=== PATIENT | male | born 1955 | race Caucasian/White ===

== ENCOUNTER 2016-11-08 10:03 | Day surgery (SDC) | payer OTHER ==
[2016-11-06 11:10] VITALS: BMI 35.6
[~2016-11-08 10:03] MED LIST: LACTATED RINGERS 1,000 ML IV SCH
[2016-11-08 10:36] VITALS: RESP 16; TEMP 98.4
[2016-11-08] MEDS ORDERED: LIDOCAINE 1% INJ 10MG/ML (20 ML MDV) ONE (10:43)
[2016-11-08] MEDS ORDERED: PROPOFOL 10 MG/ML 20 ML VIAL IV ONE (10:43)
[2016-11-08] MEDS ORDERED: LIDOCAINE 1% 20 ML VIAL (10MG/ML) FOR IV START INTRADERMA ONE (10:44)
--- NOTE | 2016-11-08 10:46 | P.GSHP ---
History of Present Illness H&P Date: 11/08/16 Chief Complaint: Colon cancer screening Patient here today for colonoscopy. Last colonoscopy 8 years ago. Family history of colon cancer in his mother. No bowel related complaints. Past Medical History Past Medical History: Asthma, Diabetes Mellitus, GERD/Reflux, Hypertension, Musculoskeletal Disorder, Osteoarthritis (OA), Sleep Apnea/CPAP/BIPAP Additional Past Medical History / Comment(s): uses CPAP, spinal stenosis, sciatic pain History of Any Multi-Drug Resistant Organisms: None Reported Past Surgical History: Orthopedic Surgery Additional Past Surgical History / Comment(s): carpal tunnel surg., knee surg. Past Anesthesia/Blood Transfusion Reactions: No Reported Reaction Past Psychological History: Anxiety Smoking Status: Former smoker Past Alcohol Use History: Rare Additional Past Alcohol Use History / Comment(s): quit smoking cigars 10 yrs. ago, only smoked on & off couple yrs. Past Drug Use History: None Reported - Past Family History Sister(s) Family Medical History: Deep Vein Thrombosis (DVT) Medications and Allergies Home Medications Medication Instructions Recorded Confirmed Type ALPRAZolam [Xanax] 0.25 mg PO BID PRN 11/06/16 11/06/16 History Baclofen 10 mg PO HS 11/06/16 11/06/16 History Cholecalciferol [Vitamin D3] 5,000 unit PO DAILY 11/06/16 11/06/16 History Cyanocobalamin (Vitamin B-12) 1,000 mcg PO DAILY 11/06/16 11/06/16 History [Vitamin B-12] DULoxetine HCL [Cymbalta] 60 mg PO DAILY 11/06/16 11/06/16 History HYDROcodone/APAP 10-325MG [[place] 1 tab PO Q6H PRN 11/06/16 11/06/16 History 10-325] Lisinopril [Zestril] 20 mg PO DAILY 11/06/16 11/06/16 History Magnesium 400 mg PO DAILY 11/06/16 11/06/16 History Multivitamin [Men's Multi-Vitamin] 1 each PO DAILY 11/06/16 11/06/16 History Omeprazole 40 mg PO DAILY 11/06/16 11/06/16 History Sertraline [Zoloft] 100 mg PO DAILY 11/06/16 11/06/16 History Vitamin B Complex 1 each PO DAILY 11/06/16 11/06/16 History glipiZIDE/METFORMIN HCL 1 each PO BID 11/06/16 11/06/16 History [glipiZIDE/METFORMIN HCL 5-500 mg] Allergies Allergy/AdvReac Type Severity Reaction Status Date / Time No Known Allergies Allergy Verified 11/08/16 10:36 Surgical - Exam Vital Signs Temp Pulse Resp BP Pulse Ox 98.4 F 109 H 16 212/111 95 11/08/16 10:34 11/08/16 10:34 11/08/16 10:34 11/08/16 10:34 11/08/16 10:34 Physical exam: General: Well-developed, well-nourished HEENT: Normocephalic, sclerae nonicteric Abdomen: Nontender, nondistended Extremities: No edema Neuro: Alert and oriented Assessment and Plan (1) Colon cancer screening Narrative/Plan: Will proceed with colonoscopy at this time. Status: Acute
[2016-11-08 10:59] LABS: Glucose,Whole Blood 245 mg/dL (75-99)
--- NOTE | 2016-11-08 11:02 | P.PCN ---
Date of Procedure: 11/08/16 Procedure(s) Performed: PREOPERATIVE DIAGNOSIS: Colon cancer screening, family history of colon cancer POSTOPERATIVE DIAGNOSIS: Rectal polyp, diverticulosis PROCEDURE: Colonoscopy with snare polypectomy ANESTHESIA: MAC SURGEON: Lopez Maria M.D. SPECIMENS: Rectal polyp ENDOSCOPIC PROCEDURE: The patient was placed on the endoscopy table in the left decubitus position. The Olympus colonoscope was inserted into the anus and passed under direct visualization to the base of the cecum. The appendiceal orifice was visualized. From that point the scope was slowly withdrawn inspecting all surfaces carefully. There were no neoplastic inflammatory or polypoid lesions throughout the cecum, ascending, transverse, descending, and sigmoid colon. In the rectum a small polyp was removed using the snare with cautery technique. There was mild diverticulosis noted in the left colon. Digital rectal examination was normal. The patient was taken to the recovery room in stable condition per anesthesia guidelines. RECOMMENDATIONS: Await biopsy results. Colonoscopy 5 years.
[2016-11-08 11:18] LABS: Glucose,Whole Blood 271 mg/dL (75-99)
[2016-11-08 11:27] VITALS: BP 115/69; PULSE 103
== END 2016-11-08 11:54 | disposition home or self-care (01) ==
LOC: ORWHC2ENDO 10:03
PROVIDERS: ATTEND Surgery
DX: Z12.11 Encounter for screening for malignant neoplasm of colon (principal); Z80.0 Family history of malignant neoplasm of digestive organs; D12.8 Benign neoplasm of rectum; K57.30 Diverticulosis of large intestine without perforation or abscess without bleeding; K21.9 Gastro-esophageal reflux disease without esophagitis; Z87.891 Personal history of nicotine dependence; E11.9 Type 2 diabetes mellitus without complications; Z79.84 Long term (current) use of oral hypoglycemic drugs; I10 Essential (primary) hypertension; J44.9 Chronic obstructive pulmonary disease, unspecified; G47.33 Obstructive sleep apnea (adult) (pediatric); Z99.89 Dependence on other enabling machines and devices; M19.90 Unspecified osteoarthritis, unspecified site; G89.29 Other chronic pain; M54.5 Low back pain; F41.9 Anxiety disorder, unspecified; Z79.899 Other long term (current) drug therapy
CPT/HCPCS: 88305; 45385; J2001; J2704

== ENCOUNTER 2017-04-03 10:30 | Inpatient (IN) | payer OTHER ==
[2017-04-03] MEDS ORDERED: MIDAZOLAM 2 MG/2 ML VIAL ONE (11:42)
[2017-04-03] MEDS ORDERED: SODIUM CHLORIDE 0.9% 1,000 ML IV ONE ×2 (11:51)
[2017-04-03] MEDS ORDERED: MIDAZOLAM 2 MG/2 ML VIAL IVP ONE (11:51)
[2017-04-03] MEDS ORDERED: fentaNYL (PF) 50 MCG/ML 2 ML AMP ONE (11:51)
[2017-04-03] MEDS ORDERED: fentaNYL (PF) 50 MCG/ML 2 ML AMP IVP ONE (11:51)
[2017-04-03] MEDS ORDERED: LIDOCAINE 2% INJ 20 MG/ML SQ ONE (11:55)
[2017-04-03] MEDS ORDERED: BIVALIRUDIN BOLUS 250 MG/50 ML IV ONE (12:07)
[2017-04-03] MEDS ORDERED: niCARdipine 25 MG/10 ML VIAL ONE (12:07)
[2017-04-03] MEDS ORDERED: BIVALIRUDIN 250 MG in SODIUM CHLORIDE 0.9% 50 ML IV ONE (12:08)
[2017-04-03] MEDS ORDERED: NITROGLYCERIN 1000MCG/10ML SYRINGE INTRACORON ONE (12:12)
--- NOTE | 2017-04-03 12:19 | P.PCN ---
Date of Procedure: 04/03/17 Preoperative Diagnosis: Subacute inferior wall CA Postoperative Diagnosis: The same Procedure(s) Performed: Left heart catheterization Description of Procedure: HISTORY: This is a 61-year-old gentleman with history of vuo-ioqgwwh-[id number] diabetes mellitus, obesity who has started having chest pains yesterday around 1 :00 while mowing the lawn. Pain was intermittent and then patient had an episode of syncope. Subsequently patient continued to have pain for about 2-3 hours and then gradually pain is off. Patient could not sleep well last night. He also had mild discomfort this morning. [facility] and EKG confirmed presence of acute inferior wall myocardial infarction. Patient went to [facility] emergency room and subsequently transferred to [facility] for cardiac catheterization and further intervention as needed. CONSENT:I have discussed the risks, benefits and alternative therapies for the above-mentioned procedure and for both sedation/analgesia as well as necessary blood product administration, if indicated, as they pertain to this patient. The patient has indicated understanding and acceptance of the risks and procedures discussed. PROCEDURE: Patient was brought to the lab in a fasting state. Patient was given some IV sedation. The right groin is infiltrated with lidocaine and right femoral artery was entered using Seldinger technique. A 6-Barbadian catheter was left in place and selective coronary arteriography was performed. Patient tolerated the procedure well. . No immediate complications were noted . Patient was found to have total occlusion of RCA and went on to have stent placement by Dr. Pepe Conscious Sedation: Versed: 1 mg Fentanyl :50 mics Duration :15 minutes HEMODYNAMICS: The aortic pressure is 130/70. Left with an end-diastolic pressure was not measured SELECTIVE CORONARY ARTERIOGRAPHY: . LEFT MAIN: long and patent THE LEFT ANTERIOR DESCENDING CORONARY ARTERY: This is a fairly caliber vessel giving rise to diagonal and septal branches. The LAD has mild irregularities with the mild to moderate disease in midportion. No critical lesions are noted and THE INTERMEDIATE CORONARY ARTERY: This is a moderate caliber vessel with mild diffuse disease THE LEFT CIRCUMFLEX AND IS CORONARY ARTERY: This is a moderate caliber vessel giving rise to 2 OM branches. Mild diffuse plaque noted without any critical focal lesions. THE RIGHT CORONARY ARTERY: Good caliber vessel which is totally occluded in the distal portion LEFT VENTRICULOGRAPHY: not performed FINAL IMPRESSION: Total occlusion of the right coronary artery. Mild diffuse disease involving the left system PLAN: Pt is having stent placement by Dr. Pepe PROGNOSIS: Guarded
[2017-04-03] MEDS ORDERED: CLOPIDOGREL 75 MG TAB ONE (12:20)
[2017-04-03] MEDS ORDERED: CLOPIDOGREL 75 MG TAB PO ONE (12:22)
[2017-04-03] MEDS ORDERED: IODIXANOL 320 MG/ML 100 ML INTRAARTER ONE (12:22)
[2017-04-03] MEDS ORDERED: ZOLPIDEM 5 MG TAB PO PRN (12:28)
[2017-04-03] MEDS ORDERED: MAG HYDROX/AL HYDROX/SIMETH 30 ML CUP PO PRN (12:28)
[2017-04-03] MEDS ORDERED: ATROPINE SULFATE 0.1 MG/ML 10ML SYRINGE IV PRN (12:28)
[2017-04-03] MEDS ORDERED: NITROGLYCERIN SL TABS 0.4 MG TAB SUBLINGUAL PRN (12:28)
[2017-04-03] MEDS ORDERED: RX INFO: IV CONTRAST WAS GIVEN 1 EACH MISC MISCELLANE PRN (12:28)
[2017-04-03] MEDS ORDERED: SODIUM CHLORIDE 0.9% 1,000 ML IV SCH (12:30)
[2017-04-03 13:09] LABS: Glucose,Whole Blood 182 mg/dL (75-99)
--- NOTE | 2017-04-03 13:18 | PTCA ---
PERCUTANEOUSTRANS CORORONARY ANGIOGRAPHY DATE OF SERVICE: 04/03/2017 PERFORMING PHYSICIAN: Ernesto Barreto M.D., [employer] Temp. PROCEDURE PERFORMED: Successful stenting of the distal RCA using 2.75 x 33 mm Xience KYRA with good angiographic results. INDICATION: This is a pleasant 61-year-old gentleman who presented to [facility] with chest discomfort and was diagnosed with acute inferior ST-elevation myocardial infarction, so he was brought emergently to [facility] where he underwent heart catheterization by Dr. Whittington and was found to have acute total occlusion of distal RCA. APPROACH: Right common femoral artery. COMPLICATION: None. LEVEL OF SEDATION: Moderate sedation for 40 minutes. PROCEDURE DESCRIPTION: After diagnostic heart catheterization was performed by Dr. Whittington and after reviewing the angiogram, we decided to pursue with intervention on the RCA. Anticoagulation was initiated using Angiomax. We subsequently engaged the RCA using JR4 guide catheter. A whisper wire was used to cross the acute total occlusion. After that, I did PTCA ballooning using 2.5 x 15 x 12 mm balloon and after that I deployed 2.75 x 33 mm Xience KYRA where the stent was positioned under fluoroscopy guidance and deployed under 18 atmospheres for 20 seconds with the following angiogram showed good angiographic results and the procedure was completed without any complication. POSTPROCEDURE MANAGEMENT: 1. Dual anti-platelet therapy. 2. Risk factor modifications. 3. Will follow up with the patient. MMODL / IJN: [id number] /
[2017-04-03] MEDS: FAMOTIDINE 20 MG TAB PO SCH (15:19)
[2017-04-03] MEDS: DULoxetine HCL 60 MG CAPSULE.DR PO SCH (15:19)
[2017-04-03] MEDS: SERTRALINE 100 MG TAB PO SCH (15:19)
[2017-04-03] MEDS: ALPRAZolam 0.25 MG TAB PO PRN (15:57)
[2017-04-03 17:47] LABS: Glucose,Whole Blood 199 mg/dL (75-99)
[2017-04-03] MEDS: INSULIN LISPRO (humaLOG) 300 UNIT/3 ML VIAL SQ SCH ×2 (18:19→19:59)
--- NOTE | 2017-04-03 18:57 | P.HPIM ---
History of Present Illness H&P Date: 04/03/17 Chief Complaint: Chest pain 61 years old gentleman with past medical history of asthma or exercise-induced, diabetes mellitus, GERD, hypertension, osteoarthritis, sleep apnea on CPAP presents with chest pain that started yesterday while patient was working in the garden. Patient states that he was feeling unfelt for the past 2 days but was able to do 15 miles on his bike day before yesterday. He was gardening when he felt chest discomfort and heartburn in the substernal area with no radiation. Patient went inside the house and had some tums with no improvement. He took 6-8 step and walk 30 feet when he passed out. He went to the [facility] and underwent an EKG which confirmed acute inferior wall HI. Patient was transferred to [facility] for cardiac catheterization and underwent stenting of the RCA by Dr. Pepe. Patient was seen post catheterization and was resting comfortably in bed with no chest discomfort or shortness of breath. Review of Systems Constitutional: Reports lethargy, Denies anorexia, Denies chills, Denies chronic headaches, Denies chronic pain, Denies fever, Denies night sweats, Denies poor appetite, Denies weakness, Denies weight gain Eyes: denies decreased vision, denies diplopia, denies irritation Ears: deny: decreased hearing Ears, nose, mouth and throat: Denies ant. neck pain, Denies dysphagia, Denies headache, Denies nasal congestion, Denies neck lump, Denies nose pain Cardiovascular: Reports chest pain, Reports decreased exercise tolerance, Reports dyspnea on exertion, Reports high blood pressure, Denies irregular heart beat, Denies leg edema, Denies lightheadedness, Denies orthopnea, Denies paroxysmal nocturnal dyspnea, Denies syncope Respiratory: Denies cough, Denies cough with sputum, Denies home oxygen, Denies pleurisy, Denies wheezing Gastrointestinal: Denies abdominal pain, Denies belching, Denies bloating, Denies BRBPR, Denies change in bowel habits, Denies coffee ground emesis, Denies early satiety, Denies hematemesis, Denies hematochezia, Denies melena, Denies nausea, Denies vomiting Genitourinary: Denies nocturia, Denies polyuria, Denies urinary frequency, Denies urinary hesitancy Musculoskeletal: Denies leg numbness/tingling, Denies loss of height, Denies low back pain, Denies morning stiffness, Denies muscle cramps Integumentary: Denies rash, Denies striae, Denies wounds Neurological: Denies lack of coordination, Denies loss of vision, Denies memory loss, Denies migraines, Denies motor disturbance, Denies numbness, Denies paralysis, Denies seizures Psychiatric: Reports anxiety (patient has lost his job and he is dealing with daily expenses) Endocrine: Denies excessive sweating, Denies fatigue, Denies high blood sugars, Denies palpitations, Denies polydipsia, Denies polyphagia Past Medical History Past Medical History: Asthma, Diabetes Mellitus, GERD/Reflux, Hypertension, Musculoskeletal Disorder, Osteoarthritis (OA), Sleep Apnea/CPAP/BIPAP Additional Past Medical History / Comment(s): uses CPAP, spinal stenosis, sciatic pain History of Any Multi-Drug Resistant Organisms: None Reported Past Surgical History: Orthopedic Surgery Additional Past Surgical History / Comment(s): carpal tunnel surg., knee surg. Past Anesthesia/Blood Transfusion Reactions: No Reported Reaction Past Psychological History: Anxiety Smoking Status: Former smoker Past Alcohol Use History: Rare Additional Past Alcohol Use History / Comment(s): quit smoking cigars 10 yrs. ago, only smoked on & off couple yrs. Past Drug Use History: None Reported - Past Family History Sister(s) Family Medical History: Deep Vein Thrombosis (DVT), Skin Disorder (rosacea) Mother Family Medical History: Cancer (colon and thyroid cancer) Additional Family Medical History / Comment(s): Mother of colon cancer at the age of 59yrs. Father Family Medical History: Congestive Heart Failure (CHF) Brother(s) Family Medical History: Diabetes Mellitus Medications and Allergies Home Medications Medication Instructions Recorded Confirmed Type ALPRAZolam [Xanax] 0.25 mg PO BID PRN 11/06/16 04/03/17 History Baclofen 10 mg PO DAILY PRN 11/06/16 04/03/17 History Cholecalciferol [Vitamin D3] 5,000 unit PO DAILY 11/06/16 04/03/17 History Cyanocobalamin (Vitamin B-12) 1,000 mcg PO DAILY 11/06/16 04/03/17 History [Vitamin B-12] DULoxetine HCL [Cymbalta] 60 mg PO DAILY 11/06/16 04/03/17 History HYDROcodone/APAP 10-325MG [[place] 1 tab PO Q6H PRN 11/06/16 04/03/17 History 10-325] Magnesium 400 mg PO DAILY 11/06/16 04/03/17 History Multivitamin [Men's Multi-Vitamin] 1 tab PO DAILY 11/06/16 04/03/17 History Omeprazole 40 mg PO DAILY 11/06/16 04/03/17 History Sertraline [Zoloft] 100 mg PO DAILY 11/06/16 04/03/17 History Vitamin B Complex 1 cap PO DAILY 11/06/16 04/03/17 History glipiZIDE/METFORMIN HCL 2 tab PO BID 11/06/16 04/03/17 History [glipiZIDE/METFORMIN HCL 5-500 mg] Albuterol Inhaler [Ventolin Hfa 1 - 2 puff INHALATION RT-Q6H PRN 04/03/17 History Inhaler] Allergies Allergy/AdvReac Type Severity Reaction Status Date / Time No Known Allergies Allergy Verified 04/03/17 15:53 Physical Exam Vitals: Intake and Output 04/02/17 04/03/17 04/03/17 22:59 06:59 14:59 Intake Total 395 Balance 395 Intake: IV 395 Other: Weight 128.82 kg Patient Weight 04/04/17 06:59 Weight 128.82 kg - Constitutional General appearance: average body habitus - EENT Eyes: anicteric sclerae, EOMI, PERRLA ENT: normal oropharynx Ears: bilateral: normal - Neck Neck: no lymphadenopathy, no normal ROM, no stridor Carotids: bilateral: upstroke normal - Respiratory Respiratory: bilateral: CTA, wheezing - Cardiovascular Rhythm: regular Heart sounds: normal: S1, S2 Abnormal Heart Sounds: no systolic murmur, no diastolic murmur - Gastrointestinal General gastrointestinal: normal bowel sounds, soft, no tenderness - Integumentary Integumentary: normal - Neurologic Neurologic: CNII-XII intact - Musculoskeletal Musculoskeletal: strength equal bilaterally - Psychiatric Psychiatric: A&O x's 3 Results Labs: Abnormal Lab Results - Last 24 Hours (Table) 04/03/17 Range/Units 13:07 POC Glucose (mg/dL) 182 H (75-99) mg/dL Assessment and Plan Plan: 1 STEMI status post stenting of RCA - continue aspirin, Plavix, atorvastatin, lisinopril and metoprolol. #2 diabetes patient on glipizide and metformin at home, hold. Continue insulin sliding scale #3 depression. Patient left his job secondary to depression and is also suffering with no insurance. 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
[2017-04-03] MEDS: FLUTICASONE 50MCG/SPRAY NASAL 16GM EA NOSTRIL PRN (19:58)
[2017-04-03] MEDS: ATORVASTATIN 80 MG TAB PO SCH (19:59)
[2017-04-03] MEDS: METOPROLOL TARTRATE 25 MG TAB PO SCH (19:59)
[2017-04-03] MEDS: HEPARIN SODIUM,PORCINE 5,000 UNIT/ML 1 ML VIAL SQ SCH (19:59)
[2017-04-03 20:00] LABS: Glucose,Whole Blood 225 mg/dL (75-99)
[2017-04-03] MEDS ORDERED: ONDANSETRON 4 MG/2 ML VIAL IVP PRN (20:44)
[2017-04-03] MEDS ORDERED: ONDANSETRON 4 MG/2 ML VIAL ONE (20:46)
[2017-04-03 21:18] LABS: Hemoglobin A1C 7.5 % (4.2-6.1)
[2017-04-04 03:38] LABS: Basophils % (A) 0 %; CH 31.2; CHCM 33.5; Eosinophils % (A) 0 %; HCT 41.7 % (39.0-53.0); HDW 2.56; HGB 14.2 gm/dL (13.0-17.5); Luc # (Auto) 0.21; Luc % (Auto) 2; Lymphocytes # (A) 1.2 k/uL (1.0-4.8); Lymphocytes % (A) 9 %; MCH 31.8 pg (25.0-35.0); MCV 93.7 fL (80.0-100.0); Mean Platelet Volume 7.3; Monocytes # (A) 0.9 k/uL (0-1.0); Monocytes % (A) 7 %; Neutrophils # (A) 10.3 k/uL (1.3-7.7); Neutrophils % (A) 82 %; RBC 4.45 m/uL (4.30-5.90); RDW 13.3 % (11.5-15.5); WBC 12.7 k/uL (3.8-10.6); WBC (Perox) 13.47
[2017-04-04 04:05] LABS: ALT 80 U/L (21-72); AST 358 U/L (17-59); Alkaline Phosphatase 67 U/L (38-126); Anion Gap 13 mmol/L; Blood Urea Nitrogen 16 mg/dL (9-20); Carbon Dioxide 20 mmol/L (22-30); Chloride 100 mmol/L (98-107); Cholesterol 131 mg/dL (<200); Glucose 199 mg/dL (74-99); HDL Cholesterol 36 mg/dL (40-60); Non-African American GFR(MDRD) >60 (>60 ml/min/1.73 sqM); Potassium 4.4 mmol/L (3.5-5.1); Sodium 133 mmol/L (137-145); Total Protein 6.6 g/dL (6.3-8.2)
[2017-04-04 07:17] LABS: Glucose,Whole Blood 218 mg/dL (75-99)
--- NOTE | 2017-04-04 08:32 | P.PN ---
Subjective Principal diagnosis: Acute inferior ST elevation DE This is a pleasant 61-year-old gentleman who presented to [facility] with chest discomfort for and was seen and evaluated by Dr. Whittington was diagnosed the patient was acute inferior ST elevation myocardial infarction and transferred the patient to [facility] where he underwent a heart catheterization and was found to have occluded mid to distal RCA. The patient underwent successful stenting of the mid to distal RCA with good results. Beside that the patient was found to have an intermediate to severe disease involving the ramus intermedius coronary artery. On follow-up with the patient today, he is doing good and he is asymptomatic from the cardiovascular standpoint overview. He denies having any chest pain or discomfort or difficulty breathing. He has been maintaining normal sinus mechanism with a normal heart rate and blood pressure. He continues to be on dual antiplatelet therapy along with a statin as well as metoprolol and lisinopril. An echocardiogram was ordered and was done but we don't have the results yet. Objective - Vital Signs Vital signs: Vital Signs Temp 98.2 F 04/04/17 04:00 Pulse 60 04/04/17 07:00 Resp 20 04/04/17 07:00 BP 135/80 04/04/17 07:00 Pulse Ox 94 L 04/04/17 07:00 Intake & Output 04/03/17 04/04/17 04/04/17 18:59 06:59 18:59 Intake Total 1245 525 Output Total 225 450 Balance 1020 75 Weight 129.5 kg 129.3 kg Intake: IV 995 400 Sodium Chloride 0.9% 1, 600 400 000 ml @ 100 mls/hr IV . Q10H CODY Rx#:[id number] Oral 250 125 Output: Urine 225 350 Emesis 100 Other: Voiding Method Urinal Urinal # Voids 0 # Emeses 1 ABP, PAP, CO, CI - Last Documented Arterial Blood Pressure 116/58 - Constitutional General appearance: Present: no acute distress - Respiratory Respiratory: bilateral: CTA - Cardiovascular Rhythm: regular Heart sounds: normal: S1, S2 - Labs CBC & Chem 7: 04/04/17 01:57 04/04/17 01:57 Labs: Abnormal Lab Results - Last 24 Hours (Table) 04/03/17 04/03/17 04/03/17 Range/Units 13:07 15:08 15:08 WBC (3.8-10.6) k/uL Neutrophils # (1.3-7.7) k/uL Sodium (137-145) mmol/L Carbon Dioxide (22-30) mmol/L Glucose (74-99) mg/dL POC Glucose (mg/dL) 182 H (75-99) mg/dL Hemoglobin A1c 7.5 H (4.2-6.1) % AST (17-59) U/L ALT (21-72) U/L Troponin I 155.000 H* (0.000-0.034) ng/mL Triglycerides (<150) mg/dL HDL Cholesterol (40-60) mg/dL 04/03/17 04/03/17 04/03/17 Range/Units 17:45 19:57 20:36 WBC (3.8-10.6) k/uL Neutrophils # (1.3-7.7) k/uL Sodium (137-145) mmol/L Carbon Dioxide (22-30) mmol/L Glucose (74-99) mg/dL POC Glucose (mg/dL) 199 H 225 H (75-99) mg/dL Hemoglobin A1c (4.2-6.1) % AST (17-59) U/L ALT (21-72) U/L Troponin I 117.000 H* (0.000-0.034) ng/mL Triglycerides (<150) mg/dL HDL Cholesterol (40-60) mg/dL 04/04/17 04/04/17 04/04/17 Range/Units 01:57 01:57 01:57 WBC 12.7 H (3.8-10.6) k/uL Neutrophils # 10.3 H (1.3-7.7) k/uL Sodium 133 L (137-145) mmol/L Carbon Dioxide 20 L (22-30) mmol/L Glucose 199 H (74-99) mg/dL POC Glucose (mg/dL) (75-99) mg/dL Hemoglobin A1c (4.2-6.1) % AST 358 H (17-59) U/L ALT 80 H (21-72) U/L Troponin I 66.900 H* (0.000-0.034) ng/mL Triglycerides 154 H (<150) mg/dL HDL Cholesterol 36 L (40-60) mg/dL 04/04/17 Range/Units 07:15 WBC (3.8-10.6) k/uL Neutrophils # (1.3-7.7) k/uL Sodium (137-145) mmol/L Carbon Dioxide (22-30) mmol/L Glucose (74-99) mg/dL POC Glucose (mg/dL) 218 H (75-99) mg/dL Hemoglobin A1c (4.2-6.1) % AST (17-59) U/L ALT (21-72) U/L Troponin I (0.000-0.034) ng/mL Triglycerides (<150) mg/dL HDL Cholesterol (40-60) mg/dL Assessment and Plan Plan: This is a pleasant 61-year-old gentleman who is status post RCA stenting in the setting of acute inferior ST elevation myocardial infarction. The patient continues to be asymptomatic. He continues to be in normal sinus mechanism. He is hemodynamically stable as well. I will continue the current medical treatment which included dual antiplatelet therapy as well as a statin. Follow-up on the echocardiogram. Transfer the patient to 6 E.
[2017-04-04] MEDS: INSULIN LISPRO (humaLOG) 300 UNIT/3 ML VIAL SQ SCH ×4 (08:44→21:10)
[2017-04-04 08:45] LABS: Glucose,Whole Blood 262 mg/dL (75-99)
[2017-04-04] MEDS: SERTRALINE 100 MG TAB PO SCH (08:45)
[2017-04-04] MEDS: ASPIRIN 325 MG TAB PO SCH (08:45)
[2017-04-04] MEDS: METOPROLOL TARTRATE 25 MG TAB PO SCH ×2 (08:45→21:07)
[2017-04-04] MEDS: HEPARIN SODIUM,PORCINE 5,000 UNIT/ML 1 ML VIAL SQ SCH ×2 (08:45→21:07)
[2017-04-04] MEDS: DULoxetine HCL 60 MG CAPSULE.DR PO SCH (08:46)
[2017-04-04] MEDS: FAMOTIDINE 20 MG TAB PO SCH (08:46)
[2017-04-04] MEDS: LISINOPRIL 10 MG TAB PO SCH (08:46)
[2017-04-04] MEDS: ALBUTEROL NEBULIZED 2.5 MG/3 ML INHALATION PRN (11:46)
--- NOTE | 2017-04-04 12:25 | ECHOF ---
Referral Reason:stemi MEASUREMENTS -------- HEIGHT: 180.3 cm WEIGHT: 128.8 kg BP: 105/67 IVSd: 1.3 cm (0.6 - 1.1) LVIDd: 4.5 cm (3.9 - 5.3) LVPWd: 1.4 cm (0.6 - 1.1) IVSs: 2.3 cm LVIDs: 2.8 cm LVPWs: 2.1 cm Ao Diam: 3.1 cm (2.0 - 3.7) AV Cusp: 2.2 cm (1.5 - 2.6) LA Diam: 3.9 cm (2.7 - 3.8) MV EXCURSION: 16.790 mm (> 18.000) MV EF SLOPE: 122 mm/s (70 - 150) EPSS: 0.3 cm MV E Nabil: 0.87 m/s MV DecT: 183 ms MV A Nabil: 0.66 m/s MV E/A Ratio: 1.32 RAP: 5.00 mmHg RVSP: 27.32 mmHg FINDINGS -------- Sinus rhythm. This was a technically good study. The left ventricular size is normal. There is mild concentric left ventricular hypertrophy. Overall left ventricular systolic function is mildly impaired with, an EF between 45 - 50 %. Basal inferolateral hypokinesis. The right ventricle is normal in size and function. The left atrium is normal in size. The right atrium is normal in size. The aortic valve is trileaflet, and appears structurally normal. No aortic stenosis or regurgitation. The mitral valve leaflets are mildly thickened. There is trace mitral regurgitation. Trace tricuspid regurgitation present. The right ventricular systolic pressure, as measured by Doppler, is 27.32mmHg. Pulmonic valve appears structurally normal. The aortic root size is normal. The pericardium is normal. CONCLUSIONS -------- 1. Sinus rhythm. 2. The aortic valve is trileaflet, and appears structurally normal. No aortic stenosis or regurgitation. 3. The mitral valve leaflets are mildly thickened. 4. There is trace mitral regurgitation. 5. Trace tricuspid regurgitation present. 6. The right ventricular systolic pressure, as measured by Doppler, is 27.32mmHg. 7. Pulmonic valve appears structurally normal. 8. The aortic root size is normal. 9. The pericardium is normal. 10. This was a technically good study. 11. The left ventricular size is normal. 12. There is mild concentric left ventricular hypertrophy. 13. Overall left ventricular systolic function is mildly impaired with, an EF between 45 - 50 %. 14. Basal inferolateral hypokinesis. 15. The right ventricle is normal in size and function. 16. The left atrium is normal in size. 17. The right atrium is normal in size. POOL MANAGER: Lori Dia RDCS
[2017-04-04 12:27] LABS: Glucose,Whole Blood 295 mg/dL (75-99)
[2017-04-04] MEDS: CLOPIDOGREL 75 MG TAB PO SCH (13:23)
--- NOTE | 2017-04-04 15:42 | P.PN ---
Subjective 61 years old gentleman with past medical history of asthma or exercise-induced, diabetes mellitus, GERD, hypertension, osteoarthritis, sleep apnea on CPAP presents with chest pain that started yesterday while patient was working in the garden. Patient states that he was feeling unfelt for the past 2 days but was able to do 15 miles on his bike day before yesterday. He was gardening when he felt chest discomfort and heartburn in the substernal area with no radiation. Patient went inside the house and had some tums with no improvement. He took 6-8 step and walk 30 feet when he passed out. He went to the [facility] and underwent an EKG which confirmed acute inferior wall [place]. Patient was transferred to [facility] for cardiac catheterization and underwent stenting of the RCA by Dr. Pepe. Patient was seen post catheterization and was resting comfortably in bed with no chest discomfort or shortness of breath. 04/04: Patient is in ICU as a selective care overflow. Patient did have some nausea and vomited once last evening and continues to have some nausea this morning for which she has received Zofran. Apparently patient was quite confused during the weight shifter possibly related to the combination of Xanax and Ambien. Ambien will be discontinued. Echo has been done and report is pending. Repeat troponins are elevated and CK-MB has been ordered 1 Objective - Vital Signs Vital signs: Vital Signs Temp 98.0 F 04/04/17 09:00 Pulse 62 04/04/17 11:54 Resp 31 H 04/04/17 11:00 BP 106/70 04/04/17 11:00 Pulse Ox 97 04/04/17 11:00 Intake & Output 04/03/17 04/04/17 04/04/17 18:59 06:59 18:59 Intake Total 1245 525 720 Output Total 225 450 325 Balance 1020 75 395 Weight 129.5 kg 129.3 kg 129.3 kg Intake: IV 995 400 Sodium Chloride 0.9% 1, 600 400 000 ml @ 100 mls/hr IV . Q10H CODY Rx#:[id number] Oral 250 125 720 Output: Urine 225 350 325 Emesis 100 Other: Voiding Method Urinal Urinal Urinal # Voids 0 0 # Emeses 1 ABP, PAP, CO, CI - Last Documented Arterial Blood Pressure 116/58 - Exam General appearance: average body habitus - EENT Eyes: anicteric sclerae, EOMI, PERRLA ENT: normal oropharynx Ears: bilateral: normal - Neck Neck: no lymphadenopathy, no normal ROM, no stridor Carotids: bilateral: upstroke normal - Respiratory Respiratory: bilateral: CTA, wheezing - Cardiovascular Rhythm: regular Heart sounds: normal: S1, S2 Abnormal Heart Sounds: no systolic murmur, no diastolic murmur - Gastrointestinal General gastrointestinal: normal bowel sounds, soft, no tenderness - Integumentary Integumentary: normal - Neurologic Neurologic: CNII-XII intact - Musculoskeletal Musculoskeletal: strength equal bilaterally - Psychiatric Psychiatric: A&O x's 3 - Labs CBC & Chem 7: 04/04/17 01:57 04/04/17 01:57 Labs: Abnormal Lab Results - Last 24 Hours (Table) 04/03/17 04/03/17 04/03/17 Range/Units 13:07 15:08 15:08 WBC (3.8-10.6) k/uL Neutrophils # (1.3-7.7) k/uL Sodium (137-145) mmol/L Carbon Dioxide (22-30) mmol/L Glucose (74-99) mg/dL POC Glucose (mg/dL) 182 H (75-99) mg/dL Hemoglobin A1c 7.5 H (4.2-6.1) % AST (17-59) U/L ALT (21-72) U/L Troponin I 155.000 H* (0.000-0.034) ng/mL Triglycerides (<150) mg/dL HDL Cholesterol (40-60) mg/dL 04/03/17 04/03/17 04/03/17 Range/Units 17:45 19:57 20:36 WBC (3.8-10.6) k/uL Neutrophils # (1.3-7.7) k/uL Sodium (137-145) mmol/L Carbon Dioxide (22-30) mmol/L Glucose (74-99) mg/dL POC Glucose (mg/dL) 199 H 225 H (75-99) mg/dL Hemoglobin A1c (4.2-6.1) % AST (17-59) U/L ALT (21-72) U/L Troponin I 117.000 H* (0.000-0.034) ng/mL Triglycerides (<150) mg/dL HDL Cholesterol (40-60) mg/dL 04/04/17 04/04/17 04/04/17 Range/Units 01:57 01:57 01:57 WBC 12.7 H (3.8-10.6) k/uL Neutrophils # 10.3 H (1.3-7.7) k/uL Sodium 133 L (137-145) mmol/L Carbon Dioxide 20 L (22-30) mmol/L Glucose 199 H (74-99) mg/dL POC Glucose (mg/dL) (75-99) mg/dL Hemoglobin A1c (4.2-6.1) % AST 358 H (17-59) U/L ALT 80 H (21-72) U/L Troponin I 66.900 H* (0.000-0.034) ng/mL Triglycerides 154 H (<150) mg/dL HDL Cholesterol 36 L (40-60) mg/dL 04/04/17 04/04/17 Range/Units 07:15 08:43 WBC (3.8-10.6) k/uL Neutrophils # (1.3-7.7) k/uL Sodium (137-145) mmol/L Carbon Dioxide (22-30) mmol/L Glucose (74-99) mg/dL POC Glucose (mg/dL) 218 H 262 H (75-99) mg/dL Hemoglobin A1c (4.2-6.1) % AST (17-59) U/L ALT (21-72) U/L Troponin I (0.000-0.034) ng/mL Triglycerides (<150) mg/dL HDL Cholesterol (40-60) mg/dL Assessment and Plan Plan: 1 STEMI status post stenting of RCA - continue aspirin, Plavix, atorvastatin, lisinopril and metoprolol. #2 diabetes patient on glipizide and metformin at home, hold. Continue insulin sliding scale #3 depression. Patient left his job secondary to depression and is also suffering with no insurance. 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 Ambien will be discontinued. Discharge plan: Home Impression and plan of care have been directed as dictated by the signing physician. Reema An nurse practitioner acting as scribe for signing physician.
[2017-04-04 17:31] LABS: Glucose,Whole Blood 248 mg/dL (75-99)
[2017-04-04] MEDS: ATORVASTATIN 80 MG TAB PO SCH (21:07)
[2017-04-04 21:12] LABS: Glucose,Whole Blood 240 mg/dL (75-99)
[2017-04-05] MEDS: INSULIN LISPRO (humaLOG) 300 UNIT/3 ML VIAL SQ SCH ×4 (06:40→21:36)
[2017-04-05 06:41] LABS: Glucose,Whole Blood 147 mg/dL (75-99)
[2017-04-05] MEDS: METOPROLOL TARTRATE 25 MG TAB PO SCH ×2 (08:19→21:35)
[2017-04-05] MEDS: ASPIRIN 325 MG TAB PO SCH (08:19)
[2017-04-05] MEDS: DULoxetine HCL 60 MG CAPSULE.DR PO SCH (08:19)
[2017-04-05] MEDS: SERTRALINE 100 MG TAB PO SCH (08:19)
[2017-04-05] MEDS: CLOPIDOGREL 75 MG TAB PO SCH (08:20)
[2017-04-05] MEDS: FAMOTIDINE 20 MG TAB PO SCH (08:20)
[2017-04-05] MEDS: LISINOPRIL 10 MG TAB PO SCH (08:20)
[2017-04-05] MEDS: HEPARIN SODIUM,PORCINE 5,000 UNIT/ML 1 ML VIAL SQ SCH ×2 (08:20→21:36)
[2017-04-05 11:37] LABS: Glucose,Whole Blood 207 mg/dL (75-99)
--- NOTE | 2017-04-05 12:00 | P.PN ---
Subjective 61 years old gentleman with past medical history of asthma or exercise-induced, diabetes mellitus, GERD, hypertension, osteoarthritis, sleep apnea on CPAP presents with chest pain that started yesterday while patient was working in the garden. Patient states that he was feeling unfelt for the past 2 days but was able to do 15 miles on his bike day before yesterday. He was gardening when he felt chest discomfort and heartburn in the substernal area with no radiation. Patient went inside the house and had some tums with no improvement. He took 6-8 step and walk 30 feet when he passed out. He [facility] and underwent an E[facility] which confirmed acute inferior wall [place]. Patient was transferred to [facility] for cardiac catheterization and underwent stenting of the RCA by Dr. Pepe. Patient was seen post catheterization and was resting comfortably in bed with no chest discomfort or shortness of breath. 04/04: Patient is in ICU as a selective care overflow. Patient did have some nausea and vomited once last evening and continues to have some nausea this morning for which she has received Zofran. Apparently patient was quite confused during the machine installer possibly related to the combination of Xanax and Ambien. Ambien will be discontinued. Echo has been done and report is pending. Repeat troponins are elevated and CK-MB has been ordered 1 04/05: Patient was seen and evaluated today. He reports he is feeling well, denies any chest pain, shortness of breath, nausea or vomiting today. He did have a echo done, shows an ejection fraction between 45 and 50%. CK-MB elevated at 17. Plan is for discharge tomorrow. Objective - Vital Signs Vital signs: Vital Signs Temp 97.5 F L 04/05/17 04:00 Pulse 89 04/05/17 04:00 Resp 17 04/05/17 04:00 BP 110/56 04/05/17 04:00 Pulse Ox 95 04/05/17 04:00 Intake & Output 04/04/17 04/05/17 04/05/17 18:59 06:59 18:59 Intake Total 1540 480 Output Total 1025 Balance 515 480 Weight 129.3 kg 128.5 kg Intake: Oral 1540 480 Output: Urine 1025 Other: Voiding Method Urinal Urinal # Voids 0 # Bowel Movements 1 ABP, PAP, CO, CI - Last Documented Arterial Blood Pressure 116/58 - Exam - Exam General appearance: average body habitus - EENT Eyes: anicteric sclerae, EOMI, PERRLA ENT: normal oropharynx Ears: bilateral: normal - Neck Neck: no lymphadenopathy, no normal ROM, no stridor Carotids: bilateral: upstroke normal - Respiratory Respiratory: bilateral: CTA, wheezing - Cardiovascular Rhythm: regular Heart sounds: normal: S1, S2 Abnormal Heart Sounds: no systolic murmur, no diastolic murmur - Gastrointestinal General gastrointestinal: normal bowel sounds, soft, no tenderness - Integumentary Integumentary: normal - Neurologic Neurologic: CNII-XII intact - Musculoskeletal Musculoskeletal: strength equal bilaterally - Psychiatric Psychiatric: A&O x's 3 - Labs CBC & Chem 7: 04/04/17 01:57 04/04/17 01:57 Labs: Abnormal Lab Results - Last 24 Hours (Table) 04/04/17 04/04/17 04/04/17 Range/Units 08:43 12:25 12:38 POC Glucose (mg/dL) 262 H 295 H (75-99) mg/dL CK-MB (CK-2) 17.0 H* (0.0-2.4) ng/mL 04/04/17 04/04/17 04/05/17 Range/Units 17:30 21:10 06:39 POC Glucose (mg/dL) 248 H 240 H 147 H (75-99) mg/dL CK-MB (CK-2) (0.0-2.4) ng/mL Assessment and Plan Plan: 1 STEMI status post stenting of RCA - continue aspirin, Plavix, atorvastatin, lisinopril and metoprolol. #2 diabetes patient on glipizide and metformin at home, hold. Continue insulin sliding scale #3 depression. Patient left his job secondary to depression and is also suffering with no insurance. 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 Ambien was discontinued, symptoms have resolved. The above impression and plan of care have been discussed and directed by signing physician. Breana Bhandari nurse practitioner acting as scribe for signing physician.
--- NOTE | 2017-04-05 13:15 | PN ---
PROGRESS NOTE Mr. Ray is a 61-year-old male who presented with myocardial infarction, underwent cardiac catheterization and stenting of the right coronary artery. He is doing well this morning. His breathing has been stable. He has been ambulating without much difficulty. His echocardiogram that was performed on 03 of April has shown an ejection fraction of 45% to 50%. He underwent stenting of the right coronary artery by Dr. Barreto. He continues to be at this time on aspirin once a day, Lipitor 80 mg daily, Plavix 75 mg daily, lisinopril 10 mg daily, metoprolol tartrate 25 mg twice a day, in addition to insulin. PHYSICAL EXAMINATION: Blood pressure 116/60 with the heart rate in the 90s. LUNGS: Clear. HEART: Regular rate and rhythm S1, S2. No S3. No rub. ABDOMEN: Soft, nontender. EXTREMITIES: No edema. Right groin hematoma. IMPRESSION: 1. Status post myocardial infarction with stenting of the right coronary artery. 2. Hypertension. 3. Hyperlipidemia. 4. Diabetes mellitus. RECOMMENDATION: His activity will be increased and if remains stable, I would expect he should be able to be discharged home tomorrow. MMODL / IJN: [id number] /
[2017-04-05 16:44] LABS: Glucose,Whole Blood 196 mg/dL (75-99)
[2017-04-05] MEDS: ALBUTEROL NEBULIZED 2.5 MG/3 ML INHALATION PRN ×2 (17:30→20:55)
[2017-04-05 21:03] LABS: Glucose,Whole Blood 238 mg/dL (75-99)
[2017-04-05] MEDS: ATORVASTATIN 80 MG TAB PO SCH (21:35)
[2017-04-06] MEDS: ALBUTEROL NEBULIZED 2.5 MG/3 ML INHALATION PRN ×5 (05:24→20:00)
[2017-04-06] MEDS: INSULIN LISPRO (humaLOG) 300 UNIT/3 ML VIAL SQ SCH ×4 (06:45→21:21)
[2017-04-06 07:05] LABS: Glucose,Whole Blood 200 mg/dL (75-99)
[2017-04-06] MEDS: DULoxetine HCL 60 MG CAPSULE.DR PO SCH (07:49)
[2017-04-06] MEDS: SERTRALINE 100 MG TAB PO SCH (07:49)
[2017-04-06] MEDS: FAMOTIDINE 20 MG TAB PO SCH (07:49)
[2017-04-06] MEDS: HEPARIN SODIUM,PORCINE 5,000 UNIT/ML 1 ML VIAL SQ SCH ×2 (07:49→20:39)
[2017-04-06] MEDS: LISINOPRIL 10 MG TAB PO SCH (07:49)
[2017-04-06] MEDS: METOPROLOL TARTRATE 25 MG TAB PO SCH ×2 (07:49→20:40)
[2017-04-06] MEDS: ASPIRIN 325 MG TAB PO SCH (07:49)
[2017-04-06] MEDS: CLOPIDOGREL 75 MG TAB PO SCH (07:49)
[2017-04-06] MEDS ORDERED: ALBUTEROL INHALER 60 PUFF/8 GM INHALER INHALATION PRN (08:48)
--- NOTE | 2017-04-06 09:21 | XR ---
EXAMINATION TYPE: XR chest 1V DATE OF EXAM: 04/06/2017 HISTORY: shortness of breath . REFERENCE: NONE. FINDINGS: Heart size upper limits of normal. There is vascular congestion and pulmonary edema. Pleural spaces are clear. IMPRESSION: FINDINGS MOST CONSISTENT WITH CONGESTIVE HEART FAILURE.
[2017-04-06 09:49] LABS: ABG HCO3 22 mmol/L (21-25); ABG PCO2 34 mmHg (35-45); ABG PH 7.43 (7.35-7.45); ABG PO2 52 mmHg (83-108); ABG TCO2 23 mmol/L (19-24)
[2017-04-06 09:50] LABS: ABG Base Excess -1.3 mmol/L; ABG Oxygen Saturation 87.5 % (94-97)
[2017-04-06] MEDS ORDERED: FUROSEMIDE 10 MG/ML 2 ML VIAL IV STA (10:06)
--- NOTE | 2017-04-06 11:04 | P.PN ---
Subjective 61 years old gentleman with past medical history of asthma or exercise-induced, diabetes mellitus, GERD, hypertension, osteoarthritis, sleep apnea on CPAP presents with chest pain that started yesterday while patient was working in the garden. Patient states that he was feeling unfelt for the past 2 days but was able to do 15 miles on his bike day before yesterday. He was gardening when he felt chest discomfort and heartburn in the substernal area with no radiation. Patient went inside the house and had some tums with no improvement. He took 6-8 step and walk 30 feet when he passed out. He went to the [facility] and underwent an EKG which confirmed acute inferior wall [place]. Patient was transferred to [facility] for cardiac catheterization and underwent stenting of the RCA by Dr. Pepe. Patient was seen post catheterization and was resting comfortably in bed with no chest discomfort or shortness of breath. 04/04: Patient is in ICU as a selective care overflow. Patient did have some nausea and vomited once last evening and continues to have some nausea this morning for which she has received Zofran. Apparently patient was quite confused during the lidar technician possibly related to the combination of Xanax and Ambien. Ambien will be discontinued. Echo has been done and report is pending. Repeat troponins are elevated and CK-MB has been ordered 1 04/05: Patient was seen and evaluated today. He reports he is feeling well, denies any chest pain, shortness of breath, nausea or vomiting today. He did have a echo done, shows an ejection fraction between 45 and 50%. CK-MB elevated at 17. Plan is for discharge tomorrow. 04/06: Patient was noted to be resting in bed today. On exam he was noted to be very short of breath, pulse oximetry was 87% on 4 L. Arterial blood gas was ordered pH 7.43, pCO2 34, pO2 52, O2 saturation 87.5. His repeat chest x-ray showed vascular congestion and pulmonary edema. 20 mg IV Lasix given for flash pulmonary edema. 2-D echo will be repeated discharge will be held. Objective - Vital Signs Vital signs: Vital Signs Temp 98.0 F 04/06/17 08:00 Pulse 92 04/06/17 09:10 Resp 18 04/06/17 08:00 BP 126/59 04/06/17 08:00 Pulse Ox 92 L 04/06/17 09:00 Intake & Output 04/05/17 04/06/17 04/06/17 18:59 06:59 18:59 Intake Total 1060 600 200 Output Total 500 150 Balance 560 600 50 Weight 128.3 kg Intake: Oral 1060 600 200 Output: Urine 500 150 Other: # Voids 2 1 ABP, PAP, CO, CI - Last Documented Arterial Blood Pressure 116/58 - Exam - Exam General appearance: average body habitus - EENT Eyes: anicteric sclerae, EOMI, PERRLA ENT: normal oropharynx Ears: bilateral: normal - Neck Neck: no lymphadenopathy, no normal ROM, no stridor Carotids: bilateral: upstroke normal - Respiratory Respiratory: bilateral: CTA, wheezing - Cardiovascular Rhythm: regular Heart sounds: normal: S1, S2 Abnormal Heart Sounds: no systolic murmur, no diastolic murmur - Gastrointestinal General gastrointestinal: normal bowel sounds, soft, no tenderness - Integumentary Integumentary: normal - Neurologic Neurologic: CNII-XII intact - Musculoskeletal Musculoskeletal: strength equal bilaterally - Psychiatric Psychiatric: A&O x's 3 - Labs CBC & Chem 7: 04/04/17 01:57 04/04/17 01:57 Labs: Abnormal Lab Results - Last 24 Hours (Table) 04/05/17 04/05/17 04/05/17 Range/Units 11:35 16:37 21:01 ABG pCO2 (35-45) mmHg ABG pO2 (83-108) mmHg ABG O2 Saturation (94-97) % POC Glucose (mg/dL) 207 H 196 H 238 H (75-99) mg/dL 04/06/17 04/06/17 Range/Units 06:34 09:30 ABG pCO2 34 L (35-45) mmHg ABG pO2 52 L (83-108) mmHg ABG O2 Saturation 87.5 L (94-97) % POC Glucose (mg/dL) 200 H (75-99) mg/dL Assessment and Plan Plan: 1 STEMI status post stenting of RCA - continue aspirin, Plavix, atorvastatin, lisinopril and metoprolol. #2 diabetes patient on glipizide and metformin at home, hold. Continue insulin sliding scale #3 depression. Patient left his job secondary to depression and is also suffering with no insurance. 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 Ambien was discontinued, symptoms have resolved. #12 pulmonary edema-IV Lasix 20 mg given, will repeat echocardiogram, discharge held. The above impression and plan of care have been discussed and directed by signing physician. Breana Bhandari nurse practitioner acting as scribe for signing physician.
--- NOTE | 2017-04-06 12:01 | PN ---
PROGRESS NOTE Mr. Ray is a 61-year-old male who presented with an acute myocardial infarction, underwent cardiac catheterization and stenting of the right coronary artery. He had mild dyspnea this morning. He is feeling better today. He denies any chest pain, yet he was dyspneic during the night. He denies any dizziness or palpitation. He denies any nausea. MEDICATIONS: Include aspirin, Lipitor 80 mg daily, Plavix 75 mg daily, lisinopril 10 mg daily, metoprolol tartrate 25 mg twice a day. PHYSICAL EXAMINATION: Blood pressure 126/59 with a heart in 90s. LUNGS: With mild decrease in breath sounds. No wheezes. HEART: Regular rate and rhythm. S1, S2. No S3. No rub. ABDOMEN: Soft, obese, nontender. EXTREMITIES: No edema. LAB DATA: Revealed a pH of 7.43, pCO2 of 34, PO2 of 52. His chest x-ray is consistent with his CHF. IMPRESSION: 1. Status post myocardial infarction with stenting of the right coronary artery. 2. Symptoms of dyspnea with mild element of congestive heart failure. Patient ejection fraction was 45-50%. 3. History of hypertension. 4. Hyperlipidemia. RECOMMENDATION: The patient received a dose of IV Lasix. I am going to start him on oral diuretics. If he is stable by the afternoon, he may be able to go home and follow up as an outpatient with Dr. Whittington. VANE / MELISSA: [id number] /
[2017-04-06 12:22] LABS: Glucose,Whole Blood 264 mg/dL (75-99)
[2017-04-06] MEDS ORDERED: FUROSEMIDE 10 MG/ML 4 ML VIAL IV STA (12:36)
[2017-04-06 16:54] LABS: Glucose,Whole Blood 245 mg/dL (75-99)
[2017-04-06] MEDS: ATORVASTATIN 80 MG TAB PO SCH (20:39)
[2017-04-06] MEDS: ALPRAZolam 0.25 MG TAB PO PRN (20:40)
[2017-04-06] MEDS: FLUTICASONE 50MCG/SPRAY NASAL 16GM EA NOSTRIL PRN (20:40)
[2017-04-06 21:20] LABS: Glucose,Whole Blood 241 mg/dL (75-99)
[2017-04-07 06:35] LABS: Glucose,Whole Blood 206 mg/dL (75-99)
[2017-04-07] MEDS: INSULIN LISPRO (humaLOG) 300 UNIT/3 ML VIAL SQ SCH ×5 (06:59→21:44)
[2017-04-07] MEDS: ALBUTEROL NEBULIZED 2.5 MG/3 ML INHALATION PRN ×4 (07:30→20:02)
[2017-04-07] MEDS: ASPIRIN 325 MG TAB PO SCH (08:56)
[2017-04-07] MEDS: FAMOTIDINE 20 MG TAB PO SCH (08:56)
[2017-04-07] MEDS: METOPROLOL TARTRATE 25 MG TAB PO SCH ×2 (08:56→21:43)
[2017-04-07] MEDS: HEPARIN SODIUM,PORCINE 5,000 UNIT/ML 1 ML VIAL SQ SCH ×2 (08:56→21:43)
[2017-04-07] MEDS: SERTRALINE 100 MG TAB PO SCH (08:56)
[2017-04-07] MEDS: CLOPIDOGREL 75 MG TAB PO SCH (08:56)
[2017-04-07] MEDS: DULoxetine HCL 60 MG CAPSULE.DR PO SCH (08:57)
[2017-04-07] MEDS: FUROSEMIDE 40 MG TAB PO SCH (08:59)
[2017-04-07] MEDS ORDERED: FUROSEMIDE 20 MG TAB PO SCH (09:00)
[2017-04-07] MEDS: HYDROcodone/APAP 10-325MG 1 EACH TAB PO PRN ×2 (11:08→21:50)
--- NOTE | 2017-04-07 11:55 | ECHOF ---
Referral Reason:r/o CHF MEASUREMENTS -------- HEIGHT: 185.4 cm WEIGHT: 126.1 kg BP: 127/61 RVIDd: 3.4 cm (< 3.3) IVSd: 1.8 cm (0.6 - 1.1) LVIDd: 4.8 cm (3.9 - 5.3) LVPWd: 1.8 cm (0.6 - 1.1) IVSs: 2.0 cm LVIDs: 4.1 cm LVPWs: 2.2 cm LAESV Index (A-L): 25.51 ml/m Ao Diam: 3.2 cm (2.0 - 3.7) AV Cusp: 1.9 cm (1.5 - 2.6) LA Diam: 4.6 cm (2.7 - 3.8) MV EXCURSION: 19.913 mm (> 18.000) MV EF SLOPE: 140 mm/s (70 - 150) EPSS: 1.1 cm MV E Nabil: 1.06 m/s MV DecT: 211 ms MV A Nabil: 0.35 m/s MV E/A Ratio: 3.05 RAP: 5.00 mmHg RVSP: 40.65 mmHg FINDINGS -------- Sinus rhythm. This was a technically adequate study. The left ventricular size is normal. There is moderate concentric left ventricular hypertrophy. Overall left ventricular systolic function is moderately impaired with, an EF between 35 - 40 %. Inferiorlateral Hypokinesis Inferior Hypokinesis The right ventricle is severely enlarged. The right ventricular systolic function is normal. The right ventricular free wall is hypokinetic. Normal LA size by volume 22+/-6 ml/m2. RA appears enlarged. Aortic valve is trileaflet and is mildly thickened. There is no evidence of aortic regurgitation. There is no evidence of aortic stenosis. The mitral valve leaflets are mildly thickened. There is trace to mild mitral regurgitation. Trace tricuspid regurgitation present. There is mild pulmonary hypertension. The right ventricular systolic pressure, as measured by Doppler, is 40.65mmHg. The pulmonic valve was not well visualized. The aortic root size is normal. The inferior vena cava is dilated with poor inspiratory collapse which is consistent with estimated right atrial pressure of 20 mmHg. The pericardium is normal. There is no pericardial effusion. CONCLUSIONS -------- 1. Sinus rhythm. 2. Normal LA size by volume 22+/-6 ml/m2. 3. RA appears enlarged. 4. Aortic valve is trileaflet and is mildly thickened. 5. The mitral valve leaflets are mildly thickened. 6. There is trace to mild mitral regurgitation. 7. Trace tricuspid regurgitation present. 8. There is mild pulmonary hypertension. 9. The right ventricular systolic pressure, as measured by Doppler, is 40.65mmHg. 10. The pulmonic valve was not well visualized. 11. The aortic root size is normal. 12. This was a technically adequate study. 13. The inferior vena cava is dilated with poor inspiratory collapse which is consistent with estimated right atrial pressure of 20 mmHg. 14. There is no pericardial effusion. 15. The left ventricular size is normal. 16. There is moderate concentric left ventricular hypertrophy. 17. Overall left ventricular systolic function is moderately impaired with, an EF between 35 - 40 %. 18. Inferiorlateral Hypokinesis 19. Inferior Hypokinesis 20. The right ventricle is severely enlarged. 21. The right ventricular free wall is hypokinetic. MANAGER PHILOSOPHY: Suhas Matthews RDCS
[2017-04-07 12:01] LABS: Glucose,Whole Blood 283 mg/dL (75-99)
[2017-04-07] MEDS: LISINOPRIL 10 MG TAB PO SCH (12:07)
--- NOTE | 2017-04-07 13:11 | P.PN ---
Subjective 61 years old gentleman with past medical history of asthma or exercise-induced, diabetes mellitus, GERD, hypertension, osteoarthritis, sleep apnea on CPAP presents with chest pain that started yesterday while patient was working in the garden. Patient states that he was feeling unfelt for the past 2 days but was able to do 15 miles on his bike day before yesterday. He was gardening when he felt chest discomfort and heartburn in the substernal area with no radiation. Patient went inside the house and had some tums with no improvement. He took 6-8 step and walk 30 feet when he passed out. He went to the [facility] and underwent an EKG which confirmed acute inferior wall [place]. Patient was transferred to [facility] for cardiac catheterization and underwent stenting of the RCA by Dr. Pepe. Patient was seen post catheterization and was resting comfortably in bed with no chest discomfort or shortness of breath. 04/04: Patient is in ICU as a selective care overflow. Patient did have some nausea and vomited once last evening and continues to have some nausea this morning for which she has received Zofran. Apparently patient was quite confused during the ct mri technologist possibly related to the combination of Xanax and Ambien. Ambien will be discontinued. Echo has been done and report is pending. Repeat troponins are elevated and CK-MB has been ordered 1 04/05: Patient was seen and evaluated today. He reports he is feeling well, denies any chest pain, shortness of breath, nausea or vomiting today. He did have a echo done, shows an ejection fraction between 45 and 50%. CK-MB elevated at 17. Plan is for discharge tomorrow. 04/06: Patient was noted to be resting in bed today. On exam he was noted to be very short of breath, pulse oximetry was 87% on 4 L. Arterial blood gas was ordered pH 7.43, pCO2 34, pO2 52, O2 saturation 87.5. His repeat chest x-ray showed vascular congestion and pulmonary edema. 20 mg IV Lasix given for flash pulmonary edema. 2-D echo will be repeated discharge will be held. 04/07: Initial echocardiogram reveals race mitral regurgitation, trace tricuspid regurgitation, mild concentric left ventricular hypertrophy, EF 45-50%, basal inferior lateral hypokinesia. Repeat echocardiogram reveals EF of 35-40%. Patient has been requiring more oxygen and was on 5 L this morning. Nursing is trying to wean him down as he was not O2 dependent on admission. Lasix will be changed to 40 mg orally daily. We are also adding insulin to his regime with Lantus 15 units at bedtime along with Humalog scheduled 3 units with meals and scale. Case management is planning to cover the cost of his prescriptions through the indigent fund. We will plan to send his prescriptions to [facility] pharmacy when he is ready for discharge. Most likely patient will be ready for tomorrow. Objective - Vital Signs Vital signs: Vital Signs Temp 98.1 F 04/07/17 00:00 Pulse 84 04/07/17 07:42 Resp 16 04/07/17 04:00 BP 127/67 04/07/17 04:00 Pulse Ox 94 L 04/07/17 04:00 Intake & Output 04/06/17 04/07/17 04/07/17 18:59 06:59 18:59 Intake Total 200 360 Output Total 1400 800 Balance -1200 -440 Weight 126.4 kg Intake: Oral 200 360 Output: Urine 1400 800 Other: Voiding Method Urinal ABP, PAP, CO, CI - Last Documented Arterial Blood Pressure 116/58 - Exam General appearance: average body habitus - EENT Eyes: anicteric sclerae, EOMI, PERRLA ENT: normal oropharynx Ears: bilateral: normal - Neck Neck: no lymphadenopathy, no normal ROM, no stridor Carotids: bilateral: upstroke normal - Respiratory Respiratory: bilateral: CTA, wheezing - Cardiovascular Rhythm: regular Heart sounds: normal: S1, S2 Abnormal Heart Sounds: no systolic murmur, no diastolic murmur - Gastrointestinal General gastrointestinal: normal bowel sounds, soft, no tenderness - Integumentary Integumentary: normal - Neurologic Neurologic: CNII-XII intact - Musculoskeletal Musculoskeletal: strength equal bilaterally - Psychiatric Psychiatric: A&O x's 3 - Labs CBC & Chem 7: 04/04/17 01:57 04/04/17 01:57 Labs: Abnormal Lab Results - Last 24 Hours (Table) 04/06/17 04/06/17 04/06/17 Range/Units 09:30 11:58 16:30 ABG pCO2 34 L (35-45) mmHg ABG pO2 52 L (83-108) mmHg ABG O2 Saturation 87.5 L (94-97) % POC Glucose (mg/dL) 264 H 245 H (75-99) mg/dL 04/06/17 04/07/17 Range/Units 21:16 06:33 ABG pCO2 (35-45) mmHg ABG pO2 (83-108) mmHg ABG O2 Saturation (94-97) % POC Glucose (mg/dL) 241 H 206 H (75-99) mg/dL Assessment and Plan Plan: 1 STEMI status post stenting of RCA - continue aspirin, Plavix, atorvastatin, lisinopril and metoprolol. #2 diabetes patient on glipizide and metformin at home, hold. Continue insulin sliding scale and and Lantus 15 units at bedtime and Humalog scheduled 3 units with meals. #3 depression. Patient left his job secondary to depression and is also suffering with no insurance. 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 Ambien was discontinued, symptoms have resolved. #12 pulmonary edema, acute systolic heart failure-IV Lasix 20 mg given and subsequently changed to oral, repeat echocardiogram as above, discharge held. Discharge plan: Home tomorrow Impression and plan of care have been directed as dictated by the signing physician. Reema An nurse practitioner acting as scribe for signing physician.
--- NOTE | 2017-04-07 16:28 | P.PN ---
Subjective Principal diagnosis: STEMI This is a pleasant 61-year-old gentleman who presented to the emergency department with acute myocardial infarction, underwent cardiac catheterization and stenting of the right coronary artery. He subsequently developed some mild dyspnea and was put on diuretics. He is feeling a bit better today. He is currently not on oxygen which she had been on 3 L since yesterday. Denies any complaints of chest discomfort, dizziness, palpitations or nausea. He is currently on aspirin 325 mg by mouth daily, atorvastatin 80 mg by mouth daily at bedtime, Plavix 75 mg by mouth daily, Lasix 40 mg by mouth daily, lisinopril 10 mg by mouth daily and metoprolol tartrate 25 mg by mouth twice a day. He underwent repeat echocardiogram which showed an ejection fraction between 35-40% with previous echo showing an ejection fraction between 45-50%. Objective - Vital Signs Vital signs: Vital Signs Temp 97.3 F L 04/07/17 11:42 Pulse 92 04/07/17 15:23 Resp 20 04/07/17 12:33 BP 127/70 04/07/17 11:42 Pulse Ox 91 L 04/07/17 12:33 Intake & Output 04/06/17 04/07/17 04/07/17 18:59 06:59 18:59 Intake Total 200 360 550 Output Total 1400 800 700 Balance -1200 -440 -150 Weight 126.4 kg Intake: Oral 200 360 550 Output: Urine 1400 800 700 Other: Voiding Method Urinal ABP, PAP, CO, CI - Last Documented Arterial Blood Pressure 116/58 - Exam PHYSICAL EXAMINATION: HEENT: Head is atraumatic, normocephalic. Pupils equal, round. Neck is supple. There is no elevated jugular venous pressure. HEART EXAMINATION: Heart sounds regular, S1 and S2 normal. No murmur or gallop heard. CHEST EXAMINATION: Lungs are clear to auscultation and precussion. No chest wall tenderness is noted on palpation or with deep breathing. ABDOMEN: Soft, obese, nontender. Bowel sounds are heard. No organomegaly noted. EXTREMITIES: 2+ peripheral pulses with no evidence of peripheral edema and no calf tenderness noted. NEUROLOGIC patient is awake, alert and oriented x3. . - Labs CBC & Chem 7: 04/04/17 01:57 04/04/17 01:57 Labs: Abnormal Lab Results - Last 24 Hours (Table) 04/06/17 04/06/17 04/07/17 Range/Units 16:30 21:16 06:33 POC Glucose (mg/dL) 245 H 241 H 206 H (75-99) mg/dL 04/07/17 Range/Units 11:52 POC Glucose (mg/dL) 283 H (75-99) mg/dL Assessment and Plan Plan: Assessment and plan #1 STEMI #2 status post stenting of the right coronary artery #3 acute systolic congestive heart failure #4 history of hypertension #5 hyperlipidemia From cardiology's perspective, we will add Aldactone. We will monitor the patient's renal function. We anticipate discharge within the next 24-48 hours. We'll continue to follow the patient provide further recommendations accordingly. ROTARY KILN OPERATOR note has been reviewed, I agree with a documented findings and plan of care. Patient was seen and examined.
[2017-04-07 16:36] VITALS: RESP 18
[2017-04-07 17:25] LABS: Glucose,Whole Blood 243 mg/dL (75-99)
[2017-04-07] MEDS: SPIRONOLACTONE 25 MG TAB PO SCH (17:33)
[2017-04-07 20:50] LABS: Glucose,Whole Blood 269 mg/dL (75-99)
[2017-04-07] MEDS ORDERED: INSULIN GLARGINE 100 UNIT/ML 10 ML VIAL SQ SCH (21:00)
[2017-04-07] MEDS: ATORVASTATIN 80 MG TAB PO SCH (21:43)
[2017-04-07] MEDS: ALPRAZolam 0.25 MG TAB PO PRN (21:51)
[2017-04-08 06:21] LABS: CH 30.8; CHCM 33.1; HCT 38.9 % (39.0-53.0); HDW 2.95; MCH 31.3 pg (25.0-35.0); MCHC 33.5 g/dL (31.0-37.0); MCV 93.5 fL (80.0-100.0); Mean Platelet Volume 7.1; RBC 4.16 m/uL (4.30-5.90); RDW 13.4 % (11.5-15.5)
[2017-04-08 06:28] LABS: ALT 52 U/L (21-72); AST 43 U/L (17-59); Alkaline Phosphatase 77 U/L (38-126); Anion Gap 9 mmol/L; Blood Urea Nitrogen 23 mg/dL (9-20); Carbon Dioxide 27 mmol/L (22-30); Chloride 96 mmol/L (98-107); Glucose 210 mg/dL (74-99); Non-African American GFR(MDRD) >60 (>60 ml/min/1.73 sqM); Potassium 4.4 mmol/L (3.5-5.1); Sodium 132 mmol/L (137-145); Total Bilirubin 0.8 mg/dL (0.2-1.3); Total Protein 5.9 g/dL (6.3-8.2)
[2017-04-08 07:07] LABS: Glucose,Whole Blood 203 mg/dL (75-99)
[2017-04-08] MEDS: INSULIN LISPRO (humaLOG) 300 UNIT/3 ML VIAL SQ SCH ×2 (07:14)
[2017-04-08] MEDS: LISINOPRIL 10 MG TAB PO SCH (08:41)
[2017-04-08] MEDS: HEPARIN SODIUM,PORCINE 5,000 UNIT/ML 1 ML VIAL SQ SCH (08:41)
[2017-04-08] MEDS: ASPIRIN 325 MG TAB PO SCH (08:41)
[2017-04-08] MEDS: METOPROLOL TARTRATE 25 MG TAB PO SCH (08:41)
[2017-04-08] MEDS: CLOPIDOGREL 75 MG TAB PO SCH (08:42)
[2017-04-08] MEDS: DULoxetine HCL 60 MG CAPSULE.DR PO SCH (08:42)
[2017-04-08] MEDS: SERTRALINE 100 MG TAB PO SCH (08:42)
[2017-04-08] MEDS: FUROSEMIDE 40 MG TAB PO SCH (08:42)
[2017-04-08] MEDS: FAMOTIDINE 20 MG TAB PO SCH (08:42)
[2017-04-08] MEDS: SPIRONOLACTONE 25 MG TAB PO SCH (08:43)
[2017-04-08 10:30] VITALS: BP 131/69; PULSE 84; TEMP 97.6
--- NOTE | 2017-04-08 10:39 | PN ---
PROGRESS NOTE Mr. Ray is a 61-year-old male who presented with an acute inferior myocardial infarction, underwent stenting of the right coronary artery. He had an episode of dyspnea with congestive heart failure. He is feeling better this morning. He is off oxygen, ambulating without difficulty. Denying any dizziness or palpitation. Denies any nausea. No cough or fever. He continues to be on aspirin once a day, Lipitor 80 mg daily, Plavix 75 mg daily, furosemide 40 mg daily, lisinopril 10 mg daily, metoprolol tartrate 25 mg twice a day, and spironolactone 25 mg daily. PHYSICAL EXAMINATION: Blood pressure 102/60 with the heart rate in the 80s. LUNGS: Clear. HEART: Regular rate and rhythm. S1, S2. No S3. No rub. ABDOMEN: Soft, obese, nontender. EXTREMITIES: No edema. LAB DATA: Lab data revealed BUN and creatinine 23 and 1.1. Potassium 4.4. IMPRESSION: 1. Status post inferior myocardial infarction with stenting of the right coronary artery. 2. Ischemic cardiomyopathy with episode of heart failure, resolved. 3. Prior history of smoking. 4. Hyperlipidemia. RECOMMENDATION: Patient should be able to be discharged home today and follow as an outpatient with Dr. Whittington. MMODL / IJN: [id number] /
--- NOTE | 2017-04-08 14:35 | P.DS ---
Providers Date of admission: 04/03/17 11:44 Expected date of discharge: 04/08/17 Attending physician: Vianey Carlos MD Consults: 04/03/17 12:28 Consult Physician Routine Consulting Provider: [facility] Consult Reason/Comments: Post Interventional patient Do you want consulting provider notified?: Already Contacted Primary care physician: [facility] Course: 61 years old gentleman with past medical history of asthma or exercise-induced, diabetes mellitus, GERD, hypertension, osteoarthritis, sleep apnea on CPAP presents with chest pain that started yesterday while patient was working in the garden. Patient states that he was feeling unfelt for the past 2 days but was able to do 15 miles on his bike day before yesterday. He was gardening when he felt chest discomfort and heartburn in the substernal area with no radiation. Patient went inside the house and had some tums with no improvement. He took 6-8 step and walk 30 feet when he passed out. He went to the [facility] and underwent an EKG which confirmed acute inferior wall [place]. Patient was transferred to [facility] for cardiac catheterization and underwent stenting of the RCA by Dr. Pepe. Patient was seen post catheterization and was resting comfortably in bed with no chest discomfort or shortness of breath. 04/04: Patient is in ICU as a selective care overflow. Patient did have some nausea and vomited once last evening and continues to have some nausea this morning for which she has received Zofran. Apparently patient was quite confused during the venetian blind worker possibly related to the combination of Xanax and Ambien. Ambien will be discontinued. Echo has been done and report is pending. Repeat troponins are elevated and CK-MB has been ordered 1 04/05: Patient was seen and evaluated today. He reports he is feeling well, denies any chest pain, shortness of breath, nausea or vomiting today. He did have a echo done, shows an ejection fraction between 45 and 50%. CK-MB elevated at 17. Plan is for discharge tomorrow. 04/06: Patient was noted to be resting in bed today. On exam he was noted to be very short of breath, pulse oximetry was 87% on 4 L. Arterial blood gas was ordered pH 7.43, pCO2 34, pO2 52, O2 saturation 87.5. His repeat chest x-ray showed vascular congestion and pulmonary edema. 20 mg IV Lasix given for flash pulmonary edema. 2-D echo will be repeated discharge will be held. 04/07: Initial echocardiogram reveals race mitral regurgitation, trace tricuspid regurgitation, mild concentric left ventricular hypertrophy, EF 45-50%, basal inferior lateral hypokinesia. Repeat echocardiogram reveals EF of 35-40%. Patient has been requiring more oxygen and was on 5 L this morning. Nursing is trying to wean him down as he was not O2 dependent on admission. Lasix will be changed to 40 mg orally daily. We are also adding insulin to his regime with Lantus 15 units at bedtime along with Humalog scheduled 3 units with meals and scale. Case management is planning to cover the cost of his prescriptions through the [employer]. We will plan to send his prescriptions to [facility] pharmacy when he is ready for discharge. Most likely patient will be ready for tomorrow. 04/08: Patient is now off oxygen and appears to not require oxygen at home. [facility], patient's prescriptions will be filled. Patient will be discharged home today in stable condition. Discharge diagnoses: 1 STEMI status post stenting of RCA #2 diabetes mellitus type II #3 depression, recurrent. 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 Reema An nurse practitioner acting as scribe for signing physician. Patient Condition at Discharge: Good Plan - Discharge Summary New Discharge Prescriptions: New Atorvastatin Calcium [Lipitor] 80 mg PO HS #30 tablet Clopidogrel [Plavix] 75 mg PO DAILY #30 tablet Furosemide [Lasix] 40 mg PO DAILY #30 tab Insulin NPH [humuLIN N] 10 unit SQ BID #1 vial Lisinopril [Prinivil] 10 mg PO DAILY #30 tab Metoprolol Tartrate 25 mg PO BID #60 tab Nitroglycerin Sl Tabs [Nitrostat] 0.4 mg SUBLINGUAL Q5M PRN #25 tab PRN Reason: Chest Pain Spironolactone [Aldactone] 25 mg PO DAILY #30 tab Famotidine [Pepcid] 20 mg PO DAILY #30 tablet Continue Cholecalciferol [Vitamin D3] 5,000 unit PO DAILY Vitamin B Complex 1 cap PO DAILY Multivitamin [Men's Multi-Vitamin] 1 tab PO DAILY Magnesium 400 mg PO DAILY Cyanocobalamin (Vitamin B-12) [Vitamin B-12] 1,000 mcg PO DAILY ALPRAZolam [Xanax] 0.25 mg PO BID PRN #60 tab PRN Reason: Anxiety DULoxetine HCL [Cymbalta] 60 mg PO DAILY #30 tab glipiZIDE/METFORMIN HCL [glipiZIDE/METFORMIN HCL 5-500 mg] 2 tab PO BID #120 tab HYDROcodone/APAP 10-325MG [[place] 10-325] 1 tab PO Q6H PRN #20 tab PRN Reason: Pain Sertraline [Zoloft] 100 mg PO DAILY #30 tab Changed Albuterol Inhaler [Ventolin Hfa Inhaler] 2 puff INHALATION RT-Q6H PRN #1 inh PRN Reason: Shortness Of Breath Discontinued Baclofen 10 mg PO DAILY PRN PRN Reason: Muscle Pain Omeprazole 40 mg PO DAILY Discharge Medication List Cholecalciferol [Vitamin D3] 5,000 unit PO DAILY 11/06/16 [History] Cyanocobalamin (Vitamin B-12) [Vitamin B-12] 1,000 mcg PO DAILY 11/06/16 [ History] Magnesium 400 mg PO DAILY 11/06/16 [History] Multivitamin [Men's Multi-Vitamin] 1 tab PO DAILY 11/06/16 [History] Vitamin B Complex 1 cap PO DAILY 11/06/16 [History] ALPRAZolam [Xanax] 0.25 mg PO BID PRN #60 tab 04/08/17 [Rx] Albuterol Inhaler [Ventolin Hfa Inhaler] 2 puff INHALATION RT-Q6H PRN #1 inh 09/20 [Rx] Atorvastatin Calcium [Lipitor] 80 mg PO HS #30 tablet 04/08/17 [Rx] Clopidogrel [Plavix] 75 mg PO DAILY #30 tablet 04/08/17 [Rx] DULoxetine HCL [Cymbalta] 60 mg PO DAILY #30 tab 04/08/17 [Rx] Famotidine [Pepcid] 20 mg PO DAILY #30 tablet 04/08/17 [Rx] Furosemide [Lasix] 40 mg PO DAILY #30 tab 04/08/17 [Rx] HYDROcodone/APAP 10-325MG [[place] 10-325] 1 tab PO Q6H PRN #20 tab 04/08/17 [Rx] Insulin NPH [humuLIN N] 10 unit SQ BID #1 vial 04/08/17 [Rx] Lisinopril [Prinivil] 10 mg PO DAILY #30 tab 04/08/17 [Rx] Metoprolol Tartrate 25 mg PO BID #60 tab 04/08/17 [Rx] Nitroglycerin Sl Tabs [Nitrostat] 0.4 mg SUBLINGUAL Q5M PRN #25 tab 04/08/17 [Rx ] Sertraline [Zoloft] 100 mg PO DAILY #30 tab 04/08/17 [Rx] Spironolactone [Aldactone] 25 mg PO DAILY #30 tab 04/08/17 [Rx] glipiZIDE/METFORMIN HCL [glipiZIDE/METFORMIN HCL 5-500 mg] 2 tab PO BID #120 tab 04/08/17 [Rx] Follow up Appointment(s)/Referral(s): Andrew Pierce MD [Primary Care Provider] - 04/14/17 3:00 pm Virgen Whittington MD [STAFF PHYSICIAN] - 04/15/17 3:45 pm Patient Instructions/Handouts: *Surgery [facility] - After Heart Catheterization - Dental Mold [employer] Instructions, Left Heart Catheterization (DC) Activity/Diet/Wound Care/Special Instructions: Appointment with Dr. Orozco at [facility] scheduled for Apr at 10 a.m. - [phone] Discharge Disposition: HOME SELF-CARE
== END 2017-04-08 11:03 | disposition home or self-care (01) | DRG 246 ==
LOC: EDSTATUS 10:30 → 6ICU 11:44 → 6SEL 04-04 18:33
PROVIDERS: ADMIT Internal Medicine Cardiovascular Disease; ATTEND Internal Medicine
PROC: 4A023N7 Measurement of Cardiac Sampling and Pressure, Left Heart, Percutaneous Approach (ICD-10-PCS; principal; 2017-04-03 11:45)
PROC: B2111ZZ Fluoroscopy of Multiple Coronary Arteries using Low Osmolar Contrast (ICD-10-PCS; principal; 2017-04-03 11:45)
PROC: 027034Z Dilation of Coronary Artery, One Artery with Drug-eluting Intraluminal Device, Percutaneous Approach (ICD-10-PCS; 2017-04-03 11:45)
DX: I21.19 ST elevation (STEMI) myocardial infarction involving other coronary artery of inferior wall (principal); I50.21 Acute systolic (congestive) heart failure; I25.82 Chronic total occlusion of coronary artery; L40.50 Arthropathic psoriasis, unspecified; E11.9 Type 2 diabetes mellitus without complications; I11.0 Hypertensive heart disease with heart failure; F32.9 Major depressive disorder, single episode, unspecified; E78.5 Hyperlipidemia, unspecified; F41.9 Anxiety disorder, unspecified; G47.00 Insomnia, unspecified; G47.33 Obstructive sleep apnea (adult) (pediatric); Z79.899 Other long term (current) drug therapy; I25.10 Atherosclerotic heart disease of native coronary artery without angina pectoris; I25.5 Ischemic cardiomyopathy; J45.20 Mild intermittent asthma, uncomplicated; K21.9 Gastro-esophageal reflux disease without esophagitis; M19.90 Unspecified osteoarthritis, unspecified site; Z79.02 Long term (current) use of antithrombotics/antiplatelets; Z79.4 Long term (current) use of insulin; Z79.82 Long term (current) use of aspirin; Z80.0 Family history of malignant neoplasm of digestive organs; Z80.8 Family history of malignant neoplasm of other organs or systems; Z82.49 Family history of ischemic heart disease and other diseases of the circulatory system; Z87.891 Personal history of nicotine dependence
CPT/HCPCS: 36600; 71010; 80053; 80061; 82553; 82805; 83036; 84484; 85025; 85027; 93306; 93454; 94640; 94660; 94760

== ENCOUNTER → 2018-07-15 | Outpatient (CLI) | payer OTHER | END | disposition home or self-care (01) | LOC: RADUSWWP 13:53 | PROVIDERS: ATTEND Thoracic Surgery (Cardiothoracic Vascular Surgery) | DX: M79.604 Pain in right leg (principal); M79.605 Pain in left leg; E63.8 Other specified nutritional deficiencies; E13.621 Other specified diabetes mellitus with foot ulcer | CPT/HCPCS: 93923 ==

== ENCOUNTER → 2018-09-30 | Outpatient (CLI) | payer OTHER | END | disposition home or self-care (01) | LOC: LABWHC1 12:20 | PROVIDERS: ATTEND Thoracic Surgery (Cardiothoracic Vascular Surgery) | DX: E63.8 Other specified nutritional deficiencies (principal) | CPT/HCPCS: 36415; 84134 ==

== ENCOUNTER → 2019-04-14 | Outpatient (CLI) | payer OTHER ==
--- NOTE | 2019-04-21 15:37 | P.ARTDOP ---
Arterial Doppler LOWER EXTREMITY ARTERIAL DOPPLER: DATE OF SERVICE: 04/14/2019 Reason for study: Right foot ulcer. Doppler waveforms: Multiphasic bilaterally throughout. Pulse volume recording: Greater than 1 bilaterally. Pressure gradients: Toe waveforms are normal. Ankle-brachial indices: Greater than 1 bilaterally. Toe pressures: 116 on the right, 104 on the left Impression: Normal study.
== END | disposition home or self-care (01) ==
LOC: RADUSWWP 14:04
PROVIDERS: ATTEND Thoracic Surgery (Cardiothoracic Vascular Surgery)
DX: L97.512 Non-pressure chronic ulcer of other part of right foot with fat layer exposed (principal)
CPT/HCPCS: 93922

== ENCOUNTER 2021-04-18 09:47 | Inpatient (IN) | payer OTHER ==
[2021-04-18] MEDS ORDERED: VANCOMYCIN IV PER PHARMACY 1 EACH MISC MISCELLANE PRN (10:07)
[2021-04-18] MEDS ORDERED: VANCOMYCIN 1,750 MG in SODIUM CHLORIDE 0.9% 500 ML 500 ML IVPB STA (10:10)
--- NOTE | 2021-04-18 11:00 | XR ---
EXAMINATION TYPE: XR foot complete LT DATE OF EXAM: 04/18/2021 COMPARISON: NONE HISTORY: Infection TECHNIQUE: Three views are submitted. FINDINGS: The osseous structures are intact. There is a nonunion fracture base fifth metatarsal. There is ankyl osis of the tarsal and third metatarsal. Soft tissue emphysema is soft tissue swelling adjacent to th e second digit. There is absence of the distal phalanx. Arthropathy of the first MTP. Calcaneal spur noted. IMPRESSION: 1. Soft tissue edema and emphysema correlate for cellulitis. There is absence of the distal phalanx s econd digit correlate for previous surgery. Recommend triple phase bone scan to assess for osteomyeli tis. 2. Nonunion fifth metatarsal fracture appears chronic.
--- NOTE | 2021-04-18 11:11 | ED ---
Wound/Laceration HPI - General Chief Complaint: Wound/Laceration Stated Complaint: Lt Foot Inflammation Time Seen by Provider: 04/18/21 09:54 Source: patient, RN notes reviewed Mode of arrival: wheelchair Limitations: no limitations - History of Present Illness Initial Comments: Patient is a 65-year-old male that presents to the emergency department com plaining of a left second toe wound/infection. He notes that he was seen at the wound care by Dr. Collado today and was sent to the ER for IV antibiotics. Patient notes that he is diabetic and has neuropathy in bilateral lower extremities.. He notes that over the last week his toe has become black in color and his foot has become red and warm to the touch and painful. Patient notes he does not have much feeling in his feet. Patient denied any other issues or complaints at this time. He denied chest pain shortness of breath headache nausea vomiting diarrhea constipation fever fatigue chills. - Related Data Home Medications Medication Instructions Recorded Confirmed Cholecalciferol [Vitamin D3 (25 5,000 unit PO DAILY 11/06/16 10/07/18 Mcg = 1000 Iu)] Cyanocobalamin (Vitamin B-12) 1,000 mcg PO DAILY 11/06/16 10/07/18 [Vitamin B-12] Magnesium 400 mg PO DAILY 11/06/16 10/07/18 Multivitamin [Men's Multi-Vitamin] 1 tab PO DAILY 11/06/16 10/07/18 Rosuvastatin [Crestor] 10 mg PO DAILY 06/24/18 10/07/18 Sertraline [Zoloft] 50 mg PO DAILY 06/24/18 10/07/18 glipiZIDE [Glucotrol] 10 mg PO AC-BID 06/24/18 10/07/18 metFORMIN HCL [Glucophage] 1,000 mg PO BID 06/24/18 10/07/18 Previous Rx's Medication Instructions Recorded ALPRAZolam [Xanax] 0.25 mg PO BID PRN #60 tab 04/08/17 Albuterol Inhaler (Mhu) [Ventolin 2 puff INHALATION RT-Q6H PRN #1 inh 04/08/17 Hfa Inhaler (Mhu)] DULoxetine HCL [Cymbalta] 60 mg PO DAILY #30 tab 04/08/17 Famotidine [Pepcid] 20 mg PO DAILY #30 tablet 04/08/17 HYDROcodone/APAP 10-325MG [[place] 1 tab PO Q6H PRN #20 tab 04/08/17 10-325] Lisinopril [Prinivil] 10 mg PO DAILY #30 tab 04/08/17 Metoprolol Tartrate 25 mg PO BID #60 tab 04/08/17 Nitroglycerin Sl Tabs [Nitrostat] 0.4 mg SUBLINGUAL Q5M PRN #25 tab 04/08/17 Allergies Allergy/AdvReac Type Severity Reaction Status Date / Time No Known Allergies Allergy Verified 04/18/21 09:48 Review of Systems ROS Statement: Those systems with pertinent positive or pertinent negative responses have been documented in the HPI. ROS Other: All systems not noted in ROS Statement are negative. Past Medical History Past Medical History: Asthma, Diabetes Mellitus, GERD/Reflux, Hypertension, Musculoskeletal Disorder, Osteoarthritis (OA), Sleep Apnea/CPAP/BIPAP Additional Past Medical History / Comment(s): uses CPAP, spinal stenosis, sciatic pain,rt. gt. toe wound History of Any Multi-Drug Resistant Organisms: None Reported Past Surgical History: Orthopedic Surgery Additional Past Surgical History / Comment(s): carpal tunnel surg., knee surg. Past Anesthesia/Blood Transfusion Reactions: No Reported Reaction Date of Last Stent Placement:: 04/03/17 Past Psychological History: Anxiety Smoking Status: Never smoker Past Alcohol Use History: Rare Past Drug Use History: None Reported - Past Family History Sister(s) Family Medical History: Deep Vein Thrombosis (DVT), Skin Disorder Additional Family Medical History / Comment(s): Sister had a PE after surgery. She also has celiac's dx. Pt's nephew thru this sister has had DVTs and PEs and celiac disease. Mother Family Medical History: Cancer Additional Family Medical History / Comment(s): Mother of colon cancer at the age of 59yrs. Father Family Medical History: Congestive Heart Failure (CHF) Brother(s) Family Medical History: Diabetes Mellitus General Exam Limitations: no limitations General appearance: alert, in no apparent distress, obese Head exam: Present: atraumatic, normocephalic, normal inspection Eye exam: Present: normal appearance, PERRL, EOMI. Absent: scleral icterus, conjunctival injection, periorbital swelling Neck exam: Present: normal inspection Respiratory exam: Present: normal lung sounds bilaterally. Absent: respiratory distress, wheezes, rales, rhonchi, stridor Cardiovascular Exam: Present: regular rate, normal rhythm, normal heart sounds. Absent: systolic murmur, diastolic murmur, rubs, gallop, clicks GI/Abdominal exam: Present: soft, normal bowel sounds. Absent: distended, tenderness, guarding, rebound, rigid Extremities exam: Present: normal inspection, full ROM, normal capillary refill. Absent: tenderness, pedal edema, joint swelling, calf tenderness Neurological exam: Present: alert, oriented X3 Psychiatric exam: Present: normal affect, normal mood Skin exam: Present: warm, dry, intact, normal color, other (Left second toe black, erythematous, obvious signs of infection. Left foot). Absent: rash Course Vital Signs 04/18/21 09:48 Temperature 98.1 F Pulse Rate 108 H Respiratory 16 Rate Blood Pressure 135/81 O2 Sat by Pulse 93 L Oximetry Medical Decision Making - Medical Decision Making 65-year-old male with a left second toe infection sent by wound care. Labs, blood cultures, foot x-ray, 2 g Rocephin, vancomycin per pharmacy ordered. labs: White blood cells 19.2, sodium 128, potassium 5.2 BUN 25, creatinine 1.[address] Guthrie, patient will be admitted. Dr. Kerr was consulted and will accept the admit with wound care and infecti ous disease on consult. - Lab Data Result diagrams: 04/18/21 10:47 04/18/21 10:47 Lab Results 04/18/21 04/18/21 04/18/21 Range/Units 10:47 10:47 10:47 WBC 19.2 H (3.8-10.6) k/uL RBC 4.85 (4.30-5.90) m/uL Hgb 14.4 (13.0-17.5) gm/dL Hct 41.4 (39.0-53.0) % MCV 85.3 (80.0-100.0) fL MCH 29.6 (25.0-35.0) pg MCHC 34.7 (31.0-37.0) g/dL RDW 14.0 (11.5-15.5) % Plt Count 382 (150-450) k/uL MPV 7.5 Neutrophils % 88 % Lymphocytes % 4 % Monocytes % 7 % Eosinophils % 0 % Basophils % 0 % Neutrophils # 16.8 H (1.3-7.7) k/uL Lymphocytes # 0.7 L (1.0-4.8) k/uL Monocytes # 1.3 H (0-1.0) k/uL Eosinophils # 0.0 (0-0.7) k/uL Basophils # 0.0 (0-0.2) k/uL Sodium 128 L (137-145) mmol/L Potassium 5.2 H (3.5-5.1) mmol/L Chloride 95 L (98-107) mmol/L Carbon Dioxide 18 L (22-30) mmol/L Anion Gap 15 mmol/L BUN 25 H (9-20) mg/dL Creatinine 1.40 H (0.66-1.25) mg/dL Est GFR (CKD-EPI)AfAm 62 (>60 ml/min/1.73 sqM) Est GFR (CKD-EPI)NonAf 53 (>60 ml/min/1.73 sqM) Glucose 201 H (74-99) mg/dL Plasma Lactic Acid Sukhwinder 1.2 (0.7-2.0) mmol/L Calcium 8.8 (8.4-10.2) mg/dL Total Bilirubin 1.2 (0.2-1.3) mg/dL AST 36 (17-59) U/L ALT 22 (4-49) U/L Alkaline Phosphatase 101 (38-126) U/L Total Protein 6.7 (6.3-8.2) g/dL Albumin 3.4 L (3.5-5.0) g/dL - Radiology Data Radiology results: report reviewed, image reviewed X-ray left foot: Soft tissue edema and emphysema correlate for cellulitis. There is absence of the distal phalanx second digit: From previous surgery. Recommend triple phase bone scan to assess for osteomyelitis. Nonunion fifth metatarsal fracture appears chronic Disposition Clinical Impression: Cellulitis of toe of left foot Disposition: ADMITTED IP TO THIS [facility] Condition: Stable Is patient prescribed a controlled substance at d/c from ED?: No Referrals: Andrew Pierce MD [Primary Care Provider] - 1-2 days Time of Disposition: 12:14
[2021-04-18 11:20] LABS: Basophils % (A) 0 %; Eosinophils % (A) 0 %; HCT 41.4 % (39.0-53.0); HGB 14.4 gm/dL (13.0-17.5); Lymphocytes # (A) 0.7 k/uL (1.0-4.8); Lymphocytes % (A) 4 %; MCH 29.6 pg (25.0-35.0); MCHC 34.7 g/dL (31.0-37.0); MCV 85.3 fL (80.0-100.0); Mean Platelet Volume 7.5; Monocytes # (A) 1.3 k/uL (0-1.0); Monocytes % (A) 7 %; Neutrophils # (A) 16.8 k/uL (1.3-7.7); Neutrophils % (A) 88 %; Platelet Count 382 k/uL (150-450); RBC 4.85 m/uL (4.30-5.90); WBC 19.2 k/uL (3.8-10.6)
[2021-04-18 11:44] LABS: Albumin 3.4 g/dL (3.5-5.0); Calcium 8.8 mg/dL (8.4-10.2); Potassium 5.2 mmol/L (3.5-5.1); Total Bilirubin 1.2 mg/dL (0.2-1.3); Total Protein 6.7 g/dL (6.3-8.2)
[2021-04-18] MEDS ORDERED: NALOXONE 0.4 MG/ML 1 ML VIAL IV PRN (12:14)
[2021-04-18] MEDS: SODIUM CHLORIDE 0.9% 1,000 ML IV SCH ×2 (12:26→21:53)
[2021-04-18] MEDS ORDERED: ALPRAZolam 0.25 MG TAB PO PRN (12:48)
[2021-04-18] MEDS ORDERED: NITROGLYCERIN SL TABS 0.4 MG TAB SUBLINGUAL PRN (12:48)
[2021-04-18] MEDS ORDERED: ALBUTEROL NEBULIZED 2.5 MG/3 ML INHALATION PRN (12:48)
[2021-04-18] MEDS ORDERED: HYDROcodone/APAP 10-325MG 1 EACH TAB PO PRN (12:48)
--- NOTE | 2021-04-18 13:03 | P.HPIM ---
History of Present Illness H&P Date: 04/18/21 Chief Complaint: Severe cellulitis of the left second toe and foot area, ben grenous left sec HISTORY OF PRESENT ILLNESS 65-year-old male one of my office patient of known for over 20 years with past medical history of CAD post CABG, history of chronic kidney disease, history of type 2 diabetes, history of hyperlipidemia and COPD who apparently developed to have much worsening sign and symptom of hammertoe left second toe with slight pain and discomfort and worsening curvature discomfort apparently had mild blister ulcer nonhealed for the last few weeks did not seek any attention for it. He was in to see Dr. Villalpando for vascular and wound When he was seen found to have severe cellulitis and gangrenous of the left second toe was sent to the emergency department where was seen and evaluated for possible osteomyelitis might require IV antibiotic and possible intervention for amputation or I@D, his white blood cell running 19,200 kidney function has not changed compared to before blood sugar still mildly elevated, x-ray of the foot shows soft tissue edema and emphysema correlate for cellulitis there is an absent of the distal phalanx second digit correlate for possible previous surgery recommending triple phase bone scan to assess osteomyelitis also showed fifth metatarsal fracture which looked like chronic. Patient was seen and assessed by Dr. Nicolas allen with the severity of the infection and reactive or stimuli this patient most likely will be going for intervention to remove the second toe, the meanwhile continue IV vancomycin and will be seen infectious disease along with topical care. REVIEW OF SYSTEMS Constitutional: No fever, no chills, no night sweats. No weight change. No weakness, fatigue or lethargy. No daytime sleepiness. EENT: No headache. No blurred vision or double vision, no loss of vision. No loss of Hearing, no ringing in the ears, no dizziness. No nasal drainage or congestion. No epistaxis. No sore throat. Lungs: Decreased breaths on bilaterally with mild shortness of breath with exertion no cough or wheezes. Cardiovascular: No chest pain, no lower extremity edema. No palpitations. Positive PND orthopnea with no angina no lightheadedness or dizzinesssyncope. Abdominal: No abdominal pain. No nausea, vomiting. No diarrhea. No constipation. No bloody or tarry stools.. No loss of appetite. Genitourinary: No dysuria, increased frequency, urgency. No urinary retention. Musculoskeletal: No myalgias. No muscle weakness, no gait dysfunction, no frequent falls. Generalized back and muscle pain. Integumentary: No wounds, no lesions. No rash or pruritus. No unusual bruising. No change in hair or nails. Neurologic: No aphasia. No facial droop. No change in mentation. No head injury. No headache. No paralysis. No paresthesia. Psychiatric: No depression. No anxiety. No mood swings. Endocrine: No abnormal blood sugars. No weight change. No excessive sweating or thirst. No cold intolerance. SOCIAL HISTORY He quit smoking 15 years ago used to smoke a pack a day for over 30 years. He drinks alcohol socially he is single and lives alone. FAMILY HISTORY His mother from colon cancer at age 59, father dying from congestive heart failure the 70s, patient had 1 sister with DVT and one brother who is diabetic. PHYSICAL EXAMINATION Gen: This is a 65-year-old mildly obese does not look in any respiratory distress. HEENT: Head is atraumatic, normocephalic. Pupils equal, round. Sclerae is anicteric. NECK: Supple. No JVD. No lymphadenopathy. No thyromegaly. LUNGS: Decreased breaths on bilaterally with rhonchi no crackles or wheezes. HEART: Regular the spinous to positive S3 positive systolic murmur. ABDOMEN: Soft. Bowel sounds are present. No masses. No tenderness. EXTREMITIES: Slight edema both side much worsening in the left and the right dona e left foot had severe cellulitis swelling tenderness redness from the tip part of the second toe all the way to the third of the foot up. There is a slight gangrenous change of the to part of the second toe with significant swelling hammertoe severely painful and pressing of the soft tissue there is a Pus drainage from it. NEUROLOGICAL: Patient is awake, alert and oriented x3. Cranial nerves 2 through 12 are grossly intact. ASSESSMENT AND PLAN 1. Severe osteomyelitis of the left second toe: Patient will be seen vascular, patient most likely will need second toe amputation. Continue IV antibiotic, topical care and wound care as well. 2. Severe cellulitis of the left foot: Continue vancomycin, will consult infectious disease waiting for final culture. 3. Advanced first to the cardiac disease: Patient is seen cardiology regular basis no chest pain or angina has been doing well on metoprolol, lisinopril and diuretics. 4. Mild COPD: Still on Ventolin HFA on demand mostly on steroid inhaler has not use the last year. 5. Chronic pain syndrome: With chronic degenerative disc disease, patient has been on hydrocodone along with the Loxitane. 6. Type 2 diabetes: Has not been well controlled remain on metformin 1000 mg twice a day, Glucotrol 10 mg twice a day can't Accu-Chek with sliding scales coverage patient to my knowledge was longer acting insulin like Lantus once a day. Resume Accu-Chek with sliding scales coverage watch blood sugar in the next few days. 7. Stage III chronic kidney disease: No change keep watching for any change in urine AT this point. 8. Hypertension: Remain on metoprolol titrate 25 g twice a day, Prinivil 10 mg daily. 9. Hyperlipidemia: Continue Crestor 10 mg a day. 10. Chronic neuropathy: Was on gabapentin previously or Lyrica with slight side effect has been off both at this point remain only on hydrocodone, and still on Cymbalta 60 mg daily. 11 GI prophylaxis: Patient be started on Pepcid 20 mg daily. 12 DVT prophylaxis: Was start heparin subcutaneous after surgery. 13. COVID-19 testing was negative Patient will be admitted to the hospital for a minimum of 2 night stay. Past Medical History Past Medical History: Asthma, Diabetes Mellitus, GERD/Reflux, Hypertension, Musculoskeletal Disorder, Osteoarthritis (OA), Sleep Apnea/CPAP/BIPAP Additional Past Medical History / Comment(s): uses CPAP, spinal stenosis, sciatic pain,rt. gt. toe wound History of Any Multi-Drug Resistant Organisms: None Reported Past Surgical History: Orthopedic Surgery Additional Past Surgical History / Comment(s): carpal tunnel surg., knee surg. Past Anesthesia/Blood Transfusion Reactions: No Reported Reaction Date of Last Stent Placement:: 04/03/17 Past Psychological History: Anxiety Smoking Status: Never smoker Past Alcohol Use History: Rare Past Drug Use History: None Reported - Past Family History Sister(s) Family Medical History: Deep Vein Thrombosis (DVT), Skin Disorder Additional Family Medical History / Comment(s): Sister had a PE after surgery. She also has celiac's dx. Pt's nephew thru this sister has had DVTs and PEs and celiac disease. Mother Family Medical History: Cancer Additional Family Medical History / Comment(s): Mother of colon cancer at the age of 59yrs. Father Family Medical History: Congestive Heart Failure (CHF) Brother(s) Family Medical History: Diabetes Mellitus Medications and Allergies Home Medications Medication Instructions Recorded Confirmed Type Cholecalciferol [Vitamin D3 (25 5,000 unit PO DAILY 11/06/16 10/07/18 History Mcg = 1000 Iu)] Cyanocobalamin (Vitamin B-12) 1,000 mcg PO DAILY 11/06/16 10/07/18 History [Vitamin B-12] Magnesium 400 mg PO DAILY 11/06/16 10/07/18 History Multivitamin [Men's Multi-Vitamin] 1 tab PO DAILY 11/06/16 10/07/18 History ALPRAZolam [Xanax] 0.25 mg PO BID PRN #60 tab 04/08/17 10/07/18 Rx Albuterol Inhaler (Mhu) [Ventolin 2 puff INHALATION RT-Q6H PRN #1 inh 04/08/17 10/07/18 Rx Hfa Inhaler (Mhu)] DULoxetine HCL [Cymbalta] 60 mg PO DAILY #30 tab 04/08/17 10/07/18 Rx Famotidine [Pepcid] 20 mg PO DAILY #30 tablet 04/08/17 10/07/18 Rx HYDROcodone/APAP 10-325MG [[place] 1 tab PO Q6H PRN #20 tab 04/08/17 10/07/18 Rx 10-325] Lisinopril [Prinivil] 10 mg PO DAILY #30 tab 04/08/17 10/07/18 Rx Metoprolol Tartrate 25 mg PO BID #60 tab 04/08/17 10/07/18 Rx Nitroglycerin Sl Tabs [Nitrostat] 0.4 mg SUBLINGUAL Q5M PRN #25 tab 04/08/17 10/07/18 Rx Rosuvastatin [Crestor] 10 mg PO DAILY 06/24/18 10/07/18 History Sertraline [Zoloft] 50 mg PO DAILY 06/24/18 10/07/18 History glipiZIDE [Glucotrol] 10 mg PO AC-BID 06/24/18 10/07/18 History metFORMIN HCL [Glucophage] 1,000 mg PO BID 06/24/18 10/07/18 History Allergies Allergy/AdvReac Type Severity Reaction Status Date / Time No Known Allergies Allergy Verified 04/18/21 09:48 Physical Exam Vitals: Vital Signs Temp Pulse Resp BP Pulse Ox 04/18/21 09:48 98.1 F 108 H 16 135/81 93 L Intake and Output 04/17/21 04/18/21 04/18/21 22:59 06:59 14:59 Other: Weight 115.666 kg Results CBC & Chem 7: 04/18/21 10:47 04/18/21 10:47 Labs: Abnormal Lab Results - Last 24 Hours (Table) 04/18/21 04/18/21 Range/Units 10:47 10:47 WBC 19.2 H (3.8-10.6) k/uL Neutrophils # 16.8 H (1.3-7.7) k/uL Lymphocytes # 0.7 L (1.0-4.8) k/uL Monocytes # 1.3 H (0-1.0) k/uL Sodium 128 L (137-145) mmol/L Potassium 5.2 H (3.5-5.1) mmol/L Chloride 95 L (98-107) mmol/L Carbon Dioxide 18 L (22-30) mmol/L BUN 25 H (9-20) mg/dL Creatinine 1.40 H (0.66-1.25) mg/dL Glucose 201 H (74-99) mg/dL Albumin 3.4 L (3.5-5.0) g/dL
[2021-04-18] MEDS ORDERED: glipiZIDE 10 MG TAB PO SCH (17:30)
[2021-04-18 21:51] LABS: Glucose,Whole Blood 166 mg/dL (75-99)
[2021-04-18] MEDS: metFORMIN 500 MG TAB PO SCH (21:53)
[2021-04-18] MEDS: METOPROLOL TARTRATE 25 MG TAB PO SCH (21:54)
[2021-04-18] MEDS ORDERED: ACETAMINOPHEN TAB 500 MG TAB PO PRN (23:01)
[2021-04-18] MEDS: FAMOTIDINE 20 MG TAB PO SCH (23:41)
[2021-04-18] MEDS: VANCOMYCIN 1,750 MG in SODIUM CHLORIDE 0.9% 500 ML 500 ML IVPB SCH (23:41)
[2021-04-19 06:58] LABS: Glucose,Whole Blood 169 mg/dL (75-99)
[2021-04-19] MEDS: FAMOTIDINE 20 MG TAB PO SCH ×3 (07:38→20:34)
[2021-04-19] MEDS ORDERED: DULoxetine HCL 60 MG CAPSULE.DR PO SCH (09:00)
[2021-04-19] MEDS: CYANOCOBALAMIN 500 MCG TAB PO SCH (09:06)
[2021-04-19] MEDS: ATORVASTATIN 20 MG TAB PO SCH (09:06)
[2021-04-19] MEDS: CHOLECALCIFEROL 25 MCG (1000 IU) TABLET PO SCH (09:06)
[2021-04-19] MEDS: MAGNESIUM OXIDE 400 MG TAB PO SCH (09:06)
[2021-04-19] MEDS: SERTRALINE 50 MG TAB PO SCH (09:09)
[2021-04-19] MEDS: metFORMIN 500 MG TAB PO SCH ×2 (09:14→20:32)
[2021-04-19] MEDS: METOPROLOL TARTRATE 25 MG TAB PO SCH ×2 (09:14→20:34)
[2021-04-19] MEDS: lisinopriL 10 MG TAB PO SCH (09:14)
[2021-04-19 10:50] LABS: African American GFR (CKD) 65 (>60 ml/min/1.73 sqM); Anion Gap 12 mmol/L; Blood Urea Nitrogen 22 mg/dL (9-20); Calcium 8.5 mg/dL (8.4-10.2); Carbon Dioxide 20 mmol/L (22-30); Chloride 101 mmol/L (98-107); Glucose 210 mg/dL (74-99); Non-African American GFR(CKD) 56 (>60 ml/min/1.73 sqM); Potassium 4.5 mmol/L (3.5-5.1); Sodium 133 mmol/L (137-145)
[2021-04-19 11:11] LABS: Basophils # (A) 0.1 k/uL (0-0.2); Basophils % (A) 0 %; Eosinophils % (A) 0 %; HCT 43.9 % (39.0-53.0); Lymphocytes # (A) 1.1 k/uL (1.0-4.8); Lymphocytes % (A) 7 %; MCH 28.8 pg (25.0-35.0); MCHC 31.9 g/dL (31.0-37.0); MCV 90.2 fL (80.0-100.0); Mean Platelet Volume 7.9; Monocytes % (A) 6 %; Neutrophils # (A) 14.4 k/uL (1.3-7.7); Neutrophils % (A) 85 %; Platelet Count 374 k/uL (150-450); RBC 4.87 m/uL (4.30-5.90); RDW 14.2 % (11.5-15.5); WBC 16.9 k/uL (3.8-10.6)
[2021-04-19 11:11] LABS: Glucose,Whole Blood 193 mg/dL (75-99)
[2021-04-19] MEDS: SODIUM CHLORIDE 0.9% 1,000 ML IV SCH ×3 (12:36→20:35)
--- NOTE | 2021-04-19 12:37 | P.CONS ---
History of Present Illness - Reason for Consult Consult date: 04/18/21 left diabetic foot infection Requesting physician: Andrew Pierce - Chief Complaint left 2nd toe black discoloration x 1 week - History of Present Illness History of Present Illness : Patient is a 65-year-old male presenting to the ER this morning concerning for his left second toe wound and infection apparently the patient was seen at the wound care center by Dr. Collado and has sent the patient to the hospital for IV antibiotics, patient noticed over the last week that his last toe becoming black in color his foot becoming more swollen and red and is painful to touch patient did have significant feeling in the foot as long it is not as this not painful patient denies high-grade fevers or chills no chest pain shortness of breath or cough no vomiting or diarrhea on presentation the hospital the patient was afebrile subsequent have low-grade fever of 99.9 patient did have white count of 19.2 with a left shift creatinine was evaluated 1.40 liver exams are normal carotid PCR was negative patient did have x-ray of the foot which show soft tissue edema and emphysema currently for cellulitis abscess of the distal phalanx second toe correlate for previous surgery blood culture has been done which are currently pending patient missed one dose of Rocephin and was started on vancomycin pharmacy to dose infection disease was consulted for further management of antibiotic therapy, vascular surgery has been consulted for possible amputation or debridement Review of system: CONSTITUTIONAL: Positive for weakness low-grade fever. EYES: No complaint. ENT: No complaint. RESPIRATORY: No complaint. CARDIOVASCULAR: No complaint. GENITOURINARY: No complaint. GASTROINTESTINAL: No complaint. MUSCULOSKELETAL: As per history of present illness. INTEGUMENTARY : No complaint. PSYCHOLOGIC: No complaint. ENDOCRINE: No complaint. NEUROLOGIC: No complaint. Past medical history : Reviewed, documented below Past surgical history : Reviewed, documented below Social history: Reviewed, documented below Medications: Reviewed, as documented below EXAMINATION: Vital sigans= Reviewed and documented below GENERAL DESCRIPTION: Middle-aged male lying in bed, no distress. No tachypnea or accessory muscle of respiration use. HEENT: Shows Pallor , no scleral icterus. Oral mucous membrane is dry. NECK: Trachea central, no thyromegaly. LUNGS: Unlabored breathing. Clear to auscultation anteriorly. No wheeze or crackle. HEART: S1, S2, regular rate and rhythm. ABDOMEN: Soft, no tenderness , guarding or rigidity EXTREMITIES: Left second toe is swollen red and did have blackish discoloration with associated swelling and redness of the dorsal aspect of the left foot warm and tender to touch SKIN: No rash, no masses palpable. NEUROLOGICAL: The patient is awake, alert, oriented x3, mood and affect normal. LABS AND RADIOLOGY: Reviewed results see below Assessment : Patient presented to hospital with extensive left diabetic foot infection involving his left second toe which is gangrenous likely presenting with wet gangrene and will need to cover for the polymicrobial raul usually associated with this infection Plan: 1-await surgical evaluation possible amputation and deep culture 2-vancomycin pharmacy to dose target trough of 15 while watching kidney function and vancomycin trough closely 3-Unasyn 3 g every 6 hours We will follow on clinical condition and cultures to further adjust medication if needed Thank you for this consultation we will follow the patient along with you Past Medical History Past Medical History: Asthma, Diabetes Mellitus, GERD/Reflux, Hypertension, Musculoskeletal Disorder, Osteoarthritis (OA), Sleep Apnea/CPAP/BIPAP Additional Past Medical History / Comment(s): uses CPAP, spinal stenosis, sciatic pain,rt. gt. toe wound History of Any Multi-Drug Resistant Organisms: None Reported Past Surgical History: Orthopedic Surgery Additional Past Surgical History / Comment(s): carpal tunnel surg., knee surg. Past Anesthesia/Blood Transfusion Reactions: No Reported Reaction Date of Last Stent Placement:: 04/03/17 Past Psychological History: Anxiety Smoking Status: Never smoker Past Alcohol Use History: Rare Past Drug Use History: None Reported - Past Family History Sister(s) Family Medical History: Deep Vein Thrombosis (DVT), Skin Disorder Additional Family Medical History / Comment(s): Sister had a PE after surgery. She also has celiac's dx. Pt's nephew thru this sister has had DVTs and PEs and celiac disease. Mother Family Medical History: Cancer Additional Family Medical History / Comment(s): Mother of colon cancer at the age of 59yrs. Father Family Medical History: Congestive Heart Failure (CHF) Brother(s) Family Medical History: Diabetes Mellitus Medications and Allergies Home Medications Medication Instructions Recorded Confirmed Type Metoprolol Tartrate 25 mg PO BID #60 tab 04/08/17 04/18/21 Rx Nitroglycerin Sl Tabs [Nitrostat] 0.4 mg SUBLINGUAL Q5M PRN #25 tab 04/08/17 04/18/21 Rx Rosuvastatin [Crestor] 10 mg PO Q48H 06/24/18 04/18/21 History metFORMIN HCL [Glucophage] 1,000 mg PO BID 06/24/18 04/18/21 History Allopurinol [Zyloprim] 100 mg PO DAILY 04/18/21 04/18/21 History Aspirin 81 mg PO DAILY 04/18/21 04/18/21 History DULoxetine HCL [Cymbalta] 60 mg PO HS 04/18/21 04/18/21 History Famotidine [Pepcid] 20 mg PO BID PRN 04/18/21 04/18/21 History Fluticasone Nasal [place] [Flonase 1 spray EA NOSTRIL DAILY 04/18/21 04/18/21 History Nasal [place]] Linagliptin [Tradjenta] 5 mg PO BID 04/18/21 04/18/21 History Magnesium Oxide [Mag-Ox] 400 mg PO DAILY 04/18/21 04/18/21 History Meloxicam [Mobic] 7.5 mg PO DAILY 04/18/21 04/18/21 History Pregabalin [Lyrica] 150 mg PO BID 04/18/21 04/18/21 History traMADol HCL [Ultram] 50 - 100 mg PO BID 04/18/21 04/18/21 History Allergies Allergy/AdvReac Type Severity Reaction Status Date / Time No Known Allergies Allergy Verified 04/18/21 13:17 Physical Exam Vitals: Vital Signs Temp Pulse Resp BP Pulse Ox 04/18/21 09:48 98.1 F 108 H 16 135/81 93 L Intake and Output 04/18/21 04/18/21 04/18/21 06:59 14:59 22:59 Other: Weight 115.666 kg Results CBC & Chem 7: 04/19/21 06:44 04/19/21 06:44 Labs: Abnormal Lab Results - Last 24 Hours (Table) 04/18/21 04/18/21 Range/Units 10:47 10:47 WBC 19.2 H (3.8-10.6) k/uL Neutrophils # 16.8 H (1.3-7.7) k/uL Lymphocytes # 0.7 L (1.0-4.8) k/uL Monocytes # 1.3 H (0-1.0) k/uL Sodium 128 L (137-145) mmol/L Potassium 5.2 H (3.5-5.1) mmol/L Chloride 95 L (98-107) mmol/L Carbon Dioxide 18 L (22-30) mmol/L BUN 25 H (9-20) mg/dL Creatinine 1.40 H (0.66-1.25) mg/dL Glucose 201 H (74-99) mg/dL Albumin 3.4 L (3.5-5.0) g/dL
--- NOTE | 2021-04-19 13:46 | P.GSCN ---
History of Present Illness Consult date: 04/18/21 History of present illness: The patient is a 65-year-old male with a past medical history of CAD, history of CABG, chronic kidney disease, type 2 diabetes, hyperlipidemia and COPD who was initially seen earlier today by Dr. Collado in wound care. The patient states he had seen Dr. Collado 2 years previously for wound of his left second toe and hammertoe area that has had a wound off and on. The patient states that very recently the wound had a blister on it over the past few weeks and subsequently he did present to the wound care clinic. He was sent into the ER. We are asked to see him for evaluation of his left second toe. He denies any fevers, chills, nausea or vomiting. Overall he feels slightly malaise but essentially his normal self. He does have some pain in his foot Review of Systems 14 point review of systems performed. Pertinent positives and negatives per the HPI Past Medical History Past Medical History: Asthma, Diabetes Mellitus, GERD/Reflux, Hypertension, Musculoskeletal Disorder, Osteoarthritis (OA), Sleep Apnea/CPAP/BIPAP Additional Past Medical History / Comment(s): uses CPAP, spinal stenosis, sciatic pain,rt. gt. toe wound History of Any Multi-Drug Resistant Organisms: None Reported Past Surgical History: Orthopedic Surgery Additional Past Surgical History / Comment(s): carpal tunnel surg., knee surg. Past Anesthesia/Blood Transfusion Reactions: No Reported Reaction Date of Last Stent Placement:: 04/03/17 Past Psychological History: Anxiety Smoking Status: Never smoker Past Alcohol Use History: Rare Past Drug Use History: None Reported - Past Family History Sister(s) Family Medical History: Deep Vein Thrombosis (DVT), Skin Disorder Additional Family Medical History / Comment(s): Sister had a PE after surgery. She also has celiac's dx. Pt's nephew thru this sister has had DVTs and PEs and celiac disease. Mother Family Medical History: Cancer Additional Family Medical History / Comment(s): Mother of colon cancer at the age of 59yrs. Father Family Medical History: Congestive Heart Failure (CHF) Brother(s) Family Medical History: Diabetes Mellitus Medications and Allergies Home Medications Medication Instructions Recorded Confirmed Type Metoprolol Tartrate 25 mg PO BID #60 tab 04/08/17 04/18/21 Rx Nitroglycerin Sl Tabs [Nitrostat] 0.4 mg SUBLINGUAL Q5M PRN #25 tab 04/08/17 04/18/21 Rx Rosuvastatin [Crestor] 10 mg PO Q48H 06/24/18 04/18/21 History metFORMIN HCL [Glucophage] 1,000 mg PO BID 06/24/18 04/18/21 History Allopurinol [Zyloprim] 100 mg PO DAILY 04/18/21 04/18/21 History Aspirin 81 mg PO DAILY 04/18/21 04/18/21 History DULoxetine HCL [Cymbalta] 60 mg PO HS 04/18/21 04/18/21 History Famotidine [Pepcid] 20 mg PO BID PRN 04/18/21 04/18/21 History Fluticasone Nasal [place] [Flonase 1 spray EA NOSTRIL DAILY 04/18/21 04/18/21 History Nasal [place]] Linagliptin [Tradjenta] 5 mg PO BID 04/18/21 04/18/21 History Magnesium Oxide [Mag-Ox] 400 mg PO DAILY 04/18/21 04/18/21 History Meloxicam [Mobic] 7.5 mg PO DAILY 04/18/21 04/18/21 History Pregabalin [Lyrica] 150 mg PO BID 04/18/21 04/18/21 History traMADol HCL [Ultram] 50 - 100 mg PO BID 04/18/21 04/18/21 History Allergies Allergy/AdvReac Type Severity Reaction Status Date / Time No Known Allergies Allergy Verified 04/18/21 13:17 Surgical - Exam Vital Signs Temp Pulse Resp BP Pulse Ox 98.1 F 108 H 16 135/81 93 L 04/18/21 09:48 04/18/21 09:48 04/18/21 09:48 04/18/21 09:48 04/18/21 09:48 Gen. a pleasant and cooperative male in no acute distress. HEENT is normocephalic, atraumatic, extraocular motion intact. Heart appears regular in rate and rhythm at this time. Lungs are clear bilaterally. Abdomen is soft, nontender nondistended. Obese. Extremities show no clubbing. The left lower extremity there is a bulbous second toe with eschar and areas of fluctuance. There is erythema on the top portion of the foot with edema. Difficult to palpate but soft pedal pulses present Results - Labs 04/19/21 06:44 04/19/21 06:44 Abnormal Lab Results - Last 24 Hours (Table) 04/18/21 04/19/21 04/19/21 Range/Units 21:50 06:44 06:44 WBC 16.9 H (3.8-10.6) k/uL Neutrophils # 14.4 H (1.3-7.7) k/uL Sodium 133 L (137-145) mmol/L Carbon Dioxide 20 L (22-30) mmol/L BUN 22 H (9-20) mg/dL Creatinine 1.34 H (0.66-1.25) mg/dL Glucose 210 H (74-99) mg/dL POC Glucose (mg/dL) 166 H (75-99) mg/dL 04/19/21 04/19/21 Range/Units 06:56 11:10 WBC (3.8-10.6) k/uL Neutrophils # (1.3-7.7) k/uL Sodium (137-145) mmol/L Carbon Dioxide (22-30) mmol/L BUN (9-20) mg/dL Creatinine (0.66-1.25) mg/dL Glucose (74-99) mg/dL POC Glucose (mg/dL) 169 H 193 H (75-99) mg/dL Microbiology - Last 24 Hours (Table) 04/18/21 10:47 Blood Culture - Preliminary Blood No Growth after 24 hours 04/18/21 10:47 Blood Culture - Preliminary Blood No Growth after 24 hours Diabetes panel 04/19/21 Range/Units 06:44 Sodium 133 L (137-145) mmol/L Potassium 4.5 (3.5-5.1) mmol/L Chloride 101 (98-107) mmol/L Carbon Dioxide 20 L (22-30) mmol/L BUN 22 H (9-20) mg/dL Creatinine 1.34 H (0.66-1.25) mg/dL Glucose 210 H (74-99) mg/dL Calcium 8.5 (8.4-10.2) mg/dL Calcium panel 04/19/21 Range/Units 06:44 Calcium 8.5 (8.4-10.2) mg/dL Pituitary panel 04/19/21 Range/Units 06:44 Sodium 133 L (137-145) mmol/L Potassium 4.5 (3.5-5.1) mmol/L Chloride 101 (98-107) mmol/L Carbon Dioxide 20 L (22-30) mmol/L BUN 22 H (9-20) mg/dL Creatinine 1.34 H (0.66-1.25) mg/dL Glucose 210 H (74-99) mg/dL Calcium 8.5 (8.4-10.2) mg/dL Adrenal panel 04/19/21 Range/Units 06:44 Sodium 133 L (137-145) mmol/L Potassium 4.5 (3.5-5.1) mmol/L Chloride 101 (98-107) mmol/L Carbon Dioxide 20 L (22-30) mmol/L BUN 22 H (9-20) mg/dL Creatinine 1.34 H (0.66-1.25) mg/dL Glucose 210 H (74-99) mg/dL Calcium 8.5 (8.4-10.2) mg/dL Assessment and Plan Assessment: Diabetic foot infection, second toe Diabetes type 2 COPD Coronary artery disease Plan: Given the extent of the clinical appearance, it is likely the patient will need a second toe amputation. We'll plan taken tomorrow for an incision and drainage and likely a second toe and palpitation. This is all discussed with the patient is seemingly understands and is willing to proceed as such.
[2021-04-19] MEDS ORDERED: LACTATED RINGERS 1,000 ML IV ONE (13:58)
[2021-04-19] MEDS ORDERED: ONDANSETRON 4 MG/2 ML VIAL ONE (14:02)
[2021-04-19] MEDS ORDERED: ONDANSETRON 4 MG/2 ML VIAL IVP ONE (14:03)
[2021-04-19 14:09] LABS: Glucose,Whole Blood 179 mg/dL (75-99)
[2021-04-19] MEDS: AMPICILLIN-SULBACTAM 3 GM in SODIUM CHLORIDE 0.9% 100 ML IVPB SCH ×3 (14:27→23:02)
[2021-04-19] MEDS ORDERED: KETAMINE 10 MG/ML 20 ML VIAL ONE (14:49)
[2021-04-19] MEDS ORDERED: PROPOFOL 10 MG/ML 20 ML VIAL IV ONE (14:49)
[2021-04-19] MEDS ORDERED: fentaNYL (PF) 50 MCG/ML 2 ML AMP ONE (14:49)
[2021-04-19] MEDS ORDERED: MIDAZOLAM 2 MG/2 ML VIAL ONE (14:49)
[2021-04-19] MEDS ORDERED: LIDOCAINE 1% INJ 10MG/ML (20 ML MDV) SQ ONE ×2 (15:12)
--- NOTE | 2021-04-19 15:54 | P.OP ---
Date of Procedure: 04/19/21 Description of Procedure: DATE OF SERVICE: SURGEON: Lillie Valenzuela DO PASSENGER SCREENER: None PREOPERATIVE DIAGNOSIS: [Infected left second toe, diabetes, foot swelling]. POSTOPERATIVE DIAGNOSIS: [Same, extensive midfoot abscess]. OPERATION: Left second toe amputation. ANESTHESIA: Monitored anesthesia care ESTIMATED BLOOD LOSS: Less than 10 mL SPECIMENS REMOVED: Left second toe COMPLICATIONS: None immediately apparent OPERATIVE FINDINGS: At the time of the operation the second toe was excised there was significant purulent drainage expressed from the midfoot therefore the dorsal and plantar incisions were extended along the course of the bone until no further purulent pockets were identified. There was a wound on the plantar portion of the foot that had been covered over with callus. DESCRIPTION OF PROCEDURE: The patient was taken to the operating room and placed in supine position. left lower extremity is prepped and draped in usual sterile fashion and a preprocedure timeout was performed, all parties were in agreement. An incision was made at the base of the proximal phalanx, deepened through the skin, fat, and tendons. Tendons were divided prior to plantar and dorsal aspect of the second toe. After that, proximal phalanx was dislocated from the metatarsal joint, and we took deep culture from the midfoot It was sent for culture and sensitivity. The incision was extended and the dorsal and plantar portions following tracking of the purulent drainage. The metatarsal head was transected using a Daquan. The area was then copiously irrigated and irrigated with Dakin solution. Hemostasis was well controlled. A wet-to-dry dressing with Dakin's was placed. The patient will need extensive wound care. He currently maintains palpable pedal pulses therefore no vascular compromise is identified
[2021-04-19] MEDS: VANCOMYCIN 1,750 MG in SODIUM CHLORIDE 0.9% 500 ML 500 ML IVPB SCH (16:19)
[2021-04-19 17:09] LABS: Glucose,Whole Blood 171 mg/dL (75-99)
[2021-04-19 19:54] LABS: Glucose,Whole Blood 178 mg/dL (75-99)
[2021-04-19] MEDS: DULoxetine HCL 60 MG CAPSULE.DR PO SCH ×2 (20:04→20:35)
[2021-04-19] MEDS: PREGABALIN 75 MG CAP PO SCH (20:32)
[2021-04-19] MEDS: traMADol 50 MG TAB PO SCH (20:33)
[2021-04-19] MEDS: LINAGLIPTIN 5 MG TABLET PO SCH (20:34)
[2021-04-20] MEDS: SODIUM CHLORIDE 0.9% 1,000 ML IV SCH ×3 (04:14→18:19)
[2021-04-20] MEDS: AMPICILLIN-SULBACTAM 3 GM in SODIUM CHLORIDE 0.9% 100 ML IVPB SCH ×3 (04:57→18:17)
[2021-04-20 07:10] LABS: Glucose,Whole Blood 155 mg/dL (75-99)
[2021-04-20] MEDS: metFORMIN 500 MG TAB PO SCH ×2 (07:46→22:15)
[2021-04-20] MEDS: VANCOMYCIN 1,750 MG in SODIUM CHLORIDE 0.9% 500 ML 500 ML IVPB SCH (07:46)
[2021-04-20] MEDS: FAMOTIDINE 20 MG TAB PO SCH ×3 (07:47→22:14)
[2021-04-20] MEDS: METOPROLOL TARTRATE 25 MG TAB PO SCH ×2 (07:47→22:15)
[2021-04-20] MEDS: lisinopriL 10 MG TAB PO SCH (07:47)
[2021-04-20] MEDS: CHOLECALCIFEROL 25 MCG (1000 IU) TABLET PO SCH (07:47)
[2021-04-20] MEDS: CYANOCOBALAMIN 500 MCG TAB PO SCH (07:47)
[2021-04-20] MEDS: PREGABALIN 75 MG CAP PO SCH ×2 (07:47→22:15)
[2021-04-20] MEDS: ATORVASTATIN 20 MG TAB PO SCH (07:47)
[2021-04-20] MEDS: MAGNESIUM OXIDE 400 MG TAB PO SCH (07:48)
[2021-04-20] MEDS: SERTRALINE 50 MG TAB PO SCH (07:48)
[2021-04-20] MEDS: traMADol 50 MG TAB PO SCH ×2 (07:48→22:16)
[2021-04-20] MEDS: allopurinoL 100 MG TAB PO SCH (07:48)
[2021-04-20] MEDS: FLUTICASONE 50MCG/SPRAY NASAL 16GM EA NOSTRIL SCH (07:49)
[2021-04-20] MEDS: LINAGLIPTIN 5 MG TABLET PO SCH ×2 (07:49→22:16)
--- NOTE | 2021-04-20 09:22 | P.PN ---
Subjective Progress Note Date: 04/19/21 HISTORY OF PRESENT ILLNESS 65-year-old male one of my office patient of known for over 20 years with past medical history of CAD post CABG, history of chronic kidney disease, history of type 2 diabetes, history of hyperlipidemia and COPD who apparently developed to have much worsening sign and symptom of hammertoe left second toe with slight pain and discomfort and worsening curvature discomfort apparently had mild blister ulcer nonhealed for the last few weeks did not seek any attention for it. He was in to see Dr. Villalpando for vascular and wound When he was seen found to have severe cellulitis and gangrenous of the left second toe was sent to the emergency department where was seen and evaluated for possible osteomyelitis might require IV antibiotic and possible intervention for amputation or I@D, his white blood cell running 19,200 kidney function has not changed compared to before blood sugar still mildly elevated, x-ray of the foot shows soft tissue edema and emphysema correlate for cellulitis there is an absent of the distal phalanx second digit correlate for possible previous surgery recommending triple phase bone scan to assess osteomyelitis also showed fifth metatarsal fracture which looked like chronic. Patient was seen and assessed by Dr. Nicolas allen with the severity of the infection and reactive or stimuli this patient most likely will be going for intervention to remove the second toe, the meanwhile continue IV vancomycin and will be seen infectious disease along with topical care. 04/20: Patient is NPO for surgery today: Left foot, second toe debridement with likely amputation. Repeat WBC is 16.9, BUN 22 creatinine 1.34. Blood sugars are running 166-210. Dr. Becker is seeing the patient and placed him on Unasyn in addition to vancomycin. Home medications have been resumed. REVIEW OF SYSTEMS Constitutional: No fever, no chills, no night sweats. No weight change. No weakness, fatigue or lethargy. No daytime sleepiness. EENT: No headache. No blurred vision or double vision, no loss of vision. No loss of Hearing, no ringing in the ears, no dizziness. No nasal drainage or congestion. No epistaxis. No sore throat. Lungs: Decreased breaths on bilaterally with mild shortness of breath with e xertion no cough or wheezes. Cardiovascular: No chest pain, no lower extremity edema. No palpitations. Positive PND orthopnea with no angina no lightheadedness or dizzinesssyncope. Abdominal: No abdominal pain. No nausea, vomiting. No diarrhea. No constipation. No bloody or tarry stools.. No loss of appetite. Genitourinary: No dysuria, increased frequency, urgency. No urinary retention. Musculoskeletal: No myalgias. No muscle weakness, no gait dysfunction, no frequent falls. Generalized back and muscle pain. Integumentary: No wounds, no lesions. No rash or pruritus. No unusual br uising. No change in hair or nails. Neurologic: No aphasia. No facial droop. No change in mentation. No head injury. No headache. No paralysis. No paresthesia. Psychiatric: No depression. No anxiety. No mood swings. Endocrine: Noted abnormal blood sugars. No weight change. No excessive sweating or thirst. No cold intolerance. PHYSICAL EXAMINATION Gen: This is a 65-year-old mildly obese does not look in any respiratory distress. HEENT: Head is atraumatic, normocephalic. Pupils equal, round. Sclerae is anicteric. NECK: Supple. No JVD. No lymphadenopathy. No thyromegaly. LUNGS: Decreased breaths on bilaterally with rhonchi no crackles or wheezes. HEART: Regular the spinous to positive S3 positive systolic murmur. ABDOMEN: Soft. Bowel sounds are present. No masses. No tenderness. EXTREMITIES: Slight edema both lower extremities with left pain worse, severe cellulitis swelling tenderness redness from the tip part of the second toe all the way to the third of the foot up. There is a slight gangrenous change of the to part of the second toe with significant swelling hammertoe severely painful and pressing of the soft tissue with purulent drainage. NEUROLOGICAL: Patient is awake, alert and oriented x3. Cranial nerves 2 through 12 are grossly intact. ASSESSMENT AND PLAN 1. Severe osteomyelitis of the left second toe: Patient will be seen vascular, patient most likely will need second toe amputation. Continue IV antibiotic with Unasyn and vancomycin, infectious disease consult appreciated, topical care and wound care as well. 2. Severe cellulitis of the left foot: Continue vancomycin and Unasyn, will consult infectious disease waiting for final culture. 3. Advanced first to the cardiac disease: Patient is seen cardiology regular basis no chest pain or angina has been doing well on metoprolol, lisinopril and diuretics. 4. Mild COPD: Still on Ventolin HFA on demand mostly on steroid inhaler has not use the last year. 5. Chronic pain syndrome: With chronic degenerative disc disease, patient has been on hydrocodone along with the Loxitane. 6. Type 2 diabetes: Has not been well controlled remain on metformin 1000 mg twice a day, Glucotrol 10 mg twice a day can't Accu-Chek with sliding scales coverage patient to my knowledge was longer acting insulin like Lantus once a day. Resume Accu-Chek with sliding scales coverage watch blood sugar in the next few days. 7. Stage III chronic kidney disease: No change keep watching for any change in urine AT this point. 8. Hypertension: Remain on metoprolol titrate 25 g twice a day, Prinivil 10 mg daily. 9. Hyperlipidemia: Continue Crestor 10 mg a day. 10. Chronic neuropathy: Was on gabapentin previously or Lyrica with slight side effect has been off both at this point remain only on hydrocodone, and still on Cymbalta 60 mg daily. 11 GI prophylaxis: Patient be started on Pepcid 20 mg daily. 12 DVT prophylaxis: Was start heparin subcutaneous after surgery. 13. COVID-19 testing was negative DISCHARGE PLAN HOME Impression and plan of care have been directed as dictated by the signing physician. Reema An nurse practitioner acting as scribe for signing physician. Objective - Vital Signs Vital signs: Vital Signs Temp 98 F 04/19/21 04:50 Pulse 92 04/19/21 04:50 Resp 20 04/19/21 04:50 BP 123/77 04/19/21 04:50 Pulse Ox 96 04/19/21 04:50 Intake & Output 04/18/21 04/19/21 04/19/21 18:59 06:59 18:59 Intake Total 1150 Output Total 500 400 Balance 650 -400 Weight 115.666 kg 69 kg Intake: Intake, IV Titration 1150 Amount Sodium Chloride 0.9% 1, 650 000 ml @ 130 mls/hr IV . Q7H42M [facility] Rx#:[id number] Vancomycin 1,750 mg In 500 Sodium Chloride 0.9% 500 ml 500 ml @ 167 mls/hr IVPB Q16H [facility] Rx#: [id number] Output: Urine 500 400 Other: Voiding Method Urinal Urinal - Labs CBC & Chem 7: 04/19/21 06:44 04/20/21 06:24 Labs: Abnormal Lab Results - Last 24 Hours (Table) 04/18/21 04/18/21 04/19/21 Range/Units 10:47 21:50 06:44 WBC (3.8-10.6) k/uL Neutrophils # (1.3-7.7) k/uL Sodium 128 L 133 L (137-145) mmol/L Potassium 5.2 H (3.5-5.1) mmol/L Chloride 95 L (98-107) mmol/L Carbon Dioxide 18 L 20 L (22-30) mmol/L BUN 25 H 22 H (9-20) mg/dL Creatinine 1.40 H 1.34 H (0.66-1.25) mg/dL Glucose 201 H 210 H (74-99) mg/dL POC Glucose (mg/dL) 166 H (75-99) mg/dL Albumin 3.4 L (3.5-5.0) g/dL 04/19/21 04/19/21 04/19/21 Range/Units 06:44 06:56 11:10 WBC 16.9 H (3.8-10.6) k/uL Neutrophils # 14.4 H (1.3-7.7) k/uL Sodium (137-145) mmol/L Potassium (3.5-5.1) mmol/L Chloride (98-107) mmol/L Carbon Dioxide (22-30) mmol/L BUN (9-20) mg/dL Creatinine (0.66-1.25) mg/dL Glucose (74-99) mg/dL POC Glucose (mg/dL) 169 H 193 H (75-99) mg/dL Albumin (3.5-5.0) g/dL
--- NOTE | 2021-04-20 10:41 | P.PN ---
Subjective Progress Note Date: 04/20/21 HISTORY OF PRESENT ILLNESS 65-year-old male one of my office patient of known for over 20 years with past medical history of CAD post CABG, history of chronic kidney disease, history of type 2 diabetes, history of hyperlipidemia and COPD who apparently developed to have much worsening sign and symptom of hammertoe left second toe with slight pain and discomfort and worsening curvature discomfort apparently had mild blister ulcer nonhealed for the last few weeks did not seek any attention for it. He was in to see Dr. Villalpando for vascular and wound When he was seen found to have severe cellulitis and gangrenous of the left second toe was sent to the emergency department where was seen and evaluated for possible osteomyelitis might require IV antibiotic and possible intervention for amputation or I@D, his white blood cell running 19,200 kidney function has not changed compared to before blood sugar still mildly elevated, x-ray of the foot shows soft tissue edema and emphysema correlate for cellulitis there is an absent of the distal phalanx second digit correlate for possible previous surgery recommending triple phase bone scan to assess osteomyelitis also showed fifth metatarsal fracture which looked like chronic. Patient was seen and assessed by Dr. Valenzuela vascular with the severity of the infection and reactive or stimuli this patient most likely will be going for intervention to remove the second toe, the meanwhile continue IV vancomycin and will be seen infectious disease along with topical care. 04/19: Patient is NPO for surgery today: Left foot, second toe debridement with likely amputation. Repeat WBC is 16.9, BUN 22 creatinine 1.34. Blood sugars are running 166-210. Dr. Becker is seeing the patient and placed him on Unasyn in addition to vancomycin. Home medications have been resumed. 04/20: Yesterday, patient underwent left second toe amputation with Dr. Valenzuela. There was extensive purulent drainage up into the dorsum of the foot for which wound has been left open. Patient has been afebrile, heart rate 85, blood pressure 107/65, pulse ox 92% on room air. Blood sugars have been running between 169 and 193. Wound cultures are in progress. Blood culture is no growth at 24 hours 1 specimen. Patient is continued on Unasyn and vancomycin. Patient denies having any pain at the amputation site. REVIEW OF SYSTEMS Constitutional: No fever, no chills, no night sweats. No weight change. No weakness, fatigue or lethargy. No daytime sleepiness. EENT: No headache. No blurred vision or double vision, no loss of vision. No loss of Hearing, no ringing in the ears, no dizziness. No nasal drainage or congestion. No epistaxis. No sore throat. Lungs: Decreased breaths on bilaterally with mild shortness of breath with exertion no cough or wheezes. Cardiovascular: No chest pain, no lower extremity edema. No palpitations. Positive PND orthopnea with no angina no lightheadedness or dizzinesssyncope. Abdominal: No abdominal pain. No nausea, vomiting. No diarrhea. No constipation. No bloody or tarry stools.. No loss of appetite. Genitourinary: No dysuria, increased frequency, urgency. No urinary retention. Musculoskeletal: No myalgias. No muscle weakness, no gait dysfunction, no frequent falls. Generalized back and muscle pain. Amputation left second toe. Integumentary: No wounds, no lesions. No rash or pruritus. No unusual bruising. No change in hair or nails. Neurologic: No aphasia. No facial droop. No change in mentation. No head injury. No headache. No paralysis. No paresthesia. Psychiatric: No depression. No anxiety. No mood swings. Endocrine: Noted abnormal blood sugars. No weight change. PHYSICAL EXAMINATION Gen: This is a 65-year-old mildly obese does not look in any respiratory distress. HEENT: Head is atraumatic, normocephalic. Pupils equal, round. Sclerae is anicteric. NECK: Supple. No JVD. No lymphadenopathy. No thyromegaly. LUNGS: Decreased breaths on bilaterally with rhonchi no crackles or wheezes. HEART: Regular the spinous to positive S3 positive systolic murmur. ABDOMEN: Soft. Bowel sounds are present. No masses. No tenderness. EXTREMITIES: Slight edema both lower extremities with left pain worse, amputation second toe left. Dressing is in place with sanguineous drainage. NEUROLOGICAL: Patient is awake, alert and oriented x3. Cranial nerves 2 through 12 are grossly intact. ASSESSMENT AND PLAN 1. Severe osteomyelitis of the left second toe status post left second toe amputation 04/[address] Valenzuela. Continue IV antibiotic with Unasyn and vancomycin, infectious disease consult appreciated, topical care and wound care as well. 2. Severe cellulitis of the left foot: Continue vancomycin and Unasyn, will consult infectious disease waiting for final culture. 3. Advanced first to the cardiac disease: Patient is seen cardiology regular basis no chest pain or angina has been doing well on metoprolol, lisinopril and diuretics. 4. Mild COPD: Still on Ventolin HFA on demand mostly on steroid inhaler has not use the last year. 5. Chronic pain syndrome: With chronic degenerative disc disease, patient has been on hydrocodone along with the Loxitane. 6. Type 2 diabetes: Has not been well controlled remain on metformin 1000 mg twice a day, Glucotrol 10 mg twice a day, NovoLog scale before meals and at bedtime. 7. Stage III chronic kidney disease, stable. 8. Hypertension: Remain on metoprolol titrate 25 g twice a day, Prinivil 10 mg daily. 9. Hyperlipidemia: Continue Crestor 10 mg a day. 10. Chronic neuropathy: Was on gabapentin previously or Lyrica with slight side effect has been off both at this point remain only on hydrocodone, and still on Cymbalta 60 mg daily. 11. GI prophylaxis: Patient be started on Pepcid 20 mg daily. 12. DVT prophylaxis: Was start heparin subcutaneous after surgery. 13. COVID-19 testing was negative DISCHARGE PLAN HOME Impression and plan of care have been directed as dictated by the signing physician. Reema An nurse practitioner acting as scribe for signing physician. Objective - Vital Signs Vital signs: Vital Signs Temp 98.6 F 04/20/21 04:14 Pulse 85 04/20/21 04:14 Resp 18 04/20/21 04:14 BP 107/65 04/20/21 04:14 Pulse Ox 92 L 04/20/21 04:14 Intake & Output 04/19/21 04/20/21 04/20/21 18:59 06:59 18:59 Intake Total 1900 1177 Output Total 660 Balance 1240 1177 Intake: IV 600 Intake, IV Titration 1300 Amount Sodium Chloride 0.9% 1, 1300 000 ml @ 130 mls/hr IV . Q7H42M [facility] Rx#:[id number] Oral 1177 Output: Urine 650 Estimated Blood Loss 10 Other: Voiding Method Urinal Urinal # Voids 2 - Labs CBC & Chem 7: 04/19/21 06:44 04/20/21 06:24 Labs: Abnormal Lab Results - Last 24 Hours (Table) 04/19/21 04/19/21 04/19/21 Range/Units 06:44 06:44 06:44 WBC 16.9 H (3.8-10.6) k/uL Neutrophils # 14.4 H (1.3-7.7) k/uL Sodium 133 L (137-145) mmol/L Carbon Dioxide 20 L (22-30) mmol/L BUN 22 H (9-20) mg/dL Creatinine 1.34 H (0.66-1.25) mg/dL Glucose 210 H (74-99) mg/dL POC Glucose (mg/dL) (75-99) mg/dL Hemoglobin A1c 6.9 H (4.0-6.0) % 04/19/21 04/19/21 04/19/21 Range/Units 11:10 14:07 17:08 WBC (3.8-10.6) k/uL Neutrophils # (1.3-7.7) k/uL Sodium (137-145) mmol/L Carbon Dioxide (22-30) mmol/L BUN (9-20) mg/dL Creatinine (0.66-1.25) mg/dL Glucose (74-99) mg/dL POC Glucose (mg/dL) 193 H 179 H 171 H (75-99) mg/dL Hemoglobin A1c (4.0-6.0) % 04/19/21 04/20/21 Range/Units 19:45 06:57 WBC (3.8-10.6) k/uL Neutrophils # (1.3-7.7) k/uL Sodium (137-145) mmol/L Carbon Dioxide (22-30) mmol/L BUN (9-20) mg/dL Creatinine (0.66-1.25) mg/dL Glucose (74-99) mg/dL POC Glucose (mg/dL) 178 H 155 H (75-99) mg/dL Hemoglobin A1c (4.0-6.0) % Microbiology - Last 24 Hours (Table) 04/19/21 15:20 Gram Stain - Preliminary Foot - Left Wound Culture - Preliminary 04/19/21 15:20 Gram Stain - Preliminary Foot - Left Wound Culture - Preliminary 04/19/21 15:20 Anaerobic Culture - Preliminary Foot - Left 04/19/21 15:20 Anaerobic Culture - Preliminary Foot - Left 04/18/21 10:47 Blood Culture - Preliminary Blood No Growth after 24 hours 04/18/21 10:47 Blood Culture - Preliminary Blood No Growth after 24 hours
[2021-04-20 11:54] LABS: Glucose,Whole Blood 222 mg/dL (75-99)
--- NOTE | 2021-04-20 13:16 | P.CONS ---
History of Present Illness - Reason for Consult Consult date: 04/20/21 wound care - History of Present Illness This is a 65-year-old patient known to the wound care center being seen on 5 N. for post amputation. Patient presented to the wound care center with a nonhealing ulceration of the left foot second digit. He underwent a second toe amputation with Dr. Valenzuela. At this time there is a surgical dressing in place that is clean dry and intact. Patient's past medical history includes asthma, diabetes, hypertension, GERD, sleep apnea, arthritis. Patient quit smoking cigars 10 years ago. He now only smokes on and off. Review Of Systems: Constitutional: No fever, no chills, no night sweats. No weight change. No weakness, fatigue or lethargy. No daytime sleepiness. Integumentary:reports wounds, no lesions. No rash or pruritus. No unusual bruising. No change in hair or nails. Physical exam: General Appearance: Alert, cooperative, no distress, appears stated age. Skin: See HPI all other Skin color, texture, tugor normal, no rashes or lesions. Neurologic: Alert oriented x3 Assessment: 1. Nonhealing ulceration with muscle involvement without necrosis 2. Open surgical wound 3. Diabetic foot ulcer Plan: 1.Patient may leave surgical dressing in place until seen in the wound care center on Friday. However if the dressing is removed prior to discharge please apply absorptive silver, saline moistened gauze, dry gauze, rolled gauze and secure with paper tape. Patient will leave the dressing in place until seen in the wound care center. Thank for the consultation any questions please contact the wound care center DNP note has been reviewed and discussed with Dr. Collado and the impression and plan of care has been directed as dictated. Past Medical History Past Medical History: Asthma, Diabetes Mellitus, GERD/Reflux, Hypertension, Musculoskeletal Disorder, Osteoarthritis (OA), Sleep Apnea/CPAP/BIPAP Additional Past Medical History / Comment(s): uses CPAP, spinal stenosis, sciatic pain,rt. gt. toe wound History of Any Multi-Drug Resistant Organisms: None Reported Past Surgical History: Orthopedic Surgery Additional Past Surgical History / Comment(s): carpal tunnel surg., knee surg. Past Anesthesia/Blood Transfusion Reactions: No Reported Reaction Date of Last Stent Placement:: 04/03/17 Past Psychological History: Anxiety Smoking Status: Never smoker Past Alcohol Use History: Rare Past Drug Use History: None Reported - Past Family History Sister(s) Family Medical History: Deep Vein Thrombosis (DVT), Skin Disorder Additional Family Medical History / Comment(s): Sister had a PE after surgery. She also has celiac's dx. Pt's nephew thru this sister has had DVTs and PEs and celiac disease. Mother Family Medical History: Cancer Additional Family Medical History / Comment(s): Mother of colon cancer at the age of 59yrs. Father Family Medical History: Congestive Heart Failure (CHF) Brother(s) Family Medical History: Diabetes Mellitus Medications and Allergies Home Medications Medication Instructions Recorded Confirmed Type Metoprolol Tartrate 25 mg PO BID #60 tab 04/08/17 04/18/21 Rx Nitroglycerin Sl Tabs [Nitrostat] 0.4 mg SUBLINGUAL Q5M PRN #25 tab 04/08/17 04/18/21 Rx Rosuvastatin [Crestor] 10 mg PO Q48H 06/24/18 04/18/21 History metFORMIN HCL [Glucophage] 1,000 mg PO BID 06/24/18 04/18/21 History Allopurinol [Zyloprim] 100 mg PO DAILY 04/18/21 04/18/21 History Aspirin 81 mg PO DAILY 04/18/21 04/18/21 History DULoxetine HCL [Cymbalta] 60 mg PO HS 04/18/21 04/18/21 History Famotidine [Pepcid] 20 mg PO BID PRN 04/18/21 04/18/21 History Fluticasone Nasal [place] [Flonase 1 spray EA NOSTRIL DAILY 04/18/21 04/18/21 History Nasal [place]] Linagliptin [Tradjenta] 5 mg PO BID 04/18/21 04/18/21 History Magnesium Oxide [Mag-Ox] 400 mg PO DAILY 04/18/21 04/18/21 History Meloxicam [Mobic] 7.5 mg PO DAILY 04/18/21 04/18/21 History Pregabalin [Lyrica] 150 mg PO BID 04/18/21 04/18/21 History traMADol HCL [Ultram] 50 - 100 mg PO BID 04/18/21 04/18/21 History Allergies Allergy/AdvReac Type Severity Reaction Status Date / Time No Known Allergies Allergy Verified 04/19/21 14:01 Physical Exam Vitals: Vital Signs Temp Pulse Pulse Resp BP Pulse Ox 04/20/21 12:07 98.6 F 86 19 118/73 92 L 04/20/21 08:00 85 97 18 04/20/21 04:14 98.6 F 85 18 107/65 92 L 04/19/21 19:23 98.5 F 102 H 20 138/75 95 04/19/21 18:22 98.4 F 16 99 04/19/21 18:21 97 130/71 04/19/21 18:20 99 129/77 04/19/21 17:50 99 124/78 04/19/21 17:35 95 109/68 04/19/21 17:20 96 128/60 04/19/21 16:50 89 120/72 04/19/21 16:01 87 20 109/66 96 04/19/21 15:44 97.1 F L 90 20 105/62 96 04/19/21 13:58 98.7 F 93 16 124/68 96 Intake and Output 04/19/21 04/20/21 04/20/21 22:59 06:59 14:59 Intake Total 2077 400 Output Total 260 Balance 1817 400 Intake: Intake, IV Titration 1300 Amount Sodium Chloride 0.9% 1, 1300 000 ml @ 130 mls/hr IV . Q7H42M [facility] Rx#:[id number] Oral 777 400 Output: Urine 250 Estimated Blood Loss 10 Other: Voiding Method Urinal Urinal # Voids 2 Results CBC & Chem 7: 04/19/21 06:44 04/20/21 06:24 Labs: Abnormal Lab Results - Last 24 Hours (Table) 04/19/21 04/19/21 04/19/21 Range/Units 06:44 14:07 17:08 POC Glucose (mg/dL) 179 H 171 H (75-99) mg/dL Hemoglobin A1c 6.9 H (4.0-6.0) % 04/19/21 04/20/21 04/20/21 Range/Units 19:45 06:57 11:25 POC Glucose (mg/dL) 178 H 155 H 222 H (75-99) mg/dL Hemoglobin A1c (4.0-6.0) % Microbiology - Last 24 Hours (Table) 04/19/21 15:20 Gram Stain - Preliminary Foot - Left Wound Culture - Preliminary 04/19/21 15:20 Gram Stain - Preliminary Foot - Left Wound Culture - Preliminary 04/19/21 15:20 Anaerobic Culture - Preliminary Foot - Left 04/19/21 15:20 Anaerobic Culture - Preliminary Foot - Left 04/18/21 10:47 Blood Culture - Preliminary Blood No Growth after 24 hours 04/18/21 10:47 Blood Culture - Preliminary Blood No Growth after 24 hours Assessment and Plan (1) Non-healing ulcer of left foot with necrosis of muscle Current Visit: Yes Status: Acute Code(s): L97.523 - NON-PRS CHRONIC ULCER OTH PRT LEFT FOOT W NECROSIS OF MUSCLE SNOMED Code(s): 689629721 (2) Diabetic foot ulcer Current Visit: Yes Status: Acute Code(s): E11.621 - TYPE 2 DIABETES MELLITUS WITH FOOT ULCER; L97.509 - NON-PRESSURE CHRONIC ULCER OTH PRT UNSP FOOT W UNSP SEVERITY SNOMED Code(s): 203022431 (3) Disruption of external operation (surgical) wound Current Visit: Yes Status: Acute Code(s): T81.31XA - DISRUPTION OF EXTERNAL OPERATION (SURGICAL) WOUND, NEC, INIT SNOMED Code(s): 326469336161367
[2021-04-20] MEDS: INSULIN ASPART (NovoLOG) 100 UNIT/ML VIAL SQ SCH ×3 (13:22→22:22)
--- NOTE | 2021-04-20 13:46 | P.PN ---
Subjective Progress Note Date: 04/20/21 The patient was seen and examined lying in bed. He is status postop day #1 for left second toe amputation for infected left second toe, diabetes. Patient states her pain is well controlled. His been afebrile. Denies any fevers or chills. He remains on IV antibiotics Objective - Vital Signs Vital signs: Vital Signs Temp 98.6 F 04/20/21 12:07 Pulse 86 04/20/21 12:07 Resp 19 04/20/21 12:07 BP 118/73 04/20/21 12:07 Pulse Ox 92 L 04/20/21 12:07 Intake & Output 04/19/21 04/20/21 04/20/21 18:59 06:59 18:59 Intake Total 1900 1177 Output Total 660 Balance 1240 1177 Intake: IV 600 Intake, IV Titration 1300 Amount Sodium Chloride 0.9% 1, 1300 000 ml @ 130 mls/hr IV . Q7H42M [facility] Rx#:[id number] Oral 1177 Output: Urine 650 Estimated Blood Loss 10 Other: Voiding Method Urinal Urinal Urinal # Voids 2 - Exam General appearance: The patient is alert, oriented, in no acute distress. HET: Head is normocephalic and atraumatic. Neck: Supple without lymphadenopathy. Trachea midline. Extremities: Left lower extremity with edema, redness. Second toe amputation site with small amount of bleeding. Wet-to-dry dressing with Dakin solution reapplied. Sukhdev wrap to the left lower extremity to help improve the swelling. Neurological: No focal deficits. Strength and sensation are grossly intact. - Labs CBC & Chem 7: 04/19/21 06:44 04/20/21 06:24 Labs: Abnormal Lab Results - Last 24 Hours (Table) 04/19/21 04/19/21 04/19/21 Range/Units 06:44 14:07 17:08 POC Glucose (mg/dL) 179 H 171 H (75-99) mg/dL Hemoglobin A1c 6.9 H (4.0-6.0) % 04/19/21 04/20/21 04/20/21 Range/Units 19:45 06:57 11:25 POC Glucose (mg/dL) 178 H 155 H 222 H (75-99) mg/dL Hemoglobin A1c (4.0-6.0) % Microbiology - Last 24 Hours (Table) 04/18/21 10:47 Blood Culture - Preliminary Blood No Growth after 48 hours 04/18/21 10:47 Blood Culture - Preliminary Blood No Growth after 48 hours 04/19/21 15:20 Gram Stain - Preliminary Foot - Left Wound Culture - Preliminary 04/19/21 15:20 Gram Stain - Preliminary Foot - Left Wound Culture - Preliminary 04/19/21 15:20 Anaerobic Culture - Preliminary Foot - Left 04/19/21 15:20 Anaerobic Culture - Preliminary Foot - Left Assessment and Plan Assessment: 1. Postop day #1 left second toe amputation and debridement 2. Infected left second toe wound 3. Diabetes mellitus 4. History of coronary artery disease status post CABG 4. Chronic kidney disease Plan: 1. Continue current IV antibiotics 2. Wet-to-dry dressing with Dakin solution daily 3. Wound clinic, consulted for further wound care/outpatient management 4. Consult physical therapy. Offload weight on left lower extremity. The impression and plan of care has been dictated as directed. I performed a history and examination of this patient, discussed the same with the dictator. I agree with the dictator's note ,documented as a scribe. Any additional findings or plans will be noted.
--- NOTE | 2021-04-20 14:27 | IR ---
PICC LINE PLACEMENT: HISTORY: Infection requiring long-term antibiotic therapy PROCEDURE: Ultrasound and fluoroscopic guidance of PICC line placement. COMPLICATIONS: None ANESTHESIA: 1. 1% Lidocaine locally. FINDINGS/TECHNIQUE: The procedure was explained to the patient. The risks, complications, benefits and alternatives were discussed and any questions were answered. Informed consent was obtained. The patient was placed supine on the fluoroscopic table and prepped and draped in the usual sterile fash ion. Utilizing a 21 gauge needle and sonographic and fluoroscopic guidance, access in the left basi lic vein was achieved and there is placement of a 0.018 guidewire. The vein is patent. A 4-F sheath was placed over the guidewire. The guidewire and dilator were removed and a 4-F. PICC line was plac ed through the sheath with the tip at the level of the SVC. The sheath was removed, the catheter was flushed and sutured into position. The patient was stable throughout the procedure and remained sta ble upon discharge from the Department of Radiology. The vein puncture was patent under ultrasound. A wesley scale image was obtained to document patency of the vein punctured. All elements of the maximal barrier technique were utilized. FLUOROSCOPY TIME: 0.2 minutes and one image submitted IMPRESSION: Successful PICC line placement under ultrasound and fluoroscopic guidance.
[2021-04-20] MEDS ORDERED: INFLUENZA VACC (6 MOS-64 YRS) 60 MCG/0.5 ML SYRINGE IM ONE (16:30)
[2021-04-20 17:03] LABS: Glucose,Whole Blood 124 mg/dL (75-99)
--- NOTE | 2021-04-20 18:19 | PN ---
PROGRESS NOTE DATE OF SERVICE: 04/20/2021. REASON FOR FOLLOW: Left diabetic foot infection with left second toe wet gangrene. INTERVAL HISTORY: Patient was taken to the OR yesterday. The patient is status post left second toe amputation and debridement of the wound. Culture has been obtained which is currently pending. Patient tolerated the procedure. Pain is currently controlled. No chest pain, shortness of breath or cough. No abdominal pain or diarrhea. PHYSICAL EXAMINATION: Blood pressure 118/73 with a pulse of 83, temperature 98.6, 92% room air. The patient is a middle-aged male lying in bed in no distress. Respiratory system unlabored breathing, clear to auscultation anteriorly. Heart S1, S2. Regular rate and rhythm. Left foot is currently dressed. No obvious drainage on the dressing. LABS: Creatinine is 1.20. Cultures currently pending. DIAGNOSTIC IMPRESSION AND PLAN: Patient with extensive left diabetic foot infection with wet gangrene of the second toe status post amputation. Cultures pending. Patient to continue with the vancomycin and Unasyn, adjusting med on the basis of culture report. Continue supportive care. MMODL / IJN: [id number] /
[2021-04-20 22:14] LABS: Glucose,Whole Blood 184 mg/dL (75-99)
[2021-04-20] MEDS: DULoxetine HCL 60 MG CAPSULE.DR PO SCH ×2 (22:14→22:19)
[2021-04-20] MEDS ORDERED: VANCOMYCIN TROUGH DUE 1 EACH MISC MISCELLANE ONE (23:00)
[2021-04-21] MEDS: AMPICILLIN-SULBACTAM 3 GM in SODIUM CHLORIDE 0.9% 100 ML IVPB SCH ×5 (00:01→23:42)
[2021-04-21] MEDS: VANCOMYCIN 1,750 MG in SODIUM CHLORIDE 0.9% 500 ML 500 ML IVPB SCH ×2 (00:59→16:58)
[2021-04-21] MEDS: SODIUM CHLORIDE 0.9% 1,000 ML IV SCH ×4 (02:31→23:42)
[2021-04-21] MEDS: MAGNESIUM OXIDE 400 MG TAB PO SCH (07:39)
[2021-04-21] MEDS: SERTRALINE 50 MG TAB PO SCH (07:40)
[2021-04-21] MEDS: CYANOCOBALAMIN 500 MCG TAB PO SCH (07:40)
[2021-04-21] MEDS: traMADol 50 MG TAB PO SCH ×2 (07:40→20:46)
[2021-04-21] MEDS: PREGABALIN 75 MG CAP PO SCH ×2 (07:40→20:46)
[2021-04-21] MEDS: METOPROLOL TARTRATE 25 MG TAB PO SCH ×2 (07:41→20:46)
[2021-04-21] MEDS: metFORMIN 500 MG TAB PO SCH ×2 (07:41→20:46)
[2021-04-21] MEDS: FAMOTIDINE 20 MG TAB PO SCH ×3 (07:41→20:47)
[2021-04-21] MEDS: allopurinoL 100 MG TAB PO SCH (07:41)
[2021-04-21] MEDS: ATORVASTATIN 20 MG TAB PO SCH (07:41)
[2021-04-21] MEDS: lisinopriL 10 MG TAB PO SCH (07:41)
[2021-04-21] MEDS: CHOLECALCIFEROL 25 MCG (1000 IU) TABLET PO SCH (07:41)
[2021-04-21] MEDS: LINAGLIPTIN 5 MG TABLET PO SCH ×2 (07:42→20:49)
[2021-04-21] MEDS: FLUTICASONE 50MCG/SPRAY NASAL 16GM EA NOSTRIL SCH (07:43)
[2021-04-21 08:08] LABS: Glucose,Whole Blood 157 mg/dL (75-99)
[2021-04-21] MEDS: INSULIN ASPART (NovoLOG) 100 UNIT/ML VIAL SQ SCH ×4 (10:46→20:45)
[2021-04-21 12:27] LABS: Glucose,Whole Blood 171 mg/dL (75-99)
[2021-04-21 17:29] LABS: Glucose,Whole Blood 174 mg/dL (75-99)
--- NOTE | 2021-04-21 17:41 | P.PN ---
Subjective Progress Note Date: 04/21/21 HISTORY OF PRESENT ILLNESS 65-year-old male one of my office patient of known for over 20 years with past medical history of CAD post CABG, history of chronic kidney disease, history of type 2 diabetes, history of hyperlipidemia and COPD who apparently developed to have much worsening sign and symptom of hammertoe left second toe with slight pain and discomfort and worsening curvature discomfort apparently had mild blister ulcer nonhealed for the last few weeks did not seek any attention for it. He was in to see Dr. Villalpando for vascular and wound When he was seen found to have severe cellulitis and gangrenous of the left second toe was sent to the emergency department where was seen and evaluated for possible osteomyelitis might require IV antibiotic and possible intervention for amputation or I@D, his white blood cell running 19,200 kidney function has not changed compared to before blood sugar still mildly elevated, x-ray of the foot shows soft tissue edema and emphysema correlate for cellulitis there is an absent of the distal phalanx second digit correlate for possible previous surgery recommending triple phase bone scan to assess osteomyelitis also showed fifth metatarsal fracture which looked like chronic. Patient was seen and assessed by Dr. Valenzuela vascular with the severity of the infection and reactive or stimuli this patient most likely will be going for intervention to remove the second toe, the meanwhile continue IV vancomycin and will be seen infectious disease along with topical care. 04/19: Patient is NPO for surgery today: Left foot, second toe debridement with likely amputation. Repeat WBC is 16.9, BUN 22 creatinine 1.34. Blood sugars are running 166-210. Dr. Becker is seeing the patient and placed him on Unasyn in addition to vancomycin. Home medications have been resumed. 04/20: Yesterday, patient underwent left second toe amputation with Dr. Valenzuela. There was extensive purulent drainage up into the dorsum of the foot for which wound has been left open. Patient has been afebrile, heart rate 85, blood pressure 107/65, pulse ox 92% on room air. Blood sugars have been running between 169 and 193. Wound cultures are in progress. Blood culture is no growth at 24 hours 1 specimen. Patient is continued on Unasyn and vancomycin. Patient denies having any pain at the amputation site. 04/21: Patient's doing okay, still nonweightbearing on the leg, cultures are growing strep agalactiae, as well as gram-negative bacilli, identification and sensitivities are still pending, Dr. Preciado is following closely, no more fever at this time, and has defervesced ma no nausea no vomiting, T-max is 98 8, vitals are stable, blood sugars are between 150-174, creatinine of 1.15. REVIEW OF SYSTEMS Constitutional: No fever, no chills, no night sweats. No weight change. No weakness, fatigue or lethargy. No daytime sleepiness. EENT: No headache. No blurred vision or double vision, no loss of vision. No loss of Hearing, no ringing in the ears, no dizziness. No nasal drainage or congestion. No epistaxis. No sore throat. Lungs: Decreased breaths on bilaterally with mild shortness of breath with exertion no cough or wheezes. Cardiovascular: No chest pain, no lower extremity edema. No palpitations. Positive PND orthopnea with no angina no lightheadedness or dizzinesssyncope. Abdominal: No abdominal pain. No nausea, vomiting. No diarrhea. No constipation. No bloody or tarry stools.. No loss of appetite. Genitourinary: No dysuria, increased frequency, urgency. No urinary retention. Musculoskeletal: No myalgias. No muscle weakness, no gait dysfunction, no frequent falls. Generalized back and muscle pain. Amputation left second toe. Integumentary: No wounds, no lesions. No rash or pruritus. No unusual bruising. No change in hair or nails. Neurologic: No aphasia. No facial droop. No change in mentation. No head injury. No headache. No paralysis. No paresthesia. Psychiatric: No depression. No anxiety. No mood swings. Endocrine: Noted abnormal blood sugars. No weight change. Objective - Vital Signs Vital signs: Vital Signs Temp 98.1 F 04/21/21 11:34 Pulse 77 04/21/21 11:34 Resp 16 04/21/21 11:34 BP 128/78 04/21/21 11:34 Pulse Ox 93 L 04/21/21 11:34 Intake & Output 04/20/21 04/21/21 04/21/21 18:59 06:59 18:59 Intake Total 850 2700 Output Total 700 825 200 Balance 150 1875 -200 Intake: Intake, IV Titration 1740 Amount Ampicillin-Sulbactam 3 gm 200 In Sodium Chloride 0.9% 100 ml @ 200 mls/hr IVPB Q6HR [facility] Rx#:[id number] Sodium Chloride 0.9% 1, 1040 000 ml @ 130 mls/hr IV . Q7H42M [facility] Rx#:[id number] Vancomycin 1,750 mg In 500 Sodium Chloride 0.9% 500 ml 500 ml @ 167 mls/hr IVPB Q16H [facility] Rx#: [id number] Oral 850 960 Output: Urine 700 825 200 Other: Voiding Method Urinal Urinal # Voids 2 - Constitutional General appearance: Present: average body habitus, no acute distress - EENT Eyes: Present: EOMI, PERRLA, dentition normal, normal appearance ENT: Present: NA/AT - Neck Neck: Present: normal ROM - Respiratory Respiratory: bilateral: CTA, negative: diminished, dullness - Cardiovascular Rhythm: regular Heart sounds: normal: S1, S2 Abnormal Heart Sounds: Absent: systolic murmur, diastolic murmur, rub, S3 Gallop, S4 Gallop, click, other - Gastrointestinal General gastrointestinal: Present: normal bowel sounds, soft - Integumentary Integumentary Comment(s): Left toe amputation, second surgically dressed - Neurologic Neurologic: Present: CNII-XII intact - Musculoskeletal Musculoskeletal: Present: gait normal - Psychiatric Psychiatric: Present: A&O x's 3 - Labs CBC & Chem 7: 04/19/21 06:44 04/21/21 05:37 Labs: Abnormal Lab Results - Last 24 Hours (Table) 04/20/21 04/20/21 04/21/21 Range/Units 16:58 22:07 08:06 POC Glucose (mg/dL) 124 H 184 H 157 H (75-99) mg/dL 04/21/21 Range/Units 12:25 POC Glucose (mg/dL) 171 H (75-99) mg/dL Microbiology - Last 24 Hours (Table) 04/18/21 10:47 Blood Culture - Preliminary Blood No Growth after 72 hours 04/18/21 10:47 Blood Culture - Preliminary Blood No Growth after 72 hours 04/19/21 15:20 Gram Stain - Preliminary Foot - Left Wound Culture - Preliminary Strep agalactiae - (group b) 04/19/21 15:20 Gram Stain - Preliminary Foot - Left Wound Culture - Preliminary Strep agalactiae - (group b) Gram Neg Bacilli Assessment and Plan Plan: 1. Severe osteomyelitis of the left second toe status post left second toe amputation 04/[address] Valenzuela ,culture strep agalactae. Continue IV antibiotic with Unasyn and vancomycin, infectious disease consult appreciated, topical care and wound care as well. 2. Severe cellulitis of the left foot,strep agalactae Continue vancomycin and Unasyn, will consult infectious disease waiting for final culture. 3. Advanced first to the cardiac disease: Patient is seen cardiology regular basis no chest pain or angina has been doing well on metoprolol, lisinopril and diuretics. 4. Mild COPD: Still on Ventolin HFA on demand mostly on steroid inhaler has not use the last year. 5. Chronic pain syndrome: With chronic degenerative disc disease, patient has been on hydrocodone along with the Loxitane. 6. Type 2 diabetes: Has not been well controlled remain on metformin 1000 mg twice a day, Glucotrol 10 mg twice a day, NovoLog scale before meals and at bedtime. 7. Stage III chronic kidney disease, stable. 8. Hypertension: Remain on metoprolol titrate 25 g twice a day, Prinivil 10 mg daily. 9. Hyperlipidemia: Continue Crestor 10 mg a day. 10. Chronic neuropathy: Was on gabapentin previously or Lyrica with slight side effect has been off both at this point remain only on hydrocodone, and still on Cymbalta 60 mg daily. 11. GI prophylaxis: Patient be started on Pepcid 20 mg daily. 12. DVT prophylaxis: Was start heparin subcutaneous after surgery. 13. COVID-19 testing was negative DISCHARGE PLAN HOME
--- NOTE | 2021-04-21 18:24 | PN ---
PROGRESS NOTE DATE OF SERVICE: 04/21/2021 REASON FOR FOLLOWUP: Left diabetic foot infection. INTERVAL HISTORY: The patient is afebrile. He is currently breathing comfortably. Denies having any chest pain or shortness of breath or cough. No abdominal pain or worsening pain to the left foot. PHYSICAL EXAMINATION: Blood pressure 128/78 with a pulse of 77, temperature 98.1. He is 93% on room air. General description is a middle-aged male up in the bed in no distress. RESPIRATORY SYSTEM: Unlabored breathing. Clear to auscultation anteriorly. HEART: S1, S2. Regular rate and rhythm. ABDOMEN: Soft. No tenderness. Left foot is currently dressed. Minimal drainage on the dressing. LABS: Creatinine is 1.15. Vancomycin level was 13. . Local culture showing strep and Gram-negative bacilli. DIAGNOSTIC IMPRESSION AND PLAN: Patient with left second toe gangrene, status post amputation of left second toe. Culture with strep and Gram-negative with no MRSA. Vancomycin will be discontinued. Continue with Unasyn and monitor his clinical course closely. MMODL / IJN: [id number] /
[2021-04-21 20:09] LABS: Glucose,Whole Blood 204 mg/dL (75-99)
[2021-04-21] MEDS: DULoxetine HCL 60 MG CAPSULE.DR PO SCH ×2 (20:43→20:46)
[2021-04-22] MEDS: AMPICILLIN-SULBACTAM 3 GM in SODIUM CHLORIDE 0.9% 100 ML IVPB SCH ×4 (05:59→23:44)
[2021-04-22 07:30] LABS: Glucose,Whole Blood 159 mg/dL (75-99)
[2021-04-22] MEDS: LINAGLIPTIN 5 MG TABLET PO SCH ×2 (08:32→21:21)
[2021-04-22] MEDS: ATORVASTATIN 20 MG TAB PO SCH (08:32)
[2021-04-22] MEDS: PREGABALIN 75 MG CAP PO SCH ×2 (08:32→20:48)
[2021-04-22] MEDS: CYANOCOBALAMIN 500 MCG TAB PO SCH (08:32)
[2021-04-22] MEDS: metFORMIN 500 MG TAB PO SCH ×2 (08:32→20:48)
[2021-04-22] MEDS: traMADol 50 MG TAB PO SCH ×2 (08:33→20:49)
[2021-04-22] MEDS: MAGNESIUM OXIDE 400 MG TAB PO SCH (08:33)
[2021-04-22] MEDS: allopurinoL 100 MG TAB PO SCH (08:33)
[2021-04-22] MEDS: SERTRALINE 50 MG TAB PO SCH (08:33)
[2021-04-22] MEDS: FAMOTIDINE 20 MG TAB PO SCH ×3 (08:33→20:49)
[2021-04-22] MEDS: lisinopriL 10 MG TAB PO SCH (08:33)
[2021-04-22] MEDS: METOPROLOL TARTRATE 25 MG TAB PO SCH ×2 (08:33→20:49)
[2021-04-22] MEDS: CHOLECALCIFEROL 25 MCG (1000 IU) TABLET PO SCH (08:33)
[2021-04-22] MEDS: INSULIN ASPART (NovoLOG) 100 UNIT/ML VIAL SQ SCH ×4 (08:34→21:21)
[2021-04-22] MEDS: FLUTICASONE 50MCG/SPRAY NASAL 16GM EA NOSTRIL SCH (08:41)
--- NOTE | 2021-04-22 11:56 | P.PN ---
Subjective Progress Note Date: 04/22/21 HISTORY OF PRESENT ILLNESS 65-year-old male one of my office patient of known for over 20 years with past medical history of CAD post CABG, history of chronic kidney disease, history of type 2 diabetes, history of hyperlipidemia and COPD who apparently developed to have much worsening sign and symptom of hammertoe left second toe with slight pain and discomfort and worsening curvature discomfort apparently had mild blister ulcer nonhealed for the last few weeks did not seek any attention for it. He was in to see Dr. Villalpando for vascular and wound When he was seen found to have severe cellulitis and gangrenous of the left second toe was sent to the emergency department where was seen and evaluated for possible osteomyelitis might require IV antibiotic and possible intervention for amputation or I@D, his white blood cell running 19,200 kidney function has not changed compared to before blood sugar still mildly elevated, x-ray of the foot shows soft tissue edema and emphysema correlate for cellulitis there is an absent of the distal phalanx second digit correlate for possible previous surgery recommending triple phase bone scan to assess osteomyelitis also showed fifth metatarsal fracture which looked like chronic. Patient was seen and assessed by Dr. Valenzuela vascular with the severity of the infection and reactive or stimuli this patient most likely will be going for intervention to remove the second toe, the meanwhile continue IV vancomycin and will be seen infectious disease along with topical care. 04/19: Patient is NPO for surgery today: Left foot, second toe debridement with likely amputation. Repeat WBC is 16.9, BUN 22 creatinine 1.34. Blood sugars are running 166-210. Dr. Becker is seeing the patient and placed him on Unasyn in addition to vancomycin. Home medications have been resumed. 04/20: Yesterday, patient underwent left second toe amputation with Dr. Valenzuela. There was extensive purulent drainage up into the dorsum of the foot for which wound has been left open. Patient has been afebrile, heart rate 85, blood pressure 107/65, pulse ox 92% on room air. Blood sugars have been running between 169 and 193. Wound cultures are in progress. Blood culture is no growth at 24 hours 1 specimen. Patient is continued on Unasyn and vancomycin. Patient denies having any pain at the amputation site. 04/21: Patient's doing okay, still nonweightbearing on the leg, cultures are growing strep agalactiae, as well as gram-negative bacilli, identification and sensitivities are still pending, Dr. Preciado is following closely, no more fever at this time, and has defervesced ma no nausea no vomiting, T-max is 98 8, vitals are stable, blood sugars are between 150-174, creatinine of 1.15. 17: Patient is doing okay, 1 loose stools, not frequent, has no abdominal pain, cultures growing strep agalactiae, has resistance to tetracycline, cefazolin, and ampicillin, on IV Unasyn, IV to follow, to recommendations for amputation of the toe secondary to osteomyelitis. No lightheadedness no chest pain no dizziness, creatinine is around 1.16, Lasix is started 40 mg 4 foot edema, no potassium supplementation, as potassium chance high in the lab. Anticipate discharge in next 24 hour REVIEW OF SYSTEMS Constitutional: No fever, no chills, no night sweats. No weight change. No weakness, fatigue or lethargy. No daytime sleepiness. EENT: No headache. No blurred vision or double vision, no loss of vision. No l oss of Hearing, no ringing in the ears, no dizziness. No nasal drainage or congestion. No epistaxis. No sore throat. Lungs: Decreased breaths on bilaterally with mild shortness of breath with exert ion no cough or wheezes. Cardiovascular: No chest pain, no lower extremity edema. No palpitations. Positive PND orthopnea with no angina no lightheadedness or dizzinesssyncope. Abdominal: No abdominal pain. No nausea, vomiting. No diarrhea. No constipation. No bloody or tarry stools.. No loss of appetite. Genitourinary: No dysuria, increased frequency, urgency. No urinary retention. Musculoskeletal: No myalgias. No muscle weakness, no gait dysfunction, no frequent falls. Generalized back and muscle pain. Amputation left second toe. Integumentary: No wounds, no lesions. No rash or pruritus. No unusual bruising. No change in hair or nails. Neurologic: No aphasia. No facial droop. No change in mentation. No head injury. No headache. No paralysis. No paresthesia. Psychiatric: No depression. No anxiety. No mood swings. Endocrine: Noted abnormal blood sugars. No weight change. Objective - Vital Signs Vital signs: Vital Signs Temp 98.1 F 04/22/21 05:00 Pulse 84 04/22/21 08:00 Resp 16 04/22/21 08:00 BP 132/71 04/22/21 05:00 Pulse Ox 94 L 04/22/21 05:00 Intake & Output 04/21/21 04/22/21 04/22/21 18:59 06:59 18:59 Intake Total 830 1310 Output Total 900 800 800 Balance -70 510 -800 Intake: Oral 830 1310 Output: Urine 900 800 800 Other: Voiding Method Urinal Urinal Urinal # Voids 2 2 # Bowel Movements 1 1 - Constitutional General appearance: Present: cooperative, morbidly obese - EENT Eyes: Present: EOMI, PERRLA ENT: Present: hearing grossly normal, normal oropharynx - Respiratory Respiratory: bilateral: CTA, negative: rhonchi, wheezing - Cardiovascular Abnormal Heart Sounds: Present: systolic murmur. Absent: diastolic murmur, rub, S3 Gallop, S4 Gallop, click, other - Gastrointestinal General gastrointestinal: Present: normal bowel sounds, soft - Integumentary Integumentary Comment(s): edema foot Integumentary: Present: normal - Neurologic Neurologic: Present: CNII-XII intact - Musculoskeletal Musculoskeletal: Present: strength equal bilaterally - Psychiatric Psychiatric: Present: A&O x's 3, appropriate affect, intact judgment & insight - Labs CBC & Chem 7: 04/19/21 06:44 04/22/21 04:27 Labs: Abnormal Lab Results - Last 24 Hours (Table) 04/21/21 04/21/21 04/21/21 Range/Units 12:25 17:27 20:07 Creatinine (0.66-1.25) mg/dL POC Glucose (mg/dL) 171 H 174 H 204 H (75-99) mg/dL 04/22/21 04/22/21 Range/Units 04:27 07:26 Creatinine 1.26 H (0.66-1.25) mg/dL POC Glucose (mg/dL) 159 H (75-99) mg/dL Microbiology - Last 24 Hours (Table) 04/19/21 15:20 Gram Stain - Final Foot - Left Wound Culture - Final Strep agalactiae - (group b) Proteus vulgaris 04/18/21 10:47 Blood Culture - Preliminary Blood No Growth after 72 hours 04/18/21 10:47 Blood Culture - Preliminary Blood No Growth after 72 hours Assessment and Plan Plan: 1. Severe osteomyelitis of the left second toe status post left second toe amputation 04/[address] Valenzuela ,culture strep agalactae. Continue IV antibiotic with Unasyn and he had discontinued vancomycin, infectious disease consult appreciated, topical care and wound care as well. 2. Severe cellulitis of the left foot,strep agalactae Continue vancomycin and Unasyn, will consult infectious disease waiting for final culture. 3. Advanced first to the cardiac disease: Patient is seen cardiology regular basis no chest pain or angina has been doing well on metoprolol, lisinopril and diuretics. 4. Mild COPD: Still on Ventolin HFA on demand mostly on steroid inhaler has not use the last year. 5. Chronic pain syndrome: With chronic degenerative disc disease, patient has been on hydrocodone along with the Loxitane. 6. Type 2 diabetes: Has not been well controlled remain on metformin 1000 mg twice a day, Glucotrol 10 mg twice a day, NovoLog scale before meals and at bedtime. 7. Stage III chronic kidney disease, stable. 8. Hypertension: Remain on metoprolol titrate 25 g twice a day, Prinivil 10 mg daily. 9. Hyperlipidemia: Continue Crestor 10 mg a day. 10. Chronic neuropathy: Was on gabapentin previously or Lyrica with slight side effect has been off both at this point remain only on hydrocodone, and still on Cymbalta 60 mg daily. 11. GI prophylaxis: Patient be started on Pepcid 20 mg daily. 12. DVT prophylaxis: Was start heparin subcutaneous after surgery. 13. COVID-19 testing was negative 14. Foot edema, start Lasix 40 mg daily patient leg elevation DISCHARGE PLAN HOME in 24 hours
[2021-04-22 12:05] LABS: Glucose,Whole Blood 166 mg/dL (75-99)
[2021-04-22] MEDS: FUROSEMIDE 40 MG TAB PO SCH (13:27)
[2021-04-22 16:52] LABS: Glucose,Whole Blood 128 mg/dL (75-99)
[2021-04-22] MEDS: SODIUM CHLORIDE 0.9% 1,000 ML IV SCH ×3 (18:32→23:44)
[2021-04-22 20:31] LABS: Glucose,Whole Blood 146 mg/dL (75-99)
[2021-04-22] MEDS: DULoxetine HCL 60 MG CAPSULE.DR PO SCH ×2 (20:43→20:49)
[2021-04-22 21:55] VITALS: RESP 16
--- NOTE | 2021-04-23 00:17 | PN ---
PROGRESS NOTE DATE OF SERVICE: 04/22/2021 REASON FOR FOLLOWUP: Left diabetic foot infection. INTERVAL HISTORY: Patient is afebrile. The patient is currently breathing comfortably. Denies any chest pain, shortness of breath or cough. No abdominal pain or any worsening pain to the left foot. PHYSICAL EXAMINATION: Blood pressure 132/82 with a pulse of 89, temperature 98.6. He is 95% on room air. General description is a middle-aged male lying in bed in no distress. Respiratory system: Unlabored breathing. Clear to auscultation anteriorly. Heart S1, S2. Regular rate and rhythm. Abdomen soft, no tenderness. Left foot is currently dressed. No obvious drainage on the dressing. DIAGNOSTIC IMPRESSION AND PLAN: Patient with left diabetic foot infection with wet gangrene of the second toe status post amputation. Patient is covered with Unasyn. He will need a PICC line. Plan is for outpatient IV Rocephin and oral Flagyl and close outpatient followup. Continue supportive care. MMODL / IJN: [id number] /
[2021-04-23] MEDS: AMPICILLIN-SULBACTAM 3 GM in SODIUM CHLORIDE 0.9% 100 ML IVPB SCH ×2 (05:36→13:09)
[2021-04-23 07:31] LABS: Glucose,Whole Blood 154 mg/dL (75-99)
[2021-04-23 07:31] LABS: Basophils # (A) 0.1 k/uL (0-0.2); Basophils % (A) 1 %; Eosinophils # (A) 0.2 k/uL (0-0.7); Eosinophils % (A) 2 %; HCT 39.7 % (39.0-53.0); HGB 12.6 gm/dL (13.0-17.5); Lymphocytes # (A) 1.1 k/uL (1.0-4.8); Lymphocytes % (A) 11 %; MCH 28.7 pg (25.0-35.0); MCHC 31.6 g/dL (31.0-37.0); MCV 90.7 fL (80.0-100.0); Mean Platelet Volume 7.5; Monocytes # (A) 0.8 k/uL (0-1.0); Monocytes % (A) 8 %; Neutrophils # (A) 7.7 k/uL (1.3-7.7); Neutrophils % (A) 77 %; Platelet Count 353 k/uL (150-450); RBC 4.38 m/uL (4.30-5.90); RDW 13.8 % (11.5-15.5)
[2021-04-23 07:47] LABS: African American GFR (CKD) 63 (>60 ml/min/1.73 sqM); Anion Gap 8 mmol/L; Blood Urea Nitrogen 15 mg/dL (9-20); Calcium 8.8 mg/dL (8.4-10.2); Carbon Dioxide 26 mmol/L (22-30); Chloride 98 mmol/L (98-107); Glucose 157 mg/dL (74-99); Non-African American GFR(CKD) 55 (>60 ml/min/1.73 sqM); Potassium 4.3 mmol/L (3.5-5.1); Sodium 132 mmol/L (137-145)
[2021-04-23] MEDS: SODIUM CHLORIDE 0.9% 1,000 ML IV SCH (08:40)
[2021-04-23] MEDS: INSULIN ASPART (NovoLOG) 100 UNIT/ML VIAL SQ SCH ×2 (08:40→11:41)
[2021-04-23] MEDS: CHOLECALCIFEROL 25 MCG (1000 IU) TABLET PO SCH (08:41)
[2021-04-23] MEDS: SERTRALINE 50 MG TAB PO SCH (08:41)
[2021-04-23] MEDS: metFORMIN 500 MG TAB PO SCH (08:42)
[2021-04-23] MEDS: lisinopriL 10 MG TAB PO SCH (08:42)
[2021-04-23] MEDS: LINAGLIPTIN 5 MG TABLET PO SCH (08:42)
[2021-04-23] MEDS: FUROSEMIDE 40 MG TAB PO SCH (08:42)
[2021-04-23] MEDS: ATORVASTATIN 20 MG TAB PO SCH (08:42)
[2021-04-23] MEDS: MAGNESIUM OXIDE 400 MG TAB PO SCH (08:43)
[2021-04-23] MEDS: traMADol 50 MG TAB PO SCH (08:43)
[2021-04-23] MEDS: CYANOCOBALAMIN 500 MCG TAB PO SCH (08:43)
[2021-04-23] MEDS: METOPROLOL TARTRATE 25 MG TAB PO SCH (08:43)
[2021-04-23] MEDS: allopurinoL 100 MG TAB PO SCH (08:43)
[2021-04-23] MEDS: FAMOTIDINE 20 MG TAB PO SCH (08:43)
[2021-04-23] MEDS: PREGABALIN 75 MG CAP PO SCH (08:43)
[2021-04-23] MEDS: FLUTICASONE 50MCG/SPRAY NASAL 16GM EA NOSTRIL SCH (08:44)
--- NOTE | 2021-04-23 09:16 | P.DS ---
Providers Date of admission: 04/18/21 10:06 Expected date of discharge: 04/23/21 Attending physician: Andrew Pierce Consults: 04/18/21 12:15 Consult Physician Urgent Consulting Provider: Sherri Becker Consult Reason/Comments: cellulitis Do you want consulting provider notified?: Yes 04/18/21 12:19 Consult Physician Urgent Consulting Provider: Lillie Valenzuela Consult Reason/Comments: diabetic foot wound Do you want consulting provider notified?: Already Contacted Primary care physician: [facility] Course: HISTORY OF PRESENT ILLNESS 65-year-old male one of my office patient of known for over 20 years with past medical history of CAD post CABG, history of chronic kidney disease, history of type 2 diabetes, history of hyperlipidemia and COPD who apparently developed to have much worsening sign and symptom of hammertoe left second toe with slight pain and discomfort and worsening curvature discomfort apparently had mild blister ulcer nonhealed for the last few weeks did not seek any attention for it. He was in to see Dr. Villalpando for vascular and wound When he was seen found to have severe cellulitis and gangrenous of the left second toe was sent to the emergency department where was seen and evaluated for possible osteomyelitis might require IV antibiotic and possible intervention for amputation or I@D, his white blood cell running 19,200 kidney function has not changed compared to before blood sugar still mildly elevated, x-ray of the foot shows soft tissue edema and emphysema correlate for cellulitis there is an absent of the distal phalanx second digit correlate for possible previous surgery recommending triple phase bone scan to assess osteomyelitis also showed fifth metatarsal fracture which looked like chronic. Patient was seen and assessed by Dr. Valenzuela vascular with the severity of the infection and reactive or stimuli this patient most likely will be going for intervention to remove the second toe, the meanwhile continue IV vancomycin and will be seen infectious disease along with topical care. 04/19: Patient is NPO for surgery today: Left foot, second toe debridement with likely amputation. Repeat WBC is 16.9, BUN 22 creatinine 1.34. Blood sugars are running 166-210. Dr. Becker is seeing the patient and placed him on Unasyn in addition to vancomycin. Home medications have been resumed. 04/20: Yesterday, patient underwent left second toe amputation with Dr. Valenzuela. There was extensive purulent drainage up into the dorsum of the foot for which wound has been left open. Patient has been afebrile, heart rate 85, blood pressure 107/65, pulse ox 92% on room air. Blood sugars have been running between 169 and 193. Wound cultures are in progress. Blood culture is no growth at 24 hours 1 specimen. Patient is continued on Unasyn and vancomycin. Patient denies having any pain at the amputation site. 04/21: Patient's doing okay, still nonweightbearing on the leg, cultures are growing strep agalactiae, as well as gram-negative bacilli, identification and sensitivities are still pending, Dr. Preciado is following closely, no more fever at this time, and has defervesced ma no nausea no vomiting, T-max is 98 8, vitals are stable, blood sugars are between 150-174, creatinine of 1.15. 04/22: Patient is doing okay, 1 loose stools, not frequent, has no abdominal pain, cultures growing strep agalactiae, has resistance to tetracycline, cefazolin, and ampicillin, on IV Unasyn, IV to follow, to recommendations for amputation of the toe secondary to osteomyelitis. No lightheadedness no chest pain no dizziness, creatinine is around 1.16, Lasix is started 40 mg 4 foot edema, no potassium supplementation, as potassium chance high in the lab. Anticipate discharge in next 24 hour 04/23: Patient's discharge was delayed as MID see record required a prior off for antibiotics and we are waiting on insurance company. Dr. Becker is indicated Rocephin and Flagyl for home and patient has PICC line in place in the left upper arm. Vascular surgery is provided a prescription for knee scooter. Patient states pain is controlled. He has a good appetite, no nausea or vomiting, no diarrhea. He is anxious to go home. Patient will be discharged home in stable condition. DISCHARGE DIAGNSES 1. Severe osteomyelitis of the left second toe status post left second toe amputation 04/[address] Valenzuela ,culture strep agalactae. 2. Severe cellulitis of the left foot,strep agalactae. 3. Advanced cardiac disease. 4. Mild COPD. 5. Chronic pain syndrome. 6. Type 2 diabetes, A1c 6.9. 7. Stage III chronic kidney disease, stable. 8. Hypertension. 9. Hyperlipidemia. 10. Chronic neuropathy. 11. COVID-19 testing was negative 12. Foot edema. DISCHARGE PLAN HOME Greater than 35 minutes utilized in discharge process for this patient. Impression and plan of care have been directed as dictated by the signing physician. Reema An nurse practitioner acting as scribe for signing physician. Patient Condition at Discharge: Stable Plan - Discharge Summary Discharge Rx Participant: Yes New Discharge Prescriptions: New metroNIDAZOLE [Flagyl] 500 mg PO TID #126 tab Cholecalciferol [Vitamin D3 (25 Mcg = 1000 Iu)] 125 mcg PO DAILY tablet Furosemide [Lasix] 20 mg PO DAILY #30 tab Cyanocobalamin [Vitamin B-12] 1,000 mcg PO DAILY tab lisinopriL [Zestril] 10 mg PO DAILY #30 tab Continue Metoprolol Tartrate 25 mg PO BID #60 tab Nitroglycerin Sl Tabs [Nitrostat] 0.4 mg SUBLINGUAL Q5M PRN #25 tab PRN Reason: Chest Pain metFORMIN HCL [Glucophage] 1,000 mg PO BID Rosuvastatin [Crestor] 10 mg PO Q48H Meloxicam [Mobic] 7.5 mg PO DAILY Pregabalin [Lyrica] 150 mg PO BID Allopurinol [Zyloprim] 100 mg PO DAILY Aspirin 81 mg PO DAILY Fluticasone Nasal [place] [Flonase Nasal [place]] 1 spray EA NOSTRIL DAILY Linagliptin [Tradjenta] 5 mg PO BID Magnesium Oxide [Mag-Ox] 400 mg PO DAILY Famotidine [Pepcid] 20 mg PO BID PRN PRN Reason: Heartburn Changed DULoxetine HCL [Cymbalta] 60 mg PO BID #60 cap traMADol HCL [Ultram] 50 - 100 mg PO TID #0 Discontinued amLODIPine [Norvasc] 2.5 mg PO DAILY Discharge Medication List Metoprolol Tartrate 25 mg PO BID #60 tab 04/08/17 [Rx] Nitroglycerin Sl Tabs [Nitrostat] 0.4 mg SUBLINGUAL Q5M PRN #25 tab 04/08/17 [Rx] Rosuvastatin [Crestor] 10 mg PO Q48H 06/24/18 [History] metFORMIN HCL [Glucophage] 1,000 mg PO BID 06/24/18 [History] Allopurinol [Zyloprim] 100 mg PO DAILY 04/18/21 [History] Aspirin 81 mg PO DAILY 04/18/21 [History] Famotidine [Pepcid] 20 mg PO BID PRN 04/18/21 [History] Fluticasone Nasal [place] [Flonase Nasal [place]] 1 spray EA NOSTRIL DAILY 04/18/21 [History] Linagliptin [Tradjenta] 5 mg PO BID 04/18/21 [History] Magnesium Oxide [Mag-Ox] 400 mg PO DAILY 04/18/21 [History] Meloxicam [Mobic] 7.5 mg PO DAILY 04/18/21 [History] Pregabalin [Lyrica] 150 mg PO BID 04/18/21 [History] Cholecalciferol [Vitamin D3 (25 Mcg = 1000 Iu)] 125 mcg PO DAILY tablet 04/23/21 [Rx] Cyanocobalamin [Vitamin B-12] 1,000 mcg PO DAILY tab 04/23/21 [Rx] DULoxetine HCL [Cymbalta] 60 mg PO BID #60 cap 04/23/21 [Rx] Furosemide [Lasix] 20 mg PO DAILY #30 tab 04/23/21 [Rx] lisinopriL [Zestril] 10 mg PO DAILY #30 tab 04/23/21 [Rx] metroNIDAZOLE [Flagyl] 500 mg PO TID #126 tab 04/23/21 [Rx] traMADol HCL [Ultram] 50 - 100 mg PO TID #0 04/23/21 [Rx] Follow up Appointment(s)/Referral(s): Andrew Pierce MD [Primary Care Provider] - 04/25/21 10:45 am Lillie Valenzuela DO [STAFF PHYSICIAN] - 05/09/21 11:30 am Sherri Becker MD [STAFF PHYSICIAN] - 04/30/21 1:30 pm (APPOINTMENT IS AT [address] [place] [address].) Patient Instructions/Handouts: Lisinopril (By mouth), Furosemide (By mouth), Metronidazole (By mouth), Duloxetine (By mouth), Diabetic Foot Ulcers (DC), Peripherally Inserted Central Catheters and Midline Catheters (DC), Toe Amputation (DC) Activity/Diet/Wound Care/Special Instructions: leave dressing in place that Dr Valenzuela changed 04/20 till seen in wound care Friday Discharge Disposition: HOME WITH HOME HEALTH SERVICES
[2021-04-23 11:35] LABS: Glucose,Whole Blood 129 mg/dL (75-99)
--- NOTE | 2021-04-23 12:24 | P.PN ---
Subjective Patient seen and examined sitting up in bed. Plan is for discharge home today. The patient has PICC line present. Awaiting authorization on for home antibiotics. Physical therapy has been working with patient and are going to reevaluate today. Plan is to follow-up with Dr. Collado in the wound care clinic patient has appointment scheduled on Friday. Objective - Vital Signs Vital signs: Vital Signs Temp 97.9 F 04/23/21 05:00 Pulse 84 04/23/21 08:48 Resp 16 04/23/21 05:00 BP 146/83 04/23/21 08:48 Pulse Ox 93 L 04/23/21 05:00 Intake & Output 04/22/21 04/23/21 04/23/21 18:59 06:59 18:59 Intake Total 910 2650 Output Total 800 2800 Balance 110 -150 Intake: Intake, IV Titration 910 1700 Amount Ampicillin-Sulbactam 3 gm 200 In Sodium Chloride 0.9% 100 ml @ 200 mls/hr IVPB Q6HR [facility] Rx#:[id number] Sodium Chloride 0.9% 1, 910 1500 000 ml @ 130 mls/hr IV . Q7H42M [facility] Rx#:[id number] Oral 950 Output: Urine 800 2800 Other: Voiding Method Urinal Urinal # Voids 2 # Bowel Movements 1 - Exam General appearance: The patient is alert, oriented, in no acute distress. HET: Head is normocephalic and atraumatic. Neck: Supple without lymphadenopathy. Trachea midline. Extremities: Left ankle edema. Second toe amputation site with no bleeding or odor. Clean edges. No necrotic tissue. Wet-to-dry dressing with Dakin solution reapplied. Sukhdev wrap to the left lower extremity to help improve the swelling. Neurological: No focal deficits. Strength and sensation are grossly intact. - Labs CBC & Chem 7: 04/23/21 07:11 04/23/21 07:11 Labs: Abnormal Lab Results - Last 24 Hours (Table) 04/22/21 04/22/21 04/22/21 Range/Units 11:43 16:50 20:29 Hgb (13.0-17.5) gm/dL Sodium (137-145) mmol/L Creatinine (0.66-1.25) mg/dL Glucose (74-99) mg/dL POC Glucose (mg/dL) 166 H 128 H 146 H (75-99) mg/dL 04/23/21 04/23/21 04/23/21 Range/Units 07:11 07:11 07:26 Hgb 12.6 L (13.0-17.5) gm/dL Sodium 132 L (137-145) mmol/L Creatinine 1.37 H (0.66-1.25) mg/dL Glucose 157 H (74-99) mg/dL POC Glucose (mg/dL) 154 H (75-99) mg/dL Microbiology - Last 24 Hours (Table) 04/19/21 15:20 Gram Stain - Final Foot - Left Wound Culture - Final Strep agalactiae - (group b) 04/19/21 15:20 Anaerobic Culture - Final Foot - Left Anaerobic Gm Negative Bacilli 04/19/21 15:20 Anaerobic Culture - Final Foot - Left Anaerobic Gm Negative Bacilli 04/18/21 10:47 Blood Culture - Preliminary Blood No Growth after 96 hours 04/18/21 10:47 Blood Culture - Preliminary Blood No Growth after 96 hours Assessment and Plan Assessment: 1. Postop day #1 left second toe amputation and debridement 2. Infected left second toe wound 3. Diabetes mellitus 4. History of coronary artery disease status post CABG 4. Chronic kidney disease Plan: 1. Continue current IV antibiotics 2. Wet-to-dry dressing with Dakin solution. Changed today, patient to follow up in wound care clinic Friday for further local wound care 3. Physical therapy on consult, Offload weight on left lower extremity. 4. Cleared for discharge from vascular surgery The impression and plan of care has been dictated as directed. Dr. Rogers I performed a history and examination of this patient, discussed the same with the dictator. I agree with the dictator's note ,documented as a scribe. Any additional findings or plans will be noted.
[2021-04-23 12:50] VITALS: BP 108/67; PULSE 80; TEMP 97.5
== END 2021-04-23 14:44 | disposition home health service (06) | DRG 256 ==
LOC: EC 09:47 → 5NMEDONC 10:06
PROVIDERS: ADMIT Internal Medicine Geriatric Medicine; ATTEND Internal Medicine Geriatric Medicine
PROC: 0Y6S0Z0 Detachment at Left 2nd Toe, Complete, Open Approach (ICD-10-PCS; principal; 2021-04-19 13:30)
PROC: 02HV33Z Insertion of Infusion Device into Superior Vena Cava, Percutaneous Approach (ICD-10-PCS; 2021-04-20)
DX: E11.52 Type 2 diabetes mellitus with diabetic peripheral angiopathy with gangrene (principal); L03.116 Cellulitis of left lower limb; M86.9 Osteomyelitis, unspecified; M84.475A Pathological fracture, left foot, initial encounter for fracture; E11.22 Type 2 diabetes mellitus with diabetic chronic kidney disease; E11.40 Type 2 diabetes mellitus with diabetic neuropathy, unspecified; E11.621 Type 2 diabetes mellitus with foot ulcer; E11.628 Type 2 diabetes mellitus with other skin complications; E11.69 Type 2 diabetes mellitus with other specified complication; E78.5 Hyperlipidemia, unspecified; F41.9 Anxiety disorder, unspecified; G89.4 Chronic pain syndrome; I12.9 Hypertensive chronic kidney disease with stage 1 through stage 4 chronic kidney disease, or unspecified chronic kidney disease; I25.10 Atherosclerotic heart disease of native coronary artery without angina pectoris; J44.9 Chronic obstructive pulmonary disease, unspecified; L03.032 Cellulitis of left toe; M48.00 Spinal stenosis, site unspecified; L97.523 Non-pressure chronic ulcer of other part of left foot with necrosis of muscle; N18.30 Chronic kidney disease, stage 3 unspecified; Z20.822 Contact with and (suspected) exposure to COVID-19; G47.30 Sleep apnea, unspecified; M54.30 Sciatica, unspecified side; M19.90 Unspecified osteoarthritis, unspecified site; M20.42 Other hammer toe(s) (acquired), left foot; Z79.1 Long term (current) use of non-steroidal anti-inflammatories (NSAID); Z79.82 Long term (current) use of aspirin; Z79.84 Long term (current) use of oral hypoglycemic drugs; Z79.899 Other long term (current) drug therapy; Z80.0 Family history of malignant neoplasm of digestive organs; Z82.49 Family history of ischemic heart disease and other diseases of the circulatory system; Z83.3 Family history of diabetes mellitus; Z87.891 Personal history of nicotine dependence; Z95.1 Presence of aortocoronary bypass graft; Z83.2 Family history of diseases of the blood and blood-forming organs and certain disorders involving the immune mechanism; Z83.79 Family history of other diseases of the digestive system; Z84.0 Family history of diseases of the skin and subcutaneous tissue; Z98.890 Other specified postprocedural states; Z99.89 Dependence on other enabling machines and devices
CPT/HCPCS: 36415; 36573; 80048; 80053; 80202; 82565; 83036; 83605; 85025; 87040; 87070; 87075; 87077; 87186; 87205; 87635; 88305; 88311; 96365; 99284

== ENCOUNTER 2022-05-07 06:58 | Day surgery (SDC) | payer OTHER ==
[2022-05-07 07:40] LABS: Glucose,Whole Blood 183 mg/dL (70-110)
[2022-05-07 07:43] VITALS: RESP 16; TEMP 98
[2022-05-07] MEDS ORDERED: PROPOFOL 10 MG/ML 20 ML VIAL IV ONE (08:08)
--- NOTE | 2022-05-07 08:10 | P.GSHP ---
History of Present Illness H&P Date: 05/07/22 Chief Complaint: Colon cancer screening, history of polyps 66-year-old male with family history of colon cancer in his mother and grandfather. Patient's last colonoscopy 5 years ago had a rectal adenoma. He is asymptomatic. Past Medical History Past Medical History: Asthma, Diabetes Mellitus, GERD/Reflux, Hyperlipidemia, Hypertension, Musculoskeletal Disorder, Osteoarthritis (OA), Renal Disease, Skin Disorder, Sleep Apnea/CPAP/BIPAP Additional Past Medical History / Comment(s): uses CPAP, spinal stenosis, sciatic pain,current rt. 2nd toe wound-goes to wound center, chronic kidney disease-swathi Cui History of Any Multi-Drug Resistant Organisms: None Reported Past Surgical History: Heart Catheterization With Stent, Orthopedic Surgery Additional Past Surgical History / Comment(s): carpal tunnel surg., knee surg., colonoscopies, rhino-septoplasty, left 2nd toe amputated due to infection, cataracts removed w/lens implants Past Anesthesia/Blood Transfusion Reactions: No Reported Reaction Date of Last Stent Placement:: 2016 Smoking Status: Former smoker - Past Family History Sister(s) Family Medical History: Deep Vein Thrombosis (DVT), Skin Disorder Additional Family Medical History / Comment(s): Sister had a PE after surgery. She also has celiac's dx. Pt's nephew thru this sister has had DVTs and PEs and celiac disease. Mother Family Medical History: Cancer Additional Family Medical History / Comment(s): Mother of colon cancer at the age of 59yrs. Father Family Medical History: Congestive Heart Failure (CHF) Brother(s) Family Medical History: Diabetes Mellitus Medications and Allergies Home Medications Medication Instructions Recorded Confirmed Type Metoprolol Tartrate 25 mg PO BID #60 tab 04/08/17 05/02/22 Rx Nitroglycerin Sl Tabs [Nitrostat] 0.4 mg SUBLINGUAL Q5M PRN #25 tab 04/08/17 05/02/22 Rx Rosuvastatin [Crestor] 10 mg PO Q48H 06/24/18 05/02/22 History metFORMIN HCL [Glucophage] 1,000 mg PO BID 06/24/18 05/02/22 History Famotidine [Pepcid] 20 mg PO BID 04/18/21 05/02/22 History Fluticasone Nasal [place] [Flonase 2 spray EA NOSTRIL DAILY 04/18/21 05/02/22 History Nasal [place]] Linagliptin [Tradjenta] 5 mg PO BID 04/18/21 05/02/22 History Magnesium Oxide [Mag-Ox] 400 mg PO DAILY 04/18/21 05/02/22 History Meloxicam [Mobic] 7.5 mg PO BID 04/18/21 05/02/22 History Pregabalin [Lyrica] 150 mg PO BID 04/18/21 05/02/22 History allopurinoL [Zyloprim] 100 mg PO DAILY 04/18/21 05/02/22 History lisinopriL [Zestril] 10 mg PO DAILY #30 tab 04/23/21 05/02/22 Rx Amoxic-Pot Clav 875-125Mg 1 tab PO Q12HR 05/02/22 05/02/22 History [Augmentin 875-125] Repaglinide [Prandin] 2 mg PO BID 05/02/22 05/02/22 History calcitrioL [Calcitriol] 0.25 mcg PO OROPEZA 05/02/22 05/02/22 History Allergies Allergy/AdvReac Type Severity Reaction Status Date / Time No Known Allergies Allergy Verified 05/07/22 07:22 Surgical - Exam Vital Signs Temp Pulse Resp BP Pulse Ox 98.0 F 80 16 140/80 95 05/07/22 07:37 05/07/22 07:37 05/07/22 07:37 05/07/22 07:37 05/07/22 07:37 Physical exam: General: Well-developed, well-nourished HEENT: Normocephalic, sclerae nonicteric Abdomen: Nontender, nondistended Extremities: No edema Neuro: Alert and oriented Results - Labs Abnormal Lab Results - Last 24 Hours (Table) 05/07/22 Range/Units 07:39 POC Glucose (mg/dL) 183 H (70-110) mg/dL Assessment and Plan (1) Colon cancer screening Narrative/Plan: Will proceed with colonoscopy at this time. Current Visit: No Status: Acute Code(s): Z12.11 - ENCOUNTER FOR SCREENING FOR MALIGNANT NEOPLASM OF COLON SNOMED Code(s): 590022062
--- NOTE | 2022-05-07 08:24 | P.PCN ---
Date of Procedure: 05/07/22 Procedure(s) Performed: PREOPERATIVE DIAGNOSIS: Colon cancer screening, high risk, family history of colon cancer, personal history of adenoma POSTOPERATIVE DIAGNOSIS: Poor prep diverticulosis PROCEDURE: Colonoscopy to the transverse colon ANESTHESIA: MAC SURGEON: Lopez Maria M.D. SPECIMENS: None ENDOSCOPIC PROCEDURE: The patient was placed on the endoscopy table in the left decubitus position. The Olympus colonoscope was inserted into the anus and passed under direct visualization to the mid transverse colon. Patient's prep was very poor and I could not visualize the mucosal surfaces well at all. The scope was withdrawn. Other than diverticulosis no abnormalities were seen however we could not visualize most of the colon. The patient was taken to the recovery room in stable condition per anesthesia guidelines. RECOMMENDATIONS: Patient will require reprep and repeat colonoscopy
[2022-05-07 08:38] VITALS: BP 120/77; PULSE 74
== END 2022-05-07 08:55 | disposition home or self-care (01) ==
LOC: ORWHC2ENDO 06:58
PROVIDERS: ATTEND Surgery
DX: Z12.11 Encounter for screening for malignant neoplasm of colon (principal); K57.30 Diverticulosis of large intestine without perforation or abscess without bleeding; J45.909 Unspecified asthma, uncomplicated; K21.9 Gastro-esophageal reflux disease without esophagitis; E78.5 Hyperlipidemia, unspecified; M19.90 Unspecified osteoarthritis, unspecified site; G47.33 Obstructive sleep apnea (adult) (pediatric); I12.9 Hypertensive chronic kidney disease with stage 1 through stage 4 chronic kidney disease, or unspecified chronic kidney disease; E11.22 Type 2 diabetes mellitus with diabetic chronic kidney disease; N18.9 Chronic kidney disease, unspecified; M48.00 Spinal stenosis, site unspecified; Z86.010 Personal history of colon polyps; Z80.0 Family history of malignant neoplasm of digestive organs; Z98.890 Other specified postprocedural states; Z98.41 Cataract extraction status, right eye; Z98.42 Cataract extraction status, left eye; Z87.891 Personal history of nicotine dependence; Z83.2 Family history of diseases of the blood and blood-forming organs and certain disorders involving the immune mechanism; Z84.0 Family history of diseases of the skin and subcutaneous tissue; Z82.49 Family history of ischemic heart disease and other diseases of the circulatory system; Z83.3 Family history of diabetes mellitus; Z79.84 Long term (current) use of oral hypoglycemic drugs; Z79.899 Other long term (current) drug therapy; Z79.2 Long term (current) use of antibiotics
CPT/HCPCS: G0105; J2704; 45378

== ENCOUNTER → 2022-10-02 | Outpatient (CLI) | payer OTHER ==
[~2022-10-02] MED LIST changes: -LACTATED RINGERS 1,000 ML IV SCH; +REGADENOSON 0.4 MG/5 ML SYRINGE IV PRN
--- NOTE | 2022-10-02 11:24 | NM ---
EXAMINATION TYPE: NM stress lexiscan cardiolite DATE OF EXAM: 10/02/2022 COMPARISON: NONE HISTORY: Chest pain TECHNIQUE: After the intravenous administration of 10.1 mCi Tc 99m Sestamibi - Cardiolite resting SP ECT images acquired 50 minutes post injection. The patient received 0.4mg Lexiscan, 26.3 mCi Tc 99m Sestamibi - Stress images obtained [address] injection FINDINGS: Review of stress and rest SPECT images demonstrates large fixed defect involving the inferior wall wi th corresponding reduction in wall motion activity. Cannot exclude small area of stress-induced rever sible ischemia involving the apical lateral myocardium. Gated analysis shows an estimated left ventri cular ejection fraction of 57 %. IMPRESSION: 1. Large fixed defect involving the inferior wall myocardium correlate for previous myocardial infarc tion. 2. Findings suspicious for a small area of stress-induced reversible ischemia involving the apical la teral myocardium. A Yellow level critical message alert has been initiated for Ernesto Barreto MD via the [employer] Critical Results System on 10/02/2022 11:21 AM. This message alert has been sent to Ernesto Barreto MD vi a the preferences provided by the clinician for the receipt of Radiology Critical Findings. Message I D [id number].
--- NOTE | 2022-10-02 12:17 | CA ---
Lexiscan Nuclear Stress Test Report Name: Herve Ray Exam Date: 10/02/2022 09:06 Exam Location: [facility] Ht (in): 72 Wt (lb): 270 BSA: 2.42 Ordering Phys: Ernesto Barreto MD Referring Phys: CELE,, Technologist: Lenny Rojo Age: 66 Gender: M : 1955 Procedure CPT: Indications: I25.10 I25.5 I38 ICD-10 Codes: Patient History: HTN, DIABETES, ELEVATED CHOLESTEROL, FAMILY HX OF HEART DISEASE, PRIOR CARDIAC CATH WITH STENT, ASTHMA Medications: ALPRZAOLAM,,,,,, ISCHEMIC HEART DISEASE,,,,, Meds past 24 hrs: Pretest Chest Pain: STRESS TEST Lexiscan Protocol Exercise Duration (min:sec): 01:[address] Depressions (mm): Angina Score: Almendarez Score: Resting HR (bpm): 66 Peak HR (bpm): 87 Resting BP (mmHg): 132 / 84 Peak BP (mmHg): 136 / 84 MPHR: 156 Target HR: 133 % MPHR: 56 METS: 1.0 Total Dose: Peak Dose: Atropine: Double Product: 82394 BP Response: Stress Termination: Hypotension Stress Symptoms: NO SYMPTOMS Stress Summary: ECG ANALYSIS Resting ECG: Stress ECG: CONCLUSIONS At baseline EKG showed normal sinus rhythm, normal axis, no significant ST or T wave abnormalities. Patient recieved IV infusion of Lexiscan 0.4mg and at peak infusion EKG showed no significant change from baseline. Conclusions: 1. Normal EKG response to Lexiscan infusion 2. Nuclear imaging to be reported separately. Dr. Jermaine Granados DO (Electronically Signed) Final Date: 02 October 2022 12:16
== END | disposition home or self-care (01) ==
LOC: RADNMMAIN 07:37
PROVIDERS: ATTEND Internal Medicine Interventional Cardiology
DX: I25.10 Atherosclerotic heart disease of native coronary artery without angina pectoris (principal); I25.5 Ischemic cardiomyopathy; I38 Endocarditis, valve unspecified; I51.89 Other ill-defined heart diseases
CPT/HCPCS: 93017; 78452; A9500; J2785

== ENCOUNTER 2023-03-05 13:15 | Inpatient (IN) | payer OTHER ==
[2023-03-05] MEDS ORDERED: VANCOMYCIN IV PER PHARMACY 1 EACH MISC MISCELLANE PRN (13:49)
--- NOTE | 2023-03-05 14:00 | ED ---
General Adult HPI - General Chief complaint: Skin/Abscess/Foreign Body Stated complaint: Infection in toe Time Seen by Provider: 03/05/23 13:32 Source: patient, RN notes reviewed, old records reviewed Mode of arrival: ambulatory Limitations: no limitations - History of Present Illness Initial comments: 67-year-old male presenting for pain and swelling in the right foot. Patient has previous history of diabetic foot infections including an amputation on the left foot. He was seen by his primary care provider today and sent to the emergency department for admission for IV antibiotics for this infection which seems to initiate from the third toe. There is purulent drainage. There is erythema extending a bee on the ankle and pain into the right lower leg. No measured fever. Patient does have chills. History of diabetes. - Related Data Home Medications Medication Instructions Recorded Confirmed Rosuvastatin [Crestor] 10 mg PO Q48H 06/24/18 11/07/22 Famotidine [Pepcid] 20 mg PO BID 04/18/21 11/07/22 Fluticasone Nasal [place] [Flonase 2 spray EA NOSTRIL DAILY 04/18/21 11/05/22 Nasal [place]] Linagliptin [Tradjenta] 5 mg PO BID 04/18/21 11/07/22 Magnesium Oxide [Mag-Ox] 400 mg PO DAILY 04/18/21 11/07/22 Pregabalin [Lyrica] 150 mg PO BID 04/18/21 11/07/22 allopurinoL [Zyloprim] 100 mg PO DAILY 04/18/21 11/07/22 Repaglinide [Prandin] 2 mg PO BID 05/02/22 11/07/22 Aspirin EC [Ecotrin Low Dose] 81 mg PO DAILY 11/05/22 11/07/22 Baclofen 10 mg PO TID PRN 11/05/22 11/07/22 Buprenorphine [Butrans 10 MCG/HOUR] 1 each TRANSDERM OROPEZA 11/05/22 11/07/22 DULoxetine HCL [Cymbalta] 60 mg PO DAILY 11/05/22 11/07/22 Dapagliflozin Propanediol [Farxiga] 5 mg PO DAILY 11/05/22 11/07/22 Diclofenac Sodium [Voltaren 1 applic TOPICAL DAILY PRN 11/05/22 11/05/22 Arthritis Pain 1% Gel] Hydrocortisone Cream 1 applic TOPICAL BID PRN 11/05/22 11/05/22 [Hydrocortisone 2.5% Cream] Metoprolol Succinate (ER) [Toprol 50 mg PO DAILY 11/05/22 11/07/22 XL] Triamcinolone 0.5% Cream [Kenalog 1 applic TOPICAL BID PRN 11/05/22 11/05/22 0.5% Cream] metroNIDAZOLE [metroNIDAZOLE 0.75%] 1 applic TOPICAL DAILY PRN 11/05/22 11/05/22 Previous Rx's Medication Instructions Recorded Nitroglycerin Sl Tabs [Nitrostat] 0.4 mg SUBLINGUAL Q5M PRN #25 tab 04/08/17 Allergies Allergy/AdvReac Type Severity Reaction Status Date / Time No Known Allergies Allergy Verified 03/05/23 13:31 Review of Systems ROS Statement: Those systems with pertinent positive or pertinent negative responses have been documented in the HPI. ROS Other: All systems not noted in ROS Statement are negative. Past Medical History Past Medical History: Asthma, Diabetes Mellitus, GERD/Reflux, Hyperlipidemia, Hypertension, Musculoskeletal Disorder, Osteoarthritis (OA), Renal Disease, Skin Disorder, Sleep Apnea/CPAP/BIPAP Additional Past Medical History / Comment(s): uses CPAP, spinal stenosis, sciatic pain, chronic kidney disease-swathi Cui History of Any Multi-Drug Resistant Organisms: None Reported Past Surgical History: Heart Catheterization With Stent, Orthopedic Surgery Additional Past Surgical History / Comment(s): carpal tunnel surg., knee surg., colonoscopies, rhino-septoplasty, left 2nd toe amputated due to infection, cataracts removed w/lens implants Past Anesthesia/Blood Transfusion Reactions: No Reported Reaction Date of Last Stent Placement:: 2016 Past Psychological History: Anxiety Smoking Status: Former smoker Past Alcohol Use History: None Reported Past Drug Use History: None Reported - Past Family History Sister(s) Family Medical History: Pulmonary Embolus, Skin Disorder Additional Family Medical History / Comment(s): Sister had a PE after surgery. She also has celiac's dx. Pt's nephew thru this sister has had DVTs and PEs and celiac disease. Mother Family Medical History: Cancer Additional Family Medical History / Comment(s): Mother of colon cancer at the age of 59yrs. Father Family Medical History: Congestive Heart Failure (CHF), Myocardial Infarction (RI) Brother(s) Family Medical History: Diabetes Mellitus General Exam Limitations: no limitations General appearance: alert, in no apparent distress Head exam: Present: atraumatic, normocephalic Eye exam: Present: normal appearance, PERRL ENT exam: Present: normal exam Neck exam: Present: normal inspection. Absent: tenderness, meningismus Respiratory exam: Present: normal lung sounds bilaterally. Absent: respiratory distress, wheezes Cardiovascular Exam: Present: regular rate, normal rhythm GI/Abdominal exam: Present: soft. Absent: distended, tenderness Extremities exam: Present: other (Right lower extremity, erythema from the toes to the ankle, tenderness to palpation and soft tissue swelling to the knee. There is a wet gangrene of the third digit.) Neurological exam: Present: alert, oriented X3, CN II-XII intact. Absent: motor sensory deficit Psychiatric exam: Present: normal affect, normal mood Course Vital Signs 03/05/23 13:27 Temperature 98.1 F Pulse Rate 83 Respiratory 20 Rate Blood Pressure 125/61 O2 Sat by Pulse 95 Oximetry - Reevaluation(s) Reevaluation #1: 03/05/23 1400 Patient was sent in by Dr. Pierce's office for admission and evaluation by infectious disease and vascular surgery. Admission orders are written, laboratory studies, ultrasound, and x-ray of the foot are ordered and these results are pending. Antibiotics initiated. Medical Decision Making - Medical Decision Making Was pt. sent in by a medical professional or institution (, [facility], [facility], urgent care, hospital, or fdc...) When possible be specific @Sent in by primary care Did you speak to anyone other than the patient for history (EMS, parent, family, police, friend...)? What history was obtained from this source @ -[No] Did you review nursing and triage notes (agree or disagree)? Why? @ -[I reviewed and agree with nursing and triage notes] Were old charts reviewed (outside hosp., previous admission, EMS record, old EKG, old radiological studies, urgent care reports/EKG's, fdc records)? Report findings @ -[No old charts were reviewed] Differential Diagnosis (chest pain, altered mental status, abdominal pain women, abdominal pain men, vaginal bleeding, weakness, fever, dyspnea, syncope, headache, dizziness, GI bleed, back pain, seizure, CVA, palpatations, mental health, musculoskeletal)? @ -Osteomyelitis, cellulitis, gangrene EKG interpreted by me (3pts min.). @ -[As above] X-rays interpreted by me (1pt min.). @X-ray of the right foot does show osteomyelitis in the second and third digit. CT interpreted by me (1pt min.). @ -[None done] U/S interpreted by me (1pt. min.). @ -[None done] What testing was considered but not performed or refused? (CT, X-rays, U/S, labs)? Why? @ -[None] What meds were considered but not given or refused? Why? @ -[None] Did you discuss the management of the patient with other professionals (professionals i.e. , PA, [facility], lab, RT, psych nurse, social insurance analyst, rope cutter, teacher, chief compliance officer, community case manager)? Give summary @ -Case discussed with Dr. Mayes Was smoking cessation discussed for >3mins.? @ -[No] Was critical care preformed (if so, how long)? @ -[No] Were there social determinants of health that impacted care today? How? (Homelessness, low income, unemployed, alcoholism, drug addiction, transportation, low edu. Level, literacy, decrease access to med. care, long-term, rehab)? @ -[No] Was there de-escalation of care discussed even if they declined (Discuss DNR or withdrawal of care, Hospice)? DNR status @ -[No] What co-morbidities impacted this encounter? (DM, HTN, Smoking, COPD, CAD, Cancer, CVA, ARF, Chemo, Hep., AIDS, mental health diagnosis, sleep apnea, morbid obesity)? @ -Diabetes, Was patient admitted / discharged? Hospital course, mention meds given and route, prescriptions, significant lab abnormalities, going to OR and other pertinent info. @ -[67 yo male sent in for admission for diabetic foot infection. Patient has a wet gangrene of the right third digit with ascending cellulitis. He is afebrile with stable blood pressure. IV antibiotics are initiated, testing is ordered including laboratory testing, ultrasound of the lower extremity to rule out concurrent DVT and x-ray of the foot. Undiagnosed new problem with uncertain prognosis? @ -[No] Drug Therapy requiring intensive monitoring for toxicity (Heparin, Nitro, Insulin, Cardizem)? @ -[No] Were any procedures done? @ -[No] Diagnosis/symptom? @ -Wet gangrene, osteoarthritis, cellulitis Acute, or Chronic, or Acute on Chronic? @Acute Uncomplicated (without systemic symptoms) or Complicated (systemic symptoms)? @Complicated Side effects of treatment? @ -[No] Exacerbation, Progression, or Severe Exacerbation? @ -[No] Poses a threat to life or bodily function? How? (Chest pain, [place], [place], pneumonia, PE, COPD, DKA, ARF, appy, cholecystitis, CVA, Diverticulitis, Homicidal, Suicidal, threat to staff... and all critical care pts) @ -Yes, sepsis, possible amputation Disposition Clinical Impression: Diabetic foot ulcer, Diabetic wet gangrene of the foot, Cellulitis Disposition: ADMITTED IP TO THIS HOSP Condition: Stable Is patient prescribed a controlled substance at d/c from ED?: No Referrals: Andrew Pierce MD [Primary Care Provider] - 1-2 days Time of Disposition: 14:34
--- NOTE | 2023-03-05 14:20 | XR ---
EXAMINATION TYPE: XR foot complete RT DATE OF EXAM: 03/05/2023 COMPARISON: NONE HISTORY: Pain TECHNIQUE: Three views are submitted. FINDINGS: There is destructive change of the distal phalanx third digit with extensive soft tissue edema. Erosi ve change of the tuft of the second digit distal phalanx. Severe arthropathy with hallux valgus deformity first MTP. Hammertoe deformities noted. There is diff use soft tissue swelling. IMPRESSION: 1. Destructive change distal phalanx third digit compatible with osteomyelitis. Diffuse soft tissue e patrica suggests cellulitis. 2. A loss of the cortex of the tuft distal phalanx second digit also suspicious for osteomyelitis. Po ssibly chronic.
[2023-03-05] MEDS ORDERED: NALOXONE 0.4 MG/ML 1 ML VIAL IV PRN (14:27)
[2023-03-05] MEDS ORDERED: VANCOMYCIN 1,750 MG in SODIUM CHLORIDE 0.9% 500 ML 500 ML IVPB ONE (14:30)
[2023-03-05] MEDS ORDERED: DEXTROSE 50% SYRINGE 50 ML IVP PRN ×2 (14:55)
[2023-03-05] MEDS ORDERED: CALCIUM CARBONATE 500 MG CHEWABLE PO PRN (14:56)
[2023-03-05] MEDS ORDERED: HYDROcodone/APAP 5-325MG 1 EACH TAB PO PRN (14:56)
[2023-03-05] MEDS ORDERED: MELATONIN 5 MG TABLET PO PRN (14:56)
[2023-03-05 15:05] LABS: Basophils % (A) 0 %; Eosinophils # (A) 0.1 k/uL (0-0.7); Eosinophils % (A) 0 %; HCT 45.1 % (39.0-53.0); HGB 14.9 gm/dL (13.0-17.5); Lymphocytes # (A) 1.2 k/uL (1.0-4.8); Lymphocytes % (A) 8 %; MCH 28.4 pg (25.0-35.0); MCV 86.2 fL (80.0-100.0); Mean Platelet Volume 7.8; Monocytes # (A) 1.2 k/uL (0-1.0); Monocytes % (A) 7 %; Neutrophils % (A) 82 %; Platelet Count 246 k/uL (150-450); RBC 5.23 m/uL (4.30-5.90); RDW 15.8 % (11.5-15.5); WBC 15.9 k/uL (3.8-10.6)
[2023-03-05] MEDS: SODIUM CHLORIDE 0.9% 1,000 ML IV SCH ×2 (15:07→23:36)
[2023-03-05 15:18] LABS: Partial Thromboplastin Time 28.9 sec (22.0-30.0); Prothrombin Time 10.8 sec (9.0-12.0)
[2023-03-05 15:27] LABS: ALT 22 U/L (4-49); AST 30 U/L (17-59); African American GFR (CKD) 43 (>60 ml/min/1.73 sqM); Albumin 3.7 g/dL (3.5-5.0); Alkaline Phosphatase 93 U/L (38-126); Anion Gap 11 mmol/L; Blood Urea Nitrogen 27 mg/dL (9-20); Calcium 8.7 mg/dL (8.4-10.2); Carbon Dioxide 26 mmol/L (22-30); Chloride 96 mmol/L (98-107); Glucose 123 mg/dL (74-99); Non-African American GFR(CKD) 37 (>60 ml/min/1.73 sqM); Potassium 4.8 mmol/L (3.5-5.1); Sodium 133 mmol/L (137-145); Total Bilirubin 1.4 mg/dL (0.2-1.3); Total Protein 7.1 g/dL (6.3-8.2)
--- NOTE | 2023-03-05 15:43 | US ---
EXAMINATION TYPE: US venous doppler duplex LE RT DATE OF EXAM: 03/05/2023 3:28 PM COMPARISON: NONE CLINICAL INDICATION: Male, 67 years old with history of pain/swelling; Pain and swelling x 5 days. No hx of DVT. Patient takes baby aspirin. SIDE PERFORMED: Right TECHNIQUE: The lower extremity deep venous system is examined utilizing real time linear array sonog parvez with graded compression, doppler sonography and color-flow sonography. VESSELS IMAGED: Common Femoral Vein Deep Femoral Vein Greater Saphenous Vein * Femoral Vein Popliteal Vein Small Saphenous Vein * Proximal Calf Veins (* superficial vessels) Right Leg: Superficial vessel seen within right anterior popliteal area that does not appear to com press. Probable smaller saphenous vein- internal echoes seen along vessel wall- probable chronic sup erficial thrombus. No evidence of DVT. Two prominent lymph nodes seen within the right groin, larger node seen measures 3.2 x 2.5 x 1.4 cm . Cortex measures 0.5 cm. IMPRESSION: 1. No ultrasound evidence for deep venous thrombosis of the right lower extremity. 2. Superficial venous thrombosis within the right anterior popliteal region. 3. Mildly enlarged right groin lymph nodes, likely reactive.
[2023-03-05 16:23] LABS: Glucose,Whole Blood 96 mg/dL (70-110)
--- NOTE | 2023-03-05 17:55 | P.GSCN ---
History of Present Illness Consult date: 03/05/23 History of present illness: Patient is a 67-year-old male with past medical history of coronary artery disease, CABG, chronic kidney disease, COPD diabetes, previous diabetic foot wound with left second toe amputation who presented for evaluation of his right third toe wound/swelling/edema/drainage. He denies any fevers, chills. He has a hammertoe on the third left toe with a wound as well Past Medical History Past Medical History: Asthma, Diabetes Mellitus, GERD/Reflux, Hyperlipidemia, Hypertension, Musculoskeletal Disorder, Osteoarthritis (OA), Renal Disease, Skin Disorder, Sleep Apnea/CPAP/BIPAP Additional Past Medical History / Comment(s): uses CPAP, spinal stenosis, sciatic pain, chronic kidney disease-swathi Cui History of Any Multi-Drug Resistant Organisms: None Reported Past Surgical History: Heart Catheterization With Stent, Orthopedic Surgery Additional Past Surgical History / Comment(s): carpal tunnel surg., knee surg., colonoscopies, rhino-septoplasty, left 2nd toe amputated due to infection, cataracts removed w/lens implants Past Anesthesia/Blood Transfusion Reactions: No Reported Reaction Date of Last Stent Placement:: 2016 Past Psychological History: Anxiety Smoking Status: Former smoker Past Alcohol Use History: None Reported Past Drug Use History: None Reported - Past Family History Sister(s) Family Medical History: Pulmonary Embolus, Skin Disorder Additional Family Medical History / Comment(s): Sister had a PE after surgery. She also has celiac's dx. Pt's nephew thru this sister has had DVTs and PEs and celiac disease. Mother Family Medical History: Cancer Additional Family Medical History / Comment(s): Mother of colon cancer at the age of 59yrs. Father Family Medical History: Congestive Heart Failure (CHF), Myocardial Infarction ([place]) Brother(s) Family Medical History: Diabetes Mellitus Medications and Allergies Home Medications Medication Instructions Recorded Confirmed Type Fluticasone Nasal [place] [Flonase 2 spray EA NOSTRIL DAILY 04/18/21 03/05/23 History Nasal [place]] Linagliptin [Tradjenta] 5 mg PO DAILY 04/18/21 03/05/23 History Magnesium Oxide [Mag-Ox] 400 mg PO BID 04/18/21 03/05/23 History Pregabalin [Lyrica] 150 mg PO BID 04/18/21 03/05/23 History allopurinoL [Zyloprim] 100 mg PO DAILY 04/18/21 03/05/23 History Repaglinide [Prandin] 2 mg PO BID 05/02/22 03/05/23 History Buprenorphine [Butrans 10 MCG/HOUR] 1 patch TRANSDERM FR 11/05/22 03/05/23 History DULoxetine HCL [Cymbalta] 60 mg PO DAILY 11/05/22 03/05/23 History Diclofenac Sodium [Voltaren 1 applic TOPICAL DAILY PRN 11/05/22 03/05/23 History Arthritis Pain 1% Gel] metroNIDAZOLE [metroNIDAZOLE 0.75%] 1 applic TOPICAL DAILY PRN 11/05/22 03/05/23 History Albuterol Sulfate [Ventolin HFA] 1 - 2 puff INHALATION RT-Q6H PRN 03/05/23 03/05/23 History Dulaglutide [Trulicity] 0.75 mg SQ FR 03/05/23 03/05/23 History Ferrous Sulfate [Feosol] 325 mg PO DAILY 03/05/23 03/05/23 History Ketorolac 0.5% Ophth Soln [Acular 1 drops BOTH EYES QID 03/05/23 03/05/23 History 0.5%] Losartan [Cozaar] 25 mg PO DAILY 03/05/23 03/05/23 History Metoprolol Succinate (ER) [Toprol 100 mg PO DAILY 03/05/23 03/05/23 History Xl] Rosuvastatin Calcium [Crestor] 40 mg PO DAILY 03/05/23 03/05/23 History metFORMIN HCL [Glucophage] 1,000 mg PO BID 03/05/23 03/05/23 History Allergies Allergy/AdvReac Type Severity Reaction Status Date / Time No Known Allergies Allergy Verified 03/05/23 14:55 Surgical - Exam Vital Signs Temp Pulse Resp BP Pulse Ox 98.1 F 83 20 125/61 95 03/05/23 13:27 03/05/23 13:27 03/05/23 13:27 03/05/23 13:27 03/05/23 13:27 Gen. is a pleasant male in no acute distress. HEENT is no cephalic, atraumatic, excellent motion intact. Heart appears regular at this time. Lungs are clear. Abdomen is soft. Extremity show no clubbing. The left lower extremity wound is well-healed. The third toe has an approximately 1.5 cm pressure ulcer on the hammertoe of the third digit with some callus. On the right lower extremity there is significant erythema through the foot with significant edema. The third toe appears bolus. Some mild drainage. There is no obvious open wound noted, previously avulsed nail. Easily palpable posterior tibial pulses bilaterally Results - Labs 03/05/23 14:40 03/05/23 14:40 Abnormal Lab Results - Last 24 Hours (Table) 03/05/23 03/05/23 Range/Units 14:40 14:40 WBC 15.9 H (3.8-10.6) k/uL RDW 15.8 H (11.5-15.5) % Neutrophils # 13.0 H (1.3-7.7) k/uL Monocytes # 1.2 H (0-1.0) k/uL Sodium 133 L (137-145) mmol/L Chloride 96 L (98-107) mmol/L BUN 27 H (9-20) mg/dL Creatinine 1.88 H (0.66-1.25) mg/dL Glucose 123 H (74-99) mg/dL Total Bilirubin 1.4 H (0.2-1.3) mg/dL Diabetes panel 03/05/23 Range/Units 14:40 Sodium 133 L (137-145) mmol/L Potassium 4.8 (3.5-5.1) mmol/L Chloride 96 L (98-107) mmol/L Carbon Dioxide 26 (22-30) mmol/L BUN 27 H (9-20) mg/dL Creatinine 1.88 H (0.66-1.25) mg/dL Glucose 123 H (74-99) mg/dL Calcium 8.7 (8.4-10.2) mg/dL AST 30 (17-59) U/L ALT 22 (4-49) U/L Alkaline Phosphatase 93 (38-126) U/L Total Protein 7.1 (6.3-8.2) g/dL Albumin 3.7 (3.5-5.0) g/dL Calcium panel 03/05/23 Range/Units 14:40 Calcium 8.7 (8.4-10.2) mg/dL Albumin 3.7 (3.5-5.0) g/dL Pituitary panel 03/05/23 Range/Units 14:40 Sodium 133 L (137-145) mmol/L Potassium 4.8 (3.5-5.1) mmol/L Chloride 96 L (98-107) mmol/L Carbon Dioxide 26 (22-30) mmol/L BUN 27 H (9-20) mg/dL Creatinine 1.88 H (0.66-1.25) mg/dL Glucose 123 H (74-99) mg/dL Calcium 8.7 (8.4-10.2) mg/dL Adrenal panel 03/05/23 Range/Units 14:40 Sodium 133 L (137-145) mmol/L Potassium 4.8 (3.5-5.1) mmol/L Chloride 96 L (98-107) mmol/L Carbon Dioxide 26 (22-30) mmol/L BUN 27 H (9-20) mg/dL Creatinine 1.88 H (0.66-1.25) mg/dL Glucose 123 H (74-99) mg/dL Calcium 8.7 (8.4-10.2) mg/dL Total Bilirubin 1.4 H (0.2-1.3) mg/dL AST 30 (17-59) U/L ALT 22 (4-49) U/L Alkaline Phosphatase 93 (38-126) U/L Total Protein 7.1 (6.3-8.2) g/dL Albumin 3.7 (3.5-5.0) g/dL Assessment and Plan Assessment: Diabetic foot infection right third toe, likely deep abscess Diabetes Coronary artery disease Chronic kidney disease Plan: Long discussion had with the patient at this time it appears he will need a right third toe amputation likely with wound left open to heal by secondary intention and abscess drainage. We discussed that there may be potential for need for further amputation given the severity and location of the likely abscess, will plan for third toe amputation tomorrow and ongoing local wound care following with close monitoring for further need of debridement/amputation. The patient seemingly understands and is willing to proceed.
[2023-03-05] MEDS: INSULIN ASPART (NovoLOG) 100 UNIT/ML VIAL SQ SCH ×2 (18:42→20:33)
[2023-03-05] MEDS: AMPICILLIN-SULBACTAM 3 GM in SODIUM CHLORIDE 0.9% 100 ML IVPB SCH ×2 (20:20→23:33)
[2023-03-05 20:28] LABS: Glucose,Whole Blood 181 mg/dL (70-110)
[2023-03-06] MEDS: ACETAMINOPHEN TAB 325 MG TAB PO PRN ×2 (01:18→21:18)
[2023-03-06] MEDS: AMPICILLIN-SULBACTAM 3 GM in SODIUM CHLORIDE 0.9% 100 ML IVPB SCH ×3 (05:10→20:36)
--- NOTE | 2023-03-06 06:03 | P.CONS ---
History of Present Illness - Reason for Consult Consult date: 03/05/23 - History of Present Illness Patient is a 67-year-old male with a past medical history significant for diabetes mellitus hypertension hyperlipidemia renal insufficiency did have a previous history of diabetic foot infection requiring amputation of the left second toe patient is presenting to the ER concerning for the right foot swelling and redness patient mentioned having a problem with the right third toe that has been going on for about a week patient denies any history of any trauma noticed to have increasing swelling redness to the right third toe that has subsequently spread to the dorsal aspect of the right foot with worsening swelling and redness patient went to see the primary care physician today who sent the patient to the ER patient to have diabetic neuropathy denies significant pain to the right foot did have a diffuse swelling redness and some drainage patient did have some chills however no fever has been recorded on presentation to the hospital patient did have white count of 15.9 with a left shift BUN/creatinine has been mildly elevated liver enzymes are normal patient did have a x-ray of the foot destructive changes distal phalanx of the third digit compatible with osteomyelitis diffuse soft tissue edema suggest cellulitis loss of cortex of the tuft of the distal 5-second digit are suspicious for osteomyelitis possible chronic patient was started on vancomycin lizbeth hodgson was consulted for further management of antibiotic therapy Past Medical History Past Medical History: Asthma, Diabetes Mellitus, GERD/Reflux, Hyperlipidemia, Hypertension, Musculoskeletal Disorder, Osteoarthritis (OA), Renal Disease, Skin Disorder, Sleep Apnea/CPAP/BIPAP Additional Past Medical History / Comment(s): uses CPAP, spinal stenosis, sciatic pain, chronic kidney disease-seemelinda Cui History of Any Multi-Drug Resistant Organisms: None Reported Past Surgical History: Heart Catheterization With Stent, Orthopedic Surgery Additional Past Surgical History / Comment(s): carpal tunnel surg., knee surg., colonoscopies, rhino-septoplasty, left 2nd toe amputated due to infection, cataracts removed w/lens implants Past Anesthesia/Blood Transfusion Reactions: No Reported Reaction Date of Last Stent Placement:: 2016 Past Psychological History: Anxiety Smoking Status: Former smoker Past Alcohol Use History: None Reported Past Drug Use History: None Reported - Past Family History Sister(s) Family Medical History: Pulmonary Embolus, Skin Disorder Additional Family Medical History / Comment(s): Sister had a PE after surgery. She also has celiac's dx. Pt's nephew thru this sister has had DVTs and PEs and celiac disease. Mother Family Medical History: Cancer Additional Family Medical History / Comment(s): Mother of colon cancer at the age of 59yrs. Father Family Medical History: Congestive Heart Failure (CHF), Myocardial Infarction ([place]) Brother(s) Family Medical History: Diabetes Mellitus Medications and Allergies Home Medications Medication Instructions Recorded Confirmed Type Fluticasone Nasal [place] [Flonase 2 spray EA NOSTRIL DAILY 04/18/21 03/05/23 History Nasal [place]] Linagliptin [Tradjenta] 5 mg PO DAILY 04/18/21 03/05/23 History Magnesium Oxide [Mag-Ox] 400 mg PO BID 04/18/21 03/05/23 History Pregabalin [Lyrica] 150 mg PO BID 04/18/21 03/05/23 History allopurinoL [Zyloprim] 100 mg PO DAILY 04/18/21 03/05/23 History Repaglinide [Prandin] 2 mg PO BID 05/02/22 03/05/23 History Buprenorphine [Butrans 10 MCG/HOUR] 1 patch TRANSDERM FR 11/05/22 03/05/23 History DULoxetine HCL [Cymbalta] 60 mg PO DAILY 11/05/22 03/05/23 History Diclofenac Sodium [Voltaren 1 applic TOPICAL DAILY PRN 11/05/22 03/05/23 History Arthritis Pain 1% Gel] metroNIDAZOLE [metroNIDAZOLE 0.75%] 1 applic TOPICAL DAILY PRN 11/05/22 03/05/23 History Albuterol Sulfate [Ventolin HFA] 1 - 2 puff INHALATION RT-Q6H PRN 03/05/23 03/05/23 History Dulaglutide [Trulicity] 0.75 mg SQ FR 03/05/23 03/05/23 History Ferrous Sulfate [Feosol] 325 mg PO DAILY 03/05/23 03/05/23 History Ketorolac 0.5% Ophth Soln [Acular 1 drops BOTH EYES QID 03/05/23 03/05/23 History 0.5%] Losartan [Cozaar] 25 mg PO DAILY 03/05/23 03/05/23 History Metoprolol Succinate (ER) [Toprol 100 mg PO DAILY 03/05/23 03/05/23 History Xl] Rosuvastatin Calcium [Crestor] 40 mg PO DAILY 03/05/23 03/05/23 History metFORMIN HCL [Glucophage] 1,000 mg PO BID 03/05/23 03/05/23 History Allergies Allergy/AdvReac Type Severity Reaction Status Date / Time No Known Allergies Allergy Verified 03/05/23 14:55 Physical Exam Vitals: Vital Signs Temp Pulse Pulse Resp BP BP Pulse Ox 03/05/23 16:35 78 18 128/66 98 03/05/23 16:17 97.7 F 65 17 139/69 99 03/05/23 15:08 86 18 124/71 99 03/05/23 13:27 98.1 F 83 20 125/61 95 Intake and Output 03/05/23 03/05/23 03/05/23 06:59 14:59 22:59 Other: Weight 117.934 kg Results CBC & Chem 7: 03/05/23 14:40 03/05/23 14:40 Labs: Abnormal Lab Results - Last 24 Hours (Table) 03/05/23 03/05/23 Range/Units 14:40 14:40 WBC 15.9 H (3.8-10.6) k/uL RDW 15.8 H (11.5-15.5) % Neutrophils # 13.0 H (1.3-7.7) k/uL Monocytes # 1.2 H (0-1.0) k/uL Sodium 133 L (137-145) mmol/L Chloride 96 L (98-107) mmol/L BUN 27 H (9-20) mg/dL Creatinine 1.88 H (0.66-1.25) mg/dL Glucose 123 H (74-99) mg/dL Total Bilirubin 1.4 H (0.2-1.3) mg/dL Assessment and Plan Plan: 1patient was in the hospital with extensive right diabetic foot infection especially involving his right third toe and did have extensive swelling and redness of the right foot concerning for osteomyelitis involving the right third toe on the basis of the plain x-ray we will need to cover for the polymicrobial raul usually associated with diabetic foot infection. 2patient with renal insufficiency high risk of nephrotoxicity. 3continue with the vancomycin while watching his kidney function closely and will add Unasyn 3 g every 6 hours. 4vascular surgery evaluation and possible amputation of the right third toe and deep culture. 5we will likely need IV antibiotic on discharge. We will follow on clinical condition and cultures to further adjust medication if needed Thank you for this consultation we will follow the patient along with you Dictation was produced using [employer] dictation software. please excuse any grammatical, word or spelling errors. Time with Patient: Greater than 30
[2023-03-06 06:18] LABS: Glucose,Whole Blood 139 mg/dL (70-110)
[2023-03-06] MEDS: INSULIN ASPART (NovoLOG) 100 UNIT/ML VIAL SQ SCH ×4 (06:25→20:32)
[2023-03-06] MEDS: SODIUM CHLORIDE 0.9% 1,000 ML IV SCH (10:05)
--- NOTE | 2023-03-06 10:21 | P.HPIM ---
History of Present Illness H&P Date: 03/05/23 History of present illness; Patient is a 67-year-old male with past medical history of coronary artery disease, CABG, chronic kidney disease, COPD diabetes, previous diabetic foot wound with left second toe amputation who presented to the ER for right foot swelling and pain. Patient was all right 5 days back when he started noticing of wound on his right third toe, it was completed with swelling of his right fourth. Patient also has noticed that there was a lot of redness going up his foot to his blanco. Patient also noticed drainage from his right third toe. Because of this right foot swelling and redness, patient went to his PCP who told him to come to the ER immediately. Initial lab work done in the ER showed WBC 15.9 hemoglobin 14.9 platelet count 246, sodium 133, potassium 4.8, BUN 27, creatinine 1.88 X-ray foot done showed destructive changes of distal phalanx of third digit compatible with osteomyelitis Patient was admitted to medicine service REVIEW OF SYSTEMS: CONSTITUTIONAL: No fever, no malaise, no fatigue. HEENT: No recent visual problems or hearing problems. Denied any sore throat. CARDIOVASCULAR: No chest pain, orthopnea, PND, no palpitations, no syncope. PULMONARY: No shortness of breath, no cough, no hemoptysis. GASTROINTESTINAL: No diarrhea, no nausea, no vomiting, no abdominal pain. NEUROLOGICAL: No headaches, no weakness, no numbness. HEMATOLOGICAL: Denies any bleeding or petechiae. GENITOURINARY: Denies any burning micturition, frequency, or urgency. MUSCULOSKELETAL/RHEUMATOLOGICAL: As mentioned in HPI ENDOCRINE: Denies any polyuria or polydipsia. The rest of the 14-point review of systems is negative. PHYSICAL EXAMINATION: GENERAL: The patient is alert and oriented x3, not in any acute distress. Well developed, well nourished. HEENT: Pupils are round and equally reacting to light. EOMI. No scleral icterus. No conjunctival pallor. Normocephalic, atraumatic. No pharyngeal erythema. No thyromegaly. CARDIOVASCULAR: S1 and S2 present. No murmurs, rubs, or gallops. PULMONARY: Chest is clear to auscultation, no wheezing or crackles. ABDOMEN: Soft, nontender, nondistended, normoactive bowel sounds. No palpable organomegaly. MUSCULOSKELETAL: Right foot erythema noticeable, third toe ulcer seen. EXTREMITIES: No cyanosis, clubbing, or pedal edema. NEUROLOGICAL: Gross neurological examination did not reveal any focal deficits. SKIN: No rashes. Assessment and plan Right foot cellulitis Osteomyelitis of right foot Wet gangrene of right foot. Diabetes mellitus Hypertension Monitor vital signs Monitor CBC Monitor CMP Continue telemetry monitoring Ordered blood cultures Continue pharmacy dose vancomycin Monitor blood sugar levels, continue sliding scale insulin Continue wound care Consult ID Consult vascular surgery Labs and medication were reviewed.. Continue same treatment. Continue with symptomatic treatment. Resume home medication. Monitor labs and vitals. DVT and GI prophylaxis. Further recommendations as per clinical course of the patient Dictation was produced using [employer] dictation software. please excuse any grammatical, word or spelling errors. Past Medical History Past Medical History: Asthma, Diabetes Mellitus, GERD/Reflux, Hyperlipidemia, Hypertension, Musculoskeletal Disorder, Osteoarthritis (OA), Renal Disease, Skin Disorder, Sleep Apnea/CPAP/BIPAP Additional Past Medical History / Comment(s): uses CPAP, spinal stenosis, sciatic pain, chronic kidney disease-swathi Cui History of Any Multi-Drug Resistant Organisms: None Reported Past Surgical History: Heart Catheterization With Stent, Orthopedic Surgery Additional Past Surgical History / Comment(s): carpal tunnel surg., knee surg., colonoscopies, rhino-septoplasty, left 2nd toe amputated due to infection, cataracts removed w/lens implants Past Anesthesia/Blood Transfusion Reactions: No Reported Reaction Date of Last Stent Placement:: 2016 Past Psychological History: Anxiety Smoking Status: Former smoker Past Alcohol Use History: None Reported Past Drug Use History: None Reported - Past Family History Sister(s) Family Medical History: Pulmonary Embolus, Skin Disorder Additional Family Medical History / Comment(s): Sister had a PE after surgery. She also has celiac's dx. Pt's nephew thru this sister has had DVTs and PEs and celiac disease. Mother Family Medical History: Cancer Additional Family Medical History / Comment(s): Mother of colon cancer at the age of 59yrs. Father Family Medical History: Congestive Heart Failure (CHF), Myocardial Infarction ([place]) Brother(s) Family Medical History: Diabetes Mellitus Medications and Allergies Home Medications Medication Instructions Recorded Confirmed Type Fluticasone Nasal [place] [Flonase 2 spray EA NOSTRIL DAILY 04/18/21 03/05/23 History Nasal [place]] Linagliptin [Tradjenta] 5 mg PO DAILY 04/18/21 03/05/23 History Magnesium Oxide [Mag-Ox] 400 mg PO BID 04/18/21 03/05/23 History Pregabalin [Lyrica] 150 mg PO BID 04/18/21 03/05/23 History allopurinoL [Zyloprim] 100 mg PO DAILY 04/18/21 03/05/23 History Repaglinide [Prandin] 2 mg PO BID 05/02/22 03/05/23 History Buprenorphine [Butrans 10 MCG/HOUR] 1 patch TRANSDERM FR 11/05/22 03/05/23 History DULoxetine HCL [Cymbalta] 60 mg PO DAILY 11/05/22 03/05/23 History Diclofenac Sodium [Voltaren 1 applic TOPICAL DAILY PRN 11/05/22 03/05/23 History Arthritis Pain 1% Gel] metroNIDAZOLE [metroNIDAZOLE 0.75%] 1 applic TOPICAL DAILY PRN 11/05/22 03/05/23 History Albuterol Sulfate [Ventolin HFA] 1 - 2 puff INHALATION RT-Q6H PRN 03/05/23 03/05/23 History Dulaglutide [Trulicity] 0.75 mg SQ FR 03/05/23 03/05/23 History Ferrous Sulfate [Feosol] 325 mg PO DAILY 03/05/23 03/05/23 History Ketorolac 0.5% Ophth Soln [Acular 1 drops BOTH EYES QID 03/05/23 03/05/23 History 0.5%] Losartan [Cozaar] 25 mg PO DAILY 03/05/23 03/05/23 History Metoprolol Succinate (ER) [Toprol 100 mg PO DAILY 03/05/23 03/05/23 History Xl] Rosuvastatin Calcium [Crestor] 40 mg PO DAILY 03/05/23 03/05/23 History metFORMIN HCL [Glucophage] 1,000 mg PO BID 03/05/23 03/05/23 History Allergies Allergy/AdvReac Type Severity Reaction Status Date / Time No Known Allergies Allergy Verified 03/05/23 14:55 Physical Exam Vitals: Vital Signs Temp Pulse Resp BP Pulse Ox 03/05/23 13:27 98.1 F 83 20 125/61 95 Intake and Output 08/29/23 08/30/23 08/30/23 22:59 06:59 14:59 Other: Weight 117.934 kg Results CBC & Chem 7: 03/05/23 14:40 03/05/23 14:40
[2023-03-06 11:41] LABS: Glucose,Whole Blood 153 mg/dL (70-110)
[2023-03-06] MEDS: FERROUS SULFATE 325 MG TAB PO SCH (11:56)
[2023-03-06] MEDS ORDERED: ONDANSETRON 4 MG/2 ML VIAL IVP PRN (11:57)
[2023-03-06] MEDS: REPAGLINIDE 1 MG TAB PO SCH ×2 (11:59→20:36)
[2023-03-06] MEDS: PREGABALIN 75 MG CAP PO SCH ×2 (12:00→20:36)
[2023-03-06] MEDS: DULoxetine HCL 60 MG CAPSULE.DR PO SCH (12:00)
[2023-03-06] MEDS: METOPROLOL SUCCINATE (ER) 100 MG TAB.ER.24H PO SCH (12:01)
[2023-03-06] MEDS: VANCOMYCIN 1,750 MG in SODIUM CHLORIDE 0.9% 500 ML 500 ML IVPB SCH (13:06)
[2023-03-06 13:19] LABS: Basophils # (A) 0.04 X 10*3/uL (0.00-0.10); Basophils % (A) 0.3 %; Eosinophils # (A) 0.09 X 10*3/uL (0.04-0.35); Eosinophils % (A) 0.7 %; HCT 46.9 % (39.6-50.0); HGB 14.8 d/dL (13.0-17.0); Lymphocytes # (A) 1.17 X 10*3/uL (0.90-5.00); MCH 27.7 pg (27.0-32.0); MCHC 31.6 d/dL (32.0-37.0); MCV 87.8 FL (80.0-97.0); Mean Platelet Volume 9.7 FL (9.5-12.2); Monocytes # (A) 1.09 X 10*3/uL (0.20-1.00); Monocytes % (A) 8.4 %; NRBC Per 100 WBC 0 X 10*3/uL (0.00-0.01); Neutrophils % (A) 81.1 %; Platelet Count 204 X 10*3/uL (140-440); RBC 5.34 X 10*6/uL (4.40-5.60); RDW 16.4 % (11.5-14.5); WBC 12.95 X 10*3/uL (4.50-10.00)
--- NOTE | 2023-03-06 13:26 | P.PN ---
Subjective Progress Note Date: 03/06/23 Principal diagnosis: Right diabetic foot infection/cellulitis and gangrene of the toe Patient is a 67-year-old male with a past medical history significant for diabetes mellitus hypertension hyperlipidemia renal insufficiency did have a previous history of diabetic foot infection requiring amputation of the left second toe patient is presenting to the ER concerning for the right foot swelling and redness, symptom has been going on for about a week. On today's evaluation that is 03/06/2023, patient denies having any fever or any chills, patient is breathing comfortably on Coumadin with chest pain shortness of breath or cough no nausea no vomiting no abdominal pain or any worsening pain to the right foot. Patient white count started 12.95, creatinine was not done today blood cultures currently pending Objective - Vital Signs Vital signs: Vital Signs Temp 98.2 F 03/06/23 08:46 Pulse 80 03/06/23 08:00 Resp 17 03/06/23 08:00 BP 145/75 03/06/23 08:00 Pulse Ox 96 03/06/23 08:00 FiO2 Intake & Output 03/05/23 03/06/23 03/06/23 18:59 06:59 18:59 Output Total 300 Balance -300 Weight 117.934 kg Output: Urine 300 Other: # Voids 1 0 - Exam GENERAL DESCRIPTION: An elderly male lying in bed in no distress RESPIRATORY SYSTEM: Unlabored breathing , decreased breath sounds at bases HEART: S1 S2 regular rate and rhythm , ABDOMEN: Soft , no tenderness EXTREMITIES: Right third toe did have significant swelling also significant swelling redness of the right foot with minimal foul-smelling - Labs CBC & Chem 7: 03/06/23 07:01 03/05/23 14:40 Labs: Abnormal Lab Results - Last 24 Hours (Table) 03/05/23 03/05/23 03/05/23 Range/Units 14:40 14:40 20:27 WBC 15.9 H (3.8-10.6) k/uL RDW 15.8 H (11.5-15.5) % Neutrophils # 13.0 H (1.3-7.7) k/uL Monocytes # 1.2 H (0-1.0) k/uL Sodium 133 L (137-145) mmol/L Chloride 96 L (98-107) mmol/L BUN 27 H (9-20) mg/dL Creatinine 1.88 H (0.66-1.25) mg/dL Glucose 123 H (74-99) mg/dL POC Glucose (mg/dL) 181 H (70-110) mg/dL Total Bilirubin 1.4 H (0.2-1.3) mg/dL 03/06/23 Range/Units 06:17 WBC (3.8-10.6) k/uL RDW (11.5-15.5) % Neutrophils # (1.3-7.7) k/uL Monocytes # (0-1.0) k/uL Sodium (137-145) mmol/L Chloride (98-107) mmol/L BUN (9-20) mg/dL Creatinine (0.66-1.25) mg/dL Glucose (74-99) mg/dL POC Glucose (mg/dL) 139 H (70-110) mg/dL Total Bilirubin (0.2-1.3) mg/dL Assessment and Plan (1) Cellulitis of right foot Current Visit: Yes Status: Acute Code(s): L03.115 - CELLULITIS OF RIGHT LOWER LIMB SNOMED Code(s): 743917542 (2) Diabetic foot ulcer Current Visit: Yes Status: Acute Code(s): E11.621 - TYPE 2 DIABETES MELLITUS WITH FOOT ULCER; L97.509 - NON-PRESSURE CHRONIC ULCER OTH PRT UNSP FOOT W UNSP SEVERITY SNOMED Code(s): 810200219 (3) Diabetic wet gangrene of the foot Current Visit: Yes Status: Acute Code(s): E11.52 - TYPE 2 DIABETES W DIABETIC PERIPHERAL ANGIOPATHY W GANGRENE SNOMED Code(s): 974168427 Plan: 1patient was in the hospital with extensive right diabetic foot infection especially involving his right third toe and did have extensive swelling and redness of the right foot concerning for osteomyelitis involving the right third toe on the basis of the plain x-ray we will need to cover for the polymicrobial raul usually associated with diabetic foot infection. 2patient with renal insufficiency high risk of nephrotoxicity. 3patient has been evaluated by vascular surgery with possible amputation of the right third toe and deep culture scheduled for today 4-continue with the vancomycin while watching his kidney function closely and Unasyn 3 g every 6 hours and monitor clinical course closely. Dictation was produced using [employer] software. please excuse any grammatical, word or spelling errors.
--- NOTE | 2023-03-06 13:38 | P.PN ---
Subjective Progress Note Date: 03/06/23 Patient is a 67-year-old male with past medical history of coronary artery disease, CABG, chronic kidney disease, COPD diabetes, previous diabetic foot wound with left second toe amputation who presented to the ER for right foot swelling and pain. Patient was all right 5 days back when he started noticing of wound on his right third toe, it was completed with swelling of his right fourth. Patient also has noticed that there was a lot of redness going up his foot to his blanco. Patient also noticed drainage from his right third toe. Because of this right foot swelling and redness, patient went to his PCP who told him to come to the ER immediately. Initial lab work done in the ER showed WBC 15.9 hemoglobin 14.9 platelet count 246, sodium 133, potassium 4.8, BUN 27, creatinine 1.88 X-ray foot done showed destructive changes of distal phalanx of third digit compatible with osteomyelitis Patient was admitted to medicine service 03/06. Patient seen and examined. Denies any lethargy or weakness. No episode of any fevers. currently nothing by mouth going for surgery today REVIEW OF SYSTEMS: CONSTITUTIONAL: No fever, no malaise,. CARDIOVASCULAR: No chest pain, no palpitations, no syncope. PULMONARY: No shortness of breath, no cough, GASTROINTESTINAL: No diarrhea, no nausea, no vomiting, no abdominal pain. NEUROLOGICAL: No headaches, no weakness, PHYSICAL EXAMINATION: GENERAL: The patient is alert and oriented x3, not in any acute distress. Well developed, well nourished. HEENT: Pupils are round and equally reacting to light. EOMI. No scleral icterus. No conjunctival pallor. Normocephalic, atraumatic. No pharyngeal erythema. No thyromegaly. CARDIOVASCULAR: S1 and S2 present. No murmurs, rubs, or gallops. PULMONARY: Chest is clear to auscultation, no wheezing or crackles. ABDOMEN: Soft, nontender, nondistended, normoactive bowel sounds. No palpable organomegaly. MUSCULOSKELETAL: Right foot erythema noticeable, third toe ulcer seen. EXTREMITIES: No cyanosis, clubbing, or pedal edema. NEUROLOGICAL: Gross neurological examination did not reveal any focal deficits. SKIN: No rashes. Assessment and plan Right foot cellulitis Osteomyelitis of right foot Wet gangrene of right foot. Diabetes mellitus Hypertension Monitor vital signs Monitor CBC Monitor CMP Continue telemetry monitoring Follow-up on blood cultures Continue IV fluids Continue pharmacy dose vancomycin Monitor blood sugar levels, continue sliding scale insulin Continue wound care Follow-up in ID recommendations vascular surgery evaluated the patient, recommended third toe amputation today Labs and medication were reviewed.. Continue same treatment. Continue with symptomatic treatment. Resume home medication. Monitor labs and vitals. DVT and GI prophylaxis. Further recommendations as per clinical course of the patient Dictation was produced using [employer] dictation software. please excuse any grammatical, word or spelling errors. Objective - Vital Signs Vital signs: Vital Signs Temp 98.2 F 03/06/23 08:46 Pulse 80 03/06/23 08:00 Resp 17 03/06/23 08:00 BP 145/75 03/06/23 08:00 Pulse Ox 96 03/06/23 08:00 FiO2 Intake & Output 03/05/23 03/06/23 03/06/23 18:59 06:59 18:59 Output Total 300 Balance -300 Weight 117.934 kg Output: Urine 300 Other: # Voids 1 0 - Labs CBC & Chem 7: 03/06/23 07:01 03/05/23 14:40 Labs: Abnormal Lab Results - Last 24 Hours (Table) 03/05/23 03/05/23 03/05/23 Range/Units 14:40 14:40 20:27 WBC 15.9 H (3.8-10.6) k/uL RDW 15.8 H (11.5-15.5) % Neutrophils # 13.0 H (1.3-7.7) k/uL Monocytes # 1.2 H (0-1.0) k/uL Sodium 133 L (137-145) mmol/L Chloride 96 L (98-107) mmol/L BUN 27 H (9-20) mg/dL Creatinine 1.88 H (0.66-1.25) mg/dL Glucose 123 H (74-99) mg/dL POC Glucose (mg/dL) 181 H (70-110) mg/dL Total Bilirubin 1.4 H (0.2-1.3) mg/dL 03/06/23 Range/Units 06:17 WBC (3.8-10.6) k/uL RDW (11.5-15.5) % Neutrophils # (1.3-7.7) k/uL Monocytes # (0-1.0) k/uL Sodium (137-145) mmol/L Chloride (98-107) mmol/L BUN (9-20) mg/dL Creatinine (0.66-1.25) mg/dL Glucose (74-99) mg/dL POC Glucose (mg/dL) 139 H (70-110) mg/dL Total Bilirubin (0.2-1.3) mg/dL
[2023-03-06] MEDS ORDERED: ONDANSETRON 4 MG/2 ML VIAL IVP ONE (15:47)
[2023-03-06] MEDS ORDERED: PHENYLEPHRINE-0.9% NACL SYG 1,000 MCG/10 ML SYRINGE ONE (16:17)
[2023-03-06] MEDS ORDERED: SUCCINYLCHOLINE CHLORIDE 200 MG/10 ML VIAL IV ONE (16:17)
[2023-03-06] MEDS ORDERED: LIDOCAINE 2% INJ 20 MG/ML (2 ML VIAL) ONE (16:17)
[2023-03-06] MEDS ORDERED: PROPOFOL 10 MG/ML 20 ML VIAL IV ONE (16:17)
[2023-03-06] MEDS ORDERED: fentaNYL (PF) 50 MCG/ML 2 ML AMP ONE (16:17)
[2023-03-06] MEDS ORDERED: MIDAZOLAM 2 MG/2 ML VIAL ONE (16:17)
[2023-03-06] MEDS ORDERED: IV FLUID CONTINUATION 1,000 ML IV ONE (16:22)
[2023-03-06] MEDS ORDERED: ALBUTEROL NEBULIZED 2.5 MG/3 ML INHALATION ONE (17:22)
[2023-03-06] MEDS ORDERED: FUROSEMIDE 10 MG/ML 4 ML VIAL IV ONE (18:02)
--- NOTE | 2023-03-06 18:07 | XR ---
EXAMINATION TYPE: XR chest 1V portable DATE OF EXAM: 03/06/2023 5:59 PM COMPARISON: Chest radiographs from 04/06/2017 TECHNIQUE: XR chest 1V portable Portable AP radiograph of the chest. CLINICAL INDICATION:Male, 67 years old with history of post surgical sob.; FINDINGS: Lungs/Pleura: Low lung volumes are present. There is no evidence of pleural effusion, focal consolida tion, or pneumothorax. Pulmonary vascularity: Unremarkable. Heart/mediastinum: Cardiomediastinal silhouette is prominent in size. Musculoskeletal: No acute osseous pathology. IMPRESSION: Low lung volumes without acute process.
[2023-03-06 20:24] LABS: Glucose,Whole Blood 133 mg/dL (70-110)
[2023-03-06] MEDS: MAGNESIUM OXIDE 400 MG TAB PO SCH (20:36)
[2023-03-06] MEDS: ALBUTEROL NEBULIZED 2.5 MG/3 ML INHALATION PRN (21:21)
[2023-03-06] MEDS ORDERED: MORPHINE SULFATE 4 MG/ML SYRINGE IVP PRN (22:42)
[2023-03-07] MEDS: AMPICILLIN-SULBACTAM 3 GM in SODIUM CHLORIDE 0.9% 100 ML IVPB SCH ×4 (01:25→20:19)
[2023-03-07 05:57] LABS: Glucose,Whole Blood 142 mg/dL (70-110)
[2023-03-07] MEDS: INSULIN ASPART (NovoLOG) 100 UNIT/ML VIAL SQ SCH ×4 (06:21→20:19)
[2023-03-07 07:46] LABS: African American GFR (CKD) 39 (>60 ml/min/1.73 sqM); Non-African American GFR(CKD) 34 (>60 ml/min/1.73 sqM)
[2023-03-07] MEDS: ALBUTEROL NEBULIZED 2.5 MG/3 ML INHALATION PRN ×2 (08:05→12:03)
[2023-03-07] MEDS ORDERED: NON FORMULARY DRUG (Buprenorphine [Butrans 10 Mcg/Hour] 10 MCG/HOUR Patch) TRANSDERM SCH (09:00)
--- NOTE | 2023-03-07 09:16 | P.OP ---
Date of Procedure: 03/07/23 Description of Procedure: SURGEON: Lillie Valenzuela DO CIGAR BRANDER: none PREOPERATIVE DIAGNOSIS: diabetic foot infection right third toe POSTOPERATIVE DIAGNOSIS:same OPERATION: tight third toe amputation ANESTHESIA: Gen. ESTIMATED BLOOD LOSS: less than 10 mL SPECIMENS REMOVED: [id number] toe, culture COMPLICATIONS: none immediately apparent OPERATIVE FINDINGS: patient is a 67-year-old male with diabetic foot infection and severe edema of the right third toe. Given the appearance of the toes discussed going forward with amputation. He seemingly understands and is willing to proceed. DESCRIPTION OF PROCEDURE: patient was brought to the operative suite and placed in supine position. The right lower extremity was prepped and draped in usual sterile fashion. A preprocedure timeout was performed, all parties were in agreement.An eliptical incision was made at the base of the proximal phalanx , deepened through the skin, fat, and tendons. Tendons were divided prior to plantar and dorsal aspect of the third toe. After that, proximal phalanx was dislocated from the metatarsal joint, and we took deep culture from the toe. It was sent for culture and sensitivity.Rongeur was used to avuls the joint capsule of the metatarsal. Attempts to express purulent drainage from the midfoot were attempted without significant appearing drainage.Hemostasis was well controlled and incision on thedorsal and plantar aspect was approximated with 3-0 nylon interrupted suture .a wet-to-dry Dressing applied. The patient tolerated the procedure well.
[2023-03-07] MEDS: allopurinoL 100 MG TAB PO SCH (09:22)
[2023-03-07] MEDS: ATORVASTATIN 80 MG TAB PO SCH (09:22)
[2023-03-07] MEDS: DULoxetine HCL 60 MG CAPSULE.DR PO SCH (09:22)
[2023-03-07] MEDS: METOPROLOL SUCCINATE (ER) 100 MG TAB.ER.24H PO SCH (09:23)
[2023-03-07] MEDS: PREGABALIN 75 MG CAP PO SCH ×2 (09:23→20:20)
[2023-03-07] MEDS: MAGNESIUM OXIDE 400 MG TAB PO SCH ×2 (09:23→20:20)
[2023-03-07] MEDS: REPAGLINIDE 1 MG TAB PO SCH ×2 (09:23→20:20)
[2023-03-07] MEDS: FERROUS SULFATE 325 MG TAB PO SCH (09:23)
[2023-03-07 11:47] LABS: Glucose,Whole Blood 153 mg/dL (70-110)
--- NOTE | 2023-03-07 12:54 | P.PN ---
Subjective Progress Note Date: 03/07/23 Patient is a 67-year-old male with past medical history of coronary artery disease, CABG, chronic kidney disease, COPD diabetes, previous diabetic foot wound with left second toe amputation who presented to the ER for right foot swelling and pain. Patient was all right 5 days back when he started noticing of wound on his right third toe, it was completed with swelling of his right fourth. Patient also has noticed that there was a lot of redness going up his foot to his blanco. Patient also noticed drainage from his right third toe. Because of this right foot swelling and redness, patient went to his PCP who told him to come to the ER immediately. Initial lab work done in the ER showed WBC 15.9 hemoglobin 14.9 platelet count 246, sodium 133, potassium 4.8, BUN 27, creatinine 1.88 X-ray foot done showed destructive changes of distal phalanx of third digit compatible with osteomyelitis Patient was admitted to medicine service 03/06. Patient seen and examined. Denies any lethargy or weakness. No episode of any fevers. currently nothing by mouth going for surgery today 03/07. Patient seen and examined. Patient mental status pretty stressed after surgery, had to be placed on BiPAP. Currently saturating well on 4 L of oxygen. States he feels much better. Denies any shortness of breath right now REVIEW OF SYSTEMS: CONSTITUTIONAL: No fever, no malaise,. CARDIOVASCULAR: No chest pain, no palpitations, no syncope. PULMONARY: No shortness of breath, no cough, GASTROINTESTINAL: No diarrhea, no nausea, no vomiting, no abdominal pain. NEUROLOGICAL: No headaches, no weakness, PHYSICAL EXAMINATION: GENERAL: The patient is alert and oriented x3, not in any acute distress. Well developed, well nourished. HEENT: Pupils are round and equally reacting to light. EOMI. No scleral icterus. No conjunctival pallor. Normocephalic, atraumatic. No pharyngeal erythema. No thyromegaly. CARDIOVASCULAR: S1 and S2 present. No murmurs, rubs, or gallops. PULMONARY: Diminished breath sounds at the bases bilaterally ABDOMEN: Soft, nontender, nondistended, normoactive bowel sounds. No palpable organomegaly. MUSCULOSKELETAL: Right foot bandaged seen EXTREMITIES: No cyanosis, clubbing, or pedal edema. NEUROLOGICAL: Gross neurological examination did not reveal any focal deficits. SKIN: No rashes. Assessment and plan Right foot cellulitis Acute hypoxic respiratory failure Osteomyelitis of right foot Wet gangrene of right foot. Diabetes mellitus Hypertension Monitor vital signs Monitor CBC Monitor CMP Continue telemetry monitoring Aggressive bronchopulmonary hygiene Continue BiPAP as needed Follow-up on blood cultures DC fluids Continue pharmacy dose vancomycin and Unasyn Monitor blood sugar levels, continue sliding scale insulin Continue wound care Follow-up in ID recommendations vascular surgery evaluated the patient, status post right third toe amputation, continue wound care Pulmonology consulted Labs and medication were reviewed.. Continue same treatment. Continue with symptomatic treatment. Resume home medication. Monitor labs and vitals. DVT and GI prophylaxis. Further recommendations as per clinical course of the patient Dictation was produced using [employer] dictation software. please excuse any grammatical, word or spelling errors. Objective - Vital Signs Vital signs: Vital Signs Temp 97.3 F L 03/07/23 09:29 Pulse 80 03/07/23 09:29 Resp 18 03/07/23 09:29 BP 119/70 03/07/23 09:29 Pulse Ox 97 03/07/23 09:29 FiO2 36 03/07/23 05:18 Intake & Output 03/06/23 03/07/23 03/07/23 18:59 06:59 18:59 Intake Total 550 600 Output Total 1025 Balance -475 600 Weight 117.934 kg Intake: IV 550 Oral 600 Output: Urine 1020 Estimated Blood Loss 5 Other: Voiding Method Urinal Urinal # Voids 5 1 - Labs CBC & Chem 7: 03/06/23 07:01 03/07/23 06:30 Labs: Abnormal Lab Results - Last 24 Hours (Table) 03/06/23 03/06/23 03/06/23 Range/Units 07:01 07:01 11:40 WBC 12.95 H (4.50-10.00) X 10*3/uL MCHC 31.6 L (32.0-37.0) d/dL RDW 16.4 H (11.5-14.5) % Neutrophils # 10.50 H (1.80-7.70) X 10*3/uL Monocytes # 1.09 H (0.20-1.00) X 10*3/uL Creatinine (0.66-1.25) mg/dL POC Glucose (mg/dL) 153 H (70-110) mg/dL Hemoglobin A1c 6.4 H (<=6.0) % 03/06/23 03/07/23 03/07/23 Range/Units 20:23 05:55 06:30 WBC (4.50-10.00) X 10*3/uL MCHC (32.0-37.0) d/dL RDW (11.5-14.5) % Neutrophils # (1.80-7.70) X 10*3/uL Monocytes # (0.20-1.00) X 10*3/uL Creatinine 2.01 H (0.66-1.25) mg/dL POC Glucose (mg/dL) 133 H 142 H (70-110) mg/dL Hemoglobin A1c (<=6.0) % Microbiology - Last 24 Hours (Table) 03/05/23 14:45 Blood Culture Gram Stain - Preliminary Blood Blood Culture - Preliminary 03/05/23 14:30 Blood Culture - Preliminary Blood
[2023-03-07] MEDS: VANCOMYCIN 1,750 MG in SODIUM CHLORIDE 0.9% 500 ML 500 ML IVPB SCH (14:08)
--- NOTE | 2023-03-07 14:37 | P.CNPUL ---
History of Present Illness Consult date: 03/07/23 Requesting physician: Rocky Mayes Reason for consult: dyspnea, hypoxemia, abnormal CXR/CT Chief complaint: Right foot pain History of present illness: This is a pleasant 67-year-old male patient with a known history of coronary artery disease with previous coronary artery bypass grafting, chronic kidney disease, chronic obstructive pulmonary disease, diabetes mellitus, previous left foot wound with a history of second toe amputation. He presented here back on 03/05/2023 with right foot pain and swelling. He noticed a wound on his right third toe over the previous week without much improvement. On 03/06/2023 he had undergone amputation of the right third toe. After the procedure he became short of breath and was thought to have possibly aspirated though the chest x- ray reveals low lung volumes without acute process. He did require BiPAP support through the evening and he is seen today in consultation on the regular medical floor. He is resting comfortably in bed. Awake and alert in no acute distress. He states he felt the room was hot and he was having anxiety that was possibly causing some of his shortness of breath. He is currently maintaining good O2 saturations up to 99% on 3 L/m per nasal cannula. He's been afebrile. Hemodynamically stable. He is continued on albuterol as needed. Antibiotics in the form of Unasyn and vancomycin. Review of Systems REVIEW OF SYSTEMS: CONSTITUTIONAL: Denies any recent significant weight loss or weight gain. EYES: Denies change in vision. EARS, NOSE, MOUTH, THROAT: Denies headaches, denies sore throat. CARDIOVASCULAR: Denies chest pain, palpitations or syncopal episodes. RESPIRATORY: Positive for shortness of breath, no cough, congestion or hemoptysis. GASTROINTESTINAL: Denies change in appetite, denies abdominal pain GENITOURINARY: Denies hematuria, denies infections. MUSKULOSKELETAL: Positive for right foot pain and swelling. INTEGUMENTARY: Denies rash, denies eczema. NEUROLOGICAL: Denies recent memory loss, no recent seizure activity. PSYCHIATRIC: Positive for anxiety, denies depression. HEMATOLOGIC/LYMPHATIC: Denies anemia, denies enlarged lymph nodes. Past Medical History Past Medical History: Asthma, Diabetes Mellitus, GERD/Reflux, Hyperlipidemia, Hypertension, Musculoskeletal Disorder, Osteoarthritis (OA), Renal Disease, Skin Disorder, Sleep Apnea/CPAP/BIPAP Additional Past Medical History / Comment(s): uses CPAP, spinal stenosis, sciatic pain, chronic kidney disease-swathi Cui History of Any Multi-Drug Resistant Organisms: None Reported Past Surgical History: Heart Catheterization With Stent, Orthopedic Surgery Additional Past Surgical History / Comment(s): carpal tunnel surg., knee surg., colonoscopies, rhino-septoplasty, left 2nd toe amputated due to infection, cataracts removed w/lens implants Past Anesthesia/Blood Transfusion Reactions: No Reported Reaction Date of Last Stent Placement:: 2016 Past Psychological History: Anxiety Smoking Status: Former smoker Past Alcohol Use History: None Reported Past Drug Use History: None Reported - Past Family History Sister(s) Family Medical History: Pulmonary Embolus, Skin Disorder Additional Family Medical History / Comment(s): Sister had a PE after surgery. She also has celiac's dx. Pt's nephew thru this sister has had DVTs and PEs and celiac disease. Mother Family Medical History: Cancer Additional Family Medical History / Comment(s): Mother of colon cancer at the age of 59yrs. Father Family Medical History: Congestive Heart Failure (CHF), Myocardial Infarction (ID) Brother(s) Family Medical History: Diabetes Mellitus Medications and Allergies Home Medications Medication Instructions Recorded Confirmed Type Fluticasone Nasal [place] [Flonase 2 spray EA NOSTRIL DAILY 04/18/21 03/05/23 History Nasal [place]] Linagliptin [Tradjenta] 5 mg PO DAILY 04/18/21 03/05/23 History Magnesium Oxide [Mag-Ox] 400 mg PO BID 04/18/21 03/05/23 History Pregabalin [Lyrica] 150 mg PO BID 04/18/21 03/05/23 History allopurinoL [Zyloprim] 100 mg PO DAILY 04/18/21 03/05/23 History Repaglinide [Prandin] 2 mg PO BID 05/02/22 03/05/23 History Buprenorphine [Butrans 10 MCG/HOUR] 1 patch TRANSDERM FR 11/05/22 03/05/23 History DULoxetine HCL [Cymbalta] 60 mg PO DAILY 11/05/22 03/05/23 History Diclofenac Sodium [Voltaren 1 applic TOPICAL DAILY PRN 11/05/22 03/05/23 History Arthritis Pain 1% Gel] metroNIDAZOLE [metroNIDAZOLE 0.75%] 1 applic TOPICAL DAILY PRN 11/05/22 03/05/23 History Albuterol Sulfate [Ventolin HFA] 1 - 2 puff INHALATION RT-Q6H PRN 03/05/23 03/05/23 History Dulaglutide [Trulicity] 0.75 mg SQ FR 03/05/23 03/05/23 History Ferrous Sulfate [Feosol] 325 mg PO DAILY 03/05/23 03/05/23 History Ketorolac 0.5% Ophth Soln [Acular 1 drops BOTH EYES QID 03/05/23 03/05/23 History 0.5%] Losartan [Cozaar] 25 mg PO DAILY 03/05/23 03/05/23 History Metoprolol Succinate (ER) [Toprol 100 mg PO DAILY 03/05/23 03/05/23 History Xl] Rosuvastatin Calcium [Crestor] 40 mg PO DAILY 03/05/23 03/05/23 History metFORMIN HCL [Glucophage] 1,000 mg PO BID 03/05/23 03/05/23 History Allergies Allergy/AdvReac Type Severity Reaction Status Date / Time No Known Allergies Allergy Verified 03/05/23 14:55 Physical Exam Vitals: Vital Signs Temp Pulse Pulse Resp BP BP Pulse Ox 03/07/23 12:15 80 03/07/23 12:03 76 03/07/23 11:26 98.0 F 77 18 122/75 99 03/07/23 09:29 97.3 F L 80 18 119/70 97 03/07/23 09:27 80 18 03/07/23 08:21 88 03/07/23 08:05 84 03/07/23 05:18 03/07/23 04:45 98.3 F 71 21 96/59 98 03/07/23 02:00 77 24 03/07/23 00:36 03/07/23 00:30 98.2 F 77 24 105/55 96 03/06/23 23:12 97.4 F L 03/06/23 22:10 98.7 F 105 H 32 H 121/76 99 03/06/23 21:58 03/06/23 21:48 110 H 125/67 92 L 03/06/23 21:41 108 H 03/06/23 21:34 106 H 141/80 93 L 03/06/23 21:23 104 H 32 H 03/06/23 21:18 103 H 170/135 96 03/06/23 21:15 100.7 F H 107 H 38 H 142/76 95 03/06/23 21:03 66 142/88 85 L 03/06/23 21:02 152/65 03/06/23 20:32 103 H 180/78 03/06/23 20:19 102 H 175/116 95 03/06/23 20:03 98 176/51 96 03/06/23 19:48 91 155/92 95 03/06/23 19:34 88 148/87 96 03/06/23 19:18 97 158/83 91 L 03/06/23 19:00 97.7 F 99 18 94/39 90 L 03/06/23 18:30 97 20 116/58 96 03/06/23 18:15 98 22 118/69 97 03/06/23 18:00 97 24 124/73 95 03/06/23 17:50 03/06/23 17:45 116 H 28 H 121/67 94 L 03/06/23 17:30 32 H 91 L 03/06/23 17:20 118 H 26 H 117/58 93 L FiO2 03/07/23 12:15 03/07/23 12:03 03/07/23 11:26 03/07/23 09:29 03/07/23 09:27 03/07/23 08:21 03/07/23 08:05 03/07/23 05:18 36 03/07/23 04:45 36 03/07/23 02:00 03/07/23 00:36 36 03/07/23 00:30 36 03/06/23 23:12 03/06/23 22:10 50 03/06/23 21:58 50 03/06/23 21:48 03/06/23 21:41 03/06/23 21:34 03/06/23 21:23 03/06/23 21:18 03/06/23 21:15 03/06/23 21:03 03/06/23 21:02 03/06/23 20:32 03/06/23 20:19 03/06/23 20:03 03/06/23 19:48 03/06/23 19:34 03/06/23 19:18 03/06/23 19:00 03/06/23 18:30 03/06/23 18:15 40 03/06/23 18:00 40 03/06/23 17:50 40 03/06/23 17:45 40 03/06/23 17:30 40 03/06/23 17:20 Intake and Output 03/06/23 03/07/23 03/07/23 22:59 06:59 14:59 Intake Total 550 600 Output Total 305 625 Balance 245 -25 Intake: IV 550 Oral 600 Output: Urine 300 625 Estimated Blood Loss 5 Other: Voiding Method Urinal Urinal Urinal # Voids 5 1 Weight 117.934 kg GENERAL EXAM: Alert, pleasant 67-year-old male, on 3 L nasal cannula, comfortable in no apparent distress. HEAD: Normocephalic. EYES: Normal reaction of pupils, equal size. NOSE: Clear with pink turbinates. THROAT: No erythema or exudates. NECK: No masses, no JVD. CHEST: No chest wall deformity. LUNGS: Equal air entry with no crackles, wheeze, rhonchi or dullness. CVS: S1 and S2 normal with no audible murmur, regular rhythm. ABDOMEN: No hepatosplenomegaly, normal bowel sounds, no guarding or rigidity. SPINE: No scoliosis or deformity SKIN: No rashes CENTRAL NERVOUS SYSTEM: No focal deficits, tone is normal in all 4 extremities. EXTREMITIES: Dressing to the right foot dry and intact. There is 1+ peripheral edema. No clubbing, no cyanosis. Peripheral pulses are intact. Results - Laboratory Findings CBC and BMP: 03/06/23 07:01 03/07/23 06:30 PT/INR, D-dimer PT 10.8 sec (9.0-12.0) 03/05/23 14:40 INR 1.0 (<1.2) 03/05/23 14:40 Abnormal lab findings: Abnormal Labs 03/05/23 03/05/23 03/05/23 14:40 14:40 20:27 WBC 15.9 H MCHC RDW 15.8 H Neutrophils # 13.0 H Monocytes # 1.2 H Sodium 133 L Chloride 96 L BUN 27 H Creatinine 1.88 H Glucose 123 H POC Glucose (mg/dL) 181 H Hemoglobin A1c Total Bilirubin 1.4 H 03/06/23 03/06/23 03/06/23 06:17 07:01 07:01 WBC 12.95 H MCHC 31.6 L RDW 16.4 H Neutrophils # 10.50 H Monocytes # 1.09 H Sodium Chloride BUN Creatinine Glucose POC Glucose (mg/dL) 139 H Hemoglobin A1c 6.4 H Total Bilirubin 03/06/23 03/06/23 03/07/23 11:40 20:23 05:55 WBC MCHC RDW Neutrophils # Monocytes # Sodium Chloride BUN Creatinine Glucose POC Glucose (mg/dL) 153 H 133 H 142 H Hemoglobin A1c Total Bilirubin 03/07/23 03/07/23 06:30 11:36 WBC MCHC RDW Neutrophils # Monocytes # Sodium Chloride BUN Creatinine 2.01 H Glucose POC Glucose (mg/dL) 153 H Hemoglobin A1c Total Bilirubin - Diagnostic Findings Chest x-ray: image reviewed Assessment and Plan Assessment: Right foot pain and swelling, status post amputation of the right third toe. Postoperative day #1. Currently on vancomycin and Unasyn Acute hypoxemic respiratory failure requiring BiPAP support, currently on 3 L nasal cannula. Possible aspiration. Chest x-ray shows no acute process Diabetes mellitus Diabetic neuropathy History of diabetic wound nonhealing status post amputation of the left second toe Hypertension Hyperlipidemia Coronary artery disease with previous stent placement Former smoker Anxiety Plan: The patient was seen and evaluated Chest x-ray, labs and medications reviewed Improved and currently on 3 L nasal cannula Continue bronchodilators as needed Follow-up chest x-ray in a.m. We will continue to follow and make further recommendations based on his clinical status I have personally seen and examined the patient, performed the documentation and the assessment and plan as written. Number of minutes spent on the visit: 20.
--- NOTE | 2023-03-07 15:39 | P.PN ---
Subjective Progress Note Date: 03/07/23 Patient seen and examined. No complaints. Breathing fine at this time Right lower extremity third toe amputation site dressing is removed. Appears clean. Swelling is are improved Diabetic right foot ulceration status post third toe amp Continue daily wet-to-dry dressing changes. Heel touch weightbearing. Utilize walker when ambulating. Postoperative shoe. Objective - Vital Signs Vital signs: Vital Signs Temp 98.0 F 03/07/23 11:26 Pulse 77 03/07/23 14:00 Resp 18 03/07/23 14:00 BP 122/75 03/07/23 11:26 Pulse Ox 99 03/07/23 11:26 FiO2 36 03/07/23 05:18 Intake & Output 03/06/23 03/07/23 03/07/23 18:59 06:59 18:59 Intake Total 550 600 Output Total 1025 625 Balance -475 -25 Weight 117.934 kg Intake: IV 550 Oral 600 Output: Urine 1020 625 Estimated Blood Loss 5 Other: Voiding Method Urinal Urinal Urinal # Voids 5 1 - Labs CBC & Chem 7: 03/06/23 07:01 03/07/23 06:30 Labs: Abnormal Lab Results - Last 24 Hours (Table) 03/06/23 03/07/23 03/07/23 Range/Units 20:23 05:55 06:30 Creatinine 2.01 H (0.66-1.25) mg/dL POC Glucose (mg/dL) 133 H 142 H (70-110) mg/dL 03/07/23 Range/Units 11:36 Creatinine (0.66-1.25) mg/dL POC Glucose (mg/dL) 153 H (70-110) mg/dL Microbiology - Last 24 Hours (Table) 03/06/23 16:50 Gram Stain - Preliminary Toe - Right Third 03/05/23 14:45 Blood Culture Gram Stain - Preliminary Blood Blood Culture - Preliminary 03/05/23 14:30 Blood Culture - Preliminary Blood
[2023-03-07 17:01] LABS: Glucose,Whole Blood 134 mg/dL (70-110)
[2023-03-07 20:11] LABS: Glucose,Whole Blood 192 mg/dL (70-110)
[2023-03-08] MEDS: AMPICILLIN-SULBACTAM 3 GM in SODIUM CHLORIDE 0.9% 100 ML IVPB SCH ×4 (03:13→23:14)
[2023-03-08 06:14] LABS: Glucose,Whole Blood 135 mg/dL (70-110)
[2023-03-08] MEDS: INSULIN ASPART (NovoLOG) 100 UNIT/ML VIAL SQ SCH ×4 (06:39→19:52)
[2023-03-08 07:55] LABS: HCT 43.2 % (39.0-53.0); HGB 13.7 gm/dL (13.0-17.5); Hypochromasia Slight; MCH 27.8 pg (25.0-35.0); MCHC 31.7 g/dL (31.0-37.0); MCV 87.6 fL (80.0-100.0); Mean Platelet Volume 7.5; Platelet Count 266 k/uL (150-450); RBC 4.93 m/uL (4.30-5.90); RDW 15.7 % (11.5-15.5); WBC 10.8 k/uL (3.8-10.6)
[2023-03-08 08:06] LABS: ALT 74 U/L (4-49); AST 108 U/L (17-59); African American GFR (CKD) 60 (>60 ml/min/1.73 sqM); Albumin 2.8 g/dL (3.5-5.0); Alkaline Phosphatase 90 U/L (38-126); Anion Gap 8 mmol/L; Blood Urea Nitrogen 24 mg/dL (9-20); Calcium 8.1 mg/dL (8.4-10.2); Carbon Dioxide 24 mmol/L (22-30); Chloride 102 mmol/L (98-107); Glucose 170 mg/dL (74-99); Non-African American GFR(CKD) 52 (>60 ml/min/1.73 sqM); Potassium 4.4 mmol/L (3.5-5.1); Sodium 134 mmol/L (137-145); Total Bilirubin 0.9 mg/dL (0.2-1.3); Total Protein 5.8 g/dL (6.3-8.2)
[2023-03-08] MEDS: METOPROLOL SUCCINATE (ER) 100 MG TAB.ER.24H PO SCH (08:21)
[2023-03-08] MEDS: DULoxetine HCL 60 MG CAPSULE.DR PO SCH (08:21)
[2023-03-08] MEDS: MAGNESIUM OXIDE 400 MG TAB PO SCH ×2 (08:21→19:52)
[2023-03-08] MEDS: ATORVASTATIN 80 MG TAB PO SCH (08:21)
[2023-03-08] MEDS: allopurinoL 100 MG TAB PO SCH (08:21)
[2023-03-08] MEDS: PREGABALIN 75 MG CAP PO SCH ×2 (08:21→19:52)
[2023-03-08] MEDS: REPAGLINIDE 1 MG TAB PO SCH ×2 (08:21→19:52)
[2023-03-08] MEDS: FERROUS SULFATE 325 MG TAB PO SCH (08:22)
[2023-03-08 11:33] LABS: Glucose,Whole Blood 167 mg/dL (70-110)
--- NOTE | 2023-03-08 12:03 | P.PN ---
Subjective Progress Note Date: 03/08/23 This is a pleasant 67-year-old male patient with a known history of coronary artery disease with previous coronary artery bypass grafting, chronic kidney disease, chronic obstructive pulmonary disease, diabetes mellitus, previous left foot wound with a history of second toe amputation. He presented here back on 03/05/2023 with right foot pain and swelling. He noticed a wound on his right third toe over the previous week without much improvement. On 03/06/2023 he had undergone amputation of the right third toe. After the procedure he became short of breath and was thought to have possibly aspirated though the chest x- ray reveals low lung volumes without acute process. He did require BiPAP supp ort through the evening and he is seen today in consultation on the regular medical floor. He is resting comfortably in bed. Awake and alert in no acute distress. He states he felt the room was hot and he was having anxiety that was possibly causing some of his shortness of breath. He is currently maintaining good O2 saturations up to 99% on 3 L/m per nasal cannula. He's been afebrile. Hemodynamically stable. He is continued on albuterol as needed. Antibiotics in the form of Unasyn and vancomycin. The patient is seen today 03/08/2023 in follow-up on the selective care unit. He is currently sitting up in a chair at the bedside. Awake and alert in no acute distress. He denies any shortness of breath, cough or congestion. No chest pain. He is maintaining good O2 saturations in the 90s on room air. Afebrile. Hemodynamically stable. Right third toe was showing presumptive sta ph aureus. White count 10.8. Hemoglobin 13.7. Platelets 266. Sodium 134. Potassium 4.4. Bicarb 24. BUN 24. Creatinine 1.40. Glucose 170. AST 108. ALT 74. He is continued on Unasyn and vancomycin. Albuterol as needed. Objective - Vital Signs Vital signs: Vital Signs Temp 98.4 F 03/08/23 08:00 Pulse 87 03/08/23 08:00 Resp 16 03/08/23 08:00 BP 130/78 03/08/23 08:00 Pulse Ox 97 03/08/23 08:08 FiO2 36 03/07/23 05:18 Intake & Output 03/07/23 03/08/23 03/08/23 18:59 06:59 18:59 Intake Total 718 480 120 Output Total 900 600 475 Balance -182 -120 -355 Intake: Oral 718 480 120 Output: Urine 900 600 475 Other: Voiding Method Urinal Urinal Urinal # Bowel Movements 1 - Exam GENERAL EXAM: Alert, 67-year-old male, on room air, up in a chair, comfortable in no apparent distress. HEAD: Normocephalic. EYES: Normal reaction of pupils, equal size. NOSE: Clear with pink turbinates. THROAT: No erythema or exudates. NECK: No masses, no JVD. CHEST: No chest wall deformity. LUNGS: Equal air entry with no crackles, wheeze, rhonchi or dullness. CVS: S1 and S2 normal with no audible murmur, regular rhythm. ABDOMEN: No hepatosplenomegaly, normal bowel sounds, no guarding or rigidity. SPINE: No scoliosis or deformity SKIN: No rashes CENTRAL NERVOUS SYSTEM: No focal deficits, tone is normal in all 4 extremities. EXTREMITIES: Dressing to the right foot dry and intact. There is 1+ peripheral edema. No clubbing, no cyanosis. Peripheral pulses are intact. - Labs CBC & Chem 7: 03/08/23 07:25 03/08/23 07:25 Labs: Abnormal Lab Results - Last 24 Hours (Table) 03/07/23 03/07/23 03/08/23 Range/Units 16:36 20:08 06:12 WBC (3.8-10.6) k/uL RDW (11.5-15.5) % Sodium (137-145) mmol/L BUN (9-20) mg/dL Creatinine (0.66-1.25) mg/dL Glucose (74-99) mg/dL POC Glucose (mg/dL) 134 H 192 H 135 H (70-110) mg/dL Calcium (8.4-10.2) mg/dL AST (17-59) U/L ALT (4-49) U/L Total Protein (6.3-8.2) g/dL Albumin (3.5-5.0) g/dL 03/08/23 03/08/23 03/08/23 Range/Units 07:25 07:25 11:31 WBC 10.8 H (3.8-10.6) k/uL RDW 15.7 H (11.5-15.5) % Sodium 134 L (137-145) mmol/L BUN 24 H (9-20) mg/dL Creatinine 1.41 H (0.66-1.25) mg/dL Glucose 170 H (74-99) mg/dL POC Glucose (mg/dL) 167 H (70-110) mg/dL Calcium 8.1 L (8.4-10.2) mg/dL AST 108 H (17-59) U/L ALT 74 H (4-49) U/L Total Protein 5.8 L (6.3-8.2) g/dL Albumin 2.8 L (3.5-5.0) g/dL Microbiology - Last 24 Hours (Table) 03/06/23 16:50 Gram Stain - Preliminary Toe - Right Third Wound Culture - Preliminary Presumptive Staph aureus 03/05/23 14:30 Blood Culture - Preliminary Blood 03/05/23 14:45 Blood Culture Gram Stain - Preliminary Blood Blood Culture - Preliminary Assessment and Plan Assessment: Right foot pain and swelling, status post amputation of the right third toe. Postoperative day #2. Currently on vancomycin and Unasyn Acute hypoxemic respiratory failure requiring BiPAP support, recovered and on room air. Chest x-ray shows no acute process Diabetes mellitus Diabetic neuropathy History of diabetic wound nonhealing status post amputation of the left second toe Hypertension Hyperlipidemia Coronary artery disease with previous stent placement Former smoker Anxiety Plan: The patient was seen and evaluated Labs and medications reviewed Improved and currently on room air Continue bronchodilators as needed We will see as needed I have personally seen and examined the patient, performed the documentation and the assessment and plan as written. Number of minutes spent on the visit: 10.
[2023-03-08] MEDS: VANCOMYCIN 1,750 MG in SODIUM CHLORIDE 0.9% 500 ML 500 ML IVPB SCH (12:47)
--- NOTE | 2023-03-08 13:44 | P.PN ---
Subjective Progress Note Date: 03/08/23 Patient is a 67-year-old male with past medical history of coronary artery disease, CABG, chronic kidney disease, COPD diabetes, previous diabetic foot wound with left second toe amputation who presented to the ER for right foot swelling and pain. Patient was all right 5 days back when he started noticing of wound on his right third toe, it was completed with swelling of his right fourth. Patient also has noticed that there was a lot of redness going up his foot to his blanco. Patient also noticed drainage from his right third toe. Because of this right foot swelling and redness, patient went to his PCP who told him to come to the ER immediately. Initial lab work done in the ER showed WBC 15.9 hemoglobin 14.9 platelet count 246, sodium 133, potassium 4.8, BUN 27, creatinine 1.88 X-ray foot done showed destructive changes of distal phalanx of third digit compatible with osteomyelitis Patient was admitted to medicine service 03/06. Patient seen and examined. Denies any lethargy or weakness. No episode of any fevers. currently nothing by mouth going for surgery today 03/07. Patient seen and examined. Patient mental status pretty stressed after surgery, had to be placed on BiPAP. Currently saturating well on 4 L of oxygen. States he feels much better. Denies any shortness of breath right now 03/08. Patient seen and examined. Patient respiratory status improved, currently on room air. Denies any shortness of breath. Denies any chest pain REVIEW OF SYSTEMS: CONSTITUTIONAL: No fever, no malaise,. CARDIOVASCULAR: No chest pain, no palpitations, no syncope. PULMONARY: No shortness of breath, no cough, GASTROINTESTINAL: No diarrhea, no nausea, no vomiting, no abdominal pain. NEUROLOGICAL: No headaches, no weakness, PHYSICAL EXAMINATION: GENERAL: The patient is alert and oriented x3, not in any acute distress. Well developed, well nourished. HEENT: Pupils are round and equally reacting to light. EOMI. No scleral icterus. No conjunctival pallor. Normocephalic, atraumatic. No pharyngeal erythema. No thyromegaly. CARDIOVASCULAR: S1 and S2 present. No murmurs, rubs, or gallops. PULMONARY: Diminished breath sounds at the bases bilaterally ABDOMEN: Soft, nontender, nondistended, normoactive bowel sounds. No palpable organomegaly. MUSCULOSKELETAL: Right foot bandaged seen EXTREMITIES: No cyanosis, clubbing, or pedal edema. NEUROLOGICAL: Gross neurological examination did not reveal any focal deficits. SKIN: No rashes. Assessment and plan Right foot cellulitis Acute hypoxic respiratory failure Osteomyelitis of right foot Wet gangrene of right foot. Diabetes mellitus Hypertension Monitor vital signs Monitor CBC Monitor CMP Continue telemetry monitoring Aggressive bronchopulmonary hygiene Encourage use of I-S Follow-up on blood cultures Continue pharmacy dose vancomycin and Unasyn Monitor blood sugar levels, continue sliding scale insulin Continue wound care Follow-up in ID recommendations vascular surgery evaluated the patient, status post right third toe amputation, continue wound care Follow-up on pulmonary recommendations Labs and medication were reviewed.. Continue same treatment. Continue with symptomatic treatment. Resume home medication. Monitor labs and vitals. DVT and GI prophylaxis. Further recommendations as per clinical course of the patient Dictation was produced using [employer] dictation software. please excuse any grammatical, word or spelling errors. Objective - Vital Signs Vital signs: Vital Signs Temp 98.4 F 03/08/23 08:00 Pulse 87 03/08/23 08:00 Resp 16 03/08/23 08:00 BP 130/78 03/08/23 08:00 Pulse Ox 97 03/08/23 08:08 FiO2 36 03/07/23 05:18 Intake & Output 03/07/23 03/08/23 03/08/23 18:59 06:59 18:59 Intake Total 718 480 120 Output Total 900 600 475 Balance -182 -120 -355 Intake: Oral 718 480 120 Output: Urine 900 600 475 Other: Voiding Method Urinal Urinal # Bowel Movements 1 - Labs CBC & Chem 7: 03/08/23 07:25 03/08/23 07:25 Labs: Abnormal Lab Results - Last 24 Hours (Table) 03/07/23 03/07/23 03/07/23 Range/Units 11:36 16:36 20:08 WBC (3.8-10.6) k/uL RDW (11.5-15.5) % Sodium (137-145) mmol/L BUN (9-20) mg/dL Creatinine (0.66-1.25) mg/dL Glucose (74-99) mg/dL POC Glucose (mg/dL) 153 H 134 H 192 H (70-110) mg/dL Calcium (8.4-10.2) mg/dL AST (17-59) U/L ALT (4-49) U/L Total Protein (6.3-8.2) g/dL Albumin (3.5-5.0) g/dL 03/08/23 03/08/23 03/08/23 Range/Units 06:12 07:25 07:25 WBC 10.8 H (3.8-10.6) k/uL RDW 15.7 H (11.5-15.5) % Sodium 134 L (137-145) mmol/L BUN 24 H (9-20) mg/dL Creatinine 1.41 H (0.66-1.25) mg/dL Glucose 170 H (74-99) mg/dL POC Glucose (mg/dL) 135 H (70-110) mg/dL Calcium 8.1 L (8.4-10.2) mg/dL AST 108 H (17-59) U/L ALT 74 H (4-49) U/L Total Protein 5.8 L (6.3-8.2) g/dL Albumin 2.8 L (3.5-5.0) g/dL Microbiology - Last 24 Hours (Table) 03/06/23 16:50 Gram Stain - Preliminary Toe - Right Third Wound Culture - Preliminary Presumptive Staph aureus 03/05/23 14:30 Blood Culture - Preliminary Blood 03/05/23 14:45 Blood Culture Gram Stain - Preliminary Blood Blood Culture - Preliminary
[2023-03-08 16:14] LABS: Glucose,Whole Blood 146 mg/dL (70-110)
[2023-03-08 19:35] LABS: Glucose,Whole Blood 251 mg/dL (70-110)
[2023-03-09] MEDS: LOPERAMIDE 2 MG CAP PO PRN ×2 (01:37→14:12)
[2023-03-09] MEDS: VANCOMYCIN 1,750 MG in SODIUM CHLORIDE 0.9% 500 ML 500 ML IVPB SCH (01:37)
[2023-03-09 05:53] LABS: Glucose,Whole Blood 115 mg/dL (70-110)
[2023-03-09] MEDS: INSULIN ASPART (NovoLOG) 100 UNIT/ML VIAL SQ SCH ×4 (05:58→20:41)
[2023-03-09] MEDS: AMPICILLIN-SULBACTAM 3 GM in SODIUM CHLORIDE 0.9% 100 ML IVPB SCH ×4 (06:09→23:07)
[2023-03-09] MEDS: MAGNESIUM OXIDE 400 MG TAB PO SCH ×2 (08:46→20:40)
[2023-03-09] MEDS: PREGABALIN 75 MG CAP PO SCH ×2 (08:46→20:40)
[2023-03-09] MEDS: ATORVASTATIN 80 MG TAB PO SCH (08:46)
[2023-03-09] MEDS: METOPROLOL SUCCINATE (ER) 100 MG TAB.ER.24H PO SCH (08:47)
[2023-03-09] MEDS: FERROUS SULFATE 325 MG TAB PO SCH (08:47)
[2023-03-09] MEDS: DULoxetine HCL 60 MG CAPSULE.DR PO SCH (08:47)
[2023-03-09] MEDS: allopurinoL 100 MG TAB PO SCH (08:47)
[2023-03-09] MEDS: REPAGLINIDE 1 MG TAB PO SCH ×2 (08:50→20:41)
--- NOTE | 2023-03-09 09:04 | P.PN ---
Subjective Progress Note Date: 03/07/23 Principal diagnosis: Right diabetic foot infection/cellulitis and gangrene of the toe Patient is a 67-year-old male with a past medical history significant for diabetes mellitus hypertension hyperlipidemia renal insufficiency did have a previous history of diabetic foot infection requiring amputation of the left second toe patient is presenting to the ER concerning for the right foot swelling and redness, symptom has been going on for about a week. Patient is status post right third toe amputation completed on 03/06/2023 apparently the patient aspirated postextubation and has been transferred to the cardiology unit On Todays Visit that is 03/07/2023, patient is afebrile and is breathing comfortably on 4 L nasal cannula oxygen but denies having any chest pain no cough no nausea vomiting no abdominal pain no diarrhea or any worsening pain to the right foot. Patient did have a creatinine of 2.01 no CBC was done today blood cultures positive with gram-positive cocci local cultures currently pending Objective - Vital Signs Vital signs: Vital Signs Temp 98.0 F 03/07/23 11:26 Pulse 80 03/07/23 12:15 Resp 18 03/07/23 11:26 BP 122/75 03/07/23 11:26 Pulse Ox 99 03/07/23 11:26 FiO2 36 03/07/23 05:18 Intake & Output 03/06/23 03/07/23 03/07/23 18:59 06:59 18:59 Intake Total 550 600 Output Total 1025 350 Balance -475 250 Weight 117.934 kg Intake: IV 550 Oral 600 Output: Urine 1020 350 Estimated Blood Loss 5 Other: Voiding Method Urinal Urinal Urinal # Voids 5 1 - Exam GENERAL DESCRIPTION: An elderly male lying in bed in no distress RESPIRATORY SYSTEM: Unlabored breathing , decreased breath sounds at bases HEART: S1 S2 regular rate and rhythm , ABDOMEN: Soft , no tenderness EXTREMITIES: Right foot is currently dressed - Labs CBC & Chem 7: 03/08/23 07:25 03/08/23 07:25 Labs: Abnormal Lab Results - Last 24 Hours (Table) 03/06/23 03/06/23 03/06/23 Range/Units 07:01 07:01 20:23 WBC 12.95 H (4.50-10.00) X 10*3/uL MCHC 31.6 L (32.0-37.0) d/dL RDW 16.4 H (11.5-14.5) % Neutrophils # 10.50 H (1.80-7.70) X 10*3/uL Monocytes # 1.09 H (0.20-1.00) X 10*3/uL Creatinine (0.66-1.25) mg/dL POC Glucose (mg/dL) 133 H (70-110) mg/dL Hemoglobin A1c 6.4 H (<=6.0) % 03/07/23 03/07/23 03/07/23 Range/Units 05:55 06:30 11:36 WBC (4.50-10.00) X 10*3/uL MCHC (32.0-37.0) d/dL RDW (11.5-14.5) % Neutrophils # (1.80-7.70) X 10*3/uL Monocytes # (0.20-1.00) X 10*3/uL Creatinine 2.01 H (0.66-1.25) mg/dL POC Glucose (mg/dL) 142 H 153 H (70-110) mg/dL Hemoglobin A1c (<=6.0) % Microbiology - Last 24 Hours (Table) 03/05/23 14:45 Blood Culture Gram Stain - Preliminary Blood Blood Culture - Preliminary 03/05/23 14:30 Blood Culture - Preliminary Blood Assessment and Plan (1) Cellulitis of right foot Current Visit: Yes Status: Acute Code(s): L03.115 - CELLULITIS OF RIGHT LOWER LIMB SNOMED Code(s): 922489250 (2) Diabetic foot ulcer Current Visit: Yes Status: Acute Code(s): E11.621 - TYPE 2 DIABETES MELLITUS WITH FOOT ULCER; L97.509 - NON-PRESSURE CHRONIC ULCER OTH PRT UNSP FOOT W UNSP SEVERITY SNOMED Code(s): 209366960 (3) Diabetic wet gangrene of the foot Current Visit: Yes Status: Acute Code(s): E11.52 - TYPE 2 DIABETES W DIABETIC PERIPHERAL ANGIOPATHY W GANGRENE SNOMED Code(s): 827578298 Plan: 1patient was in the hospital with extensive right diabetic foot infection especially involving his right third toe and did have extensive swelling and redness of the right foot concerning for osteomyelitis involving the right third toe on the basis of the plain x-ray we will need to cover for the polymicrobial raul usually associated with diabetic foot infection. 2patient with renal insufficiency high risk of nephrotoxicity. 3patient has been evaluated by vascular surgery and Patient is status post amputation of right third toe and deep cultures which will be followed. 4patient with the gram-positive bacteremia blood cultures will be repeated document clearance of his bacteremia. 5we will keep the patient on vancomycin and Unasyn while waiting for the culture to finalize and monitor clinical course closely Dictation was produced using [employer] dictation software. please excuse any grammatical, word or spelling errors.
--- NOTE | 2023-03-09 09:07 | P.PN ---
Subjective Progress Note Date: 03/08/23 Principal diagnosis: Right diabetic foot infection/cellulitis and gangrene of the toe Patient is a 67-year-old male with a past medical history significant for diabetes mellitus hypertension hyperlipidemia renal insufficiency did have a previous history of diabetic foot infection requiring amputation of the left second toe patient is presenting to the ER concerning for the right foot swelling and redness, symptom has been going on for about a week. Patient is status post right third toe amputation completed on 03/06/2023 apparently the patient aspirated postextubation and has been transferred to the cardiology unit On Todays Visit that is 03/08/2023, the patient remains to be afebrile, the patient is breathing comfortably on room air patient denies having any chest pain shortness of breath or cough no nausea vomiting no abdominal pain or diarrhea denies pain to the right foot. Patient white count is down to 10.8 creatinine is 1.41 local cultures growing Staphylococcus agalactiae and Staph aureus blood cultures with gram-positive cocci. Objective - Vital Signs Vital signs: Vital Signs Temp 98.4 F 03/08/23 08:00 Pulse 87 03/08/23 08:00 Resp 16 03/08/23 08:00 BP 130/78 03/08/23 08:00 Pulse Ox 97 03/08/23 08:08 FiO2 36 03/07/23 05:18 Intake & Output 03/07/23 03/08/23 03/08/23 18:59 06:59 18:59 Intake Total 718 480 120 Output Total 900 600 475 Balance -182 -120 -355 Intake: Oral 718 480 120 Output: Urine 900 600 475 Other: Voiding Method Urinal Urinal Urinal # Bowel Movements 1 - Exam GENERAL DESCRIPTION: An elderly male lying in bed in no distress RESPIRATORY SYSTEM: Unlabored breathing , decreased breath sounds at bases HEART: S1 S2 regular rate and rhythm , ABDOMEN: Soft , no tenderness EXTREMITIES: Right foot is currently dressed - Labs CBC & Chem 7: 03/08/23 07:25 03/08/23 07:25 Labs: Abnormal Lab Results - Last 24 Hours (Table) 03/07/23 03/07/23 03/08/23 Range/Units 16:36 20:08 06:12 WBC (3.8-10.6) k/uL RDW (11.5-15.5) % Sodium (137-145) mmol/L BUN (9-20) mg/dL Creatinine (0.66-1.25) mg/dL Glucose (74-99) mg/dL POC Glucose (mg/dL) 134 H 192 H 135 H (70-110) mg/dL Calcium (8.4-10.2) mg/dL AST (17-59) U/L ALT (4-49) U/L Total Protein (6.3-8.2) g/dL Albumin (3.5-5.0) g/dL 03/08/23 03/08/23 03/08/23 Range/Units 07:25 07:25 11:31 WBC 10.8 H (3.8-10.6) k/uL RDW 15.7 H (11.5-15.5) % Sodium 134 L (137-145) mmol/L BUN 24 H (9-20) mg/dL Creatinine 1.41 H (0.66-1.25) mg/dL Glucose 170 H (74-99) mg/dL POC Glucose (mg/dL) 167 H (70-110) mg/dL Calcium 8.1 L (8.4-10.2) mg/dL AST 108 H (17-59) U/L ALT 74 H (4-49) U/L Total Protein 5.8 L (6.3-8.2) g/dL Albumin 2.8 L (3.5-5.0) g/dL Microbiology - Last 24 Hours (Table) 03/06/23 16:50 Gram Stain - Preliminary Toe - Right Third Wound Culture - Preliminary Presumptive Staph aureus 03/05/23 14:30 Blood Culture - Preliminary Blood 03/05/23 14:45 Blood Culture Gram Stain - Preliminary Blood Blood Culture - Preliminary Assessment and Plan (1) Cellulitis of right foot Current Visit: Yes Status: Acute Code(s): L03.115 - CELLULITIS OF RIGHT LOWER LIMB SNOMED Code(s): 431403551 (2) Diabetic foot ulcer Current Visit: Yes Status: Acute Code(s): E11.621 - TYPE 2 DIABETES MELLITUS WITH FOOT ULCER; L97.509 - NON-PRESSURE CHRONIC ULCER OTH PRT UNSP FOOT W UNSP SEVERITY SNOMED Code(s): 358907030 (3) Diabetic wet gangrene of the foot Current Visit: Yes Status: Acute Code(s): E11.52 - 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 2patient has been evaluated by vascular surgery and Patient is status post amputation of right third toe and deep cultures which will be followed. 3patient with the gram-positive bacteremia blood cultures repeated document clearance of his bacteremia. 4patient to continue with the vancomycin and Unasyn while waiting for the culture to finalize, the patient will likely need to have PICC line for outpatient IV antibiotic therapy Dictation was produced using [employer] dictation software. please excuse any grammatical, word or spelling errors.
--- NOTE | 2023-03-09 11:11 | P.PN ---
Subjective Progress Note Date: 03/09/23 This is a pleasant 67-year-old male patient with a known history of coronary artery disease with previous coronary artery bypass grafting, chronic kidney disease, chronic obstructive pulmonary disease, diabetes mellitus, previous left foot wound with a history of second toe amputation. He presented here back on 03/05/2023 with right foot pain and swelling. He noticed a wound on his right third toe over the previous week without much improvement. On 03/06/2023 he had undergone amputation of the right third toe. After the procedure he became short of breath and was thought to have possibly aspirated though the chest x- ray reveals low lung volumes without acute process. He did require BiPAP supp ort through the evening and he is seen today in consultation on the regular medical floor. He is resting comfortably in bed. Awake and alert in no acute distress. He states he felt the room was hot and he was having anxiety that was possibly causing some of his shortness of breath. He is currently maintaining good O2 saturations up to 99% on 3 L/m per nasal cannula. He's been afebrile. Hemodynamically stable. He is continued on albuterol as needed. Antibiotics in the form of Unasyn and vancomycin. The patient is seen today 03/08/2023 in follow-up on the selective care unit. He is currently sitting up in a chair at the bedside. Awake and alert in no acute distress. He denies any shortness of breath, cough or congestion. No chest pain. He is maintaining good O2 saturations in the 90s on room air. Afebrile. Hemodynamically stable. Right third toe was showing presumptive sta ph aureus. White count 10.8. Hemoglobin 13.7. Platelets 266. Sodium 134. Potassium 4.4. Bicarb 24. BUN 24. Creatinine 1.40. Glucose 170. AST 108. ALT 74. He is continued on Unasyn and vancomycin. Albuterol as needed. The patient is seen today 03/09/2023 in follow-up on the selective care unit. Please up ambulating in his room. Up in the shower. Doing well today. No shortness of breath, cough or congestion. Maintaining good O2 saturations in the 90s on room air. Dressing to the right foot is not dry and intact. No plans for further intervention. He remains on Unasyn and vancomycin. Right third toe wound culture positive for Staphylococcus aureus and strep agalactiae group B. Infectious disease is on the case. Objective - Vital Signs Vital signs: Vital Signs Temp 98.8 F 03/09/23 08:00 Pulse 81 03/09/23 08:00 Resp 18 03/09/23 08:00 BP 144/80 03/09/23 08:00 Pulse Ox 95 03/09/23 08:00 FiO2 36 03/07/23 05:18 Intake & Output 03/08/23 03/09/23 03/09/23 18:59 06:59 18:59 Intake Total 240 0 Output Total 700 1100 400 Balance -460 -1100 -400 Intake: Oral 240 0 Output: Urine 700 1100 400 Other: Voiding Method Urinal Urinal # Bowel Movements 3 - Exam GENERAL EXAM: Alert, very pleasant 67-year-old male, on room air, comfortable in no apparent distress. HEAD: Normocephalic. EYES: Normal reaction of pupils, equal size. NOSE: Clear with pink turbinates. THROAT: No erythema or exudates. NECK: No masses, no JVD. CHEST: No chest wall deformity. LUNGS: Equal air entry with no crackles, wheeze, rhonchi or dullness. CVS: S1 and S2 normal with no audible murmur, regular rhythm. ABDOMEN: No hepatosplenomegaly, normal bowel sounds, no guarding or rigidity. SPINE: No scoliosis or deformity SKIN: No rashes CENTRAL NERVOUS SYSTEM: No focal deficits, tone is normal in all 4 extremities. EXTREMITIES: Dressing to the right foot dry and intact. There is 1+ peripheral edema. No clubbing, no cyanosis. Peripheral pulses are intact. - Labs CBC & Chem 7: 03/08/23 07:25 03/08/23 07:25 Labs: Abnormal Lab Results - Last 24 Hours (Table) 03/08/23 03/08/23 03/08/23 Range/Units 11:31 16:10 19:34 POC Glucose (mg/dL) 167 H 146 H 251 H (70-110) mg/dL 03/09/23 Range/Units 05:52 POC Glucose (mg/dL) 115 H (70-110) mg/dL Microbiology - Last 24 Hours (Table) 03/05/23 14:30 Blood Culture - Preliminary Blood 03/06/23 16:50 Gram Stain - Final Toe - Right Third Wound Culture - Final Staphylococcus aureus Strep agalactiae - (group b) Assessment and Plan Assessment: Right foot pain and swelling, status post amputation of the right third toe. Postoperative day #3. Currently on vancomycin and Unasyn Acute hypoxemic respiratory failure requiring BiPAP support, recovered and on room air. Chest x-ray shows no acute process Diabetes mellitus Diabetic neuropathy History of diabetic wound nonhealing status post amputation of the left second toe Hypertension Hyperlipidemia Coronary artery disease with previous stent placement Former smoker Anxiety Plan: The patient was seen and evaluated Medications reviewed Stable and on room air Cleared for discharge once transitioned to oral antibiotic ID services on the case I have personally seen and examined the patient, performed the documentation and the assessment and plan as written. Number of minutes spent on the visit: 10.
[2023-03-09 11:27] LABS: Glucose,Whole Blood 138 mg/dL (70-110)
[2023-03-09 11:53] LABS: Basophils % (A) 0 %; Eosinophils # (A) 0.4 k/uL (0-0.7); Eosinophils % (A) 4 %; HGB 15.6 gm/dL (13.0-17.5); Hypochromasia Slight; Lymphocytes # (A) 1.1 k/uL (1.0-4.8); Lymphocytes % (A) 10 %; MCHC 31.9 g/dL (31.0-37.0); MCV 87.9 fL (80.0-100.0); Mean Platelet Volume 7.9; Monocytes # (A) 0.7 k/uL (0-1.0); Monocytes % (A) 7 %; Neutrophils # (A) 7.9 k/uL (1.3-7.7); Neutrophils % (A) 77 %; Platelet Count 321 k/uL (150-450); RBC 5.57 m/uL (4.30-5.90); RDW 15.6 % (11.5-15.5); WBC 10.2 k/uL (3.8-10.6)
[2023-03-09 12:10] LABS: ALT 130 U/L (4-49); AST 148 U/L (17-59); African American GFR (CKD) 67 (>60 ml/min/1.73 sqM); Albumin 3.3 g/dL (3.5-5.0); Alkaline Phosphatase 118 U/L (38-126); Anion Gap 15 mmol/L; Blood Urea Nitrogen 18 mg/dL (9-20); Carbon Dioxide 23 mmol/L (22-30); Chloride 97 mmol/L (98-107); Glucose 147 mg/dL (74-99); Non-African American GFR(CKD) 58 (>60 ml/min/1.73 sqM); Potassium 4.3 mmol/L (3.5-5.1); Sodium 135 mmol/L (137-145); Total Protein 6.8 g/dL (6.3-8.2)
--- NOTE | 2023-03-09 13:11 | P.PN ---
Subjective Progress Note Date: 03/09/23 Patient is a 67-year-old male with past medical history of coronary artery disease, CABG, chronic kidney disease, COPD diabetes, previous diabetic foot wound with left second toe amputation who presented to the ER for right foot swelling and pain. Patient was all right 5 days back when he started noticing of wound on his right third toe, it was completed with swelling of his right fourth. Patient also has noticed that there was a lot of redness going up his foot to his blanco. Patient also noticed drainage from his right third toe. Because of this right foot swelling and redness, patient went to his PCP who told him to come to the ER immediately. Initial lab work done in the ER showed WBC 15.9 hemoglobin 14.9 platelet count 246, sodium 133, potassium 4.8, BUN 27, creatinine 1.88 X-ray foot done showed destructive changes of distal phalanx of third digit compatible with osteomyelitis Patient was admitted to medicine service 03/06. Patient seen and examined. Denies any lethargy or weakness. No episode of any fevers. currently nothing by mouth going for surgery today 03/07. Patient seen and examined. Patient mental status pretty stressed after surgery, had to be placed on BiPAP. Currently saturating well on 4 L of oxygen. States he feels much better. Denies any shortness of breath right now 03/08. Patient seen and examined. Patient respiratory status improved, currently on room air. Denies any shortness of breath. Denies any chest pain 03/09. Patient seen and examined. Denies any pain in his right foot. Not requiring any oxygen. REVIEW OF SYSTEMS: CONSTITUTIONAL: No fever, no malaise,. CARDIOVASCULAR: No chest pain, no palpitations, no syncope. PULMONARY: No shortness of breath, no cough, GASTROINTESTINAL: No diarrhea, no nausea, no vomiting, no abdominal pain. NEUROLOGICAL: No headaches, no weakness, PHYSICAL EXAMINATION: GENERAL: The patient is alert and oriented x3, not in any acute distress. Well developed, well nourished. HEENT: Pupils are round and equally reacting to light. EOMI. No scleral icterus. No conjunctival pallor. Normocephalic, atraumatic. No pharyngeal erythema. No thyromegaly. CARDIOVASCULAR: S1 and S2 present. No murmurs, rubs, or gallops. PULMONARY: Diminished breath sounds at the bases bilaterally ABDOMEN: Soft, nontender, nondistended, normoactive bowel sounds. No palpable organomegaly. MUSCULOSKELETAL: Right foot bandaged seen EXTREMITIES: No cyanosis, clubbing, or pedal edema. NEUROLOGICAL: Gross neurological examination did not reveal any focal deficits. SKIN: No rashes. Assessment and plan Right foot cellulitis Acute hypoxic respiratory failure Osteomyelitis of right foot Wet gangrene of right foot. Diabetes mellitus Hypertension Monitor vital signs Monitor CBC Monitor CMP Continue telemetry monitoring Aggressive bronchopulmonary hygiene Encourage use of I-S Follow-up on blood cultures Continue pharmacy dose vancomycin and Unasyn Monitor blood sugar levels, continue sliding scale insulin Continue wound care Follow-up in ID recommendations vascular surgery evaluated the patient, status post right third toe amputation, continue wound care Follow-up on pulmonary recommendations Labs and medication were reviewed.. Continue same treatment. Continue with symptomatic treatment. Resume home medication. Monitor labs and vitals. DVT and GI prophylaxis. Further recommendations as per clinical course of the patient Dictation was produced using [employer] dictation software. please excuse any grammatical, word or spelling errors. Objective - Vital Signs Vital signs: Vital Signs Temp 97.9 F 03/09/23 04:00 Pulse 74 03/09/23 04:00 Resp 18 03/09/23 04:00 BP 136/84 03/09/23 04:00 Pulse Ox 96 03/09/23 04:00 FiO2 36 03/07/23 05:18 Intake & Output 03/08/23 03/09/23 03/09/23 18:59 06:59 18:59 Intake Total 240 0 Output Total 700 1100 Balance -460 -1100 0 Intake: Oral 240 0 Output: Urine 700 1100 Other: Voiding Method Urinal Urinal # Bowel Movements 3 - Labs CBC & Chem 7: 03/09/23 09:44 03/09/23 09:44 Labs: Abnormal Lab Results - Last 24 Hours (Table) 03/08/23 03/08/23 03/08/23 Range/Units 11:31 16:10 19:34 POC Glucose (mg/dL) 167 H 146 H 251 H (70-110) mg/dL 03/09/23 Range/Units 05:52 POC Glucose (mg/dL) 115 H (70-110) mg/dL Microbiology - Last 24 Hours (Table) 03/05/23 14:30 Blood Culture - Preliminary Blood 03/06/23 16:50 Gram Stain - Final Toe - Right Third Wound Culture - Final Staphylococcus aureus Strep agalactiae - (group b)
[2023-03-09 16:24] LABS: Glucose,Whole Blood 174 mg/dL (70-110)
--- NOTE | 2023-03-09 16:45 | P.PN ---
Subjective Progress Note Date: 03/09/23 Principal diagnosis: Right diabetic foot infection/cellulitis and gangrene of the toe Patient is a 67-year-old male with a past medical history significant for diabetes mellitus hypertension hyperlipidemia renal insufficiency did have a previous history of diabetic foot infection requiring amputation of the left second toe patient is presenting to the ER concerning for the right foot swelling and redness, symptom has been going on for about a week. Patient is status post right third toe amputation completed on 03/06/2023 apparently the patient aspirated postextubation and has been transferred to the cardiology unit On Todays Visit that is 03/09/2023, the patient continues to be afebrile, the patient is breathing comfortably on room air , patient denies having any chest pain shortness of breath or cough no nausea vomiting no abdominal pain or diarrhea denies pain to the right foot. Patient white count is down to 10.2 creatinine is 1.29, local cultures growing Staphylococcus agalactiae and Staph aureus blood cultures with staph epi likely contamination. Objective - Vital Signs Vital signs: Vital Signs Temp 97.8 F 03/09/23 12:05 Pulse 79 03/09/23 12:05 Resp 18 03/09/23 12:05 BP 148/86 03/09/23 12:05 Pulse Ox 96 03/09/23 12:05 FiO2 36 03/07/23 05:18 Intake & Output 03/08/23 03/09/23 03/09/23 18:59 06:59 18:59 Intake Total 240 120 Output Total 700 1100 400 Balance -460 -1100 -280 Intake: Oral 240 120 Output: Urine 700 1100 400 Other: Voiding Method Urinal Urinal # Bowel Movements 3 - Exam GENERAL DESCRIPTION: An elderly male lying in bed in no distress RESPIRATORY SYSTEM: Unlabored breathing , decreased breath sounds at bases HEART: S1 S2 regular rate and rhythm , ABDOMEN: Soft , no tenderness EXTREMITIES: Right foot is currently dressed - Labs CBC & Chem 7: 03/09/23 09:44 03/09/23 09:44 Labs: Abnormal Lab Results - Last 24 Hours (Table) 03/08/23 03/08/23 03/09/23 Range/Units 16:10 19:34 05:52 RDW (11.5-15.5) % Neutrophils # (1.3-7.7) k/uL Sodium (137-145) mmol/L Chloride (98-107) mmol/L Creatinine (0.66-1.25) mg/dL Glucose (74-99) mg/dL POC Glucose (mg/dL) 146 H 251 H 115 H (70-110) mg/dL AST (17-59) U/L ALT (4-49) U/L Albumin (3.5-5.0) g/dL 03/09/23 03/09/23 03/09/23 Range/Units 09:44 09:44 11:25 RDW 15.6 H (11.5-15.5) % Neutrophils # 7.9 H (1.3-7.7) k/uL Sodium 135 L (137-145) mmol/L Chloride 97 L (98-107) mmol/L Creatinine 1.29 H (0.66-1.25) mg/dL Glucose 147 H (74-99) mg/dL POC Glucose (mg/dL) 138 H (70-110) mg/dL AST 148 H (17-59) U/L ALT 130 H (4-49) U/L Albumin 3.3 L (3.5-5.0) g/dL Microbiology - Last 24 Hours (Table) 03/05/23 14:45 Blood Culture Gram Stain - Final Blood Blood Culture - Final Coagulase Negative Staph 03/05/23 14:30 Blood Culture - Preliminary Blood 03/06/23 16:50 Gram Stain - Final Toe - Right Third Wound Culture - Final Staphylococcus aureus Strep agalactiae - (group b) Assessment and Plan (1) Cellulitis of right foot Current Visit: Yes Status: Acute Code(s): L03.115 - CELLULITIS OF RIGHT LOWER LIMB SNOMED Code(s): 049375434 (2) Diabetic foot ulcer Current Visit: Yes Status: Acute Code(s): E11.621 - TYPE 2 DIABETES MELLITUS WITH FOOT ULCER; L97.509 - NON-PRESSURE CHRONIC ULCER OTH PRT UNSP FOOT W UNSP SEVERITY SNOMED Code(s): 341359008 (3) Diabetic wet gangrene of the foot Current Visit: Yes Status: Acute Code(s): E11.52 - 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 2patient has been evaluated by vascular surgery and Patient is status post amputation of right third toe and deep cultures which will be followed. 3patient with the staph epi bacteremia likely contamination blood cultures has been repeated to document clearance of his bacteremia. 4patient to continue with Unasyn however discontinue vancomycin, the patient will likely need to have PICC line for outpatient IV antibiotic therapy Dictation was produced using [employer] dictation software. please excuse any grammatical, word or spelling errors. Time with Patient: Less than 30
[2023-03-09] MEDS ORDERED: VANCOMYCIN TROUGH DUE 1 EACH MISC MISCELLANE ONE (17:00)
[2023-03-09 20:05] LABS: Glucose,Whole Blood 224 mg/dL (70-110)
[2023-03-10 06:08] LABS: Glucose,Whole Blood 141 mg/dL (70-110)
[2023-03-10] MEDS: INSULIN ASPART (NovoLOG) 100 UNIT/ML VIAL SQ SCH ×4 (06:34→20:08)
[2023-03-10] MEDS: AMPICILLIN-SULBACTAM 3 GM in SODIUM CHLORIDE 0.9% 100 ML IVPB SCH ×4 (06:34→23:47)
[2023-03-10] MEDS: PREGABALIN 75 MG CAP PO SCH ×2 (09:25→20:07)
[2023-03-10] MEDS: METOPROLOL SUCCINATE (ER) 100 MG TAB.ER.24H PO SCH (09:25)
[2023-03-10] MEDS: DULoxetine HCL 60 MG CAPSULE.DR PO SCH (09:25)
[2023-03-10] MEDS: MAGNESIUM OXIDE 400 MG TAB PO SCH ×2 (09:25→20:08)
[2023-03-10] MEDS: FERROUS SULFATE 325 MG TAB PO SCH (09:25)
[2023-03-10] MEDS: REPAGLINIDE 1 MG TAB PO SCH ×2 (09:25→20:07)
[2023-03-10] MEDS: ATORVASTATIN 80 MG TAB PO SCH (09:25)
[2023-03-10] MEDS: allopurinoL 100 MG TAB PO SCH (09:25)
[2023-03-10 10:05] LABS: HCT 43.4 % (39.0-53.0); HGB 13.8 gm/dL (13.0-17.5); Hypochromasia Slight; MCH 28.1 pg (25.0-35.0); MCHC 31.7 g/dL (31.0-37.0); MCV 88.9 fL (80.0-100.0); Mean Platelet Volume 7.6; Platelet Count 306 k/uL (150-450); RBC 4.89 m/uL (4.30-5.90); RDW 15.6 % (11.5-15.5); WBC 8.2 k/uL (3.8-10.6)
[2023-03-10 10:23] LABS: ALT 111 U/L (4-49); AST 91 U/L (17-59); African American GFR (CKD) 62 (>60 ml/min/1.73 sqM); Albumin 2.9 g/dL (3.5-5.0); Alkaline Phosphatase 95 U/L (38-126); Anion Gap 7 mmol/L; Blood Urea Nitrogen 19 mg/dL (9-20); Calcium 8.7 mg/dL (8.4-10.2); Carbon Dioxide 29 mmol/L (22-30); Chloride 99 mmol/L (98-107); Glucose 284 mg/dL (74-99); Non-African American GFR(CKD) 53 (>60 ml/min/1.73 sqM); Potassium 4.7 mmol/L (3.5-5.1); Sodium 135 mmol/L (137-145); Total Bilirubin 0.8 mg/dL (0.2-1.3); Total Protein 5.9 g/dL (6.3-8.2)
[2023-03-10 11:23] LABS: Glucose,Whole Blood 218 mg/dL (70-110)
--- NOTE | 2023-03-10 13:43 | P.PN ---
Subjective Progress Note Date: 03/10/23 Patient is a 67-year-old male with past medical history of coronary artery disease, CABG, chronic kidney disease, COPD diabetes, previous diabetic foot wound with left second toe amputation who presented to the ER for right foot swelling and pain. Patient was all right 5 days back when he started noticing of wound on his right third toe, it was completed with swelling of his right fourth. Patient also has noticed that there was a lot of redness going up his foot to his blanco. Patient also noticed drainage from his right third toe. Because of this right foot swelling and redness, patient went to his PCP who told him to come to the ER immediately. Initial lab work done in the ER showed WBC 15.9 hemoglobin 14.9 platelet count 246, sodium 133, potassium 4.8, BUN 27, creatinine 1.88 X-ray foot done showed destructive changes of distal phalanx of third digit compatible with osteomyelitis Patient was admitted to medicine service 03/06. Patient seen and examined. Denies any lethargy or weakness. No episode of any fevers. currently nothing by mouth going for surgery today 03/07. Patient seen and examined. Patient mental status pretty stressed after surgery, had to be placed on BiPAP. Currently saturating well on 4 L of oxygen. States he feels much better. Denies any shortness of breath right now 03/08. Patient seen and examined. Patient respiratory status improved, currently on room air. Denies any shortness of breath. Denies any chest pain 03/09. Patient seen and examined. Denies any pain in his right foot. Not requiring any oxygen. 03/10. Patient seen and examined. Labs were done this morning showed to be 6.2, hemoglobin 30.8, sodium 139, potassium 4.7, BUN 19, creatinine 1.38 REVIEW OF SYSTEMS: CONSTITUTIONAL: No fever, no malaise,. CARDIOVASCULAR: No chest pain, no palpitations, no syncope. PULMONARY: No shortness of breath, no cough, GASTROINTESTINAL: No diarrhea, no nausea, no vomiting, no abdominal pain. NEUROLOGICAL: No headaches, no weakness, PHYSICAL EXAMINATION: GENERAL: The patient is alert and oriented x3, not in any acute distress. Well developed, well nourished. HEENT: Pupils are round and equally reacting to light. EOMI. No scleral icterus. No conjunctival pallor. Normocephalic, atraumatic. No pharyngeal erythema. No thyromegaly. CARDIOVASCULAR: S1 and S2 present. No murmurs, rubs, or gallops. PULMONARY: Diminished breath sounds at the bases bilaterally ABDOMEN: Soft, nontender, nondistended, normoactive bowel sounds. No palpable organomegaly. MUSCULOSKELETAL: Right foot bandaged seen EXTREMITIES: No cyanosis, clubbing, or pedal edema. NEUROLOGICAL: Gross neurological examination did not reveal any focal deficits. SKIN: No rashes. Assessment and plan Right foot cellulitis Acute hypoxic respiratory failure Osteomyelitis of right foot Wet gangrene of right foot. Diabetes mellitus Hypertension Monitor vital signs Monitor CBC Monitor CMP Continue telemetry monitoring Aggressive bronchopulmonary hygiene Encourage use of I-S Follow-up on blood cultures Continue pharmacy dose vancomycin and Unasyn Monitor blood sugar levels, continue sliding scale insulin Continue wound care Follow-up in ID recommendations vascular surgery evaluated the patient, status post right third toe amputation, continue wound care Follow-up on pulmonary recommendations Labs and medication were reviewed.. Continue same treatment. Continue with symptomatic treatment. Resume home medication. Monitor labs and vitals. DVT and GI prophylaxis. Further recommendations as per clinical course of the patient Dictation was produced using [employer] dictation software. please excuse any grammatical, word or spelling errors. Objective - Vital Signs Vital signs: Vital Signs Temp 98.2 F 03/10/23 09:20 Pulse 83 03/10/23 09:20 Resp 18 03/10/23 09:20 BP 136/75 03/10/23 09:20 Pulse Ox 95 03/10/23 09:20 FiO2 36 03/07/23 05:18 Intake & Output 03/09/23 03/10/23 03/10/23 18:59 06:59 18:59 Intake Total 240 240 Output Total 800 250 300 Balance -560 -250 -60 Intake: Oral 240 240 Output: Urine 800 250 300 Other: Voiding Method Toilet Urinal # Voids 2 # Bowel Movements 1 - Labs CBC & Chem 7: 03/10/23 08:55 03/10/23 08:55 Labs: Abnormal Lab Results - Last 24 Hours (Table) 03/09/23 03/09/23 03/09/23 Range/Units 09:44 09:44 11:25 RDW 15.6 H (11.5-15.5) % Neutrophils # 7.9 H (1.3-7.7) k/uL Sodium 135 L (137-145) mmol/L Chloride 97 L (98-107) mmol/L Creatinine 1.29 H (0.66-1.25) mg/dL Glucose 147 H (74-99) mg/dL POC Glucose (mg/dL) 138 H (70-110) mg/dL AST 148 H (17-59) U/L ALT 130 H (4-49) U/L Total Protein (6.3-8.2) g/dL Albumin 3.3 L (3.5-5.0) g/dL 03/09/23 03/09/23 03/10/23 Range/Units 16:22 20:03 06:07 RDW (11.5-15.5) % Neutrophils # (1.3-7.7) k/uL Sodium (137-145) mmol/L Chloride (98-107) mmol/L Creatinine (0.66-1.25) mg/dL Glucose (74-99) mg/dL POC Glucose (mg/dL) 174 H 224 H 141 H (70-110) mg/dL AST (17-59) U/L ALT (4-49) U/L Total Protein (6.3-8.2) g/dL Albumin (3.5-5.0) g/dL 03/10/23 03/10/23 Range/Units 08:55 08:55 RDW 15.6 H (11.5-15.5) % Neutrophils # (1.3-7.7) k/uL Sodium 135 L (137-145) mmol/L Chloride (98-107) mmol/L Creatinine 1.38 H (0.66-1.25) mg/dL Glucose 284 H (74-99) mg/dL POC Glucose (mg/dL) (70-110) mg/dL AST 91 H (17-59) U/L ALT 111 H (4-49) U/L Total Protein 5.9 L (6.3-8.2) g/dL Albumin 2.9 L (3.5-5.0) g/dL Microbiology - Last 24 Hours (Table) 03/06/23 16:50 Anaerobic Culture - Preliminary Toe - Right Third 03/05/23 14:45 Blood Culture Gram Stain - Final Blood Blood Culture - Final Coagulase Negative Staph
[2023-03-10 16:28] LABS: Glucose,Whole Blood 147 mg/dL (70-110)
--- NOTE | 2023-03-10 16:50 | P.PN ---
Subjective Progress Note Date: 03/10/23 Principal diagnosis: Right diabetic foot infection/cellulitis and gangrene of the toe Patient is a 67-year-old male with a past medical history significant for diabetes mellitus hypertension hyperlipidemia renal insufficiency did have a previous history of diabetic foot infection requiring amputation of the left second toe patient is presenting to the ER concerning for the right foot swelling and redness, symptom has been going on for about a week. Patient is status post right third toe amputation completed on 03/06/2023 apparently the patient aspirated postextubation and has been transferred to the cardiology unit On Todays Visit that is 03/10/2023, the patient denies any fever or chills, the patient is breathing comfortably on room air , patient denies having any chest pain shortness of breath or cough , the patient denies nausea vomiting no abdominal pain or diarrhea denies pain to the right foot. Patient white count is down to 8.2 creatinine is 1.38, local cultures growing Staphylococcus agalactiae and Staph aureus blood cultures with staph epi likely contamination. Objective - Vital Signs Vital signs: Vital Signs Temp 98.2 F 03/10/23 13:55 Pulse 78 03/10/23 13:55 Resp 18 03/10/23 13:55 BP 120/64 03/10/23 13:55 Pulse Ox 96 03/10/23 13:55 FiO2 36 03/07/23 05:18 Intake & Output 03/09/23 03/10/23 03/10/23 18:59 06:59 18:59 Intake Total 240 350 Output Total 800 250 300 Balance -560 -250 50 Intake: Oral 240 350 Output: Urine 800 250 300 Other: Voiding Method Toilet Toilet Urinal Urinal # Voids 2 # Bowel Movements 1 - Exam GENERAL DESCRIPTION: An elderly male lying in bed in no distress RESPIRATORY SYSTEM: Unlabored breathing , decreased breath sounds at bases HEART: S1 S2 regular rate and rhythm , ABDOMEN: Soft , no tenderness EXTREMITIES: Right foot is currently dressed - Labs CBC & Chem 7: 03/10/23 08:55 03/10/23 08:55 Labs: Abnormal Lab Results - Last 24 Hours (Table) 03/09/23 03/10/23 03/10/23 Range/Units 20:03 06:07 08:55 RDW (11.5-15.5) % Sodium 135 L (137-145) mmol/L Creatinine 1.38 H (0.66-1.25) mg/dL Glucose 284 H (74-99) mg/dL POC Glucose (mg/dL) 224 H 141 H (70-110) mg/dL AST 91 H (17-59) U/L ALT 111 H (4-49) U/L Total Protein 5.9 L (6.3-8.2) g/dL Albumin 2.9 L (3.5-5.0) g/dL 03/10/23 03/10/23 03/10/23 Range/Units 08:55 11:20 16:27 RDW 15.6 H (11.5-15.5) % Sodium (137-145) mmol/L Creatinine (0.66-1.25) mg/dL Glucose (74-99) mg/dL POC Glucose (mg/dL) 218 H 147 H (70-110) mg/dL AST (17-59) U/L ALT (4-49) U/L Total Protein (6.3-8.2) g/dL Albumin (3.5-5.0) g/dL Microbiology - Last 24 Hours (Table) 03/06/23 16:50 Anaerobic Culture - Preliminary Toe - Right Third Assessment and Plan (1) Cellulitis of right foot Current Visit: Yes Status: Acute Code(s): L03.115 - CELLULITIS OF RIGHT LOWER LIMB SNOMED Code(s): 596233315 (2) Diabetic foot ulcer Current Visit: Yes Status: Acute Code(s): E11.621 - TYPE 2 DIABETES MELLITUS WITH FOOT ULCER; L97.509 - NON-PRESSURE CHRONIC ULCER OTH PRT UNSP FOOT W UNSP SEVERITY SNOMED Code(s): 752410401 (3) Diabetic wet gangrene of the foot Current Visit: Yes Status: Acute Code(s): E11.52 - 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 2patient has been evaluated by vascular surgery and Patient is status post am putation of right third toe and deep cultures which will be followed. 3patient with the staph epi bacteremia likely contamination blood cultures has been repeated to document clearance of his bacteremia. 4patient to continue with Unasyn , plan for PICC line for outpatient IV antibiotic therapy and close outpatient follow-up Dictation was produced using [employer] dictation software. please excuse any grammatical, word or spelling errors. Time with Patient: Less than 30
[2023-03-10] MEDS: LOPERAMIDE 2 MG CAP PO PRN (17:36)
[2023-03-10 20:02] LABS: Glucose,Whole Blood 174 mg/dL (70-110)
[2023-03-11 06:16] LABS: Glucose,Whole Blood 138 mg/dL (70-110)
[2023-03-11] MEDS: AMPICILLIN-SULBACTAM 3 GM in SODIUM CHLORIDE 0.9% 100 ML IVPB SCH ×2 (06:18→11:25)
[2023-03-11] MEDS: INSULIN ASPART (NovoLOG) 100 UNIT/ML VIAL SQ SCH ×2 (06:19→11:31)
[2023-03-11] MEDS ORDERED: LIDOCAINE 1% INJ 10MG/ML (5 ML VIAL-PF) SQ ONE (08:49)
[2023-03-11 09:07] VITALS: RESP 16; TEMP 98.4
[2023-03-11] MEDS: MAGNESIUM OXIDE 400 MG TAB PO SCH (09:17)
[2023-03-11] MEDS: METOPROLOL SUCCINATE (ER) 100 MG TAB.ER.24H PO SCH (09:17)
[2023-03-11] MEDS: DULoxetine HCL 60 MG CAPSULE.DR PO SCH (09:17)
[2023-03-11] MEDS: FERROUS SULFATE 325 MG TAB PO SCH (09:17)
[2023-03-11] MEDS: PREGABALIN 75 MG CAP PO SCH (09:17)
[2023-03-11] MEDS: REPAGLINIDE 1 MG TAB PO SCH (09:17)
[2023-03-11] MEDS: ATORVASTATIN 80 MG TAB PO SCH (09:17)
[2023-03-11] MEDS: allopurinoL 100 MG TAB PO SCH (09:17)
[2023-03-11] MEDS: LOPERAMIDE 2 MG CAP PO PRN (09:23)
--- NOTE | 2023-03-11 10:00 | P.PN ---
Subjective Progress Note Date: 03/11/23 Principal diagnosis: Right third toe infection Patient was seen and examined today as a follow-up. He just went for PICC line placement today. Plan is for discharge home with home care. He denies any fevers or chills. Pain has been well managed. Objective - Vital Signs Vital signs: Vital Signs Temp 98.4 F 03/11/23 09:07 Pulse 78 03/11/23 09:07 Resp 16 03/11/23 09:07 BP 133/73 03/11/23 09:07 Pulse Ox 94 L 03/11/23 09:07 FiO2 21 03/11/23 07:58 Intake & Output 03/10/23 03/11/23 03/11/23 18:59 06:59 18:59 Intake Total 460 0 Output Total 300 1025 Balance 160 -1025 0 Intake: Oral 460 0 Output: Urine 300 1025 Other: Voiding Method Toilet Toilet Urinal Urinal - Exam General appearance: The patient is alert, oriented, appears in no acute distress. HET: Head is normocephalic and atraumatic. Neck: Supple.. Abdomen: Soft, nondistended. Extremities: Lower extremity edema. Right great toe amputation site with serosanguineous drainage, sutures are intact. Neurological: No focal deficits. - Labs CBC & Chem 7: 03/10/23 08:55 03/10/23 08:55 Labs: Abnormal Lab Results - Last 24 Hours (Table) 03/10/23 03/10/23 03/10/23 Range/Units 08:55 08:55 11:20 RDW 15.6 H (11.5-15.5) % Sodium 135 L (137-145) mmol/L Creatinine 1.38 H (0.66-1.25) mg/dL Glucose 284 H (74-99) mg/dL POC Glucose (mg/dL) 218 H (70-110) mg/dL AST 91 H (17-59) U/L ALT 111 H (4-49) U/L Total Protein 5.9 L (6.3-8.2) g/dL Albumin 2.9 L (3.5-5.0) g/dL 03/10/23 03/10/23 03/11/23 Range/Units 16:27 20:01 06:15 RDW (11.5-15.5) % Sodium (137-145) mmol/L Creatinine (0.66-1.25) mg/dL Glucose (74-99) mg/dL POC Glucose (mg/dL) 147 H 174 H 138 H (70-110) mg/dL AST (17-59) U/L ALT (4-49) U/L Total Protein (6.3-8.2) g/dL Albumin (3.5-5.0) g/dL Microbiology - Last 24 Hours (Table) 03/09/23 09:44 Blood Culture - Preliminary Blood 03/05/23 14:30 Blood Culture - Final Blood Assessment and Plan Assessment: 1. Diabetic foot infection, right third toe status post amputation Plan: 1. Continue wet-to-dry dressing changes daily 2. Heel touch weightbearing. Utilize walker when ambulating 3. Postop shoe Thank you for this consultation, patient is clear from vascular surgery for discharge. Follow-up in 10 days. The impression and plan of care has been dictated as directed. I performed a history and examination of this patient, discussed the same with the dictator. I agree with the dictator's note ,documented as a scribe. Any additional findings or plans will be noted.
--- NOTE | 2023-03-11 10:28 | IR ---
PICC LINE PLACEMENT: HISTORY: Infection requiring long-term antibiotic therapy PROCEDURE: Ultrasound and fluoroscopic guidance of PICC line placement. COMPLICATIONS: None ANESTHESIA: 1. 1% Lidocaine locally. FINDINGS/TECHNIQUE: The procedure was explained to the patient. The risks, complications, benefits and alternatives were discussed and any questions were answered. Informed consent was obtained. The patient was placed supine on the fluoroscopic table and prepped and draped in the usual sterile fash ion. Utilizing a 21 gauge needle and sonographic and fluoroscopic guidance, access in the left basi lic vein was achieved and there is placement of a 0.018 guidewire. The vein is patent. A 4-F sheath was placed over the guidewire. The guidewire and dilator were removed and a 4-F. PICC line was plac ed through the sheath with the tip at the level of the SVC. The sheath was removed, the catheter was flushed and sutured into position. The patient was stable throughout the procedure and remained sta ble upon discharge from the Department of Radiology. The vein puncture was patent under ultrasound. A wesley scale image was obtained to document patency of the vein punctured. All elements of the maximal barrier technique were utilized. FLUOROSCOPY TIME: DAP 0.184Gy cm2 IMPRESSION: Successful PICC line placement under ultrasound and fluoroscopic guidance.
[2023-03-11 11:23] LABS: Glucose,Whole Blood 167 mg/dL (70-110)
[2023-03-11 11:25] VITALS: BP 126/78; PULSE 80
--- NOTE | 2023-03-11 13:17 | P.DS ---
Providers Date of admission: 03/05/23 14:27 Expected date of discharge: 03/11/23 Attending physician: Rogelio Koehler Consults: 03/05/23 14:27 Consult Physician Routine Consulting Provider: Lillie Valenzuela Consult Reason/Comments: Foot infection Do you want consulting provider notified?: Yes Consult Physician Routine Consulting Provider: Sherri Becker Consult Reason/Comments: foot Infection Do you want consulting provider notified?: Yes 03/06/23 21:52 Consult Physician Routine Consulting Provider: Gerber Lockett Consult Reason/Comments: BiPAP management, Aspiration Do you want consulting provider notified?: Already Contacted Primary care physician: [facility] Course: Discharge diagnoses; Right foot cellulitis Acute hypoxic respiratory failure Osteomyelitis of right foot Wet gangrene of right foot. Diabetes mellitus Hypertension Hospital course; Patient is a 67-year-old male with past medical history of coronary artery disease, CABG, chronic kidney disease, COPD diabetes, previous diabetic foot wound with left second toe amputation who presented to the ER for right foot swelling and pain. Patient was all right 5 days back when he started noticing of wound on his right third toe, it was completed with swelling of his right fourth. Patient also has noticed that there was a lot of redness going up his foot to his blanco. Patient also noticed drainage from his right third toe. Because of this right foot swelling and redness, patient went to his PCP who told him to come to the ER immediately. Initial lab work done in the ER showed WBC 15.9 hemoglobin 14.9 platelet count 246, sodium 133, potassium 4.8, BUN 27, creatinine 1.88 X-ray foot done showed destructive changes of distal phalanx of third digit compatible with osteomyelitis Patient was admitted to medicine service 03/06. Patient seen and examined. Denies any lethargy or weakness. No episode of any fevers. currently nothing by mouth going for surgery today 03/07. Patient seen and examined. Patient mental status pretty stressed after surgery, had to be placed on BiPAP. Currently saturating well on 4 L of oxygen. States he feels much better. Denies any shortness of breath right now 03/08. Patient seen and examined. Patient respiratory status improved, currently on room air. Denies any shortness of breath. Denies any chest pain 03/09. Patient seen and examined. Denies any pain in his right foot. Not requiring any oxygen. 03/10. Patient seen and examined. Labs were done this morning showed to be 6.2, hemoglobin 30.8, sodium 139, potassium 4.7, BUN 19, creatinine 1.38 03/11. Patient seen and examined. Patient discharged on IV cefazolin and Flagyl. Outpatient follow-up with ID and vascular PHYSICAL EXAMINATION: GENERAL: The patient is alert and oriented x3, not in any acute distress. Well developed, well nourished. HEENT: Pupils are round and equally reacting to light. EOMI. No scleral icterus. No conjunctival pallor. Normocephalic, atraumatic. No pharyngeal erythema. No thyromegaly. CARDIOVASCULAR: S1 and S2 present. No murmurs, rubs, or gallops. PULMONARY: Diminished breath sounds at the bases bilaterally ABDOMEN: Soft, nontender, nondistended, normoactive bowel sounds. No palpable organomegaly. MUSCULOSKELETAL: Right foot bandaged seen EXTREMITIES: No cyanosis, clubbing, or pedal edema. NEUROLOGICAL: Gross neurological examination did not reveal any focal deficits. SKIN: No rashes. Dictation was produced using [employer] dictation software. please excuse any grammatical, word or spelling errors. Patient Condition at Discharge: Stable Plan - Discharge Summary Discharge Rx Participant: Yes New Discharge Prescriptions: New metroNIDAZOLE [Flagyl] 500 mg PO TID #90 tab Continue Pregabalin [Lyrica] 150 mg PO BID Buprenorphine [Butrans 10 MCG/HOUR] 1 patch TRANSDERM FR Dulaglutide [Trulicity] 0.75 mg SQ FR Metoprolol Succinate (ER) [Toprol XL] 100 mg PO DAILY Losartan [Cozaar] 25 mg PO DAILY allopurinoL [Zyloprim] 100 mg PO DAILY Fluticasone Nasal [place] [Flonase Nasal [place]] 2 spray EA NOSTRIL DAILY Linagliptin [Tradjenta] 5 mg PO DAILY Magnesium Oxide [Mag-Ox] 400 mg PO BID Repaglinide [Prandin] 2 mg PO BID Diclofenac Sodium [Voltaren Arthritis Pain 1% Gel] 1 applic TOPICAL DAILY PRN PRN Reason: ARTHRITIS DULoxetine HCL [Cymbalta] 60 mg PO DAILY Albuterol Sulfate [Ventolin HFA] 1 - 2 puff INHALATION RT-Q6H PRN PRN Reason: Shortness Of Breath Rosuvastatin Calcium [Crestor] 40 mg PO DAILY metFORMIN HCL [Glucophage] 1,000 mg PO BID Ketorolac 0.5% Ophth Soln [Acular 0.5%] 1 drops BOTH EYES QID Ferrous Sulfate [Iron (65 MG Elemental)] 325 mg PO DAILY Discontinued metroNIDAZOLE [metroNIDAZOLE 0.75%] 1 applic TOPICAL DAILY PRN PRN Reason: PSORIASIS Discharge Medication List Fluticasone Nasal [place] [Flonase Nasal [place]] 2 spray EA NOSTRIL DAILY 04/18/21 [History] Linagliptin [Tradjenta] 5 mg PO DAILY 04/18/21 [History] Magnesium Oxide [Mag-Ox] 400 mg PO BID 04/18/21 [History] Pregabalin [Lyrica] 150 mg PO BID 04/18/21 [History] allopurinoL [Zyloprim] 100 mg PO DAILY 04/18/21 [History] Repaglinide [Prandin] 2 mg PO BID 05/02/22 [History] Buprenorphine [Butrans 10 MCG/HOUR] 1 patch TRANSDERM FR 11/05/22 [History] DULoxetine HCL [Cymbalta] 60 mg PO DAILY 11/05/22 [History] Diclofenac Sodium [Voltaren Arthritis Pain 1% Gel] 1 applic TOPICAL DAILY PRN 11/05/22 [History] Albuterol Sulfate [Ventolin HFA] 1 - 2 puff INHALATION RT-Q6H PRN 03/05/23 [History] Dulaglutide [Trulicity] 0.75 mg SQ FR 03/05/23 [History] Ferrous Sulfate [Iron (65 MG Elemental)] 325 mg PO DAILY 03/05/23 [History] Ketorolac 0.5% Ophth Soln [Acular 0.5%] 1 drops BOTH EYES QID 03/05/23 [History] Losartan [Cozaar] 25 mg PO DAILY 03/05/23 [History] Metoprolol Succinate (ER) [Toprol XL] 100 mg PO DAILY 03/05/23 [History] Rosuvastatin Calcium [Crestor] 40 mg PO DAILY 03/05/23 [History] metFORMIN HCL [Glucophage] 1,000 mg PO BID 03/05/23 [History] metroNIDAZOLE [Flagyl] 500 mg PO TID #90 tab 03/11/23 [Rx] Follow up Appointment(s)/Referral(s): Andrew Pierce MD [Primary Care Provider] - 1-2 days Lillie Valenzuela DO [STAFF PHYSICIAN] - 04/02/23 1:15 pm [facility], [NON-STAFF] - 1-2 Days ([facility] will call you to schedule your in home nursing and physical therapy visits. ) Sherri Becker MD [STAFF PHYSICIAN] - 2 Weeks Discharge Disposition: HOME WITH HOME HEALTH SERVICES
== END 2023-03-11 14:51 | disposition home health service (06) | DRG 314 ==
LOC: EC 13:15 → 4SSUR 14:27 → 3SCARD 03-06 22:10
PROVIDERS: ADMIT Hospitalist; ATTEND Hospitalist
PROC: 5A09357 Assistance with Respiratory Ventilation, Less than 24 Consecutive Hours, Continuous Positive Airway Pressure (ICD-10-PCS; 2023-03-06)
PROC: 0Y6T0Z0 Detachment at Right 3rd Toe, Complete, Open Approach (ICD-10-PCS; principal; 2023-03-07)
PROC: 02HV33Z Insertion of Infusion Device into Superior Vena Cava, Percutaneous Approach (ICD-10-PCS; 2023-03-11)
DX: E11.69 Type 2 diabetes mellitus with other specified complication (principal); M86.9 Osteomyelitis, unspecified; Z79.84 Long term (current) use of oral hypoglycemic drugs; E11.22 Type 2 diabetes mellitus with diabetic chronic kidney disease; E11.40 Type 2 diabetes mellitus with diabetic neuropathy, unspecified; E11.52 Type 2 diabetes mellitus with diabetic peripheral angiopathy with gangrene; E11.621 Type 2 diabetes mellitus with foot ulcer; E11.628 Type 2 diabetes mellitus with other skin complications; E78.5 Hyperlipidemia, unspecified; F41.9 Anxiety disorder, unspecified; I12.9 Hypertensive chronic kidney disease with stage 1 through stage 4 chronic kidney disease, or unspecified chronic kidney disease; I25.10 Atherosclerotic heart disease of native coronary artery without angina pectoris; J44.9 Chronic obstructive pulmonary disease, unspecified; J96.01 Acute respiratory failure with hypoxia; L03.115 Cellulitis of right lower limb; L97.519 Non-pressure chronic ulcer of other part of right foot with unspecified severity; L40.9 Psoriasis, unspecified; M19.90 Unspecified osteoarthritis, unspecified site; N18.9 Chronic kidney disease, unspecified; Z79.82 Long term (current) use of aspirin; Z79.899 Other long term (current) drug therapy; Z82.49 Family history of ischemic heart disease and other diseases of the circulatory system; Z83.3 Family history of diabetes mellitus; Z87.891 Personal history of nicotine dependence; Z89.422 Acquired absence of other left toe(s); Z95.1 Presence of aortocoronary bypass graft; Z95.5 Presence of coronary angioplasty implant and graft
CPT/HCPCS: 36573; 71045; 80053; 80202; 82565; 83036; 83605; 85025; 85027; 85610; 85730; 87040; 87070; 87075; 87077; 87102; 87186; 87205; 87324; 94640; 94660; 94760; 96365; 96368; 99285

== ENCOUNTER 2024-01-19 14:50 | Inpatient (IN) | payer MEDICARE, OTHER ==
--- NOTE | 2024-01-19 15:12 | ED ---
Extremity Problem HPI - General Source: patient, RN notes reviewed Mode of arrival: ambulatory Limitations: no limitations <Leticia Teague - Last Filed: 01/19/24 15:10> - General Source: patient, RN notes reviewed Limitations: no limitations <Derik Garcia - Last Filed: 01/19/24 17:27> - General Stated complaint: R foot issue-sent by PCP Time Seen by Provider: 01/19/24 15:10 - History of Present Illness Initial comments: Quick note: 68-year-old male presented to the ER with a chief complaint of right great toe wound. He states he has a history of multiple digit amputations on the right foot. He states his right great toe does not have a nail and wound culture last week was performed. Patient has been following up with Dr. Pierce and has been taking oral antibiotics for approximately 1 week. He was told to come to the ER by PCP for admission and IV antibiotics. (Leticia Teague) Patient is a 68-year-old male presenting to the emergency department with concerns of right foot swelling. Onset was around 10 days ago. Patient was started on doxycycline several days ago with his doctor without improvement. No pain. Patient did have culture done which showed positive results. Patient was advised to come to the hospital. Patient does have history of previous osteomyelitis with toe resection. Patient is diabetic. (Derik Garcia) - Related Data Home Medications Medication Instructions Recorded Confirmed Fluticasone Nasal [place] [Flonase 2 spray EA NOSTRIL DAILY 04/18/21 03/05/23 Nasal [place]] Linagliptin [Tradjenta] 5 mg PO DAILY 04/18/21 03/05/23 Magnesium Oxide [Mag-Ox] 400 mg PO BID 04/18/21 03/05/23 Pregabalin [Lyrica] 150 mg PO BID 04/18/21 03/05/23 allopurinoL [Zyloprim] 100 mg PO DAILY 04/18/21 03/05/23 Repaglinide [Prandin] 2 mg PO BID 05/02/22 03/05/23 Buprenorphine [Butrans 10 MCG/HOUR] 1 patch TRANSDERM FR 11/05/22 03/05/23 DULoxetine HCL [Cymbalta] 60 mg PO DAILY 11/05/22 03/05/23 Diclofenac Sodium [Voltaren 1 applic TOPICAL DAILY PRN 11/05/22 03/05/23 Arthritis Pain 1% Gel] Albuterol Sulfate [Ventolin HFA] 1 - 2 puff INHALATION RT-Q6H PRN 03/05/23 03/05/23 Dulaglutide [Trulicity] 0.75 mg SQ FR 03/05/23 03/05/23 Ferrous Sulfate [Iron (65 MG 325 mg PO DAILY 03/05/23 03/05/23 Elemental)] Ketorolac 0.5% Ophth Soln [Acular 1 drops BOTH EYES QID 03/05/23 03/05/23 0.5%] Losartan [Cozaar] 25 mg PO DAILY 03/05/23 03/05/23 Metoprolol Succinate (ER) [Toprol 100 mg PO DAILY 03/05/23 03/05/23 XL] Rosuvastatin Calcium [Crestor] 40 mg PO DAILY 03/05/23 03/05/23 metFORMIN HCL [Glucophage] 1,000 mg PO BID 03/05/23 03/05/23 Previous Rx's Medication Instructions Recorded metroNIDAZOLE [Flagyl] 500 mg PO TID #90 tab 03/11/23 Allergies Allergy/AdvReac Type Severity Reaction Status Date / Time No Known Allergies Allergy Verified 01/19/24 15:11 Review of Systems ROS Other: All systems not noted in ROS Statement are negative. <Leticia Teague - Last Filed: 01/19/24 15:10> ROS Other: All systems not noted in ROS Statement are negative. Constitutional: Denies: fever Eyes: Denies: eye pain ENT: Denies: ear pain Respiratory: Denies: cough Cardiovascular: Denies: chest pain Musculoskeletal: Reports: as per HPI <Derik Garcia - Last Filed: 01/19/24 17:27> ROS Statement: Those systems with pertinent positive or pertinent negative responses have been documented in the HPI. Past Medical History Past Medical History: Asthma, Diabetes Mellitus, GERD/Reflux, Hyperlipidemia, Hypertension, Musculoskeletal Disorder, Osteoarthritis (OA), Renal Disease, Skin Disorder, Sleep Apnea/CPAP/BIPAP Additional Past Medical History / Comment(s): uses CPAP, spinal stenosis, sciatic pain, chronic kidney disease-sees Cui History of Any Multi-Drug Resistant Organisms: None Reported Past Surgical History: Heart Catheterization With Stent, Orthopedic Surgery Additional Past Surgical History / Comment(s): carpal tunnel surg., knee surg., colonoscopies, rhino-septoplasty, left 2nd toe amputated due to infection, ca taracts removed w/lens implants Past Anesthesia/Blood Transfusion Reactions: No Reported Reaction Date of Last Stent Placement:: 2016 Past Psychological History: Anxiety Smoking Status: Former smoker Past Alcohol Use History: None Reported Past Drug Use History: None Reported - Past Family History Sister(s) Family Medical History: Pulmonary Embolus, Skin Disorder Additional Family Medical History / Comment(s): Sister had a PE after surgery. She also has celiac's dx. Pt's nephew thru this sister has had DVTs and PEs and celiac disease. Mother Family Medical History: Cancer Additional Family Medical History / Comment(s): Mother of colon cancer at the age of 59yrs. Father Family Medical History: Congestive Heart Failure (CHF), Myocardial Infarction (VT) Brother(s) Family Medical History: Diabetes Mellitus <Leticia Teague - Last Filed: 01/19/24 15:10> General Exam <Leticia Teague - Last Filed: 01/19/24 15:10> Limitations: no limitations General appearance: alert, in no apparent distress Head exam: Present: normocephalic Eye exam: Present: normal appearance Neck exam: Present: normal inspection Respiratory exam: Present: normal lung sounds bilaterally Cardiovascular Exam: Present: regular rate, normal rhythm GI/Abdominal exam: Present: soft. Absent: tenderness Extremities exam: Present: other (Right foot with swelling of the first MCP and great toe and second toe with erythema) Neurological exam: Present: alert. Absent: motor sensory deficit Psychiatric exam: Present: normal affect, normal mood Skin exam: Present: erythema <Derik Garcia - Last Filed: 01/19/24 17:27> - General Exam Comments Initial Comments: Visual Physical Exam Vital signs reviewed General: Well-appearing, nontoxic, no acute distress. Head: Normocephalic, atraumatic Eyes: PERRLA, EOMI ENT: Airway patent Chest: Nonlabored breathing Skin: No visual rash, normal skin tone Neuro: Alert and oriented 3 Musculoskeletal: No gross abnormalities (Leticia Teague) Course Vital Signs 01/19/24 15:09 Temperature 98.0 F Pulse Rate 77 Respiratory 18 Rate Blood Pressure 123/80 O2 Sat by Pulse 93 L Oximetry Medical Decision Making <Leticia Teague - Last Filed: 01/19/24 15:10> - Lab Data Result diagrams: 01/19/24 15:40 01/19/24 15:40 <Derik Garcia - Last Filed: 01/19/24 17:27> - Medical Decision Making I performed the quick note portion of this chart. Electronically signed by Leticia Teague PA-C (Leticia Teague) Was pt. sent in by a medical professional or institution (GLADYS Clarke, EXPERIMENTAL MACHINIST, urgent care, hospital, or alf...) When possible be specific @ -Patient was sent in by his doctors office Did you speak to anyone other than the patient for history (EMS, parent, family, police, friend...)? What history was obtained from this source @ -No Did you review nursing and triage notes (agree or disagree)? Why? @ -I reviewed and agree with nursing and triage notes Were old charts reviewed (outside hosp., previous admission, EMS record, old EKG, old radiological studies, urgent care reports/EKG's, alf records)? Report findings @ -Previous x-ray reviewed differing from current x-ray Differential Diagnosis (chest pain, altered mental status, abdominal pain women, abdominal pain men, vaginal bleeding, weakness, fever, dyspnea, syncope, headache, dizziness, GI bleed, back pain, seizure, CVA, palpatations, mental health, musculoskeletal)? @ -Differential Fever: Pneumonia, viral URI, endocarditis, myocarditis, pericarditis, otitis, sinusitis, peritonsillar Abscess, retropharyngeal Abscess, epiglottitis, peritonitis, appendicitis, Tracie cystitis, diverticulitis, hepatitis, colitis, UTI, PID, TOA, pyelonephritis, prostatitis, epididymitis, meningitis, encephal itis, pulmonary embolism, CVA, thyroid storm, pancreatitis, adrenal crisis, cavernous sinus thrombosis, this is not meant to be an all-inclusive list. EKG interpreted by me (3pts min.). @ -As above X-rays interpreted by me (1pt min.). @ -X-ray right foot shows concern for osteomyelitis CT interpreted by me (1pt min.). @ -None done U/S interpreted by me (1pt. min.). @ -None done What testing was considered but not performed or refused? (CT, X-rays, U/S, labs)? Why? @ -None What meds were considered but not given or refused? Why? @ -None Did you discuss the management of the patient with other professionals (professionals i.e. , PA, EXPERIMENTAL MACHINIST, lab, RT, psych nurse, social media campaign manager, crewman main battle tank, t eacher, child support case officer, case monitor)? Give summary @ -Case was discussed with Dr. Coe who will admit his patient. 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 He does request vancomycin and infectious disease and vascular consult. Was smoking cessation discussed for >3mins.? @ -No Was critical care preformed (if so, how long)? @ -No Were there social determinants of health that impacted care today? How? (Homelessness, low income, unemployed, alcoholism, drug addiction, transpo rtation, low edu. Level, literacy, decrease access to med. care, skilled nursing, rehab)? @ -No Was there de-escalation of care discussed even if they declined (Discuss DNR or withdrawal of care, Hospice)? DNR status @ -No What co-morbidities impacted this encounter? (DM, HTN, Smoking, COPD, CAD, Cancer, CVA, ARF, Chemo, Hep., AIDS, mental health diagnosis, sleep apnea, morbid obesity)? @ -Diabetes with history of osteomyelitis and previous amputation Was patient admitted / discharged? Hospital course, mention meds given and route, prescriptions, significant lab abnormalities, going to OR and other pe rtinent info. @ -Patient presents with concern for osteomyelitis, confirmed with x-ray. Patient will be admitted with IV antibiotics. Admission orders written Undiagnosed new problem with uncertain prognosis? @ -No Drug Therapy requiring intensive monitoring for toxicity (Heparin, Nitro, Insulin, Cardizem)? @ -No Were any procedures done? @ -No Diagnosis/symptom? @ -Osteomyelitis Acute, or Chronic, or Acute on Chronic? @ -Acute Uncomplicated (without systemic symptoms) or Complicated (systemic symptoms)? @ -Default Side effects of treatment? @ -No Exacerbation, Progression, or Severe Exacerbation? @ -No Poses a threat to life or bodily function? How? (Chest pain, USA, VT, pneumonia, PE, COPD, DKA, ARF, appy, cholecystitis, CVA, Diverticulitis, Homicidal, Suicidal, threat to staff... and all critical care pts) @ -Threat to the limb (Derik Garcia) - Lab Data Lab Results 01/19/24 01/19/24 01/19/24 Range/Units 15:40 15:40 15:40 WBC 6.5 (3.8-10.6) k/uL RBC 5.53 (4.30-5.90) m/uL Hgb 16.5 (13.0-17.5) gm/dL Hct 50.6 (39.0-53.0) % MCV 91.5 (80.0-100.0) fL MCH 29.8 (25.0-35.0) pg MCHC 32.6 (31.0-37.0) g/dL RDW 14.6 (11.5-15.5) % Plt Count 235 (150-450) k/uL MPV 8.0 Neutrophils % 59 % Lymphocytes % 25 % Monocytes % 8 % Eosinophils % 4 % Basophils % 1 % Neutrophils # 3.8 (1.3-7.7) k/uL Lymphocytes # 1.6 (1.0-4.8) k/uL Monocytes # 0.5 (0-1.0) k/uL Eosinophils # 0.3 (0-0.7) k/uL Basophils # 0.1 (0-0.2) k/uL Sodium 132 L (137-145) mmol/L Potassium 5.0 (3.5-5.1) mmol/L Chloride 99 (98-107) mmol/L Carbon Dioxide 23 (22-30) mmol/L Anion Gap 10 mmol/L BUN 39 H (9-20) mg/dL Creatinine 1.41 H (0.66-1.25) mg/dL Est GFR (CKD-EPI)AfAm 60 (>60 ml/min/1.73 sqM) Est GFR (CKD-EPI)NonAf 52 (>60 ml/min/1.73 sqM) Glucose 100 H (74-99) mg/dL Plasma Lactic Acid Sukhwinder 0.7 (0.7-2.0) mmol/L Calcium 9.8 (8.4-10.2) mg/dL Total Bilirubin 0.9 (0.2-1.3) mg/dL AST 40 (17-59) U/L ALT 37 (4-49) U/L Alkaline Phosphatase 77 (38-126) U/L Total Protein 7.3 (6.3-8.2) g/dL Albumin 4.4 (3.5-5.0) g/dL Disposition <Leticia Teague - Last Filed: 01/19/24 15:10> Is patient prescribed a controlled substance at d/c from ED?: No Time of Disposition: 17:27 <Derik Garcia - Last Filed: 01/19/24 17:27> Clinical Impression: Osteomyelitis Disposition: ADMITTED IP TO THIS HOSP Referrals: Andrew Pierce MD [Primary Care Provider] - 1-2 days
--- NOTE | 2024-01-19 15:39 | XR ---
EXAMINATION TYPE: XR foot complete RT DATE OF EXAM: 01/19/2024 CLINICAL HISTORY: pain TECHNIQUE: Frontal, lateral and oblique images of the right foot are obtained. COMPARISON: None. FINDINGS: There is amputation of the right third toe. There is severe degenerative narrowing and bony fragmentation with underlying osseous lucency involving the first metatarsal phalangeal joint. Findi ngs could reflect inflammatory arthropathy such as gout however underlying osteomyelitis is not exclu ded. There is soft tissue edema and suspected soft tissue wound near the plantar aspect of the foot. Soft tissue swelling about the right toe as well. IMPRESSION: Osteomyelitis of the right first toe is difficult to exclude although inflammatory arthropathy is als o a consideration. Correlate clinically.
[2024-01-19 16:27] LABS: Basophils # (A) 0.1 k/uL (0-0.2); Basophils % (A) 1 %; Eosinophils # (A) 0.3 k/uL (0-0.7); Eosinophils % (A) 4 %; HCT 50.6 % (39.0-53.0); HGB 16.5 gm/dL (13.0-17.5); Lymphocytes # (A) 1.6 k/uL (1.0-4.8); Lymphocytes % (A) 25 %; MCH 29.8 pg (25.0-35.0); MCHC 32.6 g/dL (31.0-37.0); MCV 91.5 fL (80.0-100.0); Monocytes # (A) 0.5 k/uL (0-1.0); Monocytes % (A) 8 %; Neutrophils # (A) 3.8 k/uL (1.3-7.7); Neutrophils % (A) 59 %; Platelet Count 235 k/uL (150-450); RBC 5.53 m/uL (4.30-5.90); RDW 14.6 % (11.5-15.5); WBC 6.5 k/uL (3.8-10.6)
[2024-01-19 16:41] LABS: ALT 37 U/L (4-49); AST 40 U/L (17-59); African American GFR (CKD) 60 (>60 ml/min/1.73 sqM); Albumin 4.4 g/dL (3.5-5.0); Alkaline Phosphatase 77 U/L (38-126); Anion Gap 10 mmol/L; Blood Urea Nitrogen 39 mg/dL (9-20); Calcium 9.8 mg/dL (8.4-10.2); Carbon Dioxide 23 mmol/L (22-30); Chloride 99 mmol/L (98-107); Glucose 100 mg/dL (74-99); Non-African American GFR(CKD) 52 (>60 ml/min/1.73 sqM); Sodium 132 mmol/L (137-145); Total Bilirubin 0.9 mg/dL (0.2-1.3); Total Protein 7.3 g/dL (6.3-8.2)
[2024-01-19] MEDS ORDERED: VANCOMYCIN IV PER PHARMACY 1 EACH MISC MISCELLANE PRN (17:28)
[2024-01-19] MEDS ORDERED: NALOXONE 0.4 MG/ML 1 ML VIAL IV PRN (17:28)
[2024-01-19] MEDS ORDERED: ALBUTEROL NEBULIZED 2.5 MG/3 ML INHALATION PRN (17:59)
[2024-01-19] MEDS: SODIUM CHLORIDE 0.9% 1,000 ML IV SCH (18:16)
[2024-01-19] MEDS: VANCOMYCIN 1,750 MG in SODIUM CHLORIDE 0.9% 500 ML 500 ML IVPB STA (18:17)
[2024-01-19] MEDS: MAGNESIUM OXIDE 400 MG TAB PO SCH (18:17)
[2024-01-19 20:09] LABS: Glucose,Whole Blood 118 mg/dL (70-110)
[2024-01-19] MEDS: INSULIN ASPART (NovoLOG) 100 UNIT/ML VIAL SQ SCH (20:46)
[2024-01-19] MEDS: REPAGLINIDE 1 MG TAB PO SCH (20:53)
[2024-01-19] MEDS: PREGABALIN 75 MG CAP PO SCH (20:53)
[2024-01-19] MEDS: FAMOTIDINE 20 MG TAB PO SCH (20:53)
[2024-01-19] MEDS: ATORVASTATIN 80 MG TAB PO SCH (20:58)
[2024-01-19] MEDS: DULoxetine HCL 60 MG CAPSULE.DR PO SCH (20:58)
[2024-01-19] MEDS: BACLOFEN 10 MG TAB PO SCH (20:58)
[2024-01-19] MEDS ORDERED: INSULIN ASPART (NovoLOG) 100 UNIT/ML VIAL SQ SCH (21:00)
--- NOTE | 2024-01-19 21:58 | P.HPIM ---
History of Present Illness H&P Date: 01/19/24 HISTORY OF PRESENT ILLNESS 68-year-old office patient with multiple medical problem who had been on for the last 25 years with active history of CAD post CABG, post angioplasty and stent placement, history of chronic kidney disease, COPD, gout, peripheral arterial disease, chronic neuropathy, nonhealing ulcer of both feet in the past with amputation of the left second toe secondary to osteomyelitis, history of chronic pain syndrome secondary to degenerative disc disease, type 2 diabetes with slightly better long-term blood sugar control, history of hypertension hyperl ipidemia. Patient was in the office over a week ago with Very patient discomfort and cellu litis of the right big toe was started on doxycycline topical care and had a quick follow-up appointment. Return to the office on with worsening irritation discomfort and had lost the toenail already the area underneath has been irritated with erythema redness discomfort and drainage dressing was applied by having silver Silvadene cream and cover the area and continue doxycycline refer for x-ray and lab his x-ray came back with early sign of osteomyelitis culture was done from the site the result came back on Friday compatible with MRSA not susceptible to the doxycycline. Patient was called and instructed to come to the emergency department for possible being hospitalized for early osteomyelitis requiring IV antibiotic to see infectious disease and wound care. He is continue to have significant pain discomfort irritation and drainage from the toe no fever or chills. Laboratory value in the ER shows white blood cell of 6.5 with normal hemoglobin hematocrit creatinine 1.41 with GFR at 52 no sed rate was done lactic acid was only 0.7 blood sugar running in the 100 level. Patient was initiated on vancomycin and will be admitted to the hospital will consult infectious disease and wound clinic. REVIEW OF SYSTEMS Constitutional: No fever, no chills, no night sweats. No weight change. No weakness, fatigue or lethargy. No daytime sleepiness. EENT: No headache. No blurred vision or double vision, no loss of vision. No loss of Hearing, no ringing in the ears, no dizziness. No nasal drainage or congestion. No epistaxis. No sore throat. Lungs: Decreased breaths on bilaterally with mild shortness of breath with exertion no cough or wheezes. Cardiovascular: No chest pain, no lower extremity edema. No palpitations. Positive PND orthopnea with no angina no lightheadedness or dizzinesssyncope. Abdominal: No abdominal pain. No nausea, vomiting. No diarrhea. No constipation. No bloody or tarry stools.. No loss of appetite. Genitourinary: No dysuria, increased frequency, urgency. No urinary retention. Positive polyuria and nocturia. Musculoskeletal: Myalgia with generalized muscle and joint pain and back pain. Extremities: Right big toe severely irritated red swelling discomfort and still have slightly drainage decreased pulse dorsalis pedis. Left second toe the big toe on the left side also has lost its the nail but less irritated and discomfort with slight irritation. Integumentary: No wounds, no lesions. No rash or pruritus. No unusual bruising. No change in hair or nails. Neurologic: No aphasia. No facial droop. No change in mentation. No head injury. No headache. No paralysis. No paresthesia. Psychiatric: Chronic depression with no anxiety or mood swing. Endocrine: Blood sugar has been well-controlled in the 100 level has been making good urine output lately. SOCIAL HISTORY He quit smoking 15 years ago used to smoke a pack a day for over 30 years. He drinks alcohol socially he is single and lives alone. FAMILY HISTORY His mother from colon cancer at age 59, father dying from congestive heart failure the 70s, patient had 1 sister with DVT and one brother who is diabetic. PHYSICAL EXAMINATION Gen: Overweight more obese in no acute respiratory distress HEENT: Head is atraumatic, normocephalic. Pupils equal, round. Sclerae is anicteric. NECK: Supple. No JVD. No lymphadenopathy. No thyromegaly. LUNGS: Decreased breaths on bilaterally with rhonchi no crackles or wheezes. HEART: Irregular the spinous to positive S3 positive systolic murmur. ABDOMEN: Soft. Bowel sounds are present. No masses. No tenderness. EXTREMITIES: Significant edema, erythema, discomfort irritation redness and drainage from the right total decreased pulse dorsalis pedis left big toe has less irritation and discomfort. Amputation of the left second toe. Still have mild callus and slight deformity in both feet. NEUROLOGICAL: Patient is awake, alert and oriented x3. Cranial nerves 2 through 12 are grossly intact. ASSESSMENT AND PLAN _ Severe osteomyelitis of the right big toe: Start vancomycin continue topical care consult infectious disease and vascular for now also wound care as well culture was already performed and showed MRSA not susceptible to doxycycline but susceptible to vancomycin ROJAS time repeat CRP C-reactive protein and CBC tomorrow. _ Severe cellulitis of the right foot: Continue vancomycin, culture was positive for MRSA. _ Severe PAD of both lower extremity worse on the right than the left side will consult vascular further testing including arterial arteriogram might need to be done. _Type 2 diabetes: Has been slightly better control will last A1c was in the mid 7 he is remain currently on combination of Tradjenta 5 mg a day, Prandin 2 mg twice a day, Glucophage 1000 mg twice a day will keep patient on NovoLog Accu- Chek with sliding scales coverage and he was on Mounjaro total of 12.5 mg a day which was helping quite bit. _ Chronic kidney disease: Mostly stage III yea: Continue to watch for any nephrotoxic agent repeat CMP daily. _Multiple coronary artery disease: Post CABG in the past with stent placement in the past as well last heart catheter was done 2 years ago with total occlusion of the distal right coronary artery this is in-stent occlusion with intermediate disease of the OM. He is still seen cardiology regular basis and still medical management. _ Chronic pain syndrome: Remain on Butrans and hydrocodone has been doing much better still on Lyrica as well. _Hypertension: Remain on combination of losartan 25 mg a day metoprolol succinate 100 mg daily. _Hyperlipidemia: Continue atorvastatin 80 mg a day with target for LDL below 70. _Chronic diabetic peripheral neuropathy: Has been on Lyrica 150 mg twice a day still on duloxetine as well. _Mild COPD: Has been on rescue inhaler mostly not require any oxygen lately and doing very well. _Severe recurrent diabetic foot with multiple ulcer and infection site: Post IV and oral antibiotic management continue topical care as well patient seen vascular and infectious disease on regular basis. _GI prophylaxis: Remain on pantoprazole 40 mg a day. _DVT prophylaxis: Start Lovenox 40 mg subcutaneous daily. CODE STATUS: Full code. Admit patient to the inpatient service for more than 2 night stay. Past Medical History Past Medical History: Asthma, Diabetes Mellitus, GERD/Reflux, Hyperlipidemia, Hypertension, Musculoskeletal Disorder, Osteoarthritis (OA), Renal Disease, Skin Disorder, Sleep Apnea/CPAP/BIPAP Additional Past Medical History / Comment(s): uses CPAP, spinal stenosis, sciatic pain, chronic kidney disease-swathi Cui History of Any Multi-Drug Resistant Organisms: None Reported Past Surgical History: Heart Catheterization With Stent, Orthopedic Surgery Additional Past Surgical History / Comment(s): carpal tunnel surg., knee surg., colonoscopies, rhino-septoplasty, left 2nd toe amputated due to infection, cataracts removed w/lens implants Past Anesthesia/Blood Transfusion Reactions: No Reported Reaction Date of Last Stent Placement:: 2016 Past Psychological History: Anxiety Smoking Status: Former smoker Past Alcohol Use History: None Reported Past Drug Use History: None Reported - Past Family History Sister(s) Family Medical History: Pulmonary Embolus, Skin Disorder Additional Family Medical History / Comment(s): Sister had a PE after surgery. She also has celiac's dx. Pt's nephew thru this sister has had DVTs and PEs and celiac disease. Mother Family Medical History: Cancer Additional Family Medical History / Comment(s): Mother of colon cancer at the age of 59yrs. Father Family Medical History: Congestive Heart Failure (CHF), Myocardial Infarction ([place]) Brother(s) Family Medical History: Diabetes Mellitus Medications and Allergies Home Medications Medication Instructions Recorded Confirmed Type Fluticasone Nasal [place] [Flonase 2 spr EA NOSTRIL DAILY 04/18/21 01/19/24 History Nasal [place]] Linagliptin [Tradjenta] 5 mg PO DAILY 04/18/21 01/19/24 History Magnesium Oxide [Mag-Ox] 400 mg PO AC-BID@1200,1800 04/18/21 01/19/24 History Pregabalin [Lyrica] 150 mg PO BID 04/18/21 01/19/24 History allopurinoL [Zyloprim] 100 mg PO PC-LUNCH 04/18/21 01/19/24 History Repaglinide [Prandin] 2 mg PO BID 05/02/22 01/19/24 History Buprenorphine [Butrans 10 MCG/HOUR] 1 patch TRANSDERM FR 11/05/22 01/19/24 History DULoxetine HCL [Cymbalta] 60 mg PO DAILY 11/05/22 01/19/24 History Albuterol Sulfate [Ventolin HFA] 2 puff INHALATION RT-Q4H PRN 03/05/23 01/19/24 History Ferrous Sulfate [Iron (65 MG 325 mg PO PC-LUNCH 03/05/23 01/19/24 History Elemental)] Losartan [Cozaar] 25 mg PO DAILY 03/05/23 01/19/24 History Metoprolol Succinate (ER) [Toprol 100 mg PO DAILY 03/05/23 01/19/24 History XL] Rosuvastatin Calcium [Crestor] 40 mg PO DAILY 03/05/23 01/19/24 History metFORMIN HCL [Glucophage] 1,000 mg PO BID 03/05/23 01/19/24 History Baclofen [Lioresal] 10 mg PO TID 01/19/24 01/19/24 History Doxycycline Hyclate 100 mg PO BID 01/19/24 01/19/24 History Famotidine [Pepcid] 20 mg PO BID 01/19/24 01/19/24 History Tirzepatide [Mounjaro] 12.5 mg SQ SA 01/19/24 01/19/24 History calcitrioL [Rocaltrol] 0.25 mcg PO OROPEZA 01/19/24 01/19/24 History Allergies Allergy/AdvReac Type Severity Reaction Status Date / Time No Known Allergies Allergy Verified 01/19/24 17:31 Physical Exam Vitals: Vital Signs Temp Pulse Resp BP Pulse Ox 01/19/24 15:09 98.0 F 77 18 123/80 93 L Intake and Output 01/19/24 01/19/24 01/19/24 06:59 14:59 22:59 Other: Weight 111.13 kg Results CBC & Chem 7: 01/19/24 15:40 01/19/24 15:40 Labs: Abnormal Lab Results - Last 24 Hours (Table) 01/19/24 Range/Units 15:40 Sodium 132 L (137-145) mmol/L BUN 39 H (9-20) mg/dL Creatinine 1.41 H (0.66-1.25) mg/dL Glucose 100 H (74-99) mg/dL
[2024-01-20 06:17] LABS: Glucose,Whole Blood 63 mg/dL (70-110)
[2024-01-20 06:34] LABS: Glucose,Whole Blood 86 mg/dL (70-110)
[2024-01-20] MEDS: PANTOPRAZOLE 40 MG TABLET PO SCH (06:37)
[2024-01-20 08:36] LABS: Basophils # (A) 0.1 k/uL (0-0.2); Basophils % (A) 1 %; Eosinophils # (A) 0.3 k/uL (0-0.7); Eosinophils % (A) 6 %; HCT 52.1 % (39.0-53.0); HGB 16.3 gm/dL (13.0-17.5); Lymphocytes # (A) 1.3 k/uL (1.0-4.8); Lymphocytes % (A) 24 %; MCH 29.2 pg (25.0-35.0); MCHC 31.2 g/dL (31.0-37.0); MCV 93.6 fL (80.0-100.0); Mean Platelet Volume 7.9; Monocytes # (A) 0.4 k/uL (0-1.0); Monocytes % (A) 7 %; Neutrophils # (A) 3.3 k/uL (1.3-7.7); Neutrophils % (A) 60 %; Platelet Count 222 k/uL (150-450); RBC 5.57 m/uL (4.30-5.90); RDW 14.6 % (11.5-15.5); WBC 5.5 k/uL (3.8-10.6)
[2024-01-20] MEDS: METOPROLOL SUCCINATE (ER) 100 MG TAB.ER.24H PO SCH (08:54)
[2024-01-20] MEDS: LOSARTAN 25 MG TAB PO SCH (08:54)
[2024-01-20] MEDS: LINAGLIPTIN 5 MG TABLET PO SCH (08:55)
[2024-01-20] MEDS: ENOXAPARIN 40 MG/0.4 ML SYRINGE SQ SCH (08:55)
[2024-01-20] MEDS: FLUTICASONE NASAL 50MCG/SPRAY 16GM BTL EA NOSTRIL SCH (08:55)
[2024-01-20 09:03] LABS: ALT 46 U/L (4-49); AST 50 U/L (17-59); African American GFR (CKD) 58 (>60 ml/min/1.73 sqM); Albumin 4.3 g/dL (3.5-5.0); Alkaline Phosphatase 82 U/L (38-126); Anion Gap 9 mmol/L; Blood Urea Nitrogen 38 mg/dL (9-20); C Reactive Protein <0.5 mg/dL (<1.0); Calcium 9.5 mg/dL (8.4-10.2); Carbon Dioxide 26 mmol/L (22-30); Chloride 101 mmol/L (98-107); Glucose 115 mg/dL (74-99); Non-African American GFR(CKD) 50 (>60 ml/min/1.73 sqM); Potassium 5.2 mmol/L (3.5-5.1); Sodium 136 mmol/L (137-145); Total Bilirubin 0.8 mg/dL (0.2-1.3); Total Protein 7.1 g/dL (6.3-8.2)
--- NOTE | 2024-01-20 09:19 | P.CONS ---
History of Present Illness - Reason for Consult Consult date: 01/19/24 Osteomyelitis Requesting physician: Derik Garcia - Chief Complaint Right big toe swelling redness x 1 week - History of Present Illness Patient is a 68-year-old male with a past medical history significant for diabetes mellitus hypertension hyperlipidemia osteoarthritis asthma history of multiple diabetic foot infection and osteomyelitis apparently the patient m braulio he was dealing with a fungal infection to the nails and he pulled out his right big toenail subsequently developing swelling and redness for the patient has been evaluated by his primary care physician and the patient has been treated with the doxycycline and topical care to the right big toe subsequently reevaluation noted to have slight worsening did have cultures obtained which subsequently came back positive with MRSA that was resistant to doxycycline patient was instructed to come to the hospital for IV antibiotic therapy patient denies having any fever or any chills patient denies having any headache or URI symptoms denies having any chest pain or shortness of breath or cough denies having any nausea or vomiting no abdominal pain main symptom remains to be swelling and redness to the right big toe and some drainage he did have underlying diabetic neuropathy denies significant pain on presentation to the hospital the patient was afebrile no fever have recorded subsequently patient did have white count of 6.5 BUN/creatinine has been mildly elevated liver enzymes are normal x-ray of the foot osteomyelitis of the right first toe difficult exclude correlate clinically patient was started on vancomycin infectious disease was consulted for further management of antibiotic therapy blood culture has been obtained Review of Systems Positive point and negatives has been mentioned in the HPI, complete review of systems was performed and all other systems are negative Past Medical History Past Medical History: Asthma, Diabetes Mellitus, GERD/Reflux, Hyperlipidemia, Hypertension, Musculoskeletal Disorder, Osteoarthritis (OA), Renal Disease, Skin Disorder, Sleep Apnea/CPAP/BIPAP Additional Past Medical History / Comment(s): uses CPAP, spinal stenosis, sciatic pain, chronic kidney disease-swathi Cui History of Any Multi-Drug Resistant Organisms: None Reported Past Surgical History: Heart Catheterization With Stent, Orthopedic Surgery Additional Past Surgical History / Comment(s): carpal tunnel surg., knee surg., colonoscopies, rhino-septoplasty, left 2nd toe amputated due to infection, cataracts removed w/lens implants Past Anesthesia/Blood Transfusion Reactions: No Reported Reaction Date of Last Stent Placement:: 2016 Past Psychological History: Anxiety Smoking Status: Former smoker Past Alcohol Use History: None Reported Past Drug Use History: None Reported - Past Family History Sister(s) Family Medical History: Pulmonary Embolus, Skin Disorder Additional Family Medical History / Comment(s): Sister had a PE after surgery. She also has celiac's dx. Pt's nephew thru this sister has had DVTs and PEs and celiac disease. Mother Family Medical History: Cancer Additional Family Medical History / Comment(s): Mother of colon cancer at the age of 59yrs. Father Family Medical History: Congestive Heart Failure (CHF), Myocardial Infarction ([place]) Brother(s) Family Medical History: Diabetes Mellitus Medications and Allergies Home Medications Medication Instructions Recorded Confirmed Type Fluticasone Nasal [place] [Flonase 2 spr EA NOSTRIL DAILY 04/18/21 01/19/24 History Nasal [place]] Linagliptin [Tradjenta] 5 mg PO DAILY 04/18/21 01/19/24 History Magnesium Oxide [Mag-Ox] 400 mg PO AC-BID@1200,1800 04/18/21 01/19/24 History Pregabalin [Lyrica] 150 mg PO BID 04/18/21 01/19/24 History allopurinoL [Zyloprim] 100 mg PO PC-LUNCH 04/18/21 01/19/24 History Repaglinide [Prandin] 2 mg PO BID 05/02/22 01/19/24 History Buprenorphine [Butrans 10 MCG/HOUR] 1 patch TRANSDERM FR 11/05/22 01/19/24 History DULoxetine HCL [Cymbalta] 60 mg PO DAILY 11/05/22 01/19/24 History Albuterol Sulfate [Ventolin HFA] 2 puff INHALATION RT-Q4H PRN 03/05/23 01/19/24 History Ferrous Sulfate [Iron (65 MG 325 mg PO PC-LUNCH 03/05/23 01/19/24 History Elemental)] Losartan [Cozaar] 25 mg PO DAILY 03/05/23 01/19/24 History Metoprolol Succinate (ER) [Toprol 100 mg PO DAILY 03/05/23 01/19/24 History XL] Rosuvastatin Calcium [Crestor] 40 mg PO DAILY 03/05/23 01/19/24 History metFORMIN HCL [Glucophage] 1,000 mg PO BID 03/05/23 01/19/24 History Baclofen [Lioresal] 10 mg PO TID 01/19/24 01/19/24 History Doxycycline Hyclate 100 mg PO BID 01/19/24 01/19/24 History Famotidine [Pepcid] 20 mg PO BID 01/19/24 01/19/24 History Tirzepatide [Mounjaro] 12.5 mg SQ SA 01/19/24 01/19/24 History calcitrioL [Rocaltrol] 0.25 mcg PO OROPEZA 01/19/24 01/19/24 History Allergies Allergy/AdvReac Type Severity Reaction Status Date / Time No Known Allergies Allergy Verified 01/19/24 17:31 Physical Exam Vitals: Vital Signs Temp Pulse Resp BP Pulse Ox 01/19/24 15:09 98.0 F 77 18 123/80 93 L Intake and Output 01/19/24 01/19/24 01/19/24 06:59 14:59 22:59 Other: Weight 111.13 kg GENERAL DESCRIPTION: Elderly male lying in bed, no distress. No tachypnea or accessory muscle of respiration use. HEENT: Shows Pallor , no scleral icterus. Oral mucous membrane is dry. No pharyngeal erythema or thrush NECK: Trachea central, no thyromegaly. LUNGS: Unlabored breathing. Clear to auscultation anteriorly. No wheeze or crackle. HEART: S1, S2, regular rate and rhythm. No loud murmur ABDOMEN: Soft, no tenderness , guarding or rigidity, no organomegaly EXTREMITIES: Right big toe did have swelling redness superficial laceration on the dorsum from removal of his toenail no foul-smelling drainage was noticed SKIN: No rash, no masses palpable. NEUROLOGICAL: The patient is awake, alert, oriented x3, mood and affect normal. Results CBC & Chem 7: 01/20/24 07:39 01/20/24 07:39 Labs: Abnormal Lab Results - Last 24 Hours (Table) 01/19/24 Range/Units 15:40 Sodium 132 L (137-145) mmol/L BUN 39 H (9-20) mg/dL Creatinine 1.41 H (0.66-1.25) mg/dL Glucose 100 H (74-99) mg/dL Assessment and Plan (1) Osteomyelitis of great toe of right foot Current Visit: Yes Status: Acute Code(s): M86.9 - OSTEOMYELITIS, UNSPECIFIED SNOMED Code(s): 592497012 (2) MRSA (methicillin resistant staph aureus) culture positive Current Visit: Yes Status: Acute Code(s): Z22.322 - CARRIER OR SUSPECTED CARRIER OF METHICILLIN RESIS STAPH SNOMED Code(s): 503615549 (3) Diabetic ulcer of right great toe Current Visit: No Status: Acute Code(s): E11.621 - TYPE 2 DIABETES MELLITUS WITH FOOT ULCER; L97.519 - NON-PRS CHRONIC ULCER OTH PRT RIGHT FOOT W UNSP SEVERITY SNOMED Code(s): 235232716 Plan: 1patient presented to hospital with increasing swelling redness to the right big toe and apparently outpatient culture has been positive for MRSA that has been resistant to the doxycycline patient did have significant swelling of the right big toe with abnormal x-ray high clinic suspicious for underlying right big toe osteomyelitis related to the MRSA. 2mild renal insufficiency. 3we will check inflammatory markers blood cultures obtained results will be followed. 4vancomycin pharmacy to dose target trough of 15 while watching kidney function and Vanco trough closely. We will follow on clinical condition and cultures to further adjust medication if needed Thank you for this consultation we will follow the patient along with you Dictation was produced using [employer] dictation software. please excuse any grammatical, word or spelling errors. Time with Patient: Greater than 30
--- NOTE | 2024-01-20 09:50 | P.GSCN ---
History of Present Illness Consult date: 01/20/24 Reason for Consult: Osteomyelitis Requesting physician: Derik Garcia History of present illness: This is a pleasant 68-year-old male with a past medical history of coronary artery disease but post CABG, chronic kidney disease, COPD, gout, chronic neuropathy, type 2 diabetes, and history of nonhealing ulcer 6 and osteomyelitis with of right foot third toe amputation. Patient had presented to the emergency department with concerns of infection. States that his right foot was swelling and his great toe with increased redness. He has seen his PCP Dr. Coe and was started on oral antibiotics. Still continued to have redness and swelling so he came and put to the emergency department for further evaluation. He has been started on IV vancomycin. Patient states swelling and redness has improved already. He has been afebrile. Denies any fevers or chills, no shortness of breath, chest pain abdominal pain, nausea or vomiting. Foot x-ray possible osteomyelitis. Vascular surgery was consulted for osteomyelitis. Patient has followed with Dr. Valenzuela in the past. She did a third toe amputation on the right foot in March 2023. He has not seen her recently. States that he has had arterial studies of the lower extremities and states that he has good blood flow. Review of Systems A 14 point review systems was completed all pertinent positives and negatives as stated in the HPI. Past Medical History Past Medical History: Asthma, Diabetes Mellitus, GERD/Reflux, Hyperlipidemia, Hypertension, Musculoskeletal Disorder, Osteoarthritis (OA), Renal Disease, Skin Disorder, Sleep Apnea/CPAP/BIPAP Additional Past Medical History / Comment(s): uses CPAP, spinal stenosis, sciatic pain, chronic kidney disease-swathi Cui History of Any Multi-Drug Resistant Organisms: None Reported Past Surgical History: Heart Catheterization With Stent, Orthopedic Surgery Additional Past Surgical History / Comment(s): carpal tunnel surg., knee surg., colonoscopies, rhino-septoplasty, left 2nd toe amputated due to infection, right 3rd toe amputation, cataracts removed w/lens implants, heart cath with stent to RCA 2016 Dr. Barreto Past Anesthesia/Blood Transfusion Reactions: No Reported Reaction Date of Last Stent Placement:: 2016 Past Psychological History: Anxiety Additional Psychological History / Comment(s): Pt resides with sister Gresham and dog. He is independent. He has a glucometer. Smoking Status: Former smoker Past Alcohol Use History: None Reported Additional Past Alcohol Use History / Comment(s): quit smoking cigars 10 yrs. ago, only smoked on & off couple yrs. Past Drug Use History: None Reported Additional Drug Use History / Comment(s): Pt smoked marijuana as a young person. - Past Family History Sister(s) Family Medical History: Pulmonary Embolus, Skin Disorder Additional Family Medical History / Comment(s): Sister had a PE after surgery. She also has celiac's dx. Pt's nephew thru this sister has had DVTs and PEs and celiac disease. Mother Family Medical History: Cancer Additional Family Medical History / Comment(s): Mother of colon cancer at the age of 59yrs. Father Family Medical History: Congestive Heart Failure (CHF), Myocardial Infarction (RI) Brother(s) Family Medical History: Diabetes Mellitus Medications and Allergies Home Medications Medication Instructions Recorded Confirmed Type Fluticasone Nasal [place] [Flonase 2 spr EA NOSTRIL DAILY 04/18/21 01/19/24 History Nasal [place]] Linagliptin [Tradjenta] 5 mg PO DAILY 04/18/21 01/19/24 History Magnesium Oxide [Mag-Ox] 400 mg PO AC-BID@1200,1800 04/18/21 01/19/24 History Pregabalin [Lyrica] 150 mg PO BID 04/18/21 01/19/24 History allopurinoL [Zyloprim] 100 mg PO PC-LUNCH 04/18/21 01/19/24 History Repaglinide [Prandin] 2 mg PO BID 05/02/22 01/19/24 History Buprenorphine [Butrans 10 MCG/HOUR] 1 patch TRANSDERM FR 11/05/22 01/19/24 History DULoxetine HCL [Cymbalta] 60 mg PO DAILY 11/05/22 01/19/24 History Albuterol Sulfate [Ventolin HFA] 2 puff INHALATION RT-Q4H PRN 03/05/23 01/19/24 History Ferrous Sulfate [Iron (65 MG 325 mg PO PC-LUNCH 03/05/23 01/19/24 History Elemental)] Losartan [Cozaar] 25 mg PO DAILY 03/05/23 01/19/24 History Metoprolol Succinate (ER) [Toprol 100 mg PO DAILY 03/05/23 01/19/24 History XL] Rosuvastatin Calcium [Crestor] 40 mg PO DAILY 03/05/23 01/19/24 History metFORMIN HCL [Glucophage] 1,000 mg PO BID 03/05/23 01/19/24 History Baclofen [Lioresal] 10 mg PO TID 01/19/24 01/19/24 History Doxycycline Hyclate 100 mg PO BID 01/19/24 01/19/24 History Famotidine [Pepcid] 20 mg PO BID 01/19/24 01/19/24 History Tirzepatide [Mounjaro] 12.5 mg SQ SA 01/19/24 01/19/24 History calcitrioL [Rocaltrol] 0.25 mcg PO OROPEZA 01/19/24 01/19/24 History Allergies Allergy/AdvReac Type Severity Reaction Status Date / Time No Known Allergies Allergy Verified 01/19/24 17:31 Surgical - Exam Vital Signs Temp Pulse Resp BP Pulse Ox 98.0 F 77 18 123/80 93 L 01/19/24 15:09 01/19/24 15:09 01/19/24 15:09 01/19/24 15:09 01/19/24 15:09 General appearance: The patient is alert, oriented, appears in no acute distress . HET: Head is normocephalic and atraumatic. Pupils are equal and reactive. Neck: Supple. Heart: Regular. Lungs: Equal expansion, normal respiratory effort. Abdomen: Soft, nontender, nondistended. Extremities: Right foot great toe swelling, toenail missing, no wound noted, mild erythema. History of third toe amputation well-healed. Palpable PT pulses. Neurological: No focal deficits. Strength and sensation are grossly intact. Results - Labs 01/20/24 07:39 01/20/24 07:39 Abnormal Lab Results - Last 24 Hours (Table) 01/19/24 01/19/24 01/20/24 Range/Units 15:40 20:08 06:05 Sodium 132 L (137-145) mmol/L BUN 39 H (9-20) mg/dL Creatinine 1.41 H (0.66-1.25) mg/dL Glucose 100 H (74-99) mg/dL POC Glucose (mg/dL) 118 H 63 L (70-110) mg/dL Diabetes panel 01/19/24 Range/Units 15:40 Sodium 132 L (137-145) mmol/L Potassium 5.0 (3.5-5.1) mmol/L Chloride 99 (98-107) mmol/L Carbon Dioxide 23 (22-30) mmol/L BUN 39 H (9-20) mg/dL Creatinine 1.41 H (0.66-1.25) mg/dL Glucose 100 H (74-99) mg/dL Calcium 9.8 (8.4-10.2) mg/dL AST 40 (17-59) U/L ALT 37 (4-49) U/L Alkaline Phosphatase 77 (38-126) U/L Total Protein 7.3 (6.3-8.2) g/dL Albumin 4.4 (3.5-5.0) g/dL Calcium panel 01/19/24 Range/Units 15:40 Calcium 9.8 (8.4-10.2) mg/dL Albumin 4.4 (3.5-5.0) g/dL Pituitary panel 01/19/24 Range/Units 15:40 Sodium 132 L (137-145) mmol/L Potassium 5.0 (3.5-5.1) mmol/L Chloride 99 (98-107) mmol/L Carbon Dioxide 23 (22-30) mmol/L BUN 39 H (9-20) mg/dL Creatinine 1.41 H (0.66-1.25) mg/dL Glucose 100 H (74-99) mg/dL Calcium 9.8 (8.4-10.2) mg/dL Adrenal panel 01/19/24 Range/Units 15:40 Sodium 132 L (137-145) mmol/L Potassium 5.0 (3.5-5.1) mmol/L Chloride 99 (98-107) mmol/L Carbon Dioxide 23 (22-30) mmol/L BUN 39 H (9-20) mg/dL Creatinine 1.41 H (0.66-1.25) mg/dL Glucose 100 H (74-99) mg/dL Calcium 9.8 (8.4-10.2) mg/dL Total Bilirubin 0.9 (0.2-1.3) mg/dL AST 40 (17-59) U/L ALT 37 (4-49) U/L Alkaline Phosphatase 77 (38-126) U/L Total Protein 7.3 (6.3-8.2) g/dL Albumin 4.4 (3.5-5.0) g/dL - Imaging Comments: Right foot x-ray reports osteomyelitis of the right first toe is difficult to exclude although inflammatory arthropathy is also a consideration. Correlate clinically. Assessment and Plan Assessment: 1. Right great toe osteomyelitis 2. Diabetes mellitus 3. Peripheral neuropathy 4. Coronary artery disease Plan: Discussed possible options including continued medical therapy with IV antibiotics versus possible great toe amputation versus possible TMA. Patient feels that symptoms are improving and would like to continue with IV antibiotics and hold off on surgical options at this time. Considering patient is doing well that is very reasonable. Recommend outpatient follow-up with Dr. Valenzuela. Continue with antibiotic recommendations from infectious disease. Rest of medical management per primary medical team. Thank you for this consultation, we will continue to follow. The impression and plan of care has been dictated as directed. I performed a history and examination of this patient, discussed the same with the dictator. I agree with the dictator's note ,documented as a scribe. Any additional findings or plans will be noted.
[2024-01-20] MEDS: VANCOMYCIN 1,750 MG in SODIUM CHLORIDE 0.9% 500 ML 500 ML IVPB SCH (10:09)
[2024-01-20 12:12] LABS: Erythrocyte Sedimentation Rate 2 mm/Hr (0-20)
[2024-01-20] MEDS: allopurinoL 100 MG TAB PO SCH (13:34)
[2024-01-20] MEDS: FERROUS SULFATE 325 MG TAB PO SCH (13:34)
--- NOTE | 2024-01-20 15:19 | P.PN ---
Subjective Progress Note Date: 01/20/24 Principal diagnosis: Reason for follow-up is right big toe osteomyelitis Patient is a 68-year-old male with a past medical history significant for diabetes mellitus hypertension hyperlipidemia osteoarthritis asthma history of multiple diabetic foot infection and osteomyelitis being admitted to hospital concerning for right big toe osteomyelitis with a wound on the dorsal aspect of the right big toe and outpatient culture positive for MRSA resistant to doxycycline. On today's evaluation that is 01/20/2024,the patient remains to be afebrile, patient is on room air not requiring supplemental oxygen and denies any shortness of breath no chest pain or cough.Patient denies having any nausea or vomiting, no abdominal pain and no diarrhea and denies any pain to the right big toe. Patient white count is 5.5 creat is 1.45 Objective - Vital Signs Vital signs: Vital Signs Temp 97.6 F 01/20/24 07:00 Pulse 85 01/20/24 13:54 Resp 18 01/20/24 13:54 BP 108/69 01/20/24 07:00 Pulse Ox 98 01/20/24 07:00 FiO2 Intake & Output 01/19/24 01/20/24 01/20/24 18:59 06:59 18:59 Intake Total 1702 Output Total 3 Balance -3 1702 Weight 111.13 kg 111.13 kg Intake: Intake, IV Titration 1100 Amount Sodium Chloride 0.9% 1, 600 000 ml @ 75 mls/hr IV . [id number] [facility] Rx#:[id number] Vancomycin 1,750 mg In 500 Sodium Chloride 0.9% 500 ml 500 ml @ 167 mls/hr IVPB Q16H [facility] Rx#: [id number] Oral 602 Output: Urine 3 Other: Voiding Method Toilet Toilet # Voids 1 - Exam GENERAL DESCRIPTION: An elderly male lying in bed in no distress RESPIRATORY SYSTEM: Unlabored breathing , decreased breath sounds at bases HEART: S1 S2 regular rate and rhythm , ABDOMEN: Soft , no tenderness EXTREMITIES: Right big toe swelling redness slightly decreased - Labs CBC & Chem 7: 01/20/24 07:39 01/20/24 07:39 Labs: Abnormal Lab Results - Last 24 Hours (Table) 01/19/24 01/19/24 01/20/24 Range/Units 15:40 20:08 06:05 Sodium 132 L (137-145) mmol/L Potassium (3.5-5.1) mmol/L BUN 39 H (9-20) mg/dL Creatinine 1.41 H (0.66-1.25) mg/dL Glucose 100 H (74-99) mg/dL POC Glucose (mg/dL) 118 H 63 L (70-110) mg/dL 01/20/24 Range/Units 07:39 Sodium 136 L (137-145) mmol/L Potassium 5.2 H (3.5-5.1) mmol/L BUN 38 H (9-20) mg/dL Creatinine 1.45 H (0.66-1.25) mg/dL Glucose 115 H (74-99) mg/dL POC Glucose (mg/dL) (70-110) mg/dL Assessment and Plan (1) Osteomyelitis of great toe of right foot Current Visit: Yes Status: Acute Code(s): M86.9 - OSTEOMYELITIS, UNSPECIFIED SNOMED Code(s): 895758263 (2) MRSA (methicillin resistant staph aureus) culture positive Current Visit: Yes Status: Acute Code(s): Z22.322 - CARRIER OR SUSPECTED CARRIER OF METHICILLIN RESIS STAPH SNOMED Code(s): 344647345 (3) Diabetic ulcer of right great toe Current Visit: No Status: Acute Code(s): E11.621 - TYPE 2 DIABETES MELLITUS WITH FOOT ULCER; L97.519 - NON-PRS CHRONIC ULCER OTH PRT RIGHT FOOT W UNSP SEVERITY SNOMED Code(s): 807415976 Plan: 1patient presented to hospital with increasing swelling redness to the right big toe and apparently outpatient culture has been positive for MRSA that has been resistant to the doxycycline patient did have significant swelling of the right big toe with abnormal x-ray high clinic suspicious for underlying right big toe osteomyelitis related to the MRSA. 2patient did have mild renal insufficiency to monitor kidney function closely. 3patient to continue withvancomycin pharmacy to dose target trough of 15 while watching kidney function and Vanco trough closely will need PICC line for outpatient IV antibiotic therapy Dictation was produced using [employer] dictation software. please excuse any grammatical, word or spelling errors. Time with Patient: Less than 30
[2024-01-20 16:51] LABS: Glucose,Whole Blood 93 mg/dL (70-110)
--- NOTE | 2024-01-20 18:01 | P.PN ---
Subjective Progress Note Date: 01/20/24 HISTORY OF PRESENT ILLNESS 68-year-old office patient with multiple medical problem who had been on for the last 25 years with active history of CAD post CABG, post angioplasty and stent placement, history of chronic kidney disease, COPD, gout, peripheral arterial disease, chronic neuropathy, nonhealing ulcer of both feet in the past with amputation of the left second toe secondary to osteomyelitis, history of chronic pain syndrome secondary to degenerative disc disease, type 2 diabetes with slightly better long-term blood sugar control, history of hypertension hyperlipidemia. Patient was in the office over a week ago with Very patient discomfort and cellulitis of the right big toe was started on doxycycline topical care and had a quick follow-up appointment. Return to the office on with worsening irritation discomfort and had lost the toenail already the area underneath has been irritated with erythema redness discomfort and drainage dressing was applied by having silver Silvadene cream and cover the area and continue doxycycline refer for x-ray and lab his x-ray came back with early sign of osteomyelitis culture was done from the site the result came back on Friday compatible with MRSA not susceptible to the doxycycline. Patient was called and instructed to come to the emergency department for possible being hospitalized for early osteomyelitis requiring IV antibiotic to see infectious disease and wound care. He is continue to have significant pain discomfort irritation and drainage from the toe no fever or chills. Laboratory value in the ER shows white blood cell of 6.5 with normal hemoglobin hematocrit creatinine 1.41 with GFR at 52 no sed rate was done lactic acid was only 0.7 blood sugar running in the 100 level. Patient was initiated on vancomycin and will be admitted to the hospital will consult infectious disease and wound clinic. 01/20/2024: Patient was seen in infectious disease agree with the osteomyelitis of the right great toe currently his MRSA doxycycline resistant that was switched to vancomycin patient be seen vascular today to decide on the continuity of management for this osteomyelitis whether he is can require just IV antibiotics or he might require amputation.. Laboratory value including sed rate today was 2 also C-reactive protein less than 0.5 which makes the odds of real osteomyelitis is very low at this point. So continue conservative management without amputation will be better choice. REVIEW OF SYSTEMS Constitutional: No fever, no chills, no night sweats. No weight change. No weakness, fatigue or lethargy. No daytime sleepiness. EENT: No headache. No blurred vision or double vision, no loss of vision. No loss of Hearing, no ringing in the ears, no dizziness. No nasal drainage or congestion. No epistaxis. No sore throat. Lungs: Decreased breaths on bilaterally with mild shortness of breath with exertion no cough or wheezes. Cardiovascular: No chest pain, no lower extremity edema. No palpitations. Pos itive PND orthopnea with no angina no lightheadedness or dizzinesssyncope. Abdominal: No abdominal pain. No nausea, vomiting. No diarrhea. No constipation. No bloody or tarry stools.. No loss of appetite. Genitourinary: No dysuria, increased frequency, urgency. No urinary retention. Positive polyuria and nocturia. Musculoskeletal: Myalgia with generalized muscle and joint pain and back pain. Extremities: Right big toe severely irritated red swelling discomfort and still have slightly drainage decreased pulse dorsalis pedis. Left second toe the big toe on the left side also has lost its the nail but less irritated and discomfort with slight irritation. Integumentary: No wounds, no lesions. No rash or pruritus. No unusual bruising. No change in hair or nails. Neurologic: No aphasia. No facial droop. No change in mentation. No head injury. No headache. No paralysis. No paresthesia. Psychiatric: Chronic depression with no anxiety or mood swing. Endocrine: Blood sugar has been well-controlled in the 100 level has been making good urine output lately. PHYSICAL EXAMINATION Gen: Overweight more obese in no acute respiratory distress HEENT: Head is atraumatic, normocephalic. Pupils equal, round. Sclerae is anicteric. NECK: Supple. No JVD. No lymphadenopathy. No thyromegaly. LUNGS: Decreased breaths on bilaterally with rhonchi no crackles or wheezes. HEART: Irregular the spinous to positive S3 positive systolic murmur. ABDOMEN: Soft. Bowel sounds are present. No masses. No tenderness. EXTREMITIES: Significant edema, erythema, discomfort irritation redness and drainage from the right total decreased pulse dorsalis pedis left big toe has less irritation and discomfort. Amputation of the left second toe. Still have mild callus and slight deformity in both feet. NEUROLOGICAL: Patient is awake, alert and oriented x3. Cranial nerves 2 through 12 are grossly intact. ASSESSMENT AND PLAN _ Severe osteomyelitis of the right big toe: Start vancomycin continue topical care consult infectious disease and vascular for now also wound care as well culture was already performed and showed MRSA not susceptible to doxycycline but susceptible to vancomycin ROJAS time repeat CRP C-reactive protein and CBC tomorrow. _ Severe cellulitis of the right foot: Continue vancomycin, culture was positive for MRSA. Was seen infectious disease started on vancomycin his sed rate and C-reactive protein are low today which is more helpful to continue medical management without surgical intervention. _ Severe PAD of both lower extremity worse on the right than the left side no revascularization needed at this point continue conservative management. _Type 2 diabetes: Has been slightly better control will last A1c was in the mid 7 he is remain currently on combination of Tradjenta 5 mg a day, Prandin 2 mg twice a day, Glucophage 1000 mg twice a day will keep patient on NovoLog Accu- Chek with sliding scales coverage and he was on Mounjaro total of 12.5 mg a day which was helping quite bit. Blood sugars running slightly below mostly mild hypoglycemia which should watch little bit more carefully and being off Mounjaro without any oral hypoglycemic agent and no insulin should help. _ Chronic kidney disease: Mostly stage III yea: Continue to watch for any nephrotoxic agent repeat CMP daily. _Multiple coronary artery disease: Post CABG in the past with stent placement in the past as well last heart catheter was done 2 years ago with total occlusion of the distal right coronary artery this is in-stent occlusion with intermediate disease of the OM. He is still seen cardiology regular basis and still medical management. _ Chronic pain syndrome: Remain on Butrans and hydrocodone has been doing much better still on Lyrica as well. _Hypertension: Remain on combination of losartan 25 mg a day metoprolol succinate 100 mg daily. _Hyperlipidemia: Continue atorvastatin 80 mg a day with target for LDL below 70. _Chronic diabetic peripheral neuropathy: Has been on Lyrica 150 mg twice a day still on duloxetine as well. _Mild COPD: Has been on rescue inhaler mostly not require any oxygen lately and doing very well. _Severe recurrent diabetic foot with multiple ulcer and infection site: Post IV and oral antibiotic management continue topical care as well patient seen vascular and infectious disease on regular basis. Discussion: Patient was admitted for osteomyelitis of the right big toe started vancomycin orally fortunately sed rate and C-reactive protein are low to support the idea in the management with IV antibiotic and wound care hopefully will succeed no need for surgical intervention which will be a backup if this does not improve in the meanwhile patient still seen infectious disease and wound care. Objective - Vital Signs Vital signs: Vital Signs Temp 98.0 F 01/20/24 02:00 Pulse 75 01/20/24 02:00 Resp 16 01/20/24 02:00 BP 124/76 01/20/24 02:00 Pulse Ox 96 01/20/24 02:00 FiO2 Intake & Output 01/19/24 01/19/24 01/20/24 06:59 18:59 06:59 Weight 111.13 kg 111.13 kg Other: Voiding Method Toilet # Voids 1 - Labs CBC & Chem 7: 01/20/24 07:39 01/20/24 07:39 Labs: Abnormal Lab Results - Last 24 Hours (Table) 01/19/24 01/19/24 Range/Units 15:40 20:08 Sodium 132 L (137-145) mmol/L BUN 39 H (9-20) mg/dL Creatinine 1.41 H (0.66-1.25) mg/dL Glucose 100 H (74-99) mg/dL POC Glucose (mg/dL) 118 H (70-110) mg/dL
[2024-01-20 20:24] LABS: Glucose,Whole Blood 95 mg/dL (70-110)
[2024-01-21 05:41] LABS: Glucose,Whole Blood 71 mg/dL (70-110)
[2024-01-21 08:12] LABS: African American GFR (CKD) 58 (>60 ml/min/1.73 sqM); Non-African American GFR(CKD) 50 (>60 ml/min/1.73 sqM)
--- NOTE | 2024-01-21 10:52 | P.PN ---
Subjective Progress Note Date: 01/21/24 Principal diagnosis: Right great toe osteomyelitis Patient is seen and examined today as a follow-up. He has been getting IV antibiotics. Right great toe redness is improved swelling is improved as well. He denies any significant pain. No fevers or chills. Objective - Vital Signs Vital signs: Vital Signs Temp 97.9 F 01/21/24 07:00 Pulse 76 01/21/24 07:00 Resp 16 01/21/24 07:00 BP 131/79 01/21/24 07:00 Pulse Ox 96 01/21/24 07:00 FiO2 Intake & Output 01/20/24 01/21/24 01/21/24 18:59 06:59 18:59 Intake Total 1941 110 Balance 1941 110 Intake: Intake, IV Titration 1100 Amount Sodium Chloride 0.9% 1, 600 000 ml @ 75 mls/hr IV . Q02L50H [facility] Rx#:[id number] Vancomycin 1,750 mg In 500 Sodium Chloride 0.9% 500 ml 500 ml @ 167 mls/hr IVPB Q16H [facility] Rx#: [id number] Oral 842 110 Other: Voiding Method Toilet Toilet # Voids 1 - Exam General appearance: The patient is alert, oriented, appears in no acute distress. HET: Head is normocephalic and atraumatic. Neck: Supple. Abdomen: Soft, nondistended. Extremities: Normal skin color and turgor. Right great toe swelling improved. Third toe amputation site well-healed. Palpable DP pulses. Neurological: No focal deficits. - Labs CBC & Chem 7: 01/20/24 07:39 01/21/24 06:57 Labs: Abnormal Lab Results - Last 24 Hours (Table) 01/20/24 01/21/24 Range/Units 07:39 06:57 Sodium 136 L (137-145) mmol/L Potassium 5.2 H (3.5-5.1) mmol/L BUN 38 H (9-20) mg/dL Creatinine 1.45 H 1.45 H (0.66-1.25) mg/dL Glucose 115 H (74-99) mg/dL Microbiology - Last 24 Hours (Table) 01/19/24 19:15 Blood Culture - Preliminary Blood 01/19/24 19:00 Blood Culture - Preliminary Blood Assessment and Plan Assessment: 1. Right great toe osteomyelitis 2. Diabetes mellitus 3. Peripheral neuropathy 4. Coronary artery disease Plan: 1. No plans on surgical intervention 2. Continue antibiotics per recommendations from infectious disease 3. Patient is cleared from vascular surgery for discharge Thank you for this consultation, we will sign off at this time. Patient to follow-up with Dr. Valenzuela in the next 1 to 2 weeks. The impression and plan of care has been dictated as directed. Dr. Valenzuela I performed a history and examination of this patient, discussed the same with the dictator. I agree with the dictator's note ,documented as a scribe. Any additional findings or plans will be noted.
[2024-01-21 11:22] LABS: Glucose,Whole Blood 64 mg/dL (70-110)
--- NOTE | 2024-01-21 11:44 | P.PN ---
Subjective Progress Note Date: 01/21/24 Principal diagnosis: Reason for follow-up is right big toe osteomyelitis Patient is a 68-year-old male with a past medical history significant for diabetes mellitus hypertension hyperlipidemia osteoarthritis asthma history of multiple diabetic foot infection and osteomyelitis being admitted to hospital concerning for right big toe osteomyelitis with a wound on the dorsal aspect of the right big toe and outpatient culture positive for MRSA resistant to doxycycline. On today's evaluation that is 01/21/2024, the patient continues to be afebrile, the patient is on room air and breathing comfortably, the Pt denies having any chest pain or cough, the patient denies having any abdominal pain no vomiting or any diarrhea, the patient did have improvement in the right big toe swelling and no drainage. Patient did have a creatinine 1.45 CBC was normal yesterday sed rate is still blood cultures pending Objective - Vital Signs Vital signs: Vital Signs Temp 97.9 F 01/21/24 07:00 Pulse 76 01/21/24 07:00 Resp 18 01/21/24 08:00 BP 131/79 01/21/24 07:00 Pulse Ox 96 01/21/24 07:00 FiO2 Intake & Output 01/20/24 01/21/24 01/21/24 18:59 06:59 18:59 Intake Total 1941 110 Balance 1941 110 Intake: Intake, IV Titration 1100 Amount Sodium Chloride 0.9% 1, 600 000 ml @ 75 mls/hr IV . [id number] [facility] Rx#:[id number] Vancomycin 1,750 mg In 500 Sodium Chloride 0.9% 500 ml 500 ml @ 167 mls/hr IVPB Q16H [facility] Rx#: [id number] Oral 842 110 Other: Voiding Method Toilet Toilet Toilet # Voids 1 - Exam GENERAL DESCRIPTION: An elderly male lying in bed in no distress RESPIRATORY SYSTEM: Unlabored breathing , decreased breath sounds at bases HEART: S1 S2 regular rate and rhythm , ABDOMEN: Soft , no tenderness EXTREMITIES: Right big toe swelling redness slightly decreased - Labs CBC & Chem 7: 01/20/24 07:39 01/21/24 06:57 Labs: Abnormal Lab Results - Last 24 Hours (Table) 01/21/24 01/21/24 Range/Units 06:57 11:20 Creatinine 1.45 H (0.66-1.25) mg/dL POC Glucose (mg/dL) 64 L (70-110) mg/dL Microbiology - Last 24 Hours (Table) 01/19/24 19:15 Blood Culture - Preliminary Blood 01/19/24 19:00 Blood Culture - Preliminary Blood Assessment and Plan (1) Osteomyelitis of great toe of right foot Current Visit: Yes Status: Acute Code(s): M86.9 - OSTEOMYELITIS, UNSPECIFIED SNOMED Code(s): 571784938 (2) MRSA (methicillin resistant staph aureus) culture positive Current Visit: Yes Status: Acute Code(s): Z22.322 - CARRIER OR SUSPECTED CARRIER OF METHICILLIN RESIS STAPH SNOMED Code(s): 040870924 (3) Diabetic ulcer of right great toe Current Visit: No Status: Acute Code(s): E11.621 - TYPE 2 DIABETES MELLITUS WITH FOOT ULCER; L97.519 - NON-PRS CHRONIC ULCER OTH PRT RIGHT FOOT W UNSP SEVERITY SNOMED Code(s): 067249389 Plan: 1patient presented to hospital with increasing swelling redness to the right big toe and apparently outpatient culture has been positive for MRSA that has been resistant to the doxycycline patient did have significant swelling of the right big toe with abnormal x-ray high clinic suspicious for underlying right big toe osteomyelitis related to the MRSA. 2patient did have mild renal insufficiency to monitor kidney function closely. 3patient did have improvement in cellulitis of the right big toe clinical suspicion is high for underlying osteomyelitis even though the sed rate is normal, we will obtain bone scan continue with the vancomycin will likely need a PICC and outpatient IV antibiotics Dictation was produced using [employer] dictation software. please excuse any grammatical, word or spelling errors. Time with Patient: Less than 30
[2024-01-21 11:52] LABS: Glucose,Whole Blood 77 mg/dL (70-110)
[2024-01-21 16:18] LABS: Glucose,Whole Blood 90 mg/dL (70-110)
[2024-01-21 17:52] LABS: Glucose,Whole Blood 94 mg/dL (70-110)
[2024-01-21 19:56] LABS: Glucose,Whole Blood 159 mg/dL (70-110)
--- NOTE | 2024-01-21 23:10 | P.PN ---
Subjective Progress Note Date: 01/21/24 HISTORY OF PRESENT ILLNESS 68-year-old office patient with multiple medical problem who had been on for the last 25 years with active history of CAD post CABG, post angioplasty and stent placement, history of chronic kidney disease, COPD, gout, peripheral arterial disease, chronic neuropathy, nonhealing ulcer of both feet in the past with amputation of the left second toe secondary to osteomyelitis, history of chronic pain syndrome secondary to degenerative disc disease, type 2 diabetes with slightly better long-term blood sugar control, history of hypertension hyperlipidemia. Patient was in the office over a week ago with Very patient discomfort and cellulitis of the right big toe was started on doxycycline topical care and had a quick follow-up appointment. Return to the office on with worsening irritation discomfort and had lost the toenail already the area underneath has been irritated with erythema redness discomfort and drainage dressing was applied by having silver Silvadene cream and cover the area and continue doxycycline refer for x-ray and lab his x-ray came back with early sign of osteomyelitis culture was done from the site the result came back on Friday compatible with MRSA not susceptible to the doxycycline. Patient was called and instructed to come to the emergency department for possible being hospitalized for early osteomyelitis requiring IV antibiotic to see infectious disease and wound care. He is continue to have significant pain discomfort irritation and drainage from the toe no fever or chills. Laboratory value in the ER shows white blood cell of 6.5 with normal hemoglobin hematocrit creatinine 1.41 with GFR at 52 no sed rate was done lactic acid was only 0.7 blood sugar running in the 100 level. Patient was initiated on vancomycin and will be admitted to the hospital will consult infectious disease and wound clinic. 01/20/2024: Patient was seen in infectious disease agree with the osteomyelitis of the right great toe currently his MRSA doxycycline resistant that was switched to vancomycin patient be seen vascular today to decide on the continuity of management for this osteomyelitis whether he is can require just IV antibiotics or he might require amputation.. Laboratory value including sed rate today was 2 also C-reactive protein less than 0.5 which makes the odds of real osteomyelitis is very low at this point. So continue conservative management without amputation will be better choice. 01/21/2024: He is doing very well the right big toe has much less irritation discomfort swelling redness and drainage is not totally normal yet but as close as possible still have minimally inflamed side. Given sed rate and C-reactive protein is very low and white blood cell is back to normal infectious disease wants to do 3 stage bone scan to exclude the possibility of any osteomyelitis clinically and from blood work does not look like it but that is a plan for now also wants to complete PICC line to continue IV antibiotic as an outpatient for total of probably of 2 weeks. REVIEW OF SYSTEMS Constitutional: No fever, no chills, no night sweats. No weight change. No weakness, fatigue or lethargy. No daytime sleepiness. EENT: No headache. No blurred vision or double vision, no loss of vision. No loss of Hearing, no ringing in the ears, no dizziness. No nasal drainage or congestion. No epistaxis. No sore throat. Lungs: Decreased breaths on bilaterally with mild shortness of breath with exertion no cough or wheezes. Cardiovascular: No chest pain, no lower extremity edema. No palpitations. Positive PND orthopnea with no angina no lightheadedness or dizzinesssyncope. Abdominal: No abdominal pain. No nausea, vomiting. No diarrhea. No constipation. No bloody or tarry stools.. No loss of appetite. Genitourinary: No dysuria, increased frequency, urgency. No urinary retention. Positive polyuria and nocturia. Musculoskeletal: Myalgia with generalized muscle and joint pain and back pain. Extremities: Right big toe severely irritated red swelling discomfort and still have slightly drainage decreased pulse dorsalis pedis. Left second toe the big toe on the left side also has lost its the nail but less irritated and discomfort with slight irritation. Integumentary: No wounds, no lesions. No rash or pruritus. No unusual bruising. No change in hair or nails. Neurologic: No aphasia. No facial droop. No change in mentation. No head injury. No headache. No paralysis. No paresthesia. Psychiatric: Chronic depression with no anxiety or mood swing. Endocrine: Blood sugar has been well-controlled in the 100 level has been making good urine output lately. PHYSICAL EXAMINATION Gen: Overweight more obese in no acute respiratory distress HEENT: Head is atraumatic, normocephalic. Pupils equal, round. Sclerae is anicteric. NECK: Supple. No JVD. No lymphadenopathy. No thyromegaly. LUNGS: Decreased breaths on bilaterally with rhonchi no crackles or wheezes. HEART: Irregular the spinous to positive S3 positive systolic murmur. ABDOMEN: Soft. Bowel sounds are present. No masses. No tenderness. EXTREMITIES: Significant edema, erythema, discomfort irritation redness and d rainage from the right total decreased pulse dorsalis pedis left big toe has less irritation and discomfort. Amputation of the left second toe. Still have mild callus and slight deformity in both feet. NEUROLOGICAL: Patient is awake, alert and oriented x3. Cranial nerves 2 through 12 are grossly intact. ASSESSMENT AND PLAN _ Severe osteomyelitis of the right big toe: With the MRSA not susceptible to doxycycline patient was started on vancomycin early looking at the side of his infection is much better so far sed rate and CRP are negative the patient be going for bone scan and looks like infectious disease want him to do 2 weeks of IV antibiotics with most likely vancomycin as an outpatient. _ Severe cellulitis of the right foot: Has improved significantly no irritation induration or redness around the site of infection continued to be treated for MRSA still on IV antibiotic and topical care for now. _ Severe PAD of both lower extremity worse on the right than the left side no revascularization needed at this point continue conservative management. _Type 2 diabetes: Has been slightly better control will last A1c was in the mid 7 he is remain currently on combination of Tradjenta 5 mg a day, Prandin 2 mg twice a day, Glucophage 1000 mg twice a day will keep patient on NovoLog Accu- Chek with sliding scales coverage and he was on Mounjaro total of 12.5 mg a day which was helping quite bit. Blood sugars running slightly below mostly mild hypoglycemia which should watch little bit more carefully and being off Mounjaro without any oral hypoglycemic agent and no insulin should help. _ Chronic kidney disease: Mostly stage III yea: Continue to watch for any nephrotoxic agent repeat CMP daily. _Multiple coronary artery disease: Post CABG in the past with stent placement in the past as well last heart catheter was done 2 years ago with total occlusion of the distal right coronary artery this is in-stent occlusion with intermediate disease of the OM. He is still seen cardiology regular basis and still medical management. _ Chronic pain syndrome: Remain on Butrans and hydrocodone has been doing much better still on Lyrica as well. _Hypertension: Remain on combination of losartan 25 mg a day metoprolol succinate 100 mg daily. _Hyperlipidemia: Continue atorvastatin 80 mg a day with target for LDL below 70. _Chronic diabetic peripheral neuropathy: Has been on Lyrica 150 mg twice a day still on duloxetine as well. _Mild COPD: Has been on rescue inhaler mostly not require any oxygen lately and doing very well. _Severe recurrent diabetic foot with multiple ulcer and infection site: Post IV and oral antibiotic management continue topical care as well patient seen vascular and infectious disease on regular basis. Discussion: With significant improvement with IV antibiotics ID wants patient still to do IV antibiotics and probably restage bone scan to exclude possibility of osteomyelitis for sure. Patient will remain in the hospital till this is completed and probably discharge home when ready with arrangement for outpatient home infusion. Objective - Vital Signs Vital signs: Vital Signs Temp 97.9 F 01/21/24 07:00 Pulse 76 01/21/24 07:00 Resp 16 01/21/24 07:00 BP 131/79 01/21/24 07:00 Pulse Ox 96 01/21/24 07:00 FiO2 Intake & Output 01/20/24 01/21/24 01/21/24 18:59 06:59 18:59 Intake Total 1942 110 Balance 1942 110 Intake: Intake, IV Titration 1100 Amount Sodium Chloride 0.9% 1, 600 000 ml @ 75 mls/hr IV . [id number] [facility] Rx#:[id number] Vancomycin 1,750 mg In 500 Sodium Chloride 0.9% 500 ml 500 ml @ 167 mls/hr IVPB Q16H [facility] Rx#: [id number] Oral 842 110 Other: Voiding Method Toilet Toilet # Voids 1 - Labs CBC & Chem 7: 01/20/24 07:39 01/21/24 06:57 Labs: Abnormal Lab Results - Last 24 Hours (Table) 01/20/24 01/21/24 Range/Units 07:39 06:57 Sodium 136 L (137-145) mmol/L Potassium 5.2 H (3.5-5.1) mmol/L BUN 38 H (9-20) mg/dL Creatinine 1.45 H 1.45 H (0.66-1.25) mg/dL Glucose 115 H (74-99) mg/dL Microbiology - Last 24 Hours (Table) 01/19/24 19:15 Blood Culture - Preliminary Blood 01/19/24 19:00 Blood Culture - Preliminary Blood
[2024-01-22 00:51] LABS: Glucose,Whole Blood 49 mg/dL (70-110)
[2024-01-22 01:12] LABS: Glucose,Whole Blood 69 mg/dL (70-110)
[2024-01-22 01:30] LABS: Glucose,Whole Blood 94 mg/dL (70-110)
[2024-01-22 08:28] LABS: Glucose,Whole Blood 120 mg/dL (70-110)
[2024-01-22] MEDS: VANCOMYCIN TROUGH DUE 1 EACH MISC MISCELLANE ONE (09:51)
[2024-01-22 12:02] LABS: Glucose,Whole Blood 102 mg/dL (70-110)
--- NOTE | 2024-01-22 12:36 | P.PN ---
Subjective Progress Note Date: 01/22/24 Principal diagnosis: Reason for follow-up is right big toe osteomyelitis Patient is a 68-year-old male with a past medical history significant for diabetes mellitus hypertension hyperlipidemia osteoarthritis asthma history of multiple diabetic foot infection and osteomyelitis being admitted to hospital concerning for right big toe osteomyelitis with a wound on the dorsal aspect of the right big toe and outpatient culture positive for MRSA resistant to doxycycline. On today's evaluation that is 01/22/2024, Patient is afebrile patient is currently on room air and denies having any shortness of breath, the patient denies any chest pain or cough, the patient denies any nausea vomiting did not have any abdominal pain and no diarrhea denies pain to the right big toe swelling redness slightly decreased. Patient did have vancomycin trough of 18 no CBC BMP. Blood culture negative Objective - Vital Signs Vital signs: Vital Signs Temp 97.7 F 01/22/24 08:23 Pulse 70 01/22/24 08:23 Resp 16 01/22/24 08:23 BP 159/71 01/22/24 08:23 Pulse Ox 100 01/22/24 08:23 FiO2 Intake & Output 01/21/24 01/22/24 01/22/24 18:59 06:59 18:59 Intake Total 760 765 Balance 760 765 Intake: Intake, IV Titration 225 Amount Sodium Chloride 0.9% 1, 225 000 ml @ 75 mls/hr IV . [id number] [facility] Rx#:[id number] Oral 760 540 Other: Voiding Method Toilet Toilet # Voids 5 1 - Exam GENERAL DESCRIPTION: An elderly male lying in bed in no distress RESPIRATORY SYSTEM: Unlabored breathing , decreased breath sounds at bases HEART: S1 S2 regular rate and rhythm , ABDOMEN: Soft , no tenderness EXTREMITIES: Right big toe swelling redness slightly decreased - Labs CBC & Chem 7: 01/20/24 07:39 01/21/24 06:57 Labs: Abnormal Lab Results - Last 24 Hours (Table) 01/21/24 01/21/24 01/22/24 Range/Units 11:20 19:55 00:48 POC Glucose (mg/dL) 64 L 159 H 49 L* (70-110) mg/dL 01/22/24 01/22/24 Range/Units 01:08 08:27 POC Glucose (mg/dL) 69 L 120 H (70-110) mg/dL Microbiology - Last 24 Hours (Table) 01/19/24 19:15 Blood Culture - Preliminary Blood 01/19/24 19:00 Blood Culture - Preliminary Blood Assessment and Plan (1) Osteomyelitis of great toe of right foot Current Visit: Yes Status: Acute Code(s): M86.9 - OSTEOMYELITIS, UNSPECIFIED SNOMED Code(s): 026249929 (2) MRSA (methicillin resistant staph aureus) culture positive Current Visit: Yes Status: Acute Code(s): Z22.322 - CARRIER OR SUSPECTED CARRIER OF METHICILLIN RESIS STAPH SNOMED Code(s): 391980382 (3) Diabetic ulcer of right great toe Current Visit: No Status: Acute Code(s): E11.621 - TYPE 2 DIABETES MELLITUS WITH FOOT ULCER; L97.519 - NON-PRS CHRONIC ULCER OTH PRT RIGHT FOOT W UNSP SEVERITY SNOMED Code(s): 558169024 Plan: 1patient presented to hospital with increasing swelling redness to the right big toe and apparently outpatient culture has been positive for MRSA that has been resistant to the doxycycline patient did have significant swelling of the right big toe with abnormal x-ray high clinic suspicious for underlying right big toe osteomyelitis related to the MRSA. 2patient did have mild renal insufficiency to monitor kidney function closely. 3patient did have improvement in cellulitis of the right big toe clinical suspicion is high for underlying osteomyelitis even though the sed rate is normal, patient is currently undergoing bone scan did have 1 series done currently waiting for the second and third series we will wait for the scan to be finalized if osteomyelitis will get a PICC line and outpatient daptomycin otherwise transition to oral antibiotics Dictation was produced using [employer] dictation software. please excuse any grammatical, word or spelling errors. Time with Patient: Less than 30
[2024-01-22 13:43] LABS: African American GFR (CKD) 68 (>60 ml/min/1.73 sqM); Non-African American GFR(CKD) 59 (>60 ml/min/1.73 sqM)
--- NOTE | 2024-01-22 15:14 | NM ---
EXAMINATION TYPE: NM bone 3 phase DATE OF EXAM: 01/22/2024 COMPARISON: Radiographs 01/19/2024 CLINICAL INDICATION: Male, 68 years old with history of Right big toe osteomyelitis; Technique: Triple phase bone scintigraphy was performed following the injection of 25.2 mCi Tc 99m MD P. Immediate images and 7 hours post injection images acquired. Imaging at the distal bilateral lowe r extremity's. FINDINGS: Flow images show hyperemia to the right forefoot and midfoot. Pool images show corresponding abnormality especially along the medial aspect of the right forefoot a nd midfoot. Delayed scan shows corresponding intense activity in the region of the right first MTP joint. Additional scattered osteoarthritic changes present throughout the feet on both sides. IMPRESSION: 1. Three-phase bone scan abnormality centered at the right first MTP joint. Findings in keeping with osteomyelitis. 2. Additional scattered delayed bone scan activity in both feet suggesting osteoarthritic change.
[2024-01-22 17:06] LABS: Glucose,Whole Blood 84 mg/dL (70-110)
[2024-01-22] MEDS: REPAGLINIDE 1 MG TAB PO SCH (17:40)
[2024-01-22 20:23] LABS: Glucose,Whole Blood 102 mg/dL (70-110)
[2024-01-23 04:44] LABS: African American GFR (CKD) 65 (>60 ml/min/1.73 sqM); Non-African American GFR(CKD) 57 (>60 ml/min/1.73 sqM)
[2024-01-23 07:11] LABS: Glucose,Whole Blood 85 mg/dL (70-110)
[2024-01-23] MEDS: NON FORMULARY DRUG (Buprenorphine [Butrans 10 Mcg/Hour] 10 MCG/HOUR Patch) TRANSDERM SCH (09:09)
[2024-01-23 09:21] LABS: Basophils % (A) 1 %; Eosinophils # (A) 0.2 k/uL (0-0.7); Eosinophils % (A) 5 %; HCT 38.5 % (39.0-53.0); Lymphocytes # (A) 1.4 k/uL (1.0-4.8); Lymphocytes % (A) 28 %; MCH 31.2 pg (25.0-35.0); MCHC 33.5 g/dL (31.0-37.0); MCV 93.3 fL (80.0-100.0); Mean Platelet Volume 9.7; Monocytes # (A) 0.5 k/uL (0-1.0); Monocytes % (A) 10 %; Neutrophils # (A) 2.7 k/uL (1.3-7.7); Neutrophils % (A) 55 %; Platelet Count 159 k/uL (150-450); RBC 4.13 m/uL (4.30-5.90); RDW 14.8 % (11.5-15.5); WBC 4.9 k/uL (3.8-10.6)
[2024-01-23 09:22] LABS: HGB 12.9 gm/dL (13.0-17.5)
[2024-01-23 11:57] LABS: Glucose,Whole Blood 112 mg/dL (70-110)
[2024-01-23 12:17] LABS: ALT 83 U/L (4-49); AST 72 U/L (17-59); Albumin 3.3 g/dL (3.5-5.0); Albumin/Globulin Ratio 1.3; Alkaline Phosphatase 71 U/L (38-126); Anion Gap 5 mmol/L; Blood Urea Nitrogen 21 mg/dL (9-20); Calcium 8.5 mg/dL (8.4-10.2); Carbon Dioxide 25 mmol/L (22-30); Chloride 108 mmol/L (98-107); Globulin 2.5 g/dL; Glucose 82 mg/dL (74-99); Potassium 4.4 mmol/L (3.5-5.1); Sodium 138 mmol/L (137-145); Total Bilirubin 0.6 mg/dL (0.2-1.3); Total Protein 5.8 g/dL (6.3-8.2)
[2024-01-23 13:38] VITALS: BP 140/81; PULSE 72; RESP 16; TEMP 97.8
--- NOTE | 2024-01-23 16:13 | P.PN ---
Subjective Progress Note Date: 01/23/24 Principal diagnosis: Reason for follow-up is right big toe osteomyelitis Patient is a 68-year-old male with a past medical history significant for diabetes mellitus hypertension hyperlipidemia osteoarthritis asthma history of multiple diabetic foot infection and osteomyelitis being admitted to hospital concerning for right big toe osteomyelitis with a wound on the dorsal aspect of the right big toe and outpatient culture positive for MRSA resistant to doxycycline. On today's evaluation that is 01/23/2024, patient has been afebrile, patient is breathing comfortably and is currently on room air, patient denies having any significant cough no chest pain shortness of breath, patient denies nausea vomiting or diarrhea and no abdominal pain patient denies pain to the right big toe. The patient white count is 4.9, creatinine is 1.31 Objective - Vital Signs Vital signs: Vital Signs Temp 97.3 F L 01/23/24 07:14 Pulse 63 01/23/24 07:14 Resp 20 01/23/24 07:14 BP 152/83 01/23/24 07:14 Pulse Ox 99 01/23/24 07:14 FiO2 Intake & Output 01/22/24 01/23/24 01/23/24 18:59 06:59 18:59 Other: Voiding Method Toilet # Voids 3 - Exam GENERAL DESCRIPTION: An elderly male lying in bed in no distress RESPIRATORY SYSTEM: Unlabored breathing , decreased breath sounds at bases HEART: S1 S2 regular rate and rhythm , ABDOMEN: Soft , no tenderness EXTREMITIES: Right big toe swelling redness slightly decreased - Labs CBC & Chem 7: 01/23/24 03:33 01/23/24 03:33 Labs: Abnormal Lab Results - Last 24 Hours (Table) 01/22/24 01/23/24 01/23/24 Range/Units 08:08 03:33 03:33 RBC 4.13 L (4.30-5.90) m/uL Hgb 12.9 L D (13.0-17.5) gm/dL Hct 38.5 L (39.0-53.0) % Creatinine 1.26 H 1.31 H (0.66-1.25) mg/dL Microbiology - Last 24 Hours (Table) 01/19/24 19:15 Blood Culture - Preliminary Blood 01/19/24 19:00 Blood Culture - Preliminary Blood Assessment and Plan (1) Osteomyelitis of great toe of right foot Status: Acute Code(s): M86.9 - OSTEOMYELITIS, UNSPECIFIED SNOMED Code(s): 775784328 (2) MRSA (methicillin resistant staph aureus) culture positive Status: Acute Code(s): Z22.322 - CARRIER OR SUSPECTED CARRIER OF METHICILLIN RESIS STAPH SNOMED Code(s): 925031249 (3) Diabetic ulcer of right great toe Status: Acute Code(s): E11.621 - TYPE 2 DIABETES MELLITUS WITH FOOT ULCER; L97.519 - NON-PRS CHRONIC ULCER OTH PRT RIGHT FOOT W UNSP SEVERITY SNOMED Code(s): 392064860 Plan: 1patient presented to hospital with increasing swelling redness to the right big toe and apparently outpatient culture has been positive for MRSA that has been resistant to the doxycycline patient did have significant swelling of the right big toe with abnormal x-ray high clinic suspicious for underlying right big toe osteomyelitis related to the MRSA. 2patient did have mild renal insufficiency to monitor kidney function closely. 3patient did have improvement in cellulitis of the right big toe clinical suspicion is high for underlying osteomyelitis even though the sed rate is normal, patient bone scan is suggestive of osteomyelitis right big toe PICC l ine placed we will plan on 6-week course of IV daptomycin rather than vancomycin because of his kidney function and a close outpatient follow-up prescription were provided to the medical case worker yesterday and he will receive a dose of daptomycin before discharge Dictation was produced using [employer] dictation software. please excuse any grammatical, word or spelling errors. Time with Patient: Less than 30
[2024-01-24] MEDS ORDERED: NON FORMULARY DRUG (Tirzepatide [Mounjaro] 12.5 MG/0.5 ML Pen.Injctr) SQ SCH (09:00)
--- NOTE | 2024-01-25 19:37 | P.DS ---
Providers Date of admission: 01/19/24 17:28 Attending physician: Andrew Pierce Consults: 01/19/24 17:28 Consult Physician Routine Consulting Provider: Lillie Valenzuela Consult Reason/Comments: Osteomyelitis Do you want consulting provider notified?: Yes Consult Physician Urgent Consulting Provider: Sherri Becker Consult Reason/Comments: Osteomyelitis Do you want consulting provider notified?: Yes Primary care physician: Andrew [facility] Course: HISTORY OF PRESENT ILLNESS 68-year-old office patient with multiple medical problem who had been on for the last 25 years with active history of CAD post CABG, post angioplasty and stent placement, history of chronic kidney disease, COPD, gout, peripheral arterial disease, chronic neuropathy, nonhealing ulcer of both feet in the past with amputation of the left second toe secondary to osteomyelitis, history of chronic pain syndrome secondary to degenerative disc disease, type 2 diabetes with slightly better long-term blood sugar control, history of hypertension hyperlipidemia. Patient was in the office over a week ago with Very patient discomfort and cellulitis of the right big toe was started on doxycycline topical care and had a quick follow-up appointment. Return to the office on with worsening irritation discomfort and had lost the toenail already the area underneath has been irritated with erythema redness discomfort and drainage dressing was applied by having silver Silvadene cream and cover the area and continue doxycycline refer for x-ray and lab his x-ray came back with early sign of osteomyelitis culture was done from the site the result came back on Friday compatible with MRSA not susceptible to the doxycycline. Patient was called and instructed to come to the emergency department for possible being hospitalized for early osteomyelitis requiring IV antibiotic to see infectious disease and wound care. He is continue to have significant pain discomfort irritation and drainage from the toe no fever or chills. Laboratory value in the ER shows white blood cell of 6.5 with normal hemoglobin hematocrit creatinine 1.41 with GFR at 52 no sed rate was done lactic acid was o nly 0.7 blood sugar running in the 100 level. Patient was initiated on vancomycin and will be admitted to the hospital will consult infectious disease and wound clinic. 01/20/2024: Patient was seen in infectious disease agree with the osteomyelitis of the right great toe currently his MRSA doxycycline resistant that was switched to vancomycin patient be seen vascular today to decide on the continuity of management for this osteomyelitis whether he is can require just IV antibiotics or he might require amputation.. Laboratory value including sed rate today was 2 also C-reactive protein less than 0.5 which makes the odds of real osteomyelitis is very low at this point. So continue conservative management without amputation will be better choice. 01/21/2024: He is doing very well the right big toe has much less irritation discomfort swelling redness and drainage is not totally normal yet but as close as possible still have minimally inflamed side. Given sed rate and C-reactive protein is very low and white blood cell is back to normal infectious disease wants to do 3 stage bone scan to exclude the possibility of any osteomyelitis clinically and from blood work does not look like it but that is a plan for now also wants to complete PICC line to continue IV antibiotic as an outpatient for total of probably of 2 weeks. 01/22/2024: He has gone for the first stage of his bone scan. He has no complaints. He did have an episode of hypoglycemia overnight, blood sugar was 49, following hypoglycemia protocol increased to 94, this morning was 120. Patient has not had any insulin coverage this admission, his diabetes is controlled with Tradjenta, Prandin, and Mounjaro outpatient, none of which are known to cause hypoglycemia. Nonetheless we will decrease Prandin from 2mg to 1mg twice a day with meals and monitor his blood sugar for further hypoglyemic episodes. Will try to arrange PICC line placement while patient waits for next stage of bone scan, hope to discharge him later this afternoon pending final recommendations from infectious disease, but if not today he will be discharged tomorrow. 01/23/2024: PICC line was arrange and patient continue on antibiotics management. Final culture from the site as was seen as an outpatient with MRSA, bone scan was positive for osteomyelitis and infectious disease wants to do an IV ant ibiotic with daptomycin daily for total of 14 days. Arrangement started as an outpatient patient was on doxycycline as an outpatient which was stopped for now. Otherwise patient is doing very well no need for amputation or debridement and is responding well to IV antibiotics along with particular care. Should be able to live patient goes home today with arrangement for an outpatient infusion and follow-up within the next few days. REVIEW OF SYSTEMS Constitutional: No fever, no chills, no night sweats. No weight change. No weakness, fatigue or lethargy. No daytime sleepiness. EENT: No headache. No blurred vision or double vision, no loss of vision. No loss of Hearing, no ringing in the ears, no dizziness. No nasal drainage or congestion. No epistaxis. No sore throat. Lungs: Decreased breaths on bilaterally with mild shortness of breath with exertion no cough or wheezes. Cardiovascular: No chest pain, no lower extremity edema. No palpitations. Positive PND orthopnea with no angina no lightheadedness or dizzinesssyncope. Abdominal: No abdominal pain. No nausea, vomiting. No diarrhea. No constipation. No bloody or tarry stools.. No loss of appetite. Genitourinary: No dysuria, increased frequency, urgency. No urinary retention. Positive polyuria and nocturia. Musculoskeletal: Myalgia with generalized muscle and joint pain and back pain. Extremities: Right big toe severely irritated red swelling discomfort and still have slightly drainage decreased pulse dorsalis pedis. Left second toe the big toe on the left side also has lost its the nail but less irritated and discomfort with slight irritation. Integumentary: No wounds, no lesions. No rash or pruritus. No unusual bruising. No change in hair or nails. Neurologic: No aphasia. No facial droop. No change in mentation. No head injury. No headache. No paralysis. No paresthesia. Psychiatric: Chronic depression with no anxiety or mood swing. Endocrine: Blood sugar has been well-controlled in the 100 level has been making good urine output lately. PHYSICAL EXAMINATION Gen: Overweight, more obese, in no acute respiratory distress HEENT: Head is atraumatic, normocephalic. Pupils equal, round. Sclerae is anicteric. NECK: Supple. No JVD. No lymphadenopathy. No thyromegaly. LUNGS: Lung sounds clear to auscultation, no crackles or wheezes. HEART: Regular rate and rhythm, positive S1/S2, no murmur. ABDOMEN: Soft. Bowel sounds are present. No masses. No tenderness. EXTREMITIES: Significant edema in right toe although improved from admission, redness and pain improved. Decreased pulse dorsalis pedis left big toe has less irritation and discomfort. Amputation of the left second toe. Still have mild callus and slight deformity in both feet. NEUROLOGICAL: Patient is awake, alert and oriented x3. Cranial nerves 2 through 12 are grossly intact. ASSESSMENT AND PLAN _ Severe osteomyelitis of the right big toe: With the MRSA not susceptible to doxycycline patient was started on vancomycin on admission, his infection is much better, Sed rate and CRP were negative. The patient will be going for bone scan today and looks like infectious disease want him to do 2 weeks of IV antibiotics with most likely vancomycin as an outpatient, will need PICC line placed today. _ Severe cellulitis of the right foot: Has improved significantly no irritation induration or redness around the site of infection continued to be treated for MRSA still on IV antibiotic and topical care for now. _ Severe PAD of both lower extremity worse on the right than the left side no revascularization needed at this point continue conservative management. _Type 2 diabetes: Has been slightly better controlled with last A1c was in the mid 7 and has been maintained on a combination of Tradjenta 5 mg a day, Prandin 2 mg twice a day, Glucophage 1000 mg twice a day will keep patient on NovoLog Accu-Chek with sliding scales coverage and he was on Mounjaro total of 12.5 mg a day which was helping quite bit. Patient was hypoglycemic overnight, blood sugar was 49 which increased to 94 after hypoglycemic protocol, patient has been off Mounjaro and Glucophage while inpatient and has not received any insulin this admission, will try decreasing Prandin to 1mg twice a day and see if this helps. _ Chronic kidney disease: Mostly stage IIIa: Continue to watch for any nephrotoxic agent, creatinine was 1.45 yesterday, EGFR 50, labs for today are pending. _Multiple coronary artery disease: Post CABG in the past with stent placement in the past as well last heart catheter was done 2 years ago with total occlusion of the distal right coronary artery this is in-stent occlusion with intermediate disease of the OM. He is still seen cardiology regular basis and still medical management. _ Chronic pain syndrome: Remain on Butrans and hydrocodone has been doing much better still on Lyrica as well. _Hypertension: Remain on combination of losartan 25 mg a day metoprolol succinate 100 mg daily. _Hyperlipidemia: Continue atorvastatin 80 mg a day with target for LDL below 70. _Chronic diabetic peripheral neuropathy: Has been on Lyrica 150 mg twice a day still on duloxetine as well. _Mild COPD: Has been on rescue inhaler mostly not require any oxygen lately and doing very well. Currently 100% on room air. _Severe recurrent diabetic foot with multiple ulcer and infection site: Post IV and oral antibiotic management continue topical care as well patient seen vascular and infectious disease on regular basis. Discussion: IV antibiotic was arranged as daptomycin 650 mg IV daily for total of 14 days. PICC line was done the patient will be ready to be discharged on IV antibiotics. Hospital course: Patient was admitted to the hospital and responded to culture done from the right big toe infected area along with x-ray came back with right big toe osteomyelitis with cultures positive for MRSA not susceptible to doxycycline which patient was placed on as an outpatient from the before. He brought to the hospital on 01/19/2020 for start vancomycin IV consult infectious disease and vascular. Topical care with Silvadene cream was initiated continue current management the big toe within 24 hours appeared to be doing much better. Infectious disease decided to arrange for three-phase bone scan which came back positive for osteomyelitis. This point infectious disease decision is to continue patient on IV antibiotics for total of 6 weeks antibiotic was switched to daptomycin patient had a PICC line and will be discharged home on IV infusion as an outpatient to complete the course and follow-up with infectious disease in our office as an outpatient within the next few days and every 2 weeks till he is done with the treatment. Kidney function initially was kind of problem With worsening kidney function mostly stage III patient was seen in infectious disease with lowering the effect of medication along with any nephrotoxic agent being off kidney function has improved some GFR but the last day was 57. No fever or chills white blood cell responded nicely to the current management no worsening kidney function with his lab work creatinine remained at 1.31 surprisingly sed rate and C-reactive protein continues to be quite a bit low through the whole process. Patient is very stable pain is under control the area is not draining and kind of a dry will send patient home on 01/23/2024. Time spent on patient discharge was over 35 minutes. Plan - Discharge Summary Discharge Rx Participant: Yes New Discharge Prescriptions: New DAPTOmycin [Cubicin] 650 mg IV DAILY #40 each Continue Pregabalin [Lyrica] 150 mg PO BID Buprenorphine [Butrans 10 MCG/HOUR] 1 patch TRANSDERM FR Metoprolol Succinate (ER) [Toprol XL] 100 mg PO DAILY Losartan [Cozaar] 25 mg PO DAILY calcitrioL [Rocaltrol] 0.25 mcg PO OROPEZA Famotidine [Pepcid] 20 mg PO BID Tirzepatide [Mounjaro] 12.5 mg SQ SA allopurinoL [Zyloprim] 100 mg PO PC-LUNCH Fluticasone Nasal [place] [Flonase Nasal [place]] 2 spr EA NOSTRIL DAILY Linagliptin [Tradjenta] 5 mg PO DAILY Magnesium Oxide [Mag-Ox] 400 mg PO AC-BID@1200,1800 Repaglinide [Prandin] 2 mg PO BID DULoxetine HCL [Cymbalta] 60 mg PO DAILY Albuterol Sulfate [Ventolin HFA] 2 puff INHALATION RT-Q4H PRN PRN Reason: Shortness Of Breath metFORMIN HCL [Glucophage] 1,000 mg PO BID Ferrous Sulfate [Iron (65 MG Elemental)] 325 mg PO PC-LUNCH Baclofen [Lioresal] 10 mg PO TID Discontinued Doxycycline Hyclate 100 mg PO BID Rosuvastatin Calcium [Crestor] 40 mg PO DAILY Discharge Medication List Fluticasone Nasal [place] [Flonase Nasal [place]] 2 spr EA NOSTRIL DAILY 04/18/21 [History] Linagliptin [Tradjenta] 5 mg PO DAILY 04/18/21 [History] Magnesium Oxide [Mag-Ox] 400 mg PO AC-BID@1200,1800 04/18/21 [History] Pregabalin [Lyrica] 150 mg PO BID 04/18/21 [History] allopurinoL [Zyloprim] 100 mg PO PC-LUNCH 04/18/21 [History] Repaglinide [Prandin] 2 mg PO BID 05/02/22 [History] Buprenorphine [Butrans 10 MCG/HOUR] 1 patch TRANSDERM FR 11/05/22 [History] DULoxetine HCL [Cymbalta] 60 mg PO DAILY 11/05/22 [History] Albuterol Sulfate [Ventolin HFA] 2 puff INHALATION RT-Q4H PRN 03/05/23 [History] Ferrous Sulfate [Iron (65 MG Elemental)] 325 mg PO PC-LUNCH 03/05/23 [History] Losartan [Cozaar] 25 mg PO DAILY 03/05/23 [History] Metoprolol Succinate (ER) [Toprol XL] 100 mg PO DAILY 03/05/23 [History] metFORMIN HCL [Glucophage] 1,000 mg PO BID 03/05/23 [History] Baclofen [Lioresal] 10 mg PO TID 01/19/24 [History] Famotidine [Pepcid] 20 mg PO BID 01/19/24 [History] Tirzepatide [Mounjaro] 12.5 mg SQ SA 01/19/24 [History] calcitrioL [Rocaltrol] 0.25 mcg PO OROPEZA 01/19/24 [History] DAPTOmycin [Cubicin] 650 mg IV DAILY #40 each 01/23/24 [Rx] Follow up Appointment(s)/Referral(s): Andrew Pierce MD [Primary Care Provider] - 1-2 days Lillie Valenzuela DO [STAFF PHYSICIAN] - 2 Weeks [facility], [NON-STAFF] - As Needed ([facility] will call you to schedule your visits to begin home IV antibiotics. Your first visit will be the day after discharge from the hospital. ) [facility], [REFERRING] - As Needed ([facility] will deliver supplies to your house on the evening of discharge between 6-8pm. ) Zain Cui DO [STAFF PHYSICIAN] - 1 Week Sherri Becker MD [STAFF PHYSICIAN] - 1 Week Ambulatory/Diagnostic Orders: Basic Metabolic Panel [LAB.AMB] Location: None Selected C Reactive Protein [LAB.AMB] Location: None Selected Complete Blood Count w/diff [LAB.AMB] Location: None Selected Comprehensive Metabolic Panel [LAB.AMB] Location: None Selected Erythrocyte Sedimentation Rate [LAB.AMB] Location: None Selected Discharge Disposition: HOME SELF-CARE
== END 2024-01-23 15:54 | disposition home or self-care (01) | DRG 638 ==
LOC: EC 14:50 → 6NMEDSUR 17:28 → 1SOBS 18:14 → 5NMEDONC 23:28 → 1SOBS 01-20 11:26 → 5NMEDONC 01-21 17:29
PROVIDERS: ADMIT Internal Medicine Geriatric Medicine; ATTEND Internal Medicine Geriatric Medicine
PROC: 02HV33Z Insertion of Infusion Device into Superior Vena Cava, Percutaneous Approach (ICD-10-PCS; principal; 2024-01-23 18:30)
DX: E11.69 Type 2 diabetes mellitus with other specified complication (principal); L03.115 Cellulitis of right lower limb; M86.8X7 Other osteomyelitis, ankle and foot; Z16.29 Resistance to other single specified antibiotic; L97.516 Non-pressure chronic ulcer of other part of right foot with bone involvement without evidence of necrosis; E11.22 Type 2 diabetes mellitus with diabetic chronic kidney disease; E11.649 Type 2 diabetes mellitus with hypoglycemia without coma; E11.51 Type 2 diabetes mellitus with diabetic peripheral angiopathy without gangrene; E11.42 Type 2 diabetes mellitus with diabetic polyneuropathy; E11.621 Type 2 diabetes mellitus with foot ulcer; E11.628 Type 2 diabetes mellitus with other skin complications; I70.203 Unspecified atherosclerosis of native arteries of extremities, bilateral legs; N18.31 Chronic kidney disease, stage 3a; Z89.422 Acquired absence of other left toe(s); Z89.421 Acquired absence of other right toe(s); I25.82 Chronic total occlusion of coronary artery; J44.89 Other specified chronic obstructive pulmonary disease; I12.9 Hypertensive chronic kidney disease with stage 1 through stage 4 chronic kidney disease, or unspecified chronic kidney disease; B95.62 Methicillin resistant Staphylococcus aureus infection as the cause of diseases classified elsewhere; I25.10 Atherosclerotic heart disease of native coronary artery without angina pectoris; L03.031 Cellulitis of right toe; G89.4 Chronic pain syndrome; E78.5 Hyperlipidemia, unspecified; G47.30 Sleep apnea, unspecified; Z22.321 Carrier or suspected carrier of Methicillin susceptible Staphylococcus aureus; Z79.84 Long term (current) use of oral hypoglycemic drugs; Z95.1 Presence of aortocoronary bypass graft; Z95.5 Presence of coronary angioplasty implant and graft; Z87.891 Personal history of nicotine dependence; Z79.85 Long-term (current) use of injectable non-insulin antidiabetic drugs; Z87.39 Personal history of other diseases of the musculoskeletal system and connective tissue; Z79.899 Other long term (current) drug therapy
CPT/HCPCS: 36415; 36573; 78315; 80053; 80202; 82565; 83605; 84100; 85025; 85652; 86140; 87040; 96365; 96366; 96372; 99285